=== PATIENT | female | born 1950 | race Caucasian/White ===

== ENCOUNTER → 2017-05-11 | Outpatient (CLI) | payer MEDICARE, SELFPAY | PROVIDERS: Visit Provider Family Medicine | DX: R91.1 Solitary pulmonary nodule (principal) | CPT/HCPCS: 71250 ==

== ENCOUNTER → 2017-10-09 13:02 | Outpatient (CLI) | payer MEDICARE, SELFPAY ==
[2017-10-09 15:04] LABS: Blood Urea Nitrogen 14 mg/dL (7-18); Creatinine,Serum 1.06 mg/dL (0.55-1.02); Estimated Glomerular Filt Rate 52 ml/min (>60); GFR (African American) 62 ML/MIN (>60)
== END ==
PROVIDERS: Visit Provider Family Medicine
DX: R27.0 Ataxia, unspecified (principal); R42 Dizziness and giddiness
CPT/HCPCS: 36415; 82565; 84520

== ENCOUNTER → 2017-10-11 09:26 | Outpatient (CLI) | payer MEDICARE, SELFPAY ==
--- NOTE | 2017-10-11 09:31 | MR_ITS ---
MR head/brain wo/w con HISTORY: Ataxia, vertigo, dizziness, off balance ITS.REASON: ATAXIA, VERTIGO ORDERING PHYSICIAN: Jaxson Ken MD PATIENT AGE: 67 years Comparison: None TECHNIQUE: Standard multiplanar multiecho sequences are performed without and with gadolinium enhancement . FINDINGS: There is mild prominence of the cisterna magna as a normal variant. The cerebellopontine angles, cerebellum, and brainstem are unremarkable. No midline shift or mass effect. No intracranial hemorrhage or hydrocephalus. No evidence of acute infarction no enhancing lesions. Small area of CSF signal intensity noted in the right subinsular region and may be due to dilated perivascular space, small choroidal fissure cyst, or old lacunar infarction. The hippocampal gyri are unremarkable in the temporal horns are symmetric. There is a partial empty sella. Optic chiasm and corpus callosum are unremarkable. No cerebellar ectopia. There are scattered periventricular and subcortical T2 white matter hyperintensities which may be due to mild ischemic gliotic foci for microvascular disease. No sinus air-fluid level or mastoid effusion. IMPRESSION: 1. No acute intracranial findings. 2. Scattered small periventricular T2 white matter hyperintensities which may be due to small ischemic gliotic foci from microvascular changes. 3. Small cystic area subinsular region on the right which may be due to a dilated perivascular space, cortical fissure cyst, or an old lacunar infarction 4. No evidence of cerebellopontine angle mass
== END ==
PROVIDERS: Visit Provider Family Medicine
DX: R42 Dizziness and giddiness
CPT/HCPCS: 70553; A9576

== ENCOUNTER → 2018-02-28 10:00 | Outpatient (CLI) | payer MEDICARE, SELFPAY ==
--- NOTE | 2018-02-28 10:02 | MM_ITS ---
MM Dig screening mamm BI w/CAD ORDERING PHYSICIAN : Jaxson Ken MD PATIENT AGE: 67 years GENDER: Female COMPARISON: March 02 January. April 2013 & 2013, INDICATION: ITS.REASON: SCREENING No hormones no new complaints. Previous cyst aspiration on left . family history. Mother with breast cancer age 76 TECHNIQUE: Standard CC and MLO images were obtained. R2 CAD reviewed. FINDINGS: Moderately dense breast prior films are helpful and supportive stable appearance with only very minor asymmetry . No suspicious dominant mass nor suspicious calcifications. Scattered benign calcifications bilaterally RIGHT BREAST:No significant new findings Area of density at the central breast on cc view is unchanged since at least 2012. Stable feature. LEFT BREAST:No significant new findings Area of mild asymmetric density at the lateral, upper-outer quadrant left breast is similar to studies dating back to at least 2015 IMPRESSION: Stable bilateral mammogram. Follow-up in one year No suspicious nor significant new findings Moderately dense breast BI-RADS Category: 2 Benign Finding(s) RECOMMENDED FOLLOW-UP: 1YR 1 YEAR FOLLOW-UP (A letter has been sent to the patient regarding results of the study.)
== END ==
PROVIDERS: PCP Family Medicine; Visit Provider Family Medicine
DX: Z12.31 Encounter for screening mammogram for malignant neoplasm of breast (principal)
CPT/HCPCS: 77067

== ENCOUNTER → 2018-09-13 07:59 | Outpatient (CLI) | payer MEDICARE, SELFPAY ==
--- NOTE | 2018-09-13 08:01 | CT_ITS ---
CT lung screening EXAM: CT LUNG LOW DOSE WO CONTRAST HISTORY: 43 pack-year smoking history ITS.REASON: HX TOBBACO USE ORDERING PHYSICIAN: Jaxson Ken MD PATIENT AGE: 68 years COMPARISON: 05/11/2017 TECHNIQUE: The exam was performed on a [employer] Light Speed [address] scanner using 2.90 mGy CTDI. A low dose helical CT CHEST was performed on a multi-detector scanner. All CT scans at the facility use one or more dose reduction, viz: automated exposure control, ma/kV adjustment per patient size (including targeted exams where dose is matched to indication, i.e. head), or iterative reconstruction technique. The LDCT was performed in a facility that meets the criteria for the screening program. Data regarding this exam was submitted to ACR which is an approved registry. The order for this exam indicates that it came as a result of a lung cancer screening counseling shard decision-making visit that included all the elements required of such a visit including smoking cessation. The radiologist interpreting this exam meets the [facility] criteria for the LDCT lung cancer screening program. The exam is reported using the Lung-RADS classification scale and reported to the ACR registry. NOTE: This study was performed for the specific purposes of lung cancer screening and is not an alternative to diagnostic chest CT. RADIATION DOSE: CTDI vol(CT dose Index-volume) = 2.90mG DLP (Dose Length Product) = 101.22 mGcm FINDINGS: Hyperinflation with attenuation of the peripheral pulmonary vessels consistent with obstructive chronic bronchitis. Small fissural nodule present in the left major fissure superiorly at 4 mm unchanged there is a 18 x 16 mm nodular soft tissue density in the anterior mediastinum on the left in the anterior paratracheal region is felt to represent substernal goiter not significantly changed. There are coronary artery calcifications. Mild prominence of the pulmonary artery with pulmonary artery/aorta ratio greater than 1 suggesting pulmonary arterial hypertension. There is mild thickening of the distal esophagus. Fibrotic changes are present in the lung bases. IMPRESSION: 1. Lung RADS Category: 2, benign 2. Other findings: COPD, coronary artery disease, substernal goiter, enlarged pulmonary artery suggesting pulmonary artery hypertension RECOMMENDATIONS: 12 month LDCT follow-up
== END ==
PROVIDERS: PCP Family Medicine; Visit Provider Family Medicine
DX: Z12.2 Encounter for screening for malignant neoplasm of respiratory organs (principal); Z87.891 Personal history of nicotine dependence

== ENCOUNTER → 2018-09-27 07:53 | Outpatient (CLI) | payer MEDICARE, SELFPAY ==
--- NOTE | 2018-09-27 | AS_ITS ---
Renal Arterial Duplex Indications: 405.91 Unspecified renovascular hypertension. F/u less than 60% stenosis right renal artery. IMPRESSIONS 1. 50% or greaterstenosis involving the right renal artery 2. The left renal artery appears normal. 3. Left proximal renal artery not visualized. History: Risk factors: Ex smoker. Complete renal arterial duplex. Duplex scan and Doppler flow study including spectral analysis, color and schmidt scale imaging. Height: Height: 165.1cm. Height: 65in. Weight: Weight: 86.2kg. Weight: 189.6lb. Body mass index: BMI: 31.6kg/m^2. Body surface area: BSA: 2.02m^2. Location: Vascular laboratory. Patient status: Outpatient. Findings: Cyst in the left lower pole cortex. Dimensions: 2cm (L). Cyst in the left mid pole cortex. Dimensions: 2cm (AP D). Tables: Arterial flow: + +--------+--------+ Location V sys V ed + +--------+--------+ Right renal - proximal 206cm/s 60.4cm/s + +--------+--------+ Right renal - mid 151cm/s 25.6cm/s + +--------+--------+ Right renal - distal 193cm/s 22.3cm/s + +--------+--------+ Left renal - mid 131cm/s 31.8cm/s + +--------+--------+ Left renal - distal 74.5cm/s 14.6cm/s + +--------+--------+ Right renal-origin 196cm/s 35.4cm/s + +--------+--------+ Aorta-prox 81.7cm/s -------- + +--------+--------+ Renal anatomy: + +------+-----+ Left Right + +------+-----+ Long axis 11.2cm 9.9cm + +------+-----+ Short axis 7.4cm 7.9cm + +------+-----+ Cortical thickness 1.4cm 1.4cm + +------+-----+ Velocity ratios: + +-----+ V sys + +-----+ Right renal/aortic 2.5 + +-----+ Left renal/aortic 1.6 + +-----+ (Report amended ) Electronically signed by: Roderick Chase [id number]
== END ==
PROVIDERS: PCP Family Medicine; Visit Provider Family Medicine
DX: I10 Essential (primary) hypertension (principal); I70.1 Atherosclerosis of renal artery
CPT/HCPCS: 93976

== ENCOUNTER → 2019-03-05 07:47 | Outpatient (CLI) | payer MEDICARE, SELFPAY ==
--- NOTE | 2019-03-05 07:50 | MM_ITS ---
PROCEDURE: MM DIG SCREENING MAMM BI W/CAD CLINICAL INDICATION: SCREENING There is a history of breast cancer in patient's mother diagnosed after menopause. There has been a previous cyst aspiration left breast for benign disease. COMPARISON: [facility] DIG MAMM-DX [facility] from 01/25/2016 [facility] DIG MAMM-SCREEN [facility] W/CAD from 02/13/2017 [facility] MM Dig screening mamm BI w/CAD from 02/28/2018 TECHNIQUE: Standard CC and MLO images were obtained. R2 CAD reviewed. FINDINGS: Or prominent somewhat heterogenic fibroglandular densities are seen in both breast. There is faint arterial calcification in each breast there are scattered benign-appearing microcalcifications in each breast. There is no suspicious lesion and no suspicious microcalcifications. IMPRESSION: Moderate heterogenic breast density with no suspicious lesions seen BI-RAD Category: 2 Benign Finding(s) FOLLOW-UP: 1YR 1 Year Follow-up (A letter has been sent to the patient regarding results of the study.) Dictated by: Dr. Skyler Mcdaniels MD 03/07/2019 16:[address] Skyler Mcdaniels MD in [place] 03/07/2019 16:16
== END ==
PROVIDERS: PCP Family Medicine; Visit Provider Family Medicine
DX: Z12.31 Encounter for screening mammogram for malignant neoplasm of breast (principal)
CPT/HCPCS: 77067

== ENCOUNTER → 2019-10-13 16:24 | Outpatient (CLI) | payer MEDICARE, SELFPAY ==
--- NOTE | 2019-10-13 | XR_ITS ---
PROCEDURE: XR CHEST 2V CLINICAL HISTORY: Shortness of breath COMPARISON: CXR1 CHEST-PORTABLE from 10/03/[address] CHEST W/O CONTRAST from 05/11/2017 CXR2V XR chest 2V from 06/05/2018 Chest from 12/14/2018 FINDINGS: There is mild cardiomegaly without failure. The lungs are clear bilaterally. The lungs are clear without infiltrates, suspicious nodules, or pleural effusions. Degenerative change thoracic IMPRESSION: Mild cardiomegaly otherwise negative Dictated by: Roderick Chase MD 10/14/2019 15:28 Electronically signed by Roderick Chase MD in [place] 10/14/2019 15:28
--- NOTE | 2019-10-13 | XR_ITS ---
PROCEDURE: XR THORACIC SPINE 2V CLINICAL INDICATION: Thoracic back pain COMPARISON: CXR2V XR chest 2V from 06/05/2018 XR CHEST 2V from 10/13/2019 FINDINGS: There is mild multilevel degenerative disc disease of the thoracic spine with decrease in the disc spaces and anterior osteophytes. No acute fracture or dislocation. No lytic or blastic change. There is minimal upper thoracic curvature convex right. IMPRESSION: Thoracic spondylosis, no acute finding Dictated by: Roderick Chase MD 10/14/2019 15:27 Electronically signed by Roderick Chase MD in [place] 10/14/2019 15:27
[2019-10-13 16:56] LABS: Basophils # 0.2 K/mm3 (0-0.2); Basophils % 2.1 % (0.1-2.0); Eosinophils # 0.3 K/mm3 (0.0-0.4); Eosinophils % 3.2 % (0.1-12.0); Hemoglobin 11.1 g/dL (12.2-16.2); Lymphocytes # 1.9 K/mm3 (0.7-4.5); Lymphocytes % 22.4 % (10-50); Mean Corpuscular HGB Conc 30.9 g/dL (31.8-35.4); Mean Platelet Volume 8.4 fl (7.4-10.4); Monocytes # 0.7 K/mm3 (0.1-1.0); Monocytes % 8.1 % (1.7-9.3); Neutrophils # 5.6 K/mm3 (1.8-7.8); Neutrophils % 64.2 % (37.0-80.0); Platelet Count 344 K/mm3 (142-424); Red Blood Count 3.83 M/mm3 (4.20-5.40); Red Cell Distribution Width 14.6 % (11.5-17.5); White Blood Count 8.7 K/mm3 (4.8-10.8)
[2019-10-13 18:10] LABS: Chloride 98 mmol/L (98-107); Potassium 5.3 mmoL/L (3.5-5.1); Sodium 131 mmol/L (136-145)
[2019-10-13 18:13] LABS: Anion Gap 14.3 mEq/L (5-15); Blood Urea Nitrogen 22 mg/dl (7-17); Carbon Dioxide 24 mmol/L (22.0-30.0); Estimated Glomerular Filt Rate 40 ml/min (>60); GFR (African American) 49 ML/MIN (>60); Glucose 145 mg/dl (74-100)
[2019-10-13 18:30] LABS: NT Pro Brain Natriuretic Pep. 343 pg/mL (0-125)
== END ==
PROVIDERS: Visit Provider Family Medicine
DX: R06.02 Shortness of breath (principal); M54.6 Pain in thoracic spine
CPT/HCPCS: 36415; 71046; 72070; 80048; 83880; 85025

== ENCOUNTER → 2019-10-29 10:37 | Outpatient (CLI) | payer MEDICARE, SELFPAY | PROVIDERS: PCP Family Medicine; Visit Provider Family Medicine | DX: R06.02 Shortness of breath (principal) | CPT/HCPCS: 93306 ==

== ENCOUNTER → 2020-02-18 14:44 | Outpatient (CLI) | payer MEDICARE, SELFPAY ==
--- NOTE | 2020-02-18 14:47 | CT_ITS ---
PROCEDURE: CT LUNG SCREENING CLINICAL INDICATION: H/O NICOTINE DEPENDENCE former smoker quit 3 years ago 30 pack year smoking history copd prior 09/13/18 COMPARISON: CT [facility] CT CHEST W/O CONTRAST from 05/11/[address] lung screening from 09/13/2018 TECHNIQUE: The exam was performed on a [employer] Light Speed [address] scanner using 2.90 mGy CTDI. A low dose helical CT CHEST was performed on a multi-detector scanner. All CT scans at the facility use one or more dose reduction, viz: automated exposure control, ma/kV adjustment per patient size (including targeted exams where dose is matched to indication, i.e. head), or iterative reconstruction technique. The LDCT was performed in a facility that meets the criteria for the screening program. Data regarding this exam was submitted to ACR which is an approved registry. The order for this exam indicates that it came as a result of a lung cancer screening counseling shard decision-making visit that included all the elements required of such a visit including smoking cessation. The radiologist interpreting this exam meets the CMS criteria for the LDCT lung cancer screening program. The exam is reported using the Lung-RADS classification scale and reported to the ACR registry. NOTE: This study was performed for the specific purposes of lung cancer screening and is not an alternative to diagnostic chest CT. RADIATION DOSE: CTDI vol(CT dose Index-volume) = 2.90mG DLP (Dose Length Product) = 95.08 mGcm FINDINGS: COPD with mild bronchial thickening. A 3 mm nodular opacity is present in the left upper lobe axial image 19 probably not significantly changed compared to an older study of 05/11/2017. No suspicious pulmonary nodules are identified. There is some scattered scarring/fibrotic change. Anterior mediastinal nodule is present as before measuring 2 cm consistent with a substernal goiter. OTHER FINDINGS: There is a small hiatal hernia. Coronary artery calcifications are present. IMPRESSION: Lung-RADS Category 2 Benign Appearance or Behavior Follow-up: Continue annual screening with LDCT in 12 months Dictated by: Roderick Chase MD 02/22/2020 13:21 Roderick Chase MD in [place] 02/22/2020 13:21
== END ==
PROVIDERS: PCP Family Medicine; Visit Provider Family Medicine
DX: Z87.891 Personal history of nicotine dependence (principal); Z12.11 Encounter for screening for malignant neoplasm of colon

== ENCOUNTER → 2020-03-25 09:40 | Outpatient (CLI) | payer MEDICARE, SELFPAY ==
--- NOTE | 2020-03-25 09:43 | MM_ITS ---
PROCEDURE: MM DIG SCREENING MAMM BI W/CAD Digital Breast Tomosynthesis Included CLINICAL INDICATION: SCREENING There is a history of breast cancer in the patient's mother diagnosed at age 76. The patient currently is on Premarin. COMPARISON: [facility] MM Dig screening mamm BI w/CAD from 02/28/2018 MG MM DIG SCREENING MAMM BI W/CAD from 03/05/2019 TECHNIQUE: Standard CC and MLO images and 3D Tomosynthesis was obtained. R2 CAD reviewed. FINDINGS: Moderate diffuse somewhat heterogenic fibroglandular densities are seen in the central portions of both breasts. There is diffuse arterial calcification in each breast. There are scattered benign-appearing microcalcifications in each breast. A CAD marking right breast was reviewed and appears to be benign. There is no suspicious lesion in either breast and no suspicious microcalcifications. IMPRESSION: Moderate stable heterogenic breast density with no suspicious lesions seen BI-RAD Category: 2 Benign Finding(s) FOLLOW-UP: 1YR 1 Year Follow-up (A letter has been sent to the patient regarding results of the study.) Dictated by: Dr. Skyler Mcdaniels MD 03/26/2020 11:17 Dr. Skyler Mcdaniels MD in [place] 03/26/2020 11:17
== END ==
PROVIDERS: PCP Family Medicine; Visit Provider Family Medicine
DX: Z12.31 Encounter for screening mammogram for malignant neoplasm of breast (principal)
CPT/HCPCS: 77063; 77067

== ENCOUNTER 2020-08-27 12:00 | Outpatient (CLI) | payer MEDICARE, SELFPAY ==
[2020-08-27 12:26] VITALS: BMI 31.1
[2020-08-27 12:30] VITALS: BP 124/53; PULSE 71; RESP 18; TEMP 36.5; O2SAT 98
[2020-08-27 13:40] VITALS: BP 150/64; PULSE 74; RESP 18
[2020-08-27 13:55] LABS: Chloride 96 mmol/L (98-107); Sodium 132 mmol/L (136-145)
[2020-08-27 13:56] LABS: Potassium 4.4 mmoL/L (3.5-5.1)
[2020-08-27 13:58] LABS: Blood Urea Nitrogen 22 mg/dl (7-17); Creatinine Clearance Estimated 53 mL/min (50-200); Estimated Glomerular Filt Rate 40 ml/min (>60); GFR (African American) 49 ML/MIN (>60)
[2020-08-27 13:59] LABS: Anion Gap 15.4 mEq/L (5-15); Carbon Dioxide 25 mmol/L (22.0-30.0); Glucose 108 mg/dl (74-100)
[2020-08-27 14:07] LABS: Calcium 15.2 mg/dl (8.4-10.2)
--- NOTE | 2020-08-27 14:13 | PC.NURSE ---
1413-notified eli barboza at ' office about critical calcium 15.2; per pt to f/u in office about calcium.
== END 2020-08-27 13:40 | disposition home or self-care (01) ==
LOC: INF 12:00
PROVIDERS: PCP Family Medicine; Visit Provider Family Medicine
DX: R30.0 Dysuria (principal)
CPT/HCPCS: 36415; 80048; 96365; J1335

== ENCOUNTER 2020-08-27 19:16 | Observation (INO) | payer MEDICARE, SELFPAY ==
[2020-08-27] VITALS (7 sets, daily range): BP systolic 185–224; BP diastolic 72–84; PULSE 72–78; RESP 18–19; TEMP 36.9; O2SAT 87–99; BMI 31.1
--- NOTE | 2020-08-27 19:46 | HMH.EDUTC ---
[facility] Disposition Condition on Discharge: Fair Time of Disposition: 20:01 <Yadira Valiente E - Last Filed: 08/27/20 19:46> <Reji Chung - Last Filed: 08/27/20 23:37> Clinical Impression: Hypercalcemia, Heart murmur, systolic Vomiting Qualifiers: Vomiting type: unspecified Vomiting Intractability: unspecified Nausea presence: with nausea Qualified Code(s): R11.2 - Nausea with vomiting, unspecified UTI (urinary tract infection) Qualifiers: Urinary tract infection type: site unspecified Hematuria presence: without hematuria Qualified Code(s): N39.0 - Urinary tract infection, site not specified Disposition: Admitted as Observation Referrals: Jaxson Ken MD [Primary Care Provider] - Medical Decision Making - Danial Inquiry Pt receiving controlled substance: No Danial was queried for this patient: No <Yadira Valiente - Last Filed: 08/27/20 19:46> - Medical Records Medical records reviewed: Yes: I reviewed the patient's medical records. - Lab Data Lab results reviewed: Yes: I reviewed the patient's lab results. Result diagrams: 08/27/20 20:40 08/27/20 20:40 - Radiology Data #1 Image(s): Chest Image Reviewed: Yes I reviewed the patient's radiology image Preliminary Findings: Normal/NAD - CT Data CT Scan: Abdomen, Pelvis Time Received: 23:[address] Reviewed: Yes: I have viewed the radiologist's interpretation Preliminary Findings: Abnormal (cystitis ) - ECG Data Tracing #1 Normal Sinus Rhythm: Yes Ischemic changes: non-specific ST-T wave changes - Physician Consults Physician Consulted: melina Reason -: Admission <Reji Chung - Last Filed: 08/27/20 23:37> Vital Signs: 08/27/20 19:20 08/27/20 19:47 08/27/20 20:03 Temperature 98.5 F 98.5 F Temperature Source Oral Oral Pulse Rate [Left Brachial] 78 74 74 Respiratory Rate 19 18 Blood Pressure [Left Arm] 198/73 H 185/72 H 185/72 H Blood Pressure Mean [Left Arm] 114 109 109 Blood Pressure Source [Left Arm] Automatic Cuff Manual Cuff/ Auscultation Automatic Cuff Blood Pressure Position [Left Arm] Sitting Supine Supine 02 Sat by Pulse Oximetry 91 L 87 L 89 L Oxygen Delivery Method Room Air Nasal Cannula Room Air Oxygen Flow Rate (LPM) 2 - Lab Data Lab Results 08/27/20 20:40: WBC 9.7, RBC 4.22, Hgb 12.3, Hct 39.3, MCV 93.1, MCH 29.2, MCHC 31.4 L, RDW 13.9, Plt Count 469 H, MPV 8.5, Neut % (Auto) 75.0, Lymph % (Auto) 16.5, [place] % (Auto) 6.4, Eos % (Auto) 1.4, Baso % (Auto) 0.7, Neut # (Auto) 7.3, Lymph # (Auto) 1.6, [place] # (Auto) 0.6, Eos # (Auto) 0.1, Baso # (Auto) 0.1, ESR 11 08/27/20 20:40: Sodium 132 L, Potassium 4.0, Chloride 94 L, Carbon Dioxide 30, Anion Gap 12.0, BUN 23 H, Creatinine 1.50 H, Estimated Creat Clear 46, Estimated GFR 34 L, Est GFR ( Amer) 41 L, Glucose 129 H, Calcium 15.1 H*, Total Bilirubin 0.5, AST 32, ALT 19, Alkaline Phosphatase 42, Troponin I < 0.01, C-Reactive Protein 2.0, Total Protein 7.3, Albumin 4.4, Globulin 2.9, Albumin/Globulin Ratio 1.5, Amylase 49, Lipase 62, Procalcitonin 0.047 08/27/20 23:15: Urine Color Yellow, Urine Appearance Clear, Urine pH 6.0, Ur Specific [place] 1.025, Urine Protein Negative, Urine Glucose (UA) Negative, Urine Ketones Negative, Urine Blood Negative, Urine Nitrate Positive, Urine Bilirubin Negative, Urine Urobilinogen 0.2, Ur Leukocyte Esterase 2+ A, Urine RBC None, Urine WBC Tntc, Ur Squamous Epith Cells None, Urine Bacteria 2+ Orders (Tests/Meds): ED MEDICATIONS Generic Name Dose Route Start Last Admin Trade Name Freq PRN Reason Stop Dose Admin Sodium Chloride 1,000 mls @ 999 mls/hr 08/27/20 20:45 08/27/20 22:34 Sod Chlor 0.9% 1000ml Bag IV 08/27/20 21:45 999 mls/hr .Q1H1M RUSS Administration Sodium Chloride 8 ml 08/27/20 20:37 Sodium Chloride 0.9% 10ml Vial IV 09/26/20 20:36 NEEDED PRN dilute pepcid Discontinued Medications Generic Name Dose Route Start Last Admin Trade Name Freq PRN Reason Stop Dose Admin Diphen
--- NOTE | 2020-08-27 19:55 | PC.NURSE ---
PATIENT SENT TO ER PER MELINA ROSS APRN FOR FURTHER EVALUATION. REPORT GIVEN TO Berna ESTRELLA RN
--- NOTE | 2020-08-27 19:57 | ECG_ITS ---
APPROVED REPORT Exam: Resting ECG HR:74 bpm ECG Measurements Heart Rate 74 AXES IA 162 P 48 QRSd 94 QRS 17 QT 376 T 70 QTc 417 Conclusion Normal sinus rhythm Normal ECG Electronically signed by : Jaxson Jean, 08/29/2020 07:28:41
--- NOTE | 2020-08-27 20:37 | CT_ITS ---
PROCEDURE: CT ABDOMEN PELVIS W CON CLINICAL INDICATION: N/V x 3 days Nausea and vomiting, stomach pain COMPARISON: No exams were available for comparison TECHNIQUE: IV Contrast: 75ML Isovue 370 Oral Contrast None Axial images obtained with sagittal and coronal reformats. All CT scans at the facility use one or more dose reduction, viz: automated exposure control, ma/kV adjustment per patient size (including targeted exams where dose is matched to indication, i.e. head), or iterative reconstruction technique. FINDINGS: LOWER THORAX: No acute finding ABDOMEN & PELVIS: Prior cholecystectomy with mild biliary ectasia. No focal liver lesion apparent. There is distention of the stomach which is fluid-filled and mild fluid-filled distention of the duodenal bulb. The spleen an adrenal glands and pancreas have an unremarkable appearance. 1.9 cm isodense lesion of the left kidney superiorly and laterally indeterminate. There are small bilateral renal cortical cysts. No intestinal obstruction or free air. There is a moderate amount of retained colonic feces. Unremarkable appendix. Mild urinary bladder wall thickening. There is minimal calcification in the fundus of the uterus. Small left inguinal hernia containing fat. Small umbilical hernia containing fat. Mild degenerative changes thoracic spine. Minimal dilatation of the infrarenal abdominal aorta at 2.3 cm. Aortoiliac calcifications are present. Mild degenerative changes of the hips. IMPRESSION: 1. Indeterminate isodense lesion of the left kidney at 1.9 cm. Consider ultrasound for further evaluation to determine cystic or solid nature. 2. There is mild urinary bladder wall thickening which may be seen with incomplete distension, chronic outflow obstruction, or cystitis. 3. Constipation with colonic diverticulosis and no evidence of diverticulitis. 4. Fluid-filled mildly distended stomach and duodenal bulb Dictated by: Roderick Chase MD 08/28/2020 10:41 Roderick Chase MD in [place] 08/28/2020 10:41
--- NOTE | 2020-08-27 20:37 | XR_ITS ---
PROCEDURE: XR CHEST 2V CLINICAL HISTORY: chest pain COMPARISON: CT [facility] CT CHEST W/O CONTRAST from 05/11/2017 CR CXR2V XR chest 2V from 06/05/2018 CR Chest from 12/14/2018 CR XR CHEST 2V from 10/13/2019 FINDINGS: The cardiomediastinal silhouette and pulmonary vascularity are within normal limits. The lungs are clear without infiltrates, suspicious nodules, or pleural effusions. No acute bony abnormalities. IMPRESSION: No acute findings. Dictated by: Roderick Chase MD 08/28/2020 08:06 Roderick Chase MD in [place] 08/28/2020 08:06
[2020-08-27 20:46] LABS: Basophils # 0.1 K/mm3 (0-0.2); Basophils % 0.7 % (0.1-2.0); Eosinophils # 0.1 K/mm3 (0.0-0.4); Eosinophils % 1.4 % (0.1-12.0); Hematocrit 39.3 % (37.0-47.0); Hemoglobin 12.3 g/dL (12.2-16.2); Lymphocytes # 1.6 K/mm3 (0.7-4.5); Lymphocytes % 16.5 % (10-50); Mean Corpuscular HGB Conc 31.4 g/dL (31.8-35.4); Mean Corpuscular Hemoglobin 29.2 pg (27.0-31.2); Mean Corpuscular Volume 93.1 fl (81-99); Mean Platelet Volume 8.5 fl (7.4-10.4); Monocytes # 0.6 K/mm3 (0.1-1.0); Monocytes % 6.4 % (1.7-9.3); Neutrophils # 7.3 K/mm3 (1.8-7.8); Platelet Count 469 K/mm3 (142-424); Red Blood Count 4.22 M/mm3 (4.20-5.40); Red Cell Distribution Width 13.9 % (11.5-17.5); White Blood Count 9.7 K/mm3 (4.8-10.8)
[2020-08-27 20:47] LABS: Chloride 94 mmol/L (98-107); Sodium 132 mmol/L (136-145)
[2020-08-27 20:50] LABS: Alanine Aminotransferase 19 U/L (12-78); Alkaline Phosphatase 42 U/L (38-126); Amylase 49 U/L (30-110); Aspartate Amino Transferase 32 U/L (14-36); Bilirubin,Total 0.5 mg/dl (0.2-1.3); Blood Urea Nitrogen 23 mg/dl (7-17); Carbon Dioxide 30 mmol/L (22.0-30.0); Creatinine Clearance Estimated 46 mL/min (50-200); Estimated Glomerular Filt Rate 34 ml/min (>60); GFR (African American) 41 ML/MIN (>60); Glucose 129 mg/dl (74-100); Lipase 62 U/L (23-300)
[2020-08-27 20:51] LABS: Albumin Level 4.4 g/dl (3.5-5.0); Albumin/Globulin Ratio 1.5 (1.1-1.8); Globulin 2.9 g/dL (1.3-3.2); Total Protein,Serum 7.3 g/dl (6.3-8.2)
--- NOTE | 2020-08-27 20:58 | PC.NURSE ---
JORGITO SIMON notified of critical Ca
[2020-08-27 21:00] LABS: Calcium 15.1 mg/dl (8.4-10.2)
[2020-08-27 21:07] LABS: Troponin I < 0.01 ng/ml (0.00-0.034)
[2020-08-27 21:13] LABS: Procalcitonin 0.047 ng/mL (0.0-2.0)
[2020-08-27 21:21] LABS: Erythrocyte Sedimentation Rate 11 mm/hr (0-30)
--- NOTE | 2020-08-27 22:11 | PC.NURSE ---
pt gone to radiology
[2020-08-27 23:17] LABS: Microscopic, Urine URINE MICROSCOPIC (MICROSCOPIC)
[2020-08-27 23:19] LABS: Appearance,Urine CLEAR (Clear); Bilirubin,Urine Negative (Negative); Blood, Urine Negative (Negative); Color,Urine YELLOW (Yellow); Glucose,Urine (UA) Negative (Negative); Ketones,Urine Negative (Negative); Leukocyte Esterase,Urine 2+ (Negative); Nitrate,Urine POSITIVE (Negative); Protein,Urine Negative (Negative); Specific Gravity, Urine 1.025 (1.005-1.030); Urobilinogen,Urine 0.2 EU/dl (0.2)
[2020-08-27 23:28] LABS: Bacteria,Urine 2+ /lpf; WBC,Urine TNTC #/hpf (0-3)
[2020-08-27 23:45] LABS: Adenovirus,PCR Not Detected (NotDetected); Bordetella Pertussis Not Detected (NotDetected); Chlamydophila Pneumoniae, PCR Not Detected (NotDetected); Coronavirus 19, PCR Not Detected (NotDetected); Coronavirus 229E Not Detected (NotDetected); Coronavirus NL63 Not Detected (NotDetected); Coronavirus OC43 Not Detected (NotDetected); Coronovirus HKU1,PCR Not Detected (NotDetected); Human Metapneumovirus Not Detected (NotDetected); Influenza A, PCR Not Detected (NotDetected); Influenza AH1, 2009 Not Detected (NotDetected); Influenza AH1, PCR Not Detected (NotDetected); Influenza AH3,PCR Not Detected (NotDetected); Influenza B, PCR Not Detected (NotDetected); Mycoplasma Pneumoniae, PCR Not Detected (NotDetected); Parainfluenza 1, PCR Not Detected (NotDetected); Parainfluenza 2, PCR Not Detected (NotDetected); Parainfluenza 3, PCR Not Detected (NotDetected); Parainfluenza 4, PCR Not Detected (NotDetected); Respiratory Syncytial Virus Not Detected (NotDetected); Rhinovirus/Enterovirus Not Detected (NotDetected)
[2020-08-27 23:55] LABS: Phosphorous 4.4 mg/dl (2.5-4.5)
[2020-08-28] VITALS (13 sets, daily range): BP systolic 157–214; BP diastolic 55–81; PULSE 65–80; RESP 16–20; TEMP 36.6–36.9; O2SAT 90–98; BMI 31.1
[2020-08-28 00:07] LABS: 25-OH Vitamin D, Total 36.4 ng/mL (30-100)
[2020-08-28 00:08] LABS: Intact Parathyroid Hormone 3.6 pg/mL (7.5-53.5)
[2020-08-28 00:13] LABS: Free T4 (Free Thyroxine) 1.86 ng/dl (0.78-2.19)
[2020-08-28 00:14] LABS: Troponin I < 0.01 ng/ml (0.00-0.034)
[2020-08-28 00:33] LABS: Basophils # 0.1 K/mm3 (0-0.2); Basophils % 0.6 % (0.1-2.0); Eosinophils % 0.2 % (0.1-12.0); Hematocrit 38.9 % (37.0-47.0); Hemoglobin 12.4 g/dL (12.2-16.2); Lymphocytes # 0.9 K/mm3 (0.7-4.5); Lymphocytes % 10.5 % (10-50); Mean Corpuscular Hemoglobin 29.3 pg (27.0-31.2); Mean Corpuscular Volume 91.6 fl (81-99); Mean Platelet Volume 7.6 fl (7.4-10.4); Monocytes # 0.2 K/mm3 (0.1-1.0); Monocytes % 1.7 % (1.7-9.3); Neutrophils # 7.5 K/mm3 (1.8-7.8); Platelet Count 355 K/mm3 (142-424); Red Blood Count 4.25 M/mm3 (4.20-5.40); Red Cell Distribution Width 13.8 % (11.5-17.5); White Blood Count 8.7 K/mm3 (4.8-10.8)
[2020-08-28 00:34] LABS: MANUAL DIFFERENTIAL MANUAL DIFFERENTIAL (MANUAL DIFF)
[2020-08-28 00:40] LABS: Anion Gap 11.1 mEq/L (5-15); Blood Urea Nitrogen 21 mg/dl (7-17); Carbon Dioxide 28 mmol/L (22.0-30.0); Chloride 98 mmol/L (98-107); Creatinine Clearance Estimated 53 mL/min (50-200); Estimated Glomerular Filt Rate 40 ml/min (>60); GFR (African American) 49 ML/MIN (>60); Glucose 147 mg/dl (74-100); Magnesium 1.2 mg/dl (1.6-2.3); Potassium 4.1 mmoL/L (3.5-5.1); Sodium 133 mmol/L (136-145)
[2020-08-28 01:26] LABS: Lymphocytes % 8 % (10-50); Monocytes % 2 % (2-9); Neutrophils % 90 % (42-76); Platelet Estimate Normal; RBC Morphology Normal; Total Cells Counted 100
--- NOTE | 2020-08-28 03:16 | PC.NURSE ---
A&OX4. PT TOLERATING RA WELL T/O SHIFT, SAT IN LOWER 90S. PT IS SLIGHTLY WEAK T/O SHIFT. PT HAS HAD NO C/O NA/VO OR PAIN THUS FAR THIS SHIFT. PT TOLERATING NPO DIET WELL. PT GETTING UP TO BEDSIDE COMMODE INDEPENDENTLY WITH NO ISSUE. NSR ON TELE. PT DAUGHTER AT BEDSIDE. VSS WILL CONTINUE TO MONITOR.
[2020-08-28 03:23] LABS: Troponin I 0.02 ng/ml (0.00-0.034)
[2020-08-28 05:12] LABS: POC Glucose,Bedside 178 (70-110)
--- NOTE | 2020-08-28 08:02 | XR_ITS ---
PROCEDURE: XR LUMBAR SPINE 2-3V CLINICAL INDICATION: low back pain, hypercalcemia, r/o malignance COMPARISON: No exams were available for comparison FINDINGS: Lumbar scoliosis convex right. Degenerative disc disease T11-T12 T12-L1 L2-L3. Generalized vascular calcification. No acute fracture or dislocation. No lytic blastic change. Other findings:None. IMPRESSION: Degenerative changes, no acute finding Dictated by: Roderick Chase MD 08/28/2020 11:22 Roderick Chase MD in [place] 08/28/2020 11:22
[2020-08-28 08:16] LABS: Basophils % 0.4 % (0.1-2.0); Eosinophils % 0.3 % (0.1-12.0); Hematocrit 36.9 % (37.0-47.0); Hemoglobin 11.6 g/dL (12.2-16.2); Lymphocytes # 0.8 K/mm3 (0.7-4.5); Lymphocytes % 11.8 % (10-50); Mean Corpuscular HGB Conc 31.5 g/dL (31.8-35.4); Mean Corpuscular Hemoglobin 29.3 pg (27.0-31.2); Mean Corpuscular Volume 93.2 fl (81-99); Mean Platelet Volume 7.9 fl (7.4-10.4); Monocytes # 0.1 K/mm3 (0.1-1.0); Monocytes % 1.3 % (1.7-9.3); Neutrophils % 86.1 % (37.0-80.0); Platelet Count 367 K/mm3 (142-424); Red Blood Count 3.96 M/mm3 (4.20-5.40); Red Cell Distribution Width 13.9 % (11.5-17.5)
[2020-08-28 08:31] LABS: Chloride 100 mmol/L (98-107); Potassium 4.2 mmoL/L (3.5-5.1); Sodium 133 mmol/L (136-145)
[2020-08-28 08:34] LABS: Anion Gap 9.2 mEq/L (5-15); Blood Urea Nitrogen 24 mg/dl (7-17); Carbon Dioxide 28 mmol/L (22.0-30.0); Creatinine Clearance Estimated 53 mL/min (50-200); Estimated Glomerular Filt Rate 40 ml/min (>60); GFR (African American) 49 ML/MIN (>60)
[2020-08-28 08:35] LABS: Glucose 167 mg/dl (74-100)
--- NOTE | 2020-08-28 09:01 | HMH.HP ---
*Admission Date: 08/28/20 *Chief complaint: Vomiting *History of present illness: 70-year-old female presented to the emergency department with nausea and vomiting as well as some crampy abdominal pain. Patient has been battling urinary tract infection as an outpatient for the last several months and decision had finally been made to proceed with IV Invanz. Patient contact the office yesterday stating she believed the Cipro she was taking was causing her GI disturbance. Patient came to the hospital and underwent preinfusion labs which did reveal an elevated calcium. This is quite a marked difference compared to 2 months prior when her calcium was normal. Patient proceeded with IV Invanz infusion and then upon returning home developed vomiting. Vomiting persisted throughout the evening and patient returned to the urgent treatment clinic yesterday evening and was transitioned to the ER were calcium remained elevated. Patient was admitted with diagnosis of hypercalcemia. She was started on IV fluids. Overnight her vomiting has ceased and nausea was treated with medication. In regards to her hypercalcemia patient does take calcium supplementation as well as vitamin D. She denies any significant bone pain but admits that her lower back has been sore. Patient has no personal history of cancer [facility] History Medical History: Reports:: Diabetes Mellitus Type 2, Hypertension, Myocardial Infarction Denies:: Diabetes Mellitus Type 1 *Have you ever received a pneumonia vaccine?: Yes *Have you received a flu vaccine this season?: Yes Other Surgeries: Yes: Tubal Ligation - *Social History Smoking Status: Former smoker Alcohol Intake: never *Occupational Status:: retired *Travel in the last 8 weeks: None Family Hx:: No significant family history Review of Systems - Constitutional Reports anorexia, Denies body ache(s), Denies chills - Eyes Denies blind spots - ENT Reports abnormal hearing - *Cardiovascular Denies chest pain - *Respiratory Denies change in phlegm color - *Gastrointestinal Reports abdominal pain, Reports cramping, Reports vomiting - *Genitourinary Reports painful urination - *Musculoskeletal Denies joint pain - Integumentary/Breasts Denies acne - *Neurologic Reports abnormal walking, Denies seizure-like activity Meds Home Medications Medication Instructions Recorded Confirmed Type Aspirin [Ecotrin] 325 mg PO DAILY 06/05/18 08/28/20 History Ezetimibe/Simvastatin [Vytorin 1 each PO HS 06/05/18 08/28/20 History 10-20 mg Tablet] Fenofibrate Nanocrystallized 145 mg PO DAILY 06/05/18 08/28/20 History [Fenofibrate] Hydralazine HCl 100 mg PO TID 06/05/18 08/28/20 History Insulin Glargine,Hum.rec.anlog 30 unit SQ DAILY 06/05/18 08/28/20 History [Lantus Insulin 100units/mL 10mL vial] Metformin HCl 1,000 mg PO DAILY 06/05/18 08/28/20 History Metoclopramide HCl [Reglan 10mg 10 mg PO QID 06/05/18 08/28/20 History Tab] Nitroglycerin [Nitrostat 0.4mg SL 0.4 mg SL NEEDED PRN 06/05/18 08/27/20 History Tablet] Pantoprazole Sodium [Protonix 40mg 40 mg PO DAILY 06/05/18 08/28/20 History tablet] Ranolazine [Ranexa 500mg ER tablet] 500 mg PO BID 06/05/18 08/28/20 History Trazodone HCl 75 mg PO HS 06/05/18 08/28/20 History Venlafaxine HCl [Venlafaxine HCl 75 mg PO DAILY 06/05/18 08/28/20 History ER] Verapamil HCl [Verapamil ER Pm] 360 mg PO DAILY 06/05/18 08/28/20 History lisinopriL [Lisinopril 40mg Tablet] 40 mg PO DAILY 06/05/18 08/28/20 History Torsemide 10 mg PO DAILY PRN 12/14/18 08/28/20 History Calcium Carbonate [Calcium] 600 mg PO BID 08/27/20 08/28/20 History Dorzolamide HCl/Pf [Dorzolamide 2% 10 ml OP BID 08/27/20 08/28/20 History Eye Drop] Ezetimibe/Simvastatin 1 each PO HS 08/27/20 08/28/20 History [Ezetimibe-Simvastatin 10-10 mg] Latanoprost/Pf [Latanoprost 0.005% 1 drp OP BID 08/27/20 08/28/20 History Eye Drop] Nebivolol HCl [Bystolic] 5 mg PO HS 08/27
[2020-08-28 09:10] LABS: 25-OH Vitamin D, Total 37.5 ng/mL (30-100)
[2020-08-28 09:11] LABS: Intact Parathyroid Hormone 4.9 pg/mL (7.5-53.5)
[2020-08-28 10:56] LABS: POC Glucose,Bedside 185 (70-110)
[2020-08-28 12:27] LABS: Calcium 13.3 mg/dl (8.4-10.2)
--- NOTE | 2020-08-28 15:16 | HMH.PHAVTE ---
[facility] VTE Monitoring - Patient Demographics Admission date: 08/28/20 Report Date: 08/28/20 Time: 15:16 Allergies/Adverse Reactions: Patient Allergies Iodinated Contrast Media [Iodinated Contrast Media - IV Dye] Allergy (Intermediate, Verified 06/05/18 18:52) I-RASH Height: 1.65 m Weight: 84.822 kg Patient Problems: Current Active Problems Vomiting (Acute) UTI (urinary tract infection) (Acute) Hypercalcemia (Acute) Heart murmur, systolic (Acute) UTI due to Klebsiella species (Acute) Diabetes mellitus type 2, controlled (Acute) - VTE Risk Labs: VTE Related Lab Results Hgb 11.6 g/dL (12.2-16.2) L 08/28/20 08:05 Hct 36.9 % (37.0-47.0) L 08/28/20 08:05 Plt Count 367 K/mm3 (142-424) 08/28/20 08:05 BUN 24 mg/dl (7-17) H 08/28/20 08:05 Creatinine 1.30 mg/dl (0.52-1.04) H 08/28/20 08:05 Estimated Creat Clear 53 mL/min (50-200) 08/28/20 08:05 - Prophylaxis VTE Prophylaxis Ordered?: Yes Types of VTE Prophylaxis: TEDS Knee High Location of Applied Device: Bilateral Lower Extremeties
[2020-08-28 16:34] LABS: POC Glucose,Bedside 130 (70-110)
--- NOTE | 2020-08-28 17:47 | PC.NURSE ---
PT IS RESTING IN BED WITH FAMILY AT BEDSIDE. NO COMPLAINTS OF DISCOMFORT. PT HAS BEEN UP TO THE BSC WITH ASSIST SEVERAL TIMES THIS SHIFT. NO COMPLAINTS OF DIZZINESS. PT WAS ABLE TO TOLERATE FULL LIQUIDS AT BREAKFAST AND LUNCH W/O N/V. DIET WAS ADVANCED TO A 2000 ADA. BATH AND BED CHANGE THIS SHIFT WITH MINIMAL THIS SHIFT WITH MINIMAL ASSISTANCE. PT AMBULATED IN THE ROOM WITH 1 ASSIST AND STATED SHE DOES NOT FEEL WEAK SHE DID YESTERDAY. LUNG SOUNDS CLEAR. ABDOMEN SOFT/NON TENDER WITH HYPOACTIVE BOWEL SOUNDS. PT STATED HER LAST BOWEL MOVEMENT WAS 5 DAYS AGO. EARLIER THIS MORNING O2 SATURATION WAS 85-87% ON ROOM AIR. 2 L OF O2 WAS APPLIED AND PT WAS GIVEN A INCENTIVE SPIROMETER. O2 WAS REMOVED AT NOON AND O2 SATURATION HAS MAINTAINED 94-96% ON ROOM AIR. WILL CONTINUE TO MONITOR.
[2020-08-28 21:43] LABS: POC Glucose,Bedside 122 (70-110)
[2020-08-29] VITALS (9 sets, daily range): BP systolic 122–167; BP diastolic 57–74; PULSE 50–73; RESP 16–20; TEMP 36.5–36.8; O2SAT 89–96; BMI 29.8
[2020-08-29 02:06] LABS: POC Glucose,Bedside 80 (70-110)
--- NOTE | 2020-08-29 03:19 | PC.NURSE ---
shift summary pts lung sounds are clear with sats maintained at 90% or above on room air, with a rate ranging from 16-20. pt is alert and oriented X4. pt started ou with walking to the bathroom tonight with assist X2, but after discussion with the pt about how weak she was pt agreed to use a bedsise commode. urine is clear and yellow in color. pt is able to walk but gets tired very quickly. pt denies any pain, nausea, vomiting, or diarrhea.c
[2020-08-29 05:59] LABS: POC Glucose,Bedside 76 (70-110)
[2020-08-29 06:33] LABS: Basophils # 0.1 K/mm3 (0-0.2); Basophils % 0.4 % (0.1-2.0); Eosinophils % 0.1 % (0.1-12.0); Hematocrit 36.9 % (37.0-47.0); Hemoglobin 11.8 g/dL (12.2-16.2); Lymphocytes # 2.9 K/mm3 (0.7-4.5); Lymphocytes % 22.2 % (10-50); Mean Corpuscular HGB Conc 32.1 g/dL (31.8-35.4); Mean Corpuscular Hemoglobin 29.2 pg (27.0-31.2); Mean Platelet Volume 7.9 fl (7.4-10.4); Monocytes % 7.4 % (1.7-9.3); Neutrophils # 9.1 K/mm3 (1.8-7.8); Neutrophils % 69.9 % (37.0-80.0); Platelet Count 381 K/mm3 (142-424); Red Blood Count 4.05 M/mm3 (4.20-5.40); Red Cell Distribution Width 13.7 % (11.5-17.5)
[2020-08-29 06:35] LABS: Chloride 95 mmol/L (98-107); Sodium 128 mmol/L (136-145)
[2020-08-29 06:36] LABS: Potassium 3.7 mmoL/L (3.5-5.1)
[2020-08-29 06:38] LABS: Anion Gap 8.7 mEq/L (5-15); Blood Urea Nitrogen 28 mg/dl (7-17); Carbon Dioxide 28 mmol/L (22.0-30.0); Creatinine Clearance Estimated 51 mL/min (50-200); Estimated Glomerular Filt Rate 40 ml/min (>60); GFR (African American) 49 ML/MIN (>60); Glucose 86 mg/dl (74-100)
[2020-08-29 06:39] LABS: Magnesium 1.4 mg/dl (1.6-2.3)
[2020-08-29 07:18] LABS: Calcium 10.3 mg/dl (8.4-10.2)
--- NOTE | 2020-08-29 08:08 | US_ITS ---
PROCEDURE: US KIDNEY CLINICAL INDICATION: left renal mass COMPARISON: CT [facility] CT CHEST W/O CONTRAST from 05/11/2017 US CA renal artery duplex from 09/27/[address] ABDOMEN PELVIS W CON from 08/27/2020 FINDINGS: The right kidney is 11 x 8 cm. There is a small cortical cyst along the medial aspect of the right kidney at 1.7 cm. No hydronephrosis. The left kidney is 10 by cm. Along lower pole there is 16 mm cyst. In the upper pole there is a 17 mm cyst corresponding to the slightly hyperdense nodule noted on the CT scan IMPRESSION: Bilateral renal cysts. The isodense nodule of the left kidney seen on recent CT scan is felt to be related to a proteinaceous cyst. Dictated by: Roderick Chase MD 08/29/2020 13:22 Roderick Chase MD in OV 08/29/2020 13:22
--- NOTE | 2020-08-29 08:14 | HMH.ACPN2 ---
Internal Medicine - PN: Subj *Date: 08/29/20 *Time: 08:14 Interval history: Patient feels weak and unsteady on her feet. The longer she is standing her legs will ultimately give out on her. She denies shortness of breath. Exam Vital signs and Labs for Last 24 Hours: Temp Pulse Resp BP Pulse Ox 97.8 F 69 18 154/70 H 90 L 08/29/20 07:53 08/29/20 07:53 08/29/20 07:53 08/29/20 07:53 08/29/20 07:53 Laboratory Results - last 24 hr 08/28/20 08:05: WBC 7.0, RBC 3.96 L, Hgb 11.6 L, Hct 36.9 L, MCV 93.2, MCH 29.3, MCHC 31.5 L, RDW 13.9, Plt Count 367, MPV 7.9, Neut % (Auto) 86.1 H, Lymph % (Auto) 11.8, [place] % (Auto) 1.3 L, Eos % (Auto) 0.3, Baso % (Auto) 0.4, Neut # (Auto) 6.0, Lymph # (Auto) 0.8, [place] # (Auto) 0.1, Eos # (Auto) 0.0, Baso # (Auto) 0.0 08/28/20 08:05: Sodium 133 L, Potassium 4.2, Chloride 100, Carbon Dioxide 28, Anion Gap 9.2, BUN 24 H, Creatinine 1.30 H, Estimated Creat Clear 53, Estimated GFR 40 L, Est GFR ( Amer) 49 L, Glucose 167 H, Calcium 13.3 H* D 08/28/20 08:05: PTH Intact 4.9 L 08/28/20 08:05: 25-OH Vitamin D Total 37.5 08/28/20 10:49: POC Glucose 185 H 08/28/20 16:27: POC Glucose 130 H 08/28/20 21:35: POC Glucose 122 H 08/29/20 01:46: POC Glucose 80 08/29/20 05:50: POC Glucose 76 08/29/20 06:05: WBC 13.0 H D, RBC 4.05 L, Hgb 11.8 L, Hct 36.9 L, MCV 91.0, MCH 29.2, MCHC 32.1, RDW 13.7, Plt Count 381, MPV 7.9, Neut % (Auto) 69.9, Lymph % (Auto) 22.2, [place] % (Auto) 7.4, Eos % (Auto) 0.1, Baso % (Auto) 0.4, Neut # (Auto) 9.1 H, Lymph # (Auto) 2.9, [place] # (Auto) 1.0, Eos # (Auto) 0.0, Baso # (Auto) 0.1 08/29/20 06:05: Sodium 128 L, Potassium 3.7, Chloride 95 L, Carbon Dioxide 28, Anion Gap 8.7, BUN 28 H, Creatinine 1.30 H, Estimated Creat Clear 51, Estimated GFR 40 L, Est GFR ( Amer) 49 L, Glucose 86 D, Calcium 10.3 H D, Magnesium 1.4 L D I & O for Last 24 hours: Intake & Output 08/26/20 08/27/20 08/28/20 08/29/20 11:59 11:59 11:59 11:59 Intake Total 1720 / 1720 1805 / 1805 Output Total 800 / 800 1200 / 1200 Balance 920 / 920 605 / 605 Weight 187 lb 179 lb Microbiology Reports for the Last 24 Hours: Microbiology 08/27/20 23:15 Urine,Clean Catch Urine Culture - Preliminary NO GROWTH AFTER 24 HOURS Narrative: Patient looks comfortable sitting in bed. Lungs are coarse at the bases bilaterally. Heart has a regular rate and rhythm. Abdomen is soft. 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 To avoid volume overload IV fluids will be discontinued now that calcium is normalized. 2. IV Lasix x1 to further lower the calcium and aid with hypervolemia 3. PT eval for patient's weakness which is from her electrolyte imbalances 4. Continue to replace magnesium 5. Renal ultrasound tomorrow 6. Continue IV Invanz for urinary tract infection
[2020-08-29 11:39] LABS: POC Glucose,Bedside 121 (70-110)
--- NOTE | 2020-08-29 16:29 | PC.NURSE ---
PT IS SITTING UP IN THE CHAIR WITH FAMILY IN THE ROOM. NO COMPLAINTS OF DISCOMFORT. PT HAS BEEN MORE MOBILE THIS SHIFT. PT WAS ABLE TO TOLERATE AMBULATING IN THE ROOM WITH 1 ASSIST AND TO THE BATHROOM. TOLERATED SITTING UP IN THE CHAIR FOR MEALS. TOLERATED STANDING UP IN THE SHOWER BUT NEEDED ASSISTANCE WITH WASHING. EATING AND DRINKING WELL. LUNG SOUNDS CLEAR. ABDOMEN SOFT/NON TENDER WITH ACTIVE BOWEL SOUNDS. PT HAS HAD SEVERAL SOFT BOWEL MOVEMENTS THIS SHIFT. VSS. NSR ON THE MONITOR. WILL CONTINUE TO MONITOR.
[2020-08-29 16:33] LABS: POC Glucose,Bedside 129 (70-110)
[2020-08-29 20:50] LABS: POC Glucose,Bedside 129 (70-110)
[2020-08-30] VITALS: BP 186/75; PULSE 66; PULSE 70; RESP 16; TEMP 36.8; O2SAT 90
[2020-08-30 04:00] VITALS: BP 188/73; PULSE 64; PULSE 70; RESP 20; TEMP 36.6; O2SAT 93
[2020-08-30 05:00] VITALS: BMI 29.4
--- NOTE | 2020-08-30 05:11 | PC.NURSE ---
patient rested throughout night with no complaints voiced. Call light within reach, bed at lowest level for safety, VS stable will continue to monitor.
[2020-08-30 05:39] LABS: POC Glucose,Bedside 90 (70-110)
--- NOTE | 2020-08-30 07:24 | P.PN_ITS ---
Internal Medicine - PN: Subj *Date: 08/30/20 *Time: 07:24 Interval history: No events over the last 24 hours. Patient's ability to ambulate independently improved as her day progressed yesterday. She does report onset of diarrhea beginning yesterday evening with 4 or 5 episodes of diarrhea in the evening and overnight. She has not had any fevers. She denies abdominal pain. Exam Vital signs and Labs for Last 24 Hours: Temp Pulse Resp BP Pulse Ox 97.9 F 64 20 188/73 H 93 L 08/30/20 04:00 08/30/20 04:00 08/30/20 04:00 08/30/20 04:00 08/30/20 04:00 Laboratory Results - last 24 hr 08/29/20 11:29: POC Glucose 121 H 08/29/20 16:23: POC Glucose 129 H 08/29/20 20:31: POC Glucose 129 H 08/30/20 05:27: POC Glucose 90 I & O for Last 24 hours: Intake & Output 08/27/20 08/28/20 08/29/20 08/30/20 11:59 11:59 11:59 11:59 Intake Total 1720 / 1720 2045 / 2045 660 / 660 Output Total 800 / 800 1200 / 1200 Balance 920 / 920 845 / 845 660 / 660 Weight 187 lb 179 lb 176 lb 8 oz Microbiology Reports for the Last 24 Hours: Microbiology 08/27/20 23:15 Urine,Clean Catch Urine Culture - Final NO GROWTH AFTER 48 HOURS - Constitutional no acute distress - *Routine Respiratory Exam Present: CTA bilaterally - *Routine Cardiovascular Exam Present: RRR - *Routine Abdominal Exam Present: soft, normoactive bowel sounds. 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 Diarrhea panel to rule out C. difficile as patient has been on antibiotics both orally and intravenously over the last week and a half 2. Continue IV Invanz for UTI and patient will need to finish a course of IV antibiotics 3. PT eval today to assess needs. Patient may benefit from home health 4. Disposition: Discharge home this afternoon
--- NOTE | 2020-08-30 07:29 | HMH.DCSUM ---
General - General Admission date:: 08/28/20 Discharge date: 08/30/20 HPI HPI: 70-year-old female presented to the emergency department with nausea and vomiting as well as some crampy abdominal pain. Patient has been battling urinary tract infection as an outpatient for the last several months and decision had finally been made to proceed with IV Invanz. Patient contact the office yesterday stating she believed the Cipro she was taking was causing her GI disturbance. Patient came to the hospital and underwent preinfusion labs which did reveal an elevated calcium. This is quite a marked difference compared to 2 months prior when her calcium was normal. Patient proceeded with IV Invanz infusion and then upon returning home developed vomiting. Vomiting persisted throughout the evening and patient returned to the urgent treatment clinic yesterday evening and was transitioned to the ER were calcium remained elevated. Patient was admitted with diagnosis of hypercalcemia. She was started on IV fluids. Overnight her vomiting has ceased and nausea was treated with medication. In regards to her hypercalcemia patient does take calcium supplementation as well as vitamin D. She denies any significant bone pain but admits that her lower back has been sore. Patient has no personal history of cancer Hospital Course Hospital Course: Patient was admitted and bolused with normal saline and given IV Solu-Medrol for her hypercalcemia. Patient takes a loop diuretic and her torsemide was transitioned to IV Lasix during hospitalization. Patient's calcium carbonate was held. Calcium trended down rather quickly and normalized. Patient denied any significant bone pain. Lumbar spine films done for sacroiliac pain did not reveal any lytic lesions. Intact PTH was mildly low. Vitamin D level was in appropriate range. At discharge patient will discontinue her calcium carbonate. On work-up in the emergency department because of nausea and vomiting patient had a CT scan of the abdomen and pelvis. There is a cystlike mass seen on the left kidney which required follow-up ultrasound. Ultrasound showed a lesion consistent with a proteinaceous cyst of the left kidney and no further work-up is required. Patient was continued on antihypertensives during her hospitalization Patient was continued on sliding scale insulin only during hospitalization for her diabetes. Patient developed diarrhea the day prior to discharge. Stool panel was sent. Patient became quite weak from her hypercalcemia and likely hypomagnesemia. Patient underwent PT eval on the day of discharge. Patient was also found to have hypomagnesemia and this was replaced intravenously. Objective Vital signs: Temp Pulse Resp BP Pulse Ox 97.9 F 64 20 188/73 H 93 L 08/30/20 04:00 08/30/20 04:00 08/30/20 04:00 08/30/20 04:00 08/30/20 04:00 no acute distress - *Routine HEENT Exam Head: Present: normocephalic Eye: Present: EOMI, PERRL ENT: Present: mucous membranes moist - *Routine Neck Exam Present: supple - *Routine Respiratory Exam Present: CTA bilaterally - *Routine Cardiovascular Exam Present: RRR - *Routine Abdominal Exam Present: soft, normoactive bowel sounds. Absent: tenderness - *Routine Extremities Exam Absent: cyanosis, clubbing, edema - *Routine Skin Exam Present: warm. 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
[2020-08-30 07:42] LABS: Basophils # 0.1 K/mm3 (0-0.2); Basophils % 0.7 % (0.1-2.0); Eosinophils # 0.3 K/mm3 (0.0-0.4); Hematocrit 39.3 % (37.0-47.0); Hemoglobin 12.6 g/dL (12.2-16.2); Lymphocytes # 2.7 K/mm3 (0.7-4.5); Lymphocytes % 21.5 % (10-50); Mean Corpuscular Hemoglobin 29.6 pg (27.0-31.2); Mean Corpuscular Volume 92.4 fl (81-99); Mean Platelet Volume 8.5 fl (7.4-10.4); Monocytes # 0.8 K/mm3 (0.1-1.0); Monocytes % 6.4 % (1.7-9.3); Neutrophils # 8.8 K/mm3 (1.8-7.8); Neutrophils % 69.5 % (37.0-80.0); Platelet Count 411 K/mm3 (142-424); Red Blood Count 4.25 M/mm3 (4.20-5.40); Red Cell Distribution Width 13.7 % (11.5-17.5); White Blood Count 12.7 K/mm3 (4.8-10.8)
[2020-08-30 07:46] LABS: Chloride 99 mmol/L (98-107); Sodium 133 mmol/L (136-145)
[2020-08-30 07:47] LABS: Potassium 3.7 mmoL/L (3.5-5.1)
[2020-08-30 07:49] LABS: Blood Urea Nitrogen 25 mg/dl (7-17); Creatinine Clearance Estimated 59 mL/min (50-200); Estimated Glomerular Filt Rate 49 ml/min (>60); GFR (African American) 59 ML/MIN (>60)
[2020-08-30 07:50] LABS: Anion Gap 10.7 mEq/L (5-15); Calcium 9.5 mg/dl (8.4-10.2); Carbon Dioxide 27 mmol/L (22.0-30.0); Glucose 101 mg/dl (74-100); Magnesium 1.8 mg/dl (1.6-2.3)
[2020-08-30 08:00] VITALS: BP 161/77; PULSE 70; RESP 18; TEMP 36.8; O2SAT 95
--- NOTE | 2020-08-30 10:13 | HMH.PTEV ---
Physical Therapy Evaluation Rehab PT IP Evaluation Start: 08/29/20 08:08 Freq: ONCE Status: Active Protocol: Document 08/30/20 10:10 TONIA (Rec: 08/30/20 10:13 TONIA [id number]) Subjective/History History History 70-year-old female presented to the emergency department with nausea and vomiting as well as some crampy abdominal pain. Patient has been battling urinary tract infection as an outpatient for the last several months and decision had finally been made to proceed with IV Invanz. Patient contact the office yesterday stating she believed the Cipro she was taking was causing her GI disturbance. Patient came to the hospital and underwent preinfusion labs which did reveal an elevated calcium. Subjective Subjective pt has no complaints - wishes to go home Rehab PT IP Eval Objective Appearance Patient Behavior Appropriate,Cooperative Patient Orientation Person,Place,Time Difficulty following instructions none Speech Pattern Clear,Appropriate Ambulation Patient Able to Ambulate Yes Ambulation Observation IP General Gait Pattern Observation No Deviations/Normal Ambulation Distance (feet) 100 Ambulation Assistive Device None Ambulation Ability Independent Balance Ability to Arise Able, uses arms to help Sitting Balance Steady, safe Standing Balance Narrow stance w/o support Dynamic Sitting Balance Ability Normal Dynamic Standing Balance Ability Good Transfers Bed Transfer Ability Independent Chair Transfer Ability Independent Sit to Stand Bed Transfer Ability Independent Sit to Stand Chair Transfer Ability Independent ROM All Extremities PT ROM Status WFL MMT All Extremities PT MMT WFL Rehab PT IP prob,goals,plan Problems Date of Evaluation: 08/30/20 Rehab Potential Rehab Potential Innapropriate for Skilled Therapy Equipment Needs Assistive Devices None / NA Discharge Plan PT Discharge Plan pt safe to dc home once medically stable G -code Required Yes Eval Complexity Eval Charge Codes
[2020-08-30 12:00] VITALS: BP 154/69; PULSE 68; PULSE 70; RESP 18; TEMP 36.8; O2SAT 94
[2020-08-31 01:10] LABS: POC Glucose,Bedside 162 (70-110)
== END 2020-08-30 15:53 | disposition home or self-care (01) ==
LOC: UTC 19:29 → ER 19:48 → ICU 23:37 → 2ND 08-29 07:18 → ICU 08-30 09:59
PROVIDERS: Emergency Medicine; Admitting Provider Internal Medicine Adolescent Medicine; Emergency Provider Emergency Medicine; PCP Family Medicine; Visit Provider Family Medicine
DX: E83.52 Hypercalcemia (principal); N39.0 Urinary tract infection, site not specified; E11.9 Type 2 diabetes mellitus without complications; Z79.4 Long term (current) use of insulin; I10 Essential (primary) hypertension; Z79.82 Long term (current) use of aspirin; Z79.899 Other long term (current) drug therapy; N28.1 Cyst of kidney, acquired
CPT/HCPCS: 36415; 71046; 72100; 74177; 76770; 80048; 80053; 81001; 82150; 82306; 82962; 83690; 83735; 83970; 84100; 84145; 84439; 84443; 84484; 85007; 85025; 85651; 86140; 87086; 87581; 87633; 87798; 93005; 96365; 96375; 97161; 99284; G0378; J1335; J2405; Q9967

== ENCOUNTER 2020-08-31 12:43 | Outpatient (CLI) | payer MEDICARE, SELFPAY ==
[2020-08-31 13:41] VITALS: BP 146/66; PULSE 71; RESP 18; TEMP 36.4; O2SAT 96
== END 2020-08-31 14:00 | disposition home or self-care (01) ==
LOC: INF 12:43
PROVIDERS: Visit Provider Family Medicine
DX: N39.0 Urinary tract infection, site not specified (principal)
CPT/HCPCS: 96372; J1335

== ENCOUNTER 2020-09-01 12:05 | Outpatient (CLI) | payer MEDICARE, SELFPAY ==
[2020-09-01 12:20] VITALS: BP 143/65; PULSE 71; RESP 16; TEMP 36.3; O2SAT 95
[2020-09-01 12:27] VITALS: BP 137/64; PULSE 73; RESP 15; TEMP 36.3; O2SAT 95
== END 2020-09-01 12:34 | disposition home or self-care (01) ==
LOC: INF 12:12
PROVIDERS: Visit Provider Family Medicine
DX: N39.0 Urinary tract infection, site not specified (principal); R30.0 Dysuria
CPT/HCPCS: 96372; J1335

== ENCOUNTER 2020-09-02 11:03 | Outpatient (CLI) | payer MEDICARE, SELFPAY ==
[2020-09-02 11:10] VITALS: BP 138/72; PULSE 68; RESP 18; TEMP 36.4; O2SAT 98
--- NOTE | 2020-09-02 11:11 | PC.NURSE ---
Invanz 500mg IM L gluteus norm, Invanz 500mg IM R gluteus norm, total 1 gram.
== END 2020-09-02 11:20 | disposition home or self-care (01) ==
LOC: INF 11:03
PROVIDERS: Visit Provider Family Medicine
DX: N39.0 Urinary tract infection, site not specified (principal); R30.0 Dysuria
CPT/HCPCS: 96372; J1335

== ENCOUNTER → 2020-12-03 10:46 | Outpatient (CLI) | payer MEDICARE, SELFPAY | PROVIDERS: Visit Provider Urology | DX: N39.0 Urinary tract infection, site not specified (principal); R32 Unspecified urinary incontinence; Z01.812 Encounter for preprocedural laboratory examination; Z20.822 Contact with and (suspected) exposure to COVID-19 | CPT/HCPCS: U0003 ==

== ENCOUNTER 2020-12-06 07:55 | Day surgery (SDC) | payer MEDICARE, SELFPAY ==
[2020-11-30 13:01] VITALS: BMI 30.2
[2020-12-06 08:20] VITALS: BP 189/87; PULSE 75; RESP 18; TEMP 36.7; O2SAT 97
[2020-12-06 08:34] LABS: POC Glucose,Bedside 139 (70-110)
[2020-12-06 09:21] VITALS: BP 189/97; PULSE 68; RESP 16; TEMP 36.3; O2SAT 97
--- NOTE | 2020-12-06 16:32 | HMH.OPNOTE ---
Date of procedure: 12/06/20 Pre-op Diagnosis:: Recurrent urinary tract infections Post-op Diagnosis:: Same Procedure performed:: Flexible cystourethroscopy Surgeon:: Neptali Bass MD Anesthesia: local Estimated blood loss (mL): 0 Clinical Note:: Patient is a 70-year-old white female with recurring urinary tract infections. She returns today for cystoscopic evaluation. She does have a history of a transvaginal urethral sling. She was placed on prophylactic antibiotics at her previous visit and she denies any recurrences to date. Operative findings:: Patient's urethra and bladder were within normal limits. There was no evidence of foreign bodies in the bladder or urethra. Operative note:: Patient taken to the cystoscopy suite after informed consent was obtained. She was prepped and draped on the stretcher in the frog-leg position. 2% lidocaine placed into the urethra and after 5 minutes the flexible cystoscope was introduced into the urethra and passed into the bladder without difficulty. The bladder was examined in a systematic fashion. There is no evidence of trabeculation, cellules, diverticula or mucosal abnormalities. The ureteral orifices in their normal anatomic position with clear efflux of urine. Scope was retroflexed showing normal bladder neck. The urethra was within normal limits and the scope removed. Patient tolerated the procedure well. We discussed the normal findings today and patient to continue the prophylactic antibiotics and increase her fluid intake. She does have some urge incontinence and has had Botox performed in the past. I will see her back in 1 month and discuss other options for her urge incontinence. Condition: stable Disposition: same day Specimens:: None Complications:: None
== END 2020-12-06 09:30 | disposition home or self-care (01) ==
LOC: OUTP 07:58
PROVIDERS: PCP Family Medicine; Visit Provider Urology
DX: N39.46 Mixed incontinence (principal); Z87.440 Personal history of urinary (tract) infections; Z96.0 Presence of urogenital implants; E11.9 Type 2 diabetes mellitus without complications; I11.0 Hypertensive heart disease with heart failure; I50.9 Heart failure, unspecified; E78.5 Hyperlipidemia, unspecified; Z79.82 Long term (current) use of aspirin; Z79.899 Other long term (current) drug therapy; Z79.4 Long term (current) use of insulin; Z80.9 Family history of malignant neoplasm, unspecified; Z87.891 Personal history of nicotine dependence
CPT/HCPCS: 52000; 82962

== ENCOUNTER → 2021-01-06 09:48 | Outpatient (CLI) | payer MEDICARE, SELFPAY ==
[2021-01-06 11:00] LABS: Chloride 101 mmol/L (98-107); Potassium 4.5 mmoL/L (3.5-5.1); Sodium 136 mmol/L (136-145)
[2021-01-06 11:03] LABS: Anion Gap 16.5 mEq/L (5-15); Blood Urea Nitrogen 17 mg/dl (7-17); Calcium 9.4 mg/dl (8.4-10.2); Carbon Dioxide 23 mmol/L (22.0-30.0); Estimated Glomerular Filt Rate 49 ml/min (>60); GFR (African American) 59 ML/MIN (>60); Glucose 133 mg/dl (74-100)
== END ==
PROVIDERS: Visit Provider Urology
DX: N30.20 Other chronic cystitis without hematuria (principal)
CPT/HCPCS: 36415; 80048

== ENCOUNTER → 2021-04-12 15:02 | Outpatient (CLI) | payer MEDICARE, SELFPAY ==
--- NOTE | 2021-04-12 15:04 | MM_ITS ---
PROCEDURE INFORMATION: Exam: MG Bilateral Screening 3D Mammography Exam date and time: 04/12/2021 3:04 PM Age: 70 years old Clinical indication: Screening mammogram TECHNIQUE: Imaging protocol: Bilateral screening tomosynthesis and 2D mammography including computer-aided detection (CAD) when performed. COMPARISON: 1. MG MM DIG SCREENING MAMM BI W/CAD 03/25/2020 10:03 AM 2. MG MM DIG SCREENING MAMM BI W/CAD 03/05/2019 8:15 AM 3. MG SCBI MM Dig screening mamm BI w/CAD 02/28/2018 10:09 AM 4. MG DMSB DIG MAMM-SCREEN OLGA W/CAD 02/13/2017 9:37 AM FINDINGS: MAMMOGRAPHY: Breast composition: The breast tissue is heterogeneously dense, which may obscure small masses. Mass: None. Architectural distortion: No new or suspicious architectural distortion. Calcifications: Stable benign-appearing calcifications are present. No new or suspicious cluster of microcalcifications have developed. Asymmetric density: No new or suspicious asymmetric density is present Skin thickening: None. Axillary adenopathy: None. IMPRESSION: No mammographic evidence of malignancy. Recommend annual screening mammography unless otherwise clinically indicated. ASSESSMENT: BI-RADS category 2: Benign
== END ==
PROVIDERS: PCP Family Medicine; Visit Provider Family Medicine
DX: Z12.31 Encounter for screening mammogram for malignant neoplasm of breast (principal)
CPT/HCPCS: 77063; 77067

== ENCOUNTER 2021-06-15 22:28 | Emergency (ER) | payer MEDICARE, SELFPAY ==
[2021-06-15 22:27] VITALS: BP 176/77; PULSE 67; RESP 18; TEMP 36.8; O2SAT 94; BMI 29.9
--- NOTE | 2021-06-15 22:51 | CT_ITS ---
PROCEDURE INFORMATION: Exam: CT Cervical Spine Without Contrast Exam date and time: 06/15/2021 10:51 PM Age: 71 years old Clinical indication: Injury or trauma; Fall TECHNIQUE: Imaging protocol: Computed tomography images of the cervical spine without contrast. Radiation optimization: All CT scans at this facility use at least one of these dose optimization techniques: automated exposure control; mA and/or kV adjustment per patient size (includes targeted exams where dose is matched to clinical indication); or iterative reconstruction. COMPARISON: CT LUNG SCREENING 02/18/2020 2:53 PM FINDINGS: Bones/joints: No acute cervical spine fracture. Nonspecific straightening of the normal cervical lordosis could relate to positioning or muscle spasm. No spondylolisthesis. CPPD, with mineralization around the odontoid tip and several disc space margins. Discs/Spinal canal/Neural foramina: Suspected [id number] spinal canal stenosis at C4-C5 and C5-C6. No high-grade spinal canal stenosis. Variable degrees of neural foraminal narrowing, most advanced on the right at C5-C6. Thyroid: Enlarged left thyroid lobe with several nodules, largest of which measures 2.2 x 1.7 cm in size. Follow-up ultrasound recommended if not already evaluated. Lungs: Lung apices are unremarkable. Vasculature: Atherosclerotic calcification of the carotid bulbs. Soft tissues: Unremarkable. IMPRESSION: 1. No acute cervical spine fracture. 2. Nonspecific straightening of the normal cervical lordosis. COMMENTS: Consistent with the [employer]'s Incidental Findings Committee white paper (J Am Susan Radiol 2015): In patients aged 35 years and older with an incidental thyroid nodule equal to or greater than 1.[address], MRI or extrathyroidal US, further evaluation with dedicated thyroid US is recommended for patients with normal life expectancy and without comorbidities. For smaller nodules without suspicious features, no further evaluation or follow up is recommended.
--- NOTE | 2021-06-15 22:51 | XR_ITS ---
PROCEDURE INFORMATION: Exam: XR Left Foot Exam date and time: 06/15/2021 10:51 PM Age: 71 years old Clinical indication: Injury or trauma; Fall; Blunt trauma; Foot; Left TECHNIQUE: Imaging protocol: XR Left foot. Views: 3 or more views. COMPARISON: No relevant prior studies available. FINDINGS: Bones/joints: Normal. Soft tissues: Normal. IMPRESSION: No acute findings.
--- NOTE | 2021-06-15 22:51 | XR_ITS ---
PROCEDURE INFORMATION: Exam: XR Left Femur Exam date and time: 06/15/2021 10:51 PM Age: 71 years old Clinical indication: Injury or trauma; Fall; Blunt trauma; Thigh or upper leg; Left TECHNIQUE: Imaging protocol: XR Left femur. Views: 2 views. COMPARISON: CT ABDOMEN PELVIS W CON 08/27/2020 10:19 PM FINDINGS: Bones/joints: Comminuted intra-articular fracture of the proximal left tibia with large hemarthrosis. Femoral shaft appears intact. Soft tissues: Unremarkable. IMPRESSION: 1. Comminuted intra-articular fracture of the proximal left tibia with large hemarthrosis. 2. Femoral shaft appears intact.
--- NOTE | 2021-06-15 22:51 | XR_ITS ---
PROCEDURE INFORMATION: Exam: XR Left Knee Exam date and time: 06/15/2021 10:51 PM Age: 71 years old Clinical indication: Injury or trauma; Fall; Blunt trauma; Knee; Left TECHNIQUE: Imaging protocol: XR Left knee. Views: 1 or 2 views. COMPARISON: No relevant prior studies available. FINDINGS: Bones/joints: Proximal left tibia and fibula fracture with large hemarthrosis. Tibial plateau medially and laterally are depressed posteriorly. Soft tissues: Normal. IMPRESSION: 1. Proximal left tibia and fibula fracture with large hemarthrosis. 2. Tibial plateau medially and laterally are depressed posteriorly.
--- NOTE | 2021-06-15 22:51 | XR_ITS ---
PROCEDURE INFORMATION: Exam: XR Pelvis Exam date and time: 06/15/2021 10:51 PM Age: 71 years old Clinical indication: Injury or trauma; Fall; Blunt trauma (contusions or hematomas); Left; Hip; Additional info: Fall leg pain TECHNIQUE: Imaging protocol: XR pelvis. Views: 1 or 2 view. COMPARISON: CT ABDOMEN PELVIS W CON 08/27/2020 10:19 PM FINDINGS: Bones/joints: Unremarkable. No acute fracture. Soft tissues: Unremarkable. IMPRESSION: No acute findings.
--- NOTE | 2021-06-15 22:51 | XR_ITS ---
PROCEDURE INFORMATION: Exam: XR Left Tibia and Fibula Exam date and time: 06/15/2021 10:51 PM Age: 71 years old Clinical indication: Injury or trauma; Fall; Blunt trauma; Lower leg; Left TECHNIQUE: Imaging protocol: XR Left tibia and fibula. Views: 2 views. COMPARISON: No relevant prior studies available. FINDINGS: Bones/joints: Comminuted fractures of the proximal left tibia and fibula. Tibial fracture is intra-articular with large hemarthrosis. There is depression of the tibial plateaus posteriorly bilaterally with impaction of the fracture. Soft tissues: Normal. IMPRESSION: 1. Comminuted fractures of the proximal left tibia and fibula. 2. Tibial fracture is intra-articular with large hemarthrosis. 3. There is depression of the tibial plateaus posteriorly bilaterally with impaction of the fracture.
--- NOTE | 2021-06-15 22:51 | CT_ITS ---
PROCEDURE INFORMATION: Exam: CT Head Without Contrast Exam date and time: 06/15/2021 10:51 PM Age: 71 years old Clinical indication: Injury or trauma; Fall TECHNIQUE: Imaging protocol: Computed tomography of the head without contrast. Radiation optimization: All CT scans at this facility use at least one of these dose optimization techniques: automated exposure control; mA and/or kV adjustment per patient size (includes targeted exams where dose is matched to clinical indication); or iterative reconstruction. COMPARISON: HEADWO CT head/brain wo con 12/14/2018 11:54 AM FINDINGS: Brain: Mild generalized volume loss. Small bilateral striatocapsular lacunar infarcts. Mild patchy periventricular and subcortical low attenuation suggesting chronic microangiopathy. No loss of schmidt-white differentiation or evidence of acute ischemia. No mass effect or midline shift. No intracranial hemorrhage. Cerebral ventricles: Within expected limits for age and brain volume status. No ventricular outflow obstruction. Paranasal sinuses: Visualized sinuses are unremarkable. No fluid levels. Mastoid air cells: Visualized mastoid air cells are well aerated. Bones/joints: No depressed or calvarial fracture. Soft tissues: Unremarkable. IMPRESSION: 1. No acute intracranial abnormality. 2. Senescent changes with presumed sequela of chronic microangiopathy.
--- NOTE | 2021-06-15 22:51 | XR_ITS ---
PROCEDURE INFORMATION: Exam: XR Left Ankle Exam date and time: 06/15/2021 10:51 PM Age: 71 years old Clinical indication: Injury or trauma; Fall; Blunt trauma; Ankle; Left TECHNIQUE: Imaging protocol: XR Left ankle. Views: 3 or more views. COMPARISON: No relevant prior studies available. FINDINGS: Bones/joints: Normal. Soft tissues: Normal. IMPRESSION: No acute findings.
--- NOTE | 2021-06-15 22:54 | CT_ITS ---
PROCEDURE INFORMATION: Exam: CT Thoracic Spine Without Contrast Exam date and time: 06/15/2021 10:54 PM Age: 71 years old Clinical indication: Injury or trauma; Fall; Additional info: Fall down 13 stair s TECHNIQUE: Imaging protocol: Computed tomography images of the thoracic spine without contrast. Radiation optimization: All CT scans at this facility use at least one of these dose optimization techniques: automated exposure control; mA and/or kV adjustment per patient size (includes targeted exams where dose is matched to clinical indication); or iterative reconstruction. COMPARISON: CR XR THORACIC SPINE 2V 10/13/2019 5:07 PM FINDINGS: Vertebrae: Degenerative changes. No acute fracture. Normal alignment. Discs/Spinal canal/Neural foramina: No significant disc protrusion. No severe spinal canal stenosis. No significant neural foraminal narrowing. Soft tissues: Unremarkable. IMPRESSION: Unremarkable CT T-Spine.
--- NOTE | 2021-06-15 22:54 | XR_ITS ---
PROCEDURE INFORMATION: Exam: XR Left Hand Exam date and time: 06/15/2021 10:54 PM Age: 71 years old Clinical indication: Injury or trauma; Fall; Blunt trauma (contusions or hematomas); Arm, lower; Left; Additional info: Fall down 13 stairs TECHNIQUE: Imaging protocol: XR Left hand. Views: 3 or more views. COMPARISON: No relevant prior studies available. FINDINGS: Bones/joints: Normal. Soft tissues: Normal. IMPRESSION: No acute findings.
--- NOTE | 2021-06-15 22:54 | XR_ITS ---
PROCEDURE INFORMATION: Exam: XR Left Elbow Exam date and time: 06/15/2021 10:54 PM Age: 71 years old Clinical indication: Injury or trauma; Fall; Blunt trauma (contusions or hematomas); Arm, lower; Left; Additional info: Fall down 13 stairs TECHNIQUE: Imaging protocol: XR Left elbow. Views: 1 or 2 views. COMPARISON: No relevant prior studies available. FINDINGS: Bones/joints: Normal. Soft tissues: Normal. IMPRESSION: No acute findings.
--- NOTE | 2021-06-15 22:54 | CT_ITS ---
PROCEDURE INFORMATION: Exam: CT Lumbar Spine Without Contrast Exam date and time: 06/15/2021 10:54 PM Age: 71 years old Clinical indication: Injury or trauma; Fall; Additional info: Fall down 13 stair s TECHNIQUE: Imaging protocol: Computed tomography images of the lumbar spine without contrast. Radiation optimization: All CT scans at this facility use at least one of these dose optimization techniques: automated exposure control; mA and/or kV adjustment per patient size (includes targeted exams where dose is matched to clinical indication); or iterative reconstruction. COMPARISON: CR XR LUMBAR SPINE 2-3V 08/28/2020 8:46 AM FINDINGS: Vertebrae: No acute fracture. Normal alignment. L1-L2: No significant disc protrusion. No severe spinal canal stenosis. No significant neural foraminal narrowing. L2-L3: Vacuum disc. No significant disc protrusion. No severe spinal canal stenosis. No significant neural foraminal narrowing. L3-L4: No significant disc protrusion. No severe spinal canal stenosis. No significant neural foraminal narrowing. L4-L5: No significant disc protrusion. No severe spinal canal stenosis. No significant neural foraminal narrowing. L5-S1: Vacuum disc. No significant disc protrusion. No severe spinal canal stenosis. No significant neural foraminal narrowing. Soft tissues: Unremarkable. Vascular calcifications. IMPRESSION: No acute traumatic injury detected.
--- NOTE | 2021-06-15 22:54 | XR_ITS ---
PROCEDURE INFORMATION: Exam: XR Left Forearm Exam date and time: 06/15/2021 10:54 PM Age: 71 years old Clinical indication: Injury or trauma; Fall; Blunt trauma (contusions or hematomas); Arm, lower; Left; Additional info: Fall down 13 stairs TECHNIQUE: Imaging protocol: XR Left forearm. Views: 2 views. COMPARISON: No relevant prior studies available. FINDINGS: Bones/joints: Normal. Soft tissues: Normal. IMPRESSION: No acute findings.
--- NOTE | 2021-06-15 23:32 | HMH.EDFALL ---
ED Disposition Clinical Impression: Tibia/fibula fracture, Posterior tibial plateau fracture, Lacerations of multiple sites of left arm Disposition: Xfer Critical Access Hosp Condition on Discharge: Good Referrals: Jaxson Ken MD [Primary Care Provider] - - Critical Care Critical Care Time: No Attestation: On 06/15/21, the high probability of a clinically significant, sudden or life threatening deterioration of the following system(s) required my full and direct attention, intervention and personal management. The time I documented below is in addition to time spent performing reported procedures but includes the following listed in this critical care notation. Medical Decision Making - Medical Records Medical records reviewed: Yes: I reviewed the patient's medical records. - Danial Inquiry Pt receiving controlled substance: No Vital Signs: 06/15/21 22:27 06/16/21 00:48 Temperature 98.2 F Temperature Source Oral Pulse Rate [Left] 67 Respiratory Rate 18 Blood Pressure 141/88 H Blood Pressure [Right Arm] 176/77 H Blood Pressure Mean [Right Arm] 110 Blood Pressure Source Automatic Cuff Blood Pressure Position Supine 02 Sat by Pulse Oximetry 94 L Oxygen Delivery Method Room Air - Lab Data Lab results reviewed: Yes: I reviewed the patient's lab results. Lab Results 06/16/21 02:58: POC Glucose 170 H 06/16/21 03:24: Sodium 130 L, Potassium 4.3, Chloride 101, Carbon Dioxide 22, Anion Gap 11.3, BUN 22 H, Creatinine 1.10 H, Estimated Creat Clear 60, Estimated GFR 49 L, Est GFR ( Amer) 59, Glucose 170 H, Calcium 8.7, Total Bilirubin 0.6, AST 31, ALT 18, Alkaline Phosphatase 39, Total Protein 5.9 L, Albumin 3.5, Globulin 2.4, Albumin/Globulin Ratio 1.5 Result diagrams: 06/16/21 03:24 Orders (Tests/Meds): ED MEDICATIONS Generic Name Dose Route Start Last Admin Trade Name Freq PRN Reason Stop Dose Admin Sodium Chloride 1,000 mls @ 999 mls/hr 06/16/21 02:45 06/16/21 02:45 Sod Chlor 0.9% 1000ml Bag IV 06/16/21 03:45 999 mls/hr .[id number] RUSS Administration Discontinued Medications Generic Name Dose Route Start Last Admin Trade Name Freq PRN Reason Stop Dose Admin Acetaminophen 1,000 mg 06/16/21 00:28 06/16/21 00:59 Acetaminophen 500mg Tab PO 06/16/21 00:29 1,000 mg ONCE ONE Administration Diphenhydramine HCl 25 mg 06/16/21 02:29 06/16/21 02:32 Diphenhydramine 50mg/Ml Vial IV 06/16/21 02:30 25 mg ONCE ONE Administration Iopamidol 75 ml 06/16/21 04:21 06/16/21 04:22 Iopamidol-370 (76%);100ml Bottle IV 06/16/21 04:22 75 ml ONCE ONE Administration Methylprednisolone Sodium Succinate 125 mg 06/16/21 02:29 06/16/21 02:32 Methylprednisolone Sod Succ 125mg Vial IV 06/16/21 02:30 125 mg ONCE ONE Administration Morphine Sulfate 4 mg 06/16/21 00:34 06/16/21 02:28 Morphine 4mg/Ml Syringe IV 06/16/21 00:35 4 mg ONCE ONE Administration Ondansetron HCl 4 mg 06/16/21 02:36 06/16/21 02:37 Ondansetron 4mg/2ml Vial IV 06/16/21 02:37 4 mg ONCE ONE Administration Sodium Chloride 10 ml 06/16/21 04:21 06/16/21 04:22 Sodium Chloride 0.9% 10ml Syr (Rad Only) IV 06/16/21 04:22 10 ml ONCE ONE Administration Medical Decision Narrative: Miss Freeman 71 yo female, no blood thinners, who had mechanical fall down 13 stairs with isolated tibial plateu depression and proximal tib/fib fracture w/ hematoma no active extravasation. Patient reports she may have hit head, -LOC. neurovascuarly intact on arrival. Patient has superficial abrasions, no deep lacerations to warrant abx. No sensory or motor deficits. Differentials to consider include: fractures, dislocations, spinal injury, acute intracranial hemorrhage. XR of LUE and LLE shows isolated tib/fib fracture w/ impaction. CT head, CT spine negative. CT Lower extremity w/ contrast including arterial and venous runoff shows no vascular changes and known tib/fib w/ impaction
[2021-06-16 00:48] VITALS: BP 141/88
--- NOTE | 2021-06-16 01:34 | PC.NURSE ---
Hematoma noted on patients left forearm during ct scan. When patient returned to room arm was cleaned with betadine and normal saline as it was noted that there was skin shearing on the forearm associated with the fall she was admitted with in addition to the hematoma. After the skin was cleaned a nonadhesive bandage was applied and a gauze was wrapped around the extremity to hold the bandage in place. Additionally, an jones wrap was applied to location per to serve as a pressure dressing.
--- NOTE | 2021-06-16 02:26 | CT_ITS ---
PROCEDURE INFORMATION: Exam: CT Left Lower Extremity With Contrast; Lower Leg Exam date and time: 06/16/2021 2:26 AM Age: 71 years old Clinical indication: Injury or trauma; Fall; Additional info: Fall fracture TECHNIQUE: Imaging protocol: CT of the Left lower extremity with intravenous contrast was performed. Exam focused on the lower leg. 3D rendering (Not supervised by radiologist): MIP and/or 3D reconstructed images were created by the technologist. Radiation optimization: All CT scans at this facility use at least one of these dose optimization techniques: automated exposure control; mA and/or kV adjustment per patient size (includes targeted exams where dose is matched to clinical indication); or iterative reconstruction. Contrast material: ISOVUE; Contrast volume: 75 ml; Contrast route: IV; COMPARISON: No relevant prior studies available. FINDINGS: Bones/joints: Comminuted, displaced intra-articular fracture the lateral, medial tibial plateau and the fibular head/proximal shaft. Remainder of the visualized bones and joints are unremarkable. No discrete lytic or blastic lesion. Soft tissues: Overlying soft tissue hematoma and lipohemarthrosis in the knee joint. Atherosclerotic calcification of the visualized arteries. IMPRESSION: ACUTE PROXIMAL TIBIAL AND FIBULAR FRACTURE, SURROUNDING SOFT TISSUE HEMATOMA AND LIPOHEMARTHROSIS.
[2021-06-16 03:06] LABS: POC Glucose,Bedside 170 (70-110)
[2021-06-16 03:39] LABS: Alanine Aminotransferase 18 U/L (12-78); Albumin Level 3.5 g/dl (3.5-5.0); Albumin/Globulin Ratio 1.5 (1.1-1.8); Alkaline Phosphatase 39 U/L (38-126); Anion Gap 11.3 mEq/L (5-15); Aspartate Amino Transferase 31 U/L (14-36); Bilirubin,Total 0.6 mg/dl (0.2-1.3); Blood Urea Nitrogen 22 mg/dl (7-17); Calcium 8.7 mg/dl (8.4-10.2); Carbon Dioxide 22 mmol/L (22.0-30.0); Chloride 101 mmol/L (98-107); Creatinine Clearance Estimated 60 mL/min (50-200); Estimated Glomerular Filt Rate 49 ml/min (>60); GFR (African American) 59 ML/MIN (>60); Globulin 2.4 g/dL (1.3-3.2); Glucose 170 mg/dl (74-100); Potassium 4.3 mmoL/L (3.5-5.1); Sodium 130 mmol/L (136-145); Total Protein,Serum 5.9 g/dl (6.3-8.2)
--- NOTE | 2021-06-16 05:00 | PC.NURSE ---
Pt accepted at per Dr. Cabral for an ED to ED transfer
[2021-06-16 06:39] VITALS: BP 140/68; PULSE 75; RESP 14; TEMP 36.5; O2SAT 98
== END 2021-06-16 06:45 | disposition short-term general hospital (02) ==
PROVIDERS: Emergency Provider Student in an Organized Health Care Education/Training Program; PCP Family Medicine
DX: S82.142A Displaced bicondylar fracture of left tibia, initial encounter for closed fracture (principal); S82.192A Other fracture of upper end of left tibia, initial encounter for closed fracture; S41.112A Laceration without foreign body of left upper arm, initial encounter; W10.8XXA Fall (on) (from) other stairs and steps, initial encounter; Y92.018 Other place in single-family (private) house as the place of occurrence of the external cause; E11.9 Type 2 diabetes mellitus without complications; Z79.4 Long term (current) use of insulin; I11.0 Hypertensive heart disease with heart failure; I50.9 Heart failure, unspecified; Z95.5 Presence of coronary angioplasty implant and graft; Z79.899 Other long term (current) drug therapy
CPT/HCPCS: 70450; 72125; 72128; 72131; 72170; 73070; 73090; 73130; 73552; 73560; 73590; 73610; 73630; 73701; 80053; 82962; 99283; J2405; Q9967

== ENCOUNTER → 2021-12-02 09:51 | Outpatient (CLI) | payer MEDICARE, SELFPAY ==
--- NOTE | 2021-12-02 09:57 | XR_ITS ---
FINAL REPORT CLINICAL HISTORY: WEIGHT LOSS, SMOKER COMPARISON: 08/27/2020 FINDINGS: Two views of the chest were obtained. The heart size and pulmonary vascularity are within normal limits. The mediastinum is normal. No acute pulmonary abnormality is identified. There is no pneumothorax. The bony thorax is intact. IMPRESSION: No active cardiopulmonary disease. Reviewed, Interpreted and Dictated by Shane Lambert III, MD Transcribed by Jessica Zacarias Authenticated and [facility]
== END ==
PROVIDERS: PCP Family Medicine; Visit Provider Family Medicine
DX: R63.4 Abnormal weight loss (principal)
CPT/HCPCS: 71046

== ENCOUNTER 2021-12-08 14:00 | Outpatient (RCR) | payer MEDICARE, SELFPAY | END 2021-12-08 14:05 | disposition home or self-care (01) | LOC: PT 14:00 | PROVIDERS: PCP Family Medicine; Visit Provider Family Medicine | DX: S82.142G Displaced bicondylar fracture of left tibia, subsequent encounter for closed fracture with delayed healing (principal) | CPT/HCPCS: 97010; 97110; 97112; 97140; 97163; 97164; 97530; 97535 ==

== ENCOUNTER → 2021-12-22 11:26 | Outpatient (CLI) | payer MEDICARE, SELFPAY ==
[2021-12-22 12:26] LABS: Alanine Aminotransferase 17 U/L (12-78); Albumin Level 3.4 g/dl (3.5-5.0); Alkaline Phosphatase 80 U/L (38-126); Aspartate Amino Transferase 24 U/L (14-36); Blood Urea Nitrogen 10 mg/dl (7-17); Calcium 9.2 mg/dl (8.4-10.2); Carbon Dioxide 26 mmol/L (22.0-30.0); Chloride 102 mmol/L (98-107); Estimated Glomerular Filt Rate 55 ml/min (>60); GFR (African American) 66 ML/MIN (>60); Globulin 3.3 g/dL (1.3-3.2); Glucose 250 mg/dl (74-100); Sodium 135 mmol/L (136-145); Total Protein,Serum 6.7 g/dl (6.3-8.2)
[2021-12-22 12:29] LABS: Bilirubin,Total < 0.1 mg/dl (0.2-1.3)
[2021-12-22 12:33] LABS: Bilirubin,Indirect 0.1 mg/dL (0.0-0.9)
[2021-12-22 20:51] LABS: Basophils # 0.1 K/mm3 (0-0.2); Basophils % 0.7 % (0.1-2.0); Eosinophils # 0.4 K/mm3 (0.0-0.4); Eosinophils % 3.5 % (0.1-12.0); Hematocrit 35.8 % (37.0-47.0); Hemoglobin 10.4 g/dL (12.2-16.2); Lymphocytes # 1.2 K/mm3 (0.7-4.5); Lymphocytes % 11.5 % (10-50); Mean Corpuscular HGB Conc 29.1 g/dL (31.8-35.4); Mean Corpuscular Volume 85.8 fl (81-99); Mean Platelet Volume 10.3 fl (7.4-10.4); Monocytes # 0.5 K/mm3 (0.1-1.0); Neutrophils # 8.1 K/mm3 (1.8-7.8); Neutrophils % 79.3 % (37.0-80.0); Platelet Count 581 K/mm3 (142-424); Red Blood Count 4.17 M/mm3 (4.20-5.40); Red Cell Distribution Width 18.2 % (11.5-17.5); White Blood Count 10.3 K/mm3 (4.8-10.8)
== END ==
PROVIDERS: PCP Family Medicine
DX: T81.41XA Infection following a procedure, superficial incisional surgical site, initial encounter (principal); I10 Essential (primary) hypertension
CPT/HCPCS: 80053; 80076; 85025; 86140

== ENCOUNTER → 2021-12-29 09:10 | Outpatient (CLI) | payer MEDICARE, SELFPAY ==
[2021-12-29 10:09] LABS: Chloride 102 mmol/L (98-107); Potassium 4.3 mmoL/L (3.5-5.1); Sodium 136 mmol/L (136-145)
[2021-12-29 10:11] LABS: Blood Urea Nitrogen 13 mg/dl (7-17); Estimated Glomerular Filt Rate 55 ml/min (>60); GFR (African American) 66 ML/MIN (>60)
[2021-12-29 10:12] LABS: Alanine Aminotransferase 17 U/L (12-78); Albumin Level 3.9 g/dl (3.5-5.0); Albumin/Globulin Ratio 1.1 (1.1-1.8); Alkaline Phosphatase 70 U/L (38-126); Anion Gap 12.3 mEq/L (5-15); Aspartate Amino Transferase 29 U/L (14-36); Bilirubin,Direct 0.2 mg/dl (0.0-0.4); Bilirubin,Total 0.2 mg/dl (0.2-1.3); Calcium 9.7 mg/dl (8.4-10.2); Carbon Dioxide 26 mmol/L (22.0-30.0); Globulin 3.4 g/dL (1.3-3.2); Glucose 262 mg/dl (74-100); Total Protein,Serum 7.3 g/dl (6.3-8.2)
[2021-12-29 10:15] LABS: Basophils # 0.1 K/mm3 (0-0.2); Basophils % 1.4 % (0.1-2.0); Eosinophils # 0.5 K/mm3 (0.0-0.4); Eosinophils % 5.1 % (0.1-12.0); Hematocrit 36.1 % (37.0-47.0); Hemoglobin 11.2 g/dL (12.2-16.2); Lymphocytes # 1.6 K/mm3 (0.7-4.5); Lymphocytes % 17.6 % (10-50); Mean Corpuscular Volume 84.1 fl (81-99); Mean Platelet Volume 8.4 fl (7.4-10.4); Monocytes # 0.5 K/mm3 (0.1-1.0); Monocytes % 5.5 % (1.7-9.3); Neutrophils # 6.2 K/mm3 (1.8-7.8); Neutrophils % 70.5 % (37.0-80.0); Platelet Count 454 K/mm3 (142-424); Red Blood Count 4.29 M/mm3 (4.20-5.40); Red Cell Distribution Width 18.4 % (11.5-17.5); White Blood Count 8.8 K/mm3 (4.8-10.8)
[2021-12-29 10:17] LABS: C-Reactive Protein 4.2 mg/L (0-4)
== END ==
PROVIDERS: PCP Orthopaedic Surgery Orthopaedic Trauma; Visit Provider Family Medicine
DX: T81.41XA Infection following a procedure, superficial incisional surgical site, initial encounter (principal); B96.5 Pseudomonas (aeruginosa) (mallei) (pseudomallei) as the cause of diseases classified elsewhere; R79.82 Elevated C-reactive protein (CRP)
CPT/HCPCS: 80053; 82248; 85025; 86140

== ENCOUNTER → 2022-01-02 11:52 | Outpatient (CLI) | payer MEDICARE, SELFPAY | PROVIDERS: PCP Family Medicine; Visit Provider Family Medicine | DX: T81.41XA Infection following a procedure, superficial incisional surgical site, initial encounter (principal) | CPT/HCPCS: 36415 ==

== ENCOUNTER → 2022-01-03 09:35 | Outpatient (CLI) | payer MEDICARE, SELFPAY ==
[2022-01-03 14:15] LABS: Alanine Aminotransferase 24 U/L (12-78); Albumin Level 3.6 g/dl (3.5-5.0); Albumin/Globulin Ratio 1.2 (1.1-1.8); Alkaline Phosphatase 86 U/L (38-126); Anion Gap 15.6 mEq/L (5-15); Aspartate Amino Transferase 36 U/L (14-36); Basophils # 0.1 K/mm3 (0-0.2); Basophils % 1.2 % (0.1-2.0); Bilirubin,Direct 0.2 mg/dl (0.0-0.4); Bilirubin,Total 0.2 mg/dl (0.2-1.3); Blood Urea Nitrogen 17 mg/dl (7-17); Calcium 9.4 mg/dl (8.4-10.2); Carbon Dioxide 25 mmol/L (22.0-30.0); Chloride 101 mmol/L (98-107); Eosinophils # 0.4 K/mm3 (0.0-0.4); Eosinophils % 5.8 % (0.1-12.0); Estimated Glomerular Filt Rate 62 ml/min (>60); GFR (African American) 74 ML/MIN (>60); Globulin 3.1 g/dL (1.3-3.2); Glucose 147 mg/dl (74-100); Hematocrit 36.8 % (37.0-47.0); Hemoglobin 10.8 g/dL (12.2-16.2); Lymphocytes # 1.8 K/mm3 (0.7-4.5); Lymphocytes % 26.2 % (10-50); Mean Corpuscular HGB Conc 29.3 g/dL (31.8-35.4); Mean Corpuscular Hemoglobin 24.9 pg (27.0-31.2); Mean Corpuscular Volume 85.2 fl (81-99); Mean Platelet Volume 9.6 fl (7.4-10.4); Monocytes # 0.7 K/mm3 (0.1-1.0); Monocytes % 9.8 % (1.7-9.3); Neutrophils # 3.8 K/mm3 (1.8-7.8); Neutrophils % 56.9 % (37.0-80.0); Platelet Count 434 K/mm3 (142-424); Potassium 4.6 mmoL/L (3.5-5.1); Red Blood Count 4.32 M/mm3 (4.20-5.40); Red Cell Distribution Width 18.2 % (11.5-17.5); Sodium 137 mmol/L (136-145); Total Protein,Serum 6.7 g/dl (6.3-8.2); White Blood Count 6.7 K/mm3 (4.8-10.8)
[2022-01-03 14:21] LABS: C-Reactive Protein 4.3 mg/L (0-4)
== END ==
PROVIDERS: Family Medicine; PCP Family Medicine; Visit Provider Family Medicine
DX: T81.41XA Infection following a procedure, superficial incisional surgical site, initial encounter (principal); I10 Essential (primary) hypertension
CPT/HCPCS: 80053; 82248; 85025; 86140

== ENCOUNTER → 2022-01-09 10:58 | Outpatient (CLI) | payer MEDICARE, SELFPAY ==
[2022-01-09 12:03] LABS: Basophils # 0.1 K/mm3 (0-0.2); Eosinophils # 0.3 K/mm3 (0.0-0.4); Eosinophils % 5.3 % (0.1-12.0); Hematocrit 35.6 % (37.0-47.0); Hemoglobin 10.6 g/dL (12.2-16.2); Lymphocytes # 1.4 K/mm3 (0.7-4.5); Lymphocytes % 22.9 % (10-50); Mean Corpuscular HGB Conc 29.8 g/dL (31.8-35.4); Mean Corpuscular Hemoglobin 25.7 pg (27.0-31.2); Mean Corpuscular Volume 86.1 fl (81-99); Mean Platelet Volume 9.3 fl (7.4-10.4); Monocytes # 0.6 K/mm3 (0.1-1.0); Monocytes % 9.8 % (1.7-9.3); Neutrophils # 3.7 K/mm3 (1.8-7.8); Platelet Count 367 K/mm3 (142-424); Red Blood Count 4.13 M/mm3 (4.20-5.40); Red Cell Distribution Width 18.4 % (11.5-17.5); White Blood Count 6.1 K/mm3 (4.8-10.8)
[2022-01-09 14:15] LABS: Chloride 100 mmol/L (98-107); Potassium 4.7 mmoL/L (3.5-5.1); Sodium 134 mmol/L (136-145)
[2022-01-09 14:17] LABS: Alanine Aminotransferase 15 U/L (12-78); Aspartate Amino Transferase 23 U/L (14-36); Blood Urea Nitrogen 11 mg/dl (7-17); Estimated Glomerular Filt Rate 82 ml/min (>60); GFR (African American) 100 ML/MIN (>60)
[2022-01-09 14:18] LABS: Albumin Level 3.6 g/dl (3.5-5.0); Albumin/Globulin Ratio 1.2 (1.1-1.8); Alkaline Phosphatase 58 U/L (38-126); Anion Gap 13.7 mEq/L (5-15); Bilirubin,Direct 0.1 mg/dl (0.0-0.4); Calcium 9.7 mg/dl (8.4-10.2); Carbon Dioxide 25 mmol/L (22.0-30.0); Globulin 2.9 g/dL (1.3-3.2); Glucose 222 mg/dl (74-100); Total Protein,Serum 6.5 g/dl (6.3-8.2)
[2022-01-09 14:21] LABS: Bilirubin,Total 0.1 mg/dl (0.2-1.3)
[2022-01-09 14:30] LABS: C-Reactive Protein 0.4 mg/L (0-4)
== END ==
PROVIDERS: PCP Family Medicine; Visit Provider Family Medicine
DX: T81.41XA Infection following a procedure, superficial incisional surgical site, initial encounter (principal); D64.9 Anemia, unspecified
CPT/HCPCS: 80053; 82248; 85025; 86140

== ENCOUNTER → 2022-01-17 11:49 | Outpatient (CLI) | payer MEDICARE, SELFPAY ==
[2022-01-17 14:15] LABS: Basophils # 0.1 K/mm3 (0-0.2); Basophils % 1.1 % (0.1-2.0); Eosinophils # 0.3 K/mm3 (0.0-0.4); Eosinophils % 4.3 % (0.1-12.0); Hematocrit 35.6 % (37.0-47.0); Hemoglobin 11.1 g/dL (12.2-16.2); Lymphocytes # 1.5 K/mm3 (0.7-4.5); Lymphocytes % 24.4 % (10-50); Mean Corpuscular HGB Conc 31.1 g/dL (31.8-35.4); Mean Corpuscular Hemoglobin 26.6 pg (27.0-31.2); Mean Corpuscular Volume 85.3 fl (81-99); Mean Platelet Volume 9.1 fl (7.4-10.4); Monocytes # 0.5 K/mm3 (0.1-1.0); Monocytes % 8.8 % (1.7-9.3); Neutrophils # 3.8 K/mm3 (1.8-7.8); Neutrophils % 61.4 % (37.0-80.0); Platelet Count 340 K/mm3 (142-424); Red Blood Count 4.17 M/mm3 (4.20-5.40); White Blood Count 6.1 K/mm3 (4.8-10.8)
[2022-01-17 14:59] LABS: Alanine Aminotransferase 12 U/L (12-78); Albumin Level 3.7 g/dl (3.5-5.0); Albumin/Globulin Ratio 1.2 (1.1-1.8); Alkaline Phosphatase 53 U/L (38-126); Anion Gap 12.8 mEq/L (5-15); Aspartate Amino Transferase 21 U/L (14-36); Bilirubin,Direct 0.1 mg/dl (0.0-0.4); Blood Urea Nitrogen 17 mg/dl (7-17); Carbon Dioxide 25 mmol/L (22.0-30.0); Chloride 97 mmol/L (98-107); Estimated Glomerular Filt Rate 71 ml/min (>60); GFR (African American) 85 ML/MIN (>60); Globulin 3.1 g/dL (1.3-3.2); Glucose 229 mg/dl (74-100); Potassium 4.8 mmoL/L (3.5-5.1); Sodium 130 mmol/L (136-145); Total Protein,Serum 6.8 g/dl (6.3-8.2)
[2022-01-17 15:05] LABS: C-Reactive Protein 0.5 mg/L (0-4)
[2022-01-17 15:11] LABS: Bilirubin,Total 0.1 mg/dl (0.2-1.3)
== END ==
PROVIDERS: PCP Family Medicine; Visit Provider Family Medicine
DX: T81.41XA Infection following a procedure, superficial incisional surgical site, initial encounter (principal); I10 Essential (primary) hypertension
CPT/HCPCS: 80053; 80076; 82248; 85025; 86140

== ENCOUNTER → 2022-01-24 09:58 | Outpatient (CLI) | payer MEDICARE, SELFPAY ==
[2022-01-24 10:15] LABS: Basophils # 0.1 K/mm3 (0-0.2); Basophils % 1.5 % (0.1-2.0); Eosinophils # 0.2 K/mm3 (0.0-0.4); Eosinophils % 3.6 % (0.1-12.0); Hematocrit 38.8 % (37.0-47.0); Hemoglobin 11.9 g/dL (12.2-16.2); Lymphocytes # 1.4 K/mm3 (0.7-4.5); Lymphocytes % 25.2 % (10-50); Mean Corpuscular HGB Conc 30.7 g/dL (31.8-35.4); Mean Corpuscular Hemoglobin 26.4 pg (27.0-31.2); Mean Platelet Volume 8.2 fl (7.4-10.4); Monocytes # 0.5 K/mm3 (0.1-1.0); Monocytes % 8.5 % (1.7-9.3); Neutrophils # 3.3 K/mm3 (1.8-7.8); Neutrophils % 61.2 % (37.0-80.0); Platelet Count 368 K/mm3 (142-424); Red Blood Count 4.51 M/mm3 (4.20-5.40); Red Cell Distribution Width 17.9 % (11.5-17.5); White Blood Count 5.4 K/mm3 (4.8-10.8)
[2022-01-24 12:56] LABS: Chloride 91 mmol/L (98-107); Potassium 5.3 mmoL/L (3.5-5.1); Sodium 131 mmol/L (136-145)
[2022-01-24 12:58] LABS: Alanine Aminotransferase 13 U/L (12-78); Aspartate Amino Transferase 24 U/L (14-36); Blood Urea Nitrogen 19 mg/dl (7-17); Estimated Glomerular Filt Rate 71 ml/min (>60); GFR (African American) 85 ML/MIN (>60)
[2022-01-24 12:59] LABS: Albumin Level 4.2 g/dl (3.5-5.0); Albumin/Globulin Ratio 1.3 (1.1-1.8); Alkaline Phosphatase 59 U/L (38-126); Anion Gap 19.3 mEq/L (5-15); Calcium 9.6 mg/dl (8.4-10.2); Carbon Dioxide 26 mmol/L (22.0-30.0); Globulin 3.2 g/dL (1.3-3.2); Glucose 182 mg/dl (74-100); Total Protein,Serum 7.4 g/dl (6.3-8.2)
[2022-01-24 13:00] LABS: Bilirubin,Indirect 0.1 mg/dL (0.0-0.9); Bilirubin,Total 0.1 mg/dl (0.2-1.3)
[2022-01-24 13:04] LABS: C-Reactive Protein 0.3 mg/L (0-4)
== END ==
PROVIDERS: PCP Family Medicine; Visit Provider Family Medicine
DX: T81.41XA Infection following a procedure, superficial incisional surgical site, initial encounter (principal); I10 Essential (primary) hypertension
CPT/HCPCS: 80053; 80076; 82248; 85025; 86140

== ENCOUNTER → 2022-02-02 13:52 | Outpatient (CLI) | payer MEDICARE, SELFPAY ==
--- NOTE | 2022-02-02 13:57 | US_ITS ---
FINAL REPORT TECHNIQUE: Ultrasound images of the kidneys and bladder were obtained. CLINICAL HISTORY: . FINDINGS: The right kidney measures 11.3 cm in length. It is normal in echogenicity. There is no hydronephrosis. The left kidney measures 10.0 cm in length. It is normal in echogenicity. There is no hydronephrosis. There are bilateral benign-appearing cysts measuring up to 1.8 cm on the right and 2.0 cm on the left. IMPRESSION: Bilateral benign-appearing renal cysts. Reviewed, Interpreted and Dictated by Zacarias Catalan MD Transcribed by Tevin Hollingsworth Authenticated and . [facility]
== END ==
PROVIDERS: PCP Family Medicine; Visit Provider Urology
DX: N28.1 Cyst of kidney, acquired (principal)
CPT/HCPCS: 76770

== ENCOUNTER 2022-03-10 11:52 | Emergency (ER) | payer MEDICARE, SELFPAY ==
[2022-03-10 12:39] VITALS: BP 113/53; PULSE 69; RESP 18; TEMP 36.9; O2SAT 98; BMI 24.7
--- NOTE | 2022-03-10 12:50 | EXP.UTC ---
Discharge Plan Disposition Patient Disposition: Home, Self-Care Condition: Good Prescriptions Prescriptions: No Action clopidogrel 75 mg tablet 75 mg PO DAILY venlafaxine [Effexor XR] 75 mg capsule,extended release 24hr 75 mg PO DAILY oxycodone 5 mg capsule 5 mg PO BID PRN pantoprazole [Protonix] 40 mg tablet,delayed release (DR/EC) 40 mg PO DAILY ranolazine [Ranexa] 500 mg tablet extended release 12 hr 500 mg PO BID desmopressin [DDAVP] 0.2 mg tablet 0.2 mg PO HS Qty: 60 5RF nitrofurantoin macrocrystal 50 mg capsule 50 mg PO HS Qty: 90 3RF Rx Instructions: must administer with a meal/food metformin 500 MG tablet 1,000 mg PO DAILY aspirin 325 MG tablet,delayed release (DR/EC) 325 mg PO DAILY verapamil 300 MG capsule, [address] 360 mg PO DAILY insulin glargine 100 UNIT/ML solution 30 unit SQ HS pantoprazole 40 MG tablet,delayed release (DR/EC) 40 mg PO BID trazodone 150 MG tablet 300 mg PO HS hydralazine 100 MG tablet 100 mg PO TID nitroglycerin 0.4 MG tablet, sublingual 0.4 mg sublingual NEEDED PRN (Reason: Chest Pain) ranolazine 500 MG tablet extended release 12 hr 500 mg PO BID venlafaxine 75 MG tablet extended release 24hr 75 mg PO DAILY minoxidil 2.5 MG tablet 5 mg PO HS nebivolol 10 MG tablet 10 mg PO HS Label Comments: TAKE 1 TABLET BY MOUTH EVERY DAY latanoprost (PF) 7.5 ML drops 1 drp ophthalmic (eye) BID dorzolamide (PF) 10 ML drops 1 drp ophthalmic (eye) BID lisinopril 40 MG tablet 40 mg PO HS metoclopramide HCl 5 MG tablet 5 mg PO QID ezetimibe-simvastatin 1 EACH tablet 1 each PO HS fenofibrate nanocrystallized 145 MG tablet 145 mg PO HS fesoterodine 4 MG tablet extended release 24 hr 4 mg PO DAILY Label Comments: TAKE 1 TABLET BY MOUTH DAILY magnesium oxide 400 MG tablet 400 mg PO BID torsemide 10 MG tablet 10 mg PO DAILY PRN (Reason: fluid) Referrals Follow up/Referrals: Jaxson Ken MD [Primary Care Provider] - See instructions Activity Restrictions/Add. Instructions Additional Instructions/Restrictions: Drink extra fluids with and between meals. If you have difficulty drinking, try very small amounts of water or suck on ice chips. ? Avoid fruit juices, as these do not replace minerals and can actually increase diarrhea. ? Children and adults can use sports drinks to replenish electrolytes. Younger children and infants should use products formulated for children, like oral rehydration solutions. ? Eat food in small amounts and let your stomach recover. ? Get lots of rest. You may feel tired or weak. ? No greasy or fried foods for the next 24-48 hours BRAT diet Bananas Rice Apples and [place] ? Make sure to drink plenty of liquids ? Return if needed ? Straight to ER if any life threatening symptoms ? Zofran as prescribed ? Follow up with family doctor in the next 48-72 hours if no improvement or any worsening of symptoms Clinical Impressions Clinical Impression: Vomiting Instructions Patient Instructions: Nausea and Vomiting-Adult Discharge ED Provider: Yadira Valiente [facility] General Stated complaint: vomiting, can't keep food down Mode of Arrival: Wheelchair Source of Information: Patient and Relative Limitations: No Limitations Time Seen by Provider: 03/10/22 12:50 Description of Symptoms (Recalled from Triage Doc. by RN): pt comes in with c/o nausea, vomitting, dehydration. ongoing for 1-1.5 weeks. pt also had a fall last night and wants her elbow looked at HEENT Symptoms (Recalled from RN notes): No Resp Symptoms (Recalled from RN notes): No Skin Symptoms (Recalled from RN notes): Yes MS Symptoms (Recalled from RN notes): No Functional Status (Recalled from RN notes): n/a Hist
[2022-03-10 14:14] VITALS: BP 113/53; PULSE 69; RESP 18; TEMP 36.9
== END 2022-03-10 14:14 | disposition home or self-care (01) ==
PROVIDERS: Emergency Provider Nurse Practitioner; PCP Family Medicine
DX: R11.2 Nausea with vomiting, unspecified (principal)
CPT/HCPCS: 99212; G0463; J2405

== ENCOUNTER 2022-03-15 11:23 | Observation (INO) | payer MEDICARE, SELFPAY ==
[2022-03-15] VITALS (12 sets, daily range): BP systolic 99–142; BP diastolic 46–89; PULSE 60–78; RESP 14–21; TEMP 36.8–37.1; O2SAT 91–98; BMI 25.7; BMI 24.6
--- NOTE | 2022-03-15 11:38 | XR_ITS ---
FINAL REPORT CLINICAL HISTORY: cough, fever COMPARISON: November 2021 FINDINGS: The heart size is normal. The mediastinum is within normal limits. There is mild left upper lobe opacity. There is no pleural effusion. There is no pneumothorax. The bony thorax is intact. IMPRESSION: Mild left upper lobe opacity worrisome for pneumonia. Reviewed, Interpreted and Dictated by Shane Lambert III, MD Transcribed by Tevin Hollingsworth Authenticated and [facility]
--- NOTE | 2022-03-15 11:39 | CT_ITS ---
FINAL REPORT CLINICAL HISTORY: abdominal pain, fever COMPARISON: August 2020 FINDINGS: Axial CT images of the abdomen and pelvis were obtained without intravenous contrast. Coronal reformatted images were also obtained.This study was performed with techniques to keep radiation doses as low as reasonably achievable (ALARA). Individualized dose reduction techniques using automated exposure control or adjustment of mA and/or kV according to the patient's size were employed. Abdomen: There is mild bibasilar atelectasis. There is no evidence of renal stone or hydronephrosis. Postoperative changes are seen from cholecystectomy. The liver, spleen and pancreas have an unremarkable, unenhanced appearance. There is mild adrenal gland enlargement favoring adenomas, worse from prior. There is a stable 20 mm high density mass in the lateral left kidney that cannot be actively characterize without contrast but favors a hyperdense cyst. There are other small low-attenuation masses in both kidneys favoring cysts. There is diffuse vascular calcification. There is mild diffuse colon wall thickening that may represent colitis. There is a moderate to large amount of retained stool. There is descending and sigmoid colon diverticulosis. Pelvis: Images of the pelvis reveal no evidence of ureteral dilation or ureteral stone. The appendix is normal. There are scattered uterine calcifications in may represent small fibroids or vascular calcifications. IMPRESSION: Stable hyperdense left renal mass cannot be accurately characterized but favors a hyperdense cyst. Mild diffuse colon wall thickening may represent colitis. Moderate to large amount of retained stool. Descending and sigmoid diverticulosis without evidence of diverticulitis. Reviewed, Interpreted and Dictated by Shane Lambert III, MD Transcribed by Tevin Hollingsworth Authenticated and . [facility]
[2022-03-15 11:46] LABS: Basophils # 0.1 K/mm3 (0-0.2); Basophils % 0.5 % (0.1-2.0); Eosinophils # 0.1 K/mm3 (0.0-0.4); Eosinophils % 0.8 % (0.1-12.0); Hematocrit 36.5 % (37.0-47.0); Hemoglobin 11.9 g/dL (12.2-16.2); Lymphocytes # 1.1 K/mm3 (0.7-4.5); Lymphocytes % 10.4 % (10-50); Mean Corpuscular HGB Conc 32.7 g/dL (31.8-35.4); Mean Corpuscular Hemoglobin 27.5 pg (27.0-31.2); Mean Corpuscular Volume 84.2 fl (81-99); Mean Platelet Volume 8.6 fl (7.4-10.4); Monocytes # 0.6 K/mm3 (0.1-1.0); Monocytes % 5.5 % (1.7-9.3); Neutrophils # 8.5 K/mm3 (1.8-7.8); Neutrophils % 82.7 % (37.0-80.0); Platelet Count 382 K/mm3 (142-424); Red Blood Count 4.33 M/mm3 (4.20-5.40); Red Cell Distribution Width 14.6 % (11.5-17.5); White Blood Count 10.3 K/mm3 (4.8-10.8)
--- NOTE | 2022-03-15 12:08 | HMH.EDGENADL ---
Discharge Plan Disposition Patient Disposition: Admitted as Observation Condition: Good Clinical Impressions Clinical Impression: Pneumonia, Acute hyponatremia, Generalized weakness, Acute constipation, Colitis Discharge ED Provider: Annelise Banda General Adult HPI General Chief complaint: Weakness Stated complaint: weakness Time Seen by Provider: 03/15/22 11:24 History of Present Illness HPI narrative: This patient is a 71-year-old female with history of staph infection of left lower extremity requiring prolonged antibiotics after a tib-fib fracture, vertigo, recurrent urinary tract infections, and type 2 diabetes presenting to the emergency department for evaluation of fever, generalized weakness, and fatigue. She arrives by EMS, who noted that she was hypotensive upon their arrival with a systolic blood pressure in the 80s. Patient currently states that she is having some mild abdominal discomfort and no appetite. She is also not had a bowel movement in an extended period of time. Family reports that she is typically ambulatory and cooks and takes care of her self, however she has not been able to do any of her ADLs at home over the last several days. She had been on IV antibiotics for an extended period of time for her left lower extremity infection, which they state that she had been dealing with since October. They state that she has been transitioned to oral antibiotics, which were stopped on Sunday. Her leg is doing better, and they deny any new redness, warmth, or other concerns. They noted a fever at home of 100.4 ?F. They also note that the patient has been coughing some, but they state that she has COPD so this is not new for her. Of note, patient has been having low blood pressure readings on blood pressure log for a while now. She is on multiple antihypertensive medications. Related Data Home Medications Medication Instructions Recorded Confirmed hydralazine 100 mg tablet 100 mg PO TID Hypertension 06/05/18 03/15/22 nitroglycerin 0.4 mg sublingual 0.4 mg sublingual Q5MINP PRN Chest 06/05/18 03/15/22 tablet Pain pantoprazole 40 mg tablet,delayed 40 mg PO BID GERD 06/05/18 03/15/22 release dorzolamide (PF) 2 % (PF) eye drops 1 drp ophthalmic (eye) BID eye 08/27/20 03/15/22 pressure latanoprost (PF) 0.005 % eye drops 1 drp ophthalmic (eye) HS Glaucoma 08/27/20 03/15/22 minoxidil 2.5 mg tablet 5 mg PO DAILY Hypertension 08/27/20 03/15/22 nebivolol 10 mg tablet 10 mg PO HS Hypertension 08/27/20 03/15/22 ezetimibe 10 mg-simvastatin 20 mg 1 each PO HS Cholesterol 08/28/20 03/15/22 tablet fenofibrate nanocrystallized 145 145 mg PO DAILY TRIGLYCERIDES 08/28/20 03/15/22 mg tablet clopidogrel 75 mg tablet 75 mg PO DAILY PLATELET INHIBITOR 01/27/22 03/15/22 ranolazine 500 mg tablet,extended 500 mg PO BID ANGINA 01/27/22 03/15/22 release,12 hr (Ranexa) celecoxib 100 mg capsule 100 mg PO DAILY PRN Pain 03/15/22 03/15/22 chlorthalidone 25 mg tablet 25 mg PO DAILY Fluid 03/15/22 03/15/22 ondansetron 8 mg disintegrating 8 mg PO Q8HP PRN Nausea And 03/15/22 03/15/22 tablet Vomiting trazodone 50 mg tablet 100 mg PO HS SLEEP 03/15/22 03/15/22 venlafaxine 150 mg 150 mg PO DAILY MOOD 03/15/22 03/15/22 capsule,extended release 24 hr verapamil 360 mg 24 hr 360 mg PO HS HEART RATE 03/15/22 03/15/22 capsule,extended release Allergies Allergy/AdvReac Type Severity Reaction Status Date / Time Iodinated Contrast Media Allergy Intermediate I-RASH Verified 03/10/22 12:43 [Iodinated Contrast Media - IV Dye] [facility] Medical History Diabetes Hyperlipidemia Hypertension Urinary Incontinence Family History (Updated 03/15/22 @ 16:03 by Yadira Mead, KEI) Other Breast cancer Family history of Alzheimer's disease Parkinsons disease Social History (Updated 03/15/22 @ 16:05 by Yadira Mead, KEI) Smoking Status: Never smoker alcohol in
--- NOTE | 2022-03-15 12:17 | ECG_ITS ---
APPROVED REPORT Exam: Resting ECG HR:62 bpm ECG Measurements Heart Rate 62 AXES PA 223 P 62 QRSd 90 QRS -20 QT 403 T 48 QTc 408 Conclusion SINUS RHYTHM WITH FIRST DEGREE AV BLOCK ABNORMAL ECG UNCONFIRMED REPORT Electronically signed by : Jaxson Jean MD 03/17/2022 13:31:00
[2022-03-15 12:24] LABS: Lactic Acid 0.9 mmol/L (0.7-2.1)
[2022-03-15 12:40] LABS: Chloride 91 mmol/L (98-107); Potassium 4.2 mmoL/L (3.5-5.1); Sodium 125 mmol/L (136-145)
[2022-03-15 12:43] LABS: Alanine Aminotransferase 10 U/L (12-78); Albumin Level 3.7 g/dl (3.5-5.0); Albumin/Globulin Ratio 1.3 (1.1-1.8); Alkaline Phosphatase 39 U/L (38-126); Anion Gap 18.2 mEq/L (5-15); Aspartate Amino Transferase 26 U/L (14-36); Bilirubin,Total 0.7 mg/dl (0.2-1.3); Blood Urea Nitrogen 22 mg/dl (7-17); Calcium 9.2 mg/dl (8.4-10.2); Carbon Dioxide 20 mmol/L (22.0-30.0); Creatinine Clearance Estimated 51 mL/min (50-200); Estimated Glomerular Filt Rate 49 ml/min (>60); GFR (African American) 59 ML/MIN (>60); Globulin 2.8 g/dL (1.3-3.2); Glucose 106 mg/dl (74-100); Lipase 46 U/L (23-300); Total Protein,Serum 6.5 g/dl (6.3-8.2)
[2022-03-15 12:49] LABS: C-Reactive Protein 122.6 mg/L (0-4)
--- NOTE | 2022-03-15 13:08 | PC.NURSE ---
FRANCINE ROUNDED NO NEEDS AT THIS TIME
[2022-03-15 13:20] LABS: Procalcitonin 0.108 ng/mL (0.0-2.0)
--- NOTE | 2022-03-15 14:13 | PC.NURSE ---
Dr Banda on phone with Hospitalist at this time
--- NOTE | 2022-03-15 14:20 | PC.NURSE ---
Food tray ordered for patient.
[2022-03-15 14:48] LABS: Coronavirus 19, PCR Not Detected (NotDetected); Influenza A, PCR Not Detected (NotDetected); Influenza B, PCR Not Detected (NotDetected)
[2022-03-15 15:08] LABS: Microscopic, Urine URINE MICROSCOPIC (MICROSCOPIC)
[2022-03-15 15:11] LABS: Appearance,Urine CLEAR (Clear); Bilirubin,Urine Negative (Negative); Blood, Urine Negative (Negative); Color,Urine YELLOW (Yellow); Glucose,Urine (UA) Negative (Negative); Ketones,Urine Negative (Negative); Leukocyte Esterase,Urine Negative (Negative); Nitrate,Urine Negative (Negative); PH,Urine 6.5 (5.0-8.5); Protein,Urine Negative (Negative); Urobilinogen,Urine 0.2 EU/dl (0.2)
--- NOTE | 2022-03-15 15:29 | PC.NURSE ---
called report to seth dixon rn
--- NOTE | 2022-03-15 15:31 | EXP.HP ---
History of Present Illness *Admission Date: 03/15/22 *Reason for visit:: cough, weakness *History of present illness: Ms. Walker is a pleasant 71-year-old female with history of CAD, hypertension, hyperlipidemia who presented to the ER from home due to worsening fatigue, generalized weakness, and cough. Family is at bedside and helps give history. They report that she is typically ambulatory and has been getting around with a cane until the past couple days where she is using her walker and has become more weak. Not able to complete her perform ADLs over the last 2 to 3 days. She also reports having increased cough and mild shortness of breath with exertion. Poor p.o. intake. On initial work-up chest imaging concerning for left upper lobe pneumonia, labs concerning for hyponatremia and [place]. Reported fever at home but afebrile here at the hospital. Patient admitted to medicine for further management of mild dehydration, [place] and pneumonia. After arriving to the floor, patient is pleasant and in no acute distress. Stable on room air. Tolerated dinner without difficulty. Family concerned about her progressive weakness and cough. Denies any chest pain, diarrhea, nausea or vomiting at this time. Has had some increased confusion over the past few days later in the day. Additionally has not had a bowel movement in the past week. [facility] Medical History Diabetes Hyperlipidemia Hypertension Urinary Incontinence Family History Breast cancer Family history of Alzheimer's disease Parkinsons disease Social History Smoking Status: Never smoker alcohol intake: never substance use type: denies use current occupational status: retired Travel in the last 8 weeks: None household members: none housing: house current occupational exposures/hazards: No caffeine: Yes Review of Systems Review of Systems Review of systems (narrative): 14 point review of systems performed, pertinent positives and negatives as per HPI Meds Home Medications and Allergies Home Medications Medication Instructions Recorded Confirmed Type hydralazine 100 mg tablet 100 mg PO TID Hypertension 06/05/18 03/15/22 History nitroglycerin 0.4 mg sublingual 0.4 mg sublingual Q5MINP PRN Chest 06/05/18 03/15/22 History tablet Pain pantoprazole 40 mg tablet,delayed 40 mg PO BID GERD 06/05/18 03/15/22 History release dorzolamide (PF) 2 % (PF) eye drops 1 drp ophthalmic (eye) BID eye 08/27/20 03/15/22 History pressure latanoprost (PF) 0.005 % eye drops 1 drp ophthalmic (eye) HS Glaucoma 08/27/20 03/15/22 History minoxidil 2.5 mg tablet 5 mg PO DAILY Hypertension 08/27/20 03/15/22 History nebivolol 10 mg tablet 10 mg PO HS Hypertension 08/27/20 03/15/22 History ezetimibe 10 mg-simvastatin 20 mg 1 each PO HS Cholesterol 08/28/20 03/15/22 History tablet fenofibrate nanocrystallized 145 145 mg PO DAILY TRIGLYCERIDES 08/28/20 03/15/22 History mg tablet clopidogrel 75 mg tablet 75 mg PO DAILY PLATELET INHIBITOR 01/27/22 03/15/22 History ranolazine 500 mg tablet,extended 500 mg PO BID ANGINA 01/27/22 03/15/22 History release,12 hr (Ranexa) celecoxib 100 mg capsule 100 mg PO DAILY PRN Pain 03/15/22 03/15/22 History chlorthalidone 25 mg tablet 25 mg PO DAILY Fluid 03/15/22 03/15/22 History ondansetron 8 mg disintegrating 8 mg PO Q8HP PRN Nausea And 03/15/22 03/15/22 History tablet Vomiting trazodone 50 mg tablet 100 mg PO HS SLEEP 03/15/22 03/15/22 History venlafaxine 150 mg 150 mg PO DAILY MOOD 03/15/22 03/15/22 History capsule,extended release 24 hr verapamil 360 mg 24 hr 360 mg PO HS HEART RATE 03/15/22 03/15/22 History capsule,extended release New Prescriptions to Start Prescriptions: Allergies Allergy/AdvReac Type Severity Reaction Status Date / Time Iodinated Contrast
--- NOTE | 2022-03-15 15:39 | PC.NURSE ---
patient arrived to floor from ED by wheelchair
[2022-03-15 15:51] LABS: Bacteria,Urine 1+ /lpf
[2022-03-16] VITALS: PULSE 62; RESP 16; TEMP 36.7; O2SAT 95
[2022-03-16 04:00] VITALS: BP 131/54; PULSE 58; RESP 18; TEMP 36.7; O2SAT 95
[2022-03-16 04:35] VITALS: BMI 25.0
--- NOTE | 2022-03-16 05:23 | PC.NURSE ---
pt had no complaints this shift. she has ambulated to bathroom with walker and standby assist. remains on RA and tolerates well with o2 sat >90%. LS diminished.
[2022-03-16 07:37] LABS: Basophils % 0.5 % (0.1-2.0); Eosinophils % 0.6 % (0.1-12.0); Hematocrit 34.5 % (37.0-47.0); Hemoglobin 11.2 g/dL (12.2-16.2); Lymphocytes % 17.1 % (10-50); Mean Corpuscular HGB Conc 32.5 g/dL (31.8-35.4); Mean Corpuscular Hemoglobin 27.9 pg (27.0-31.2); Mean Corpuscular Volume 85.9 fl (81-99); Mean Platelet Volume 7.7 fl (7.4-10.4); Monocytes # 0.6 K/mm3 (0.1-1.0); Monocytes % 9.8 % (1.7-9.3); Neutrophils # 4.3 K/mm3 (1.8-7.8); Platelet Count 293 K/mm3 (142-424); Red Blood Count 4.02 M/mm3 (4.20-5.40); Red Cell Distribution Width 14.7 % (11.5-17.5)
[2022-03-16 07:48] LABS: Alanine Aminotransferase 11 U/L (12-78); Albumin Level 3.5 g/dl (3.5-5.0); Albumin/Globulin Ratio 1.2 (1.1-1.8); Alkaline Phosphatase 42 U/L (38-126); Anion Gap 15.8 mEq/L (5-15); Aspartate Amino Transferase 28 U/L (14-36); Bilirubin,Total 0.5 mg/dl (0.2-1.3); Blood Urea Nitrogen 16 mg/dl (7-17); Calcium 9.3 mg/dl (8.4-10.2); Carbon Dioxide 20 mmol/L (22.0-30.0); Chloride 98 mmol/L (98-107); Creatinine Clearance Estimated 55 mL/min (50-200); Estimated Glomerular Filt Rate 71 ml/min (>60); GFR (African American) 85 ML/MIN (>60); Glucose 81 mg/dl (74-100); Magnesium 1.4 mg/dl (1.6-2.3); Potassium 3.8 mmoL/L (3.5-5.1); Sodium 130 mmol/L (136-145); Total Protein,Serum 6.5 g/dl (6.3-8.2)
--- NOTE | 2022-03-16 07:48 | HMH.PTEV ---
Physical Therapy Evaluation Rehab PT IP Evaluation Start: 03/16/22 07:10 Freq: ONCE Status: Active Protocol: Document 03/16/22 07:46 TONIA (Rec: 03/16/22 07:48 TONIA [id number]) Subjective/History History History Ms. Walker is a pleasant 71 -year-old female with history of CAD, hypertension, hyperlipidemia who presented to the ER from home due to worsening fatigue, generalized weakness, and cough. Family is at bedside and helps give history. They report that she is typically ambulatory and has been getting around with a cane until the past couple days where she is using her walker and has become more weak. Not able to complete her perform ADLs over the last 2 to 3 days. She also reports having increased cough and mild shortness of breath with exertion. Poor p.o. intake. On initial work-up chest imaging concerning for left upper lobe pneumonia, labs concerning for hyponatremia and [place]. Reported fever at home but afebrile here at the hospital. Patient admitted to medicine for further management of mild dehydration, [place] and pneumonia. Subjective Subjective Pt agrees to participate w/ therapy and is willing to ambulate - no c/o other than pt feeling constipated Rehab PT IP Eval Objective Appearance Patient Behavior Appropriate,Cooperative Patient Orientation Place,Name,Birthday,Year, Situation Difficulty following instructions none Speech Pattern Clear,Appropriate Ambulation Patient Able to Ambulate Yes Ambulation Observation IP General Gait Pattern Observation No Deviations/Normal Ambulation Distance (feet) 100 Ambulation Assistive Device Rolling Walker Ambulation Ability Independent Balance Ability to Arise Able, uses arms to help Sitting Balance Steady, saf
[2022-03-16 08:00] VITALS: BP 144/57; PULSE 60; RESP 14; TEMP 36.6; O2SAT 98
--- NOTE | 2022-03-16 08:28 | EXP.DC.SUM ---
General Admission date:: 03/15/22 Discharge date: 03/16/22 HPI HPI HPI: Ms. Walker is a pleasant 71-year-old female with history of CAD, hypertension, hyperlipidemia who presented to the ER from home due to worsening fatigue, generalized weakness, and cough. Family is at bedside and helps give history. They report that she is typically ambulatory and has been getting around with a cane until the past couple days where she is using her walker and has become more weak. Not able to complete her perform ADLs over the last 2 to 3 days. She also reports having increased cough and mild shortness of breath with exertion. Poor p.o. intake. On initial work-up chest imaging concerning for left upper lobe pneumonia, labs concerning for hyponatremia and [place]. Reported fever at home but afebrile here at the hospital. Patient admitted to medicine for further management of mild dehydration, [place] and pneumonia. After arriving to the floor, patient is pleasant and in no acute distress. Stable on room air. Tolerated dinner without difficulty. Family concerned about her progressive weakness and cough. Denies any chest pain, diarrhea, nausea or vomiting at this time. Has had some increased confusion over the past few days later in the day. Additionally has not had a bowel movement in the past week. Hospital Course Hospital Course Hospital Course: 71-year-old female who presented with worsening weakness and cough.? Found to have [place], dehydration, left upper lobe pneumonia.? Admitted for IV fluid resuscitation and initiation of IV antibiotics.? Patient remained stable on room air overnight. Responded to IV fluids with slight improvement in kidney function. Tolerating oral intake with improved energy. PT/OT evaluated, she ambulated well with them, over 100 feet. Medically stable for discharge home to continue antibiotics for community-acquired pneumonia. Transition to oral antibiotics at discharge. Problems addressed as follows: Left upper lobe pneumonia -Initiated on community-acquired pneumonia antibiotics with ceftriaxone and azithromycin.? Sputum culture ordered.? Stable on room air. Transition to cefdinir and days at discharge. Recommend follow-up with PCP in the next 1 to 2 weeks ith repeat imaging as an outpatient. History of CAD and hypertension -Continued home medications Mild dehydration and [place] Hyponatremia -Fluid resuscitation overnight. Responded well with improvement in sodium and improvement in creatinine. Would repeat labs in a week to monitor for complete resolution. -Discontinued chlorthalidone at discharge, concerned that this may be complicating her hyponatremia and [place]. Constipation -Received enema during admission. Also received docusate and senna. Had a bowel movement on day of discharge. Recommend continuing docusate/senna at discharge until having 1-2 soft stools daily. Improved mobility and energy. Meet criteria for discharge home to continue oral therapy for her pneumonia and constipation. Exam Data for Last 24 hours Vital signs and Labs for Last 24 Hours: Temp Pulse Resp BP Pulse Ox 98.1 F 58 L 18 131/54 L 95 03/16/22 04:00 03/16/22 04:00 03/16/22 04:00 03/16/22 04:00 03/16/22 04:00 Laboratory Results - last 24 hr 03/15/22 11:27: WBC 10.3, RBC 4.33, Hgb 11.9 L, Hct 36.5 L, MCV 84.2, MCH 27.5, MCHC 32.7, RDW 14.6, Plt Count 382, MPV 8.6, Neut % (Auto) 82.7 H, Lymph % (Auto) 10.4, Latimer % (Auto) 5.5, Eos % (Auto) 0.8, Baso % (Auto) 0.5, Neut # (Auto) 8.5 H, Lymph # (Auto) 1.1, Latimer # (Auto) 0.6, Eos # (Auto) 0.1, Baso # (Auto) 0.1 03/15/22 11:55: Lactate 0.9 03/15/22 12:18: Sodium 125 L, Potassium 4.2, Chloride 91 L, Carbon Dioxide 20 L, Anion Gap 18.2 H, BUN 22 H, Creatinine 1.10 H, Estimated Creat Clear 51, Estimated GFR 49 L, Est GFR ( Amer) 59, Glucose 106 H, Calcium 9.2, Total Bilirubin 0.7, AST 26, ALT 10 L, Alkaline Phosphatase 39, C-Reactive Protein 122.6 H, Total Protein 6.5, Albumin 3
--- NOTE | 2022-03-16 08:51 | HMH.PHAINT1 ---
Pharmacy Intervention Comments: home medication list verified using list from outpatient pharmacy
--- NOTE | 2022-03-16 09:02 | HMH.OTEV ---
OT Inpatient Evaluation Rehab OT IP Evaluation Start: 03/16/22 07:10 Freq: ONCE Status: Complete Protocol: Document 03/16/22 08:54 [facility] (Rec: 03/16/22 09:02 [facility] [id number]) Rehab OT IP Assessment Subjective History Pt oriented x 3 on arrival. Pt agreeable to engage in therapy evaluation. Pt admitted via ED on 03/15/22 due to dehydration, [place] and pneumonia. Pt continues to live in her own home, but her daughters stay with her 04/12. Her daughters have been staying with her since June 2021 after an accident of her falling down the stairs and fracturing her knee. Pt claims normally she is able to complete all ADLs such as dressing, showering, and feeding. She does use a walker at all times. However, she is dependent upon her daughters for completion of all IADLs such as cleaning, cooking, laundry, and grocery shopping. Pt does not drive. Pt has a past medical history of: Diabetes Hyperlipidemia Hypertension Urinary Incontinence Subjective I feel much better than yesterday. Objective Patient Orientation Person,Place,Birthday Upper Extremity Gross ROM WFL Bed Mobility bed mobility-scooting,bed mobility - supine/sit,bed mobility - rolling Assist Level Independent Transfer Training Sit/Stand Transfer Assist Level Supervision/Stand by Chair Transfer Ability Supervision/Stand by Chair Transfer Technique Sit to/from Ambulatory Chair Transfer Assistive Devices Rolling Walker Lower Body Dressing Ability Independent Performing Toilet Hygiene Ability Independent Overall Commode/Toilet Transfer Ability Standby Assistance Commode/Toilet Transfer Technique Sit to/from Ambulatory Rehab OT IP prob,goals,plan Problems Date of Evaluation: 03/16/22 Rehab Potential Rehab Potential Innapropriate for Skilled
[2022-03-16 09:51] VITALS: PULSE 55; RESP 16
[2022-03-16 12:00] VITALS: BP 170/63; PULSE 59; RESP 14; TEMP 36.5; O2SAT 100
--- NOTE | 2022-03-17 13:24 | CARE MANAGER ---
Contacted patient related to hospital discharge. She states she feels better and was able to bean picker all her medications. She is aware of her follow up appointment and denies any questions or concerns. KEI Dawn
== END 2022-03-16 16:19 | disposition home or self-care (01) ==
LOC: ER 14:30 → 2ND 15:34
PROVIDERS: Admitting Provider Internal Medicine Adolescent Medicine; Emergency Provider Emergency Medicine; PCP Family Medicine; Visit Provider Internal Medicine Adolescent Medicine
DX: J18.9 Pneumonia, unspecified organism (principal); E87.1 Hypo-osmolality and hyponatremia; N17.9 Acute kidney failure, unspecified; E86.0 Dehydration; I10 Essential (primary) hypertension; R01.1 Cardiac murmur, unspecified; K59.00 Constipation, unspecified; I25.10 Atherosclerotic heart disease of native coronary artery without angina pectoris; J44.9 Chronic obstructive pulmonary disease, unspecified; Z79.899 Other long term (current) drug therapy; Z20.822 Contact with and (suspected) exposure to COVID-19
CPT/HCPCS: G0378; 36415; 71045; 74176; 80053; 81001; 83605; 83690; 83735; 84145; 85025; 86140; 87040; 87070; 87077; 87086; 87205; 93005; 97161; 97165; 99285; C9803; J0456; J0696; J3475; U0003; U0005

== ENCOUNTER 2022-04-21 14:00 | Outpatient (RCR) | payer MEDICARE, SELFPAY ==
--- NOTE | 2022-03-23 09:57 | HMH.RHREAS ---
Rehab Reassessment Rehab OP Re-assessment Start: 03/23/22 09:50 Freq: Status: Active Protocol: Document 03/23/22 09:50 CIRILO (Rec: 03/23/22 09:57 CIRILO [id number]) E-signed By Parker Novoa, PT Rehab Re-assessment Subjective Subjective Patient reports 80% improvement since start of care. I just really need to work on my balance and walking with a cane. Objective Objective Notes AROM: WFL MMT: WFL Pain: 0/10 today Neuro WNL DGI: 14 Assessment Progress Assessment Progressing as Expected Assessment Notes Objective improvements as noted above. Patient is not having any nausea from the antibiotics with Rx any more. Patient does report that she did have a fall at home last week, and demonstrates fear avoidance beliefs regarding safety concerns in the future related to falls. She has transitioned to ambulation with SPC at home, while still using RW in the community. Patient would benefit from continuing with skilled PT services to address safety concerns/balanace issues with ambulation. Patient goals met All except revised goal. Goals Not Met NA Revised Goals Patient will achieve DGI score indicating low fall risk for safety measures. Plan Plan Continue with current POC. Frequency of Therapy 2x/week Duration of therapy 4 weeks Time and Billing Re-Eval Time 15 Re-Eval Billing Units 1 PHYSICIAN CERTIFICATION: I certify the specified therapy services for Mary Walker are required, authorized, and reviewed every 30 days.
== END 2022-04-21 14:05 | disposition home or self-care (01) ==
LOC: PT 14:00
PROVIDERS: PCP Family Medicine; Visit Provider Physician Assistant Medical
DX: S82.142D Displaced bicondylar fracture of left tibia, subsequent encounter for closed fracture with routine healing (principal)
CPT/HCPCS: 97010; 97014; 97110; 97116; 97163; 97164; 97530; G0283

== ENCOUNTER → 2022-09-26 09:08 | Outpatient (CLI) | payer MEDICARE, SELFPAY ==
--- NOTE | 2022-09-26 09:48 | XR_ITS ---
FINAL REPORT TECHNIQUE: Bone mineral density was calculated of the lumbar spine and hip. CLINICAL HISTORY: . POST MENOPAUSAL SCREENING FINDINGS: Using L1-4, the bone mineral density of the spine is 1.116 g/cm2, corresponding to T-score of 0.6. Using the left hip, the bone mineral density of the femoral neck is 0.709 g/cm2, corresponding to a T-score of -1.3. NOTE: T-score: Standard deviation compared with peak bone mass of young adult mean. *Following the recommendations of the International Society of Bone densitometry, classification of hip BMD is based on the lower of two T-scores; total hip or femoral neck. IMPRESSION: Normal bone mineral density in the lumbar spine, likely falsely elevated secondary to hypertrophic changes. Low bone density in the left hip. Reviewed, Interpreted and Dictated by Shane Lambert III, MD Transcribed by Monica Villagran Authenticated and [facility] [place] [place]
== END ==
PROVIDERS: PCP Family Medicine; Visit Provider Family Medicine
DX: Z78.0 Asymptomatic menopausal state (principal); Z13.820 Encounter for screening for osteoporosis
CPT/HCPCS: 77080

== ENCOUNTER 2023-07-04 11:00 | Outpatient (RCR) | payer MEDICARE, SELFPAY | END 2023-07-04 11:05 | disposition home or self-care (01) | LOC: PT 11:00 | PROVIDERS: PCP Family Medicine; Visit Provider Family Medicine | DX: M54.41 Lumbago with sciatica, right side (principal); G89.29 Other chronic pain | CPT/HCPCS: 97010; 97012; 97014; 97110; 97140; 97163; 97164; G0283 ==

== ENCOUNTER 2023-09-19 21:48 | Inpatient (IN) | payer MEDICARE, SELFPAY ==
[2023-09-19 21:50] VITALS: BP 173/71; PULSE 72; RESP 18; TEMP 36.8; O2SAT 95; BMI 29.9
--- OUTSIDE RECORDS SUMMARY | 2023-09-19 22:21 | XMS_ITS | Clinical Summary ---
Author Name Unknown Address [address] [place] [address] Phone Organization [facility] Address [address] [place] [address] Phone Care Team Providers Care Tie Carrier Name Role Phone Cooper Evans MD Unavailable [phone] Conditions or Problems No information available. Medications No information available. Medications Administered No information available. Allergies, Adverse Reactions, Alerts No information available. Results No information available. Plan of Care No information available. Procedures No information available. Vital Signs No information available. Immunizations No information available. Advance Directives No information available.
--- OUTSIDE RECORDS SUMMARY | 2023-09-19 22:22 | XMS_ITS | Summary of Care ---
Author Name Unknown Organization [facility] Address [address] [place] [address]- Encounter 06/25/21 - 07/13/21 [facility] [address] [place] [phone] Discharge Disposition: Home with Home Health Care Attending Physician: Jayjay Echevarria MD Admitting Physician: Jayjay Echevarria MD Allergies, Adverse Reactions, Alerts Substance Reaction Severity Status Contrast Dye Active Medications aspirin 81 mg oral delayed release tablet 81 mg, = 1 tab, Indication: Other...See Comments Tab-EC, Oral, BID, 60 tab, 0 Refill(s), Use twice daily, then decrease to once daily on 07/20/2021, Route to Pharmacy Electronically, [facility] #[id number], 325, 06/25/21 15:20:00 EST, Height/Length... Start Date: 07/12/21 Status: Ordered dorzolamide 2% ophthalmic solution 1 drop, Soln, OPTH, BID, 10 mL, 0 Refill(s) Start Date: 07/01/21 Status: Ordered ezetimibe-simvastatin 10 mg-20 mg oral tablet 1 tab, Tab, Oral, Daily, 30 tab, 0 Refill(s) Start Date: 07/01/21 Status: Ordered fenofibrate 145 mg oral tablet 145 mg, 1 tab, Tab, Oral, Daily, 30 tab, 0 Refill(s) Start Date: 07/01/21 Status: Ordered hydrALAZINE 10 mg = 1 tab (1 x 10 mg), Tab, Oral, Start date 07/12/21 21:00:00 EST, 07/11/21 14:21:00 EST Start Date: 07/12/21 Stop Date: 07/12/21 Status: Completed hydrALAZINE 10 mg oral tablet 10 mg = 1 tab, Tab, Oral, TID, 90 tab, 0 Refill(s), Route to Pharmacy Electronically, [facility] #[id number], 165, 06/25/21 15:20:00 EST, Height/Length Dosing, cm, 75.1, 07/10/21 6:28:00 EST, Weight Dosing, kg Start Date: 07/12/21 Status: Ordered latanoprost 0.005% ophthalmic emulsion 1 drop, Eye-Both, BID, 0 Refill(s) Start Date: 07/01/21 Status: Ordered Levemir 100 units/mL subcutaneous solution 9 units, Indication: Hyperglycemia Injection-Insulin (soln), Subcutaneous, Daily, 0 Refill(s) Start Date: 07/12/21 Status: Ordered lisinopril 20 mg oral tablet 20 mg = 1 tab, Tab, Oral, Daily, 30 tab, 0 Refill(s), Route to Pharmacy Electronically, [facility] #[id number], 165, 06/25/21 15:20:00 EST, Height/Length Dosing, cm, 75.1, 07/10/21 6:28:00 EST, Weight Dosing, kg Start Date: 07/12/21 Status: Ordered lisinopril 40 mg oral tablet 40 mg = 1 tab, Tab, Oral, Daily, 30 tab, 0 Refill(s) Start Date: 07/01/21 Status: Ordered Macrodantin 50 mg oral capsule 50 mg, 1 cap, Cap, Oral, Daily, 28 cap Start Date: 06/25/21 Status: Ordered melatonin 3 mg oral tablet 6 mg = 2 tab, Tab, Oral, QHS, 60 tab, 0 Refill(s), Route to Pharmacy Electronically, [facility] #[id number], 165, 06/25/21 15:20:00 EST, Height/Length Dosing, cm, 75.1, 07/10/21 6:28:00 EST, Weight Dosing, kg Start Date: 07/12/21 Status: Ordered metFORMIN 500 mg oral tablet 1,000 mg, = 2 tab, Indication: Hyperglycemia Tab, Oral, Daily, 60 tab, 0 Refill(s), Route to Pharmacy Electronically, [facility] #[id number], 165, 06/25/21 15:20:00 EST, Height/Length Dosing, cm, 75.1, 07/10/21 6:28:00 EST, Weight Dosing, kg Start Date: 07/12/21 Status: Ordered metoclopramide 5 mg oral tablet 5 mg = 1 tab, Tab, Oral, QID, 120 tab, 0 Refill(s) Start Date: 07/01/21 Status: Ordered minoxidil 5 mg, Oral, Daily, 0 Refill(s) Start Date: 07/01/21 Status: Ordered nebivolol 10 mg oral tablet 10 mg, 1 tab, Tab, Oral, Daily, 30 tab, 0 Refill(s) Start Date: 07/01/21 Status: Ordered NovoLOG STANDARD Sliding Scale Insulin Standard, Indication: Hyperglycemia, Subcutaneous, Start date 07/10/21 17:00:00 EST, For BS <200= 0 units BS 200-250 = 2 units BS 251-300 = 4 units BS 301-350 = 6 units BS >350 = 8 units and call MD Start Date: 07/10/21 Stop Date: 07/10/21 Status: Completed NovoLOG STANDARD Sliding Scale Insulin Standard, Indication: Hyperglycemia, Subcutaneous, Start date 07/10/21 8:00:00 EST, For BS <200 = 0 units BS 200-250 = 2 units BS 251-300 = 4 units BS 301-350 = 6 units BS >350 = 8 units and call MD Start Date: 07/10/21 Stop Date: 07/10/21 Status: Completed NovoLOG STANDARD Sliding Scale Insulin Standard, Indication: Hyperglycemia, Subcutaneous, Start date 07/10/21 12:00:00 EST, For BS <200= 0 units BS 200-250 = 2 units BS 251-300 = 4 units BS 301-350 = 6 units BS >350 = 8 units and call MD Start Date: 07/10/21 Stop Date: 07/10/21 Status: Completed oxyCODONE 5 mg oral tablet 5 mg = 1 tab, Tab, Oral, q6hr PRN, 12 tab, 0 Refill(s), PAIN (Scale 4-6), Route to Pharmacy Electronically, [facility] #[id number], 165, 06/25/21 15:20:00 EST, Height/Length Dosing, cm, 75.1, 07/10/21 6:28:00 EST, kg, Weight Dosing Start Date: 07/12/21 Status: Ordered pantoprazole 40 mg oral delayed release tablet 40 mg = 1 tab, Oral, BID, 0 Refill(s) Start Date: 07/01/21 Status: Ordered ranolazine 500 mg oral tablet, extended release 500 mg = 1 tab, Tab-ER, Oral, BID, 60 tab, 0 Refill(s) Start Date: 07/01/21 Status: Ordered torsemide 5 mg oral tablet 5 mg = 1 tab, Tab, Oral, Daily, 30 tab, 0 Refill(s), Route to Pharmacy Electronically, [facility] #[id number], 165, 06/25/21 15:20:00 EST, Height/Length Dosing, cm, 75.1, 07/10/21 6:28:00 EST, Weight Dosing, kg Start Date: 07/12/21 Status: Ordered venlafaxine 75 mg oral capsule, extended release 75 mg = 1 cap, Cap-ER, Oral, Daily, 30 cap, 0 Refill(s) Start Date: 07/01/21 Status: Ordered verapamil 360 mg/24 hours oral capsule, extended release 360 mg = 1 cap, Cap-ER, Oral, Daily, 30 cap, 0 Refill(s) Start Date: 07/01/21 Status: Ordered Problem List Condition Effective Dates Status Health Status Inform ant Activity tolerance(Confirmed) Active impaired mobility(Confirmed) Active Personal care impairment(Confirmed) Active Results Laboratory List Name Date Glucose, POC 07/13/21 Glucose, POC 07/12/21 Glucose, POC 07/12/21 Automated Diff HSL 07/11/21 Basic Metabolic Panel HSL (BMP HSL) 07/11 Complete Blood Count w/Auto Diff HSL (CB C w/Auto Diff HSL) 07/11/21 Basic Metabolic Panel HSL (BMP HSL) 07/07 Complete Blood Count w/Auto Diff HSL (CB C w/Auto Diff HSL) 07/07/21 Manual Diff HSL 07/07/21 Automated Diff HSL 07/04/21 Basic Metabolic Panel HSL (BMP HSL) 07/04 Complete Blood Count w/Auto Diff HSL (CB C w/Auto Diff HSL) 07/04/21 Automated Diff HSL 06/30/21 Complete Blood Count w/Auto Diff HSL (CB C w/Auto Diff HSL) 06/27/21 Manual Diff HSL 06/27/21 COVID-19 Ag [place] BINAX Inhouse - ENC Most recent to oldest [Reference Range]: 1 2 3 Creatinine Level 0.90 mg/dL (07/11/21 8:35 AM) 1.10 mg/dL (07/07/21 7:02 AM) 1.00 mg/dL (07/04/21 7:18 AM) Estimated Creatinine Clearance 45.69 mL/min 1 (07/11/21 8:35 AM) 41.53 mL/min 2 (07/10/21 6:00 AM) 41.53 mL/min 3 (07/07/21 7:02 AM) Glucose POC RALS [74-106 mg/dL] 117 mg/dL *HI* (07/13/21 5:43 AM) 109 mg/dL *HI* (07/12/21 5:00 PM) 155 mg/dL *HI* (07/12/21 11:24 AM) WBC HSL [4.4-11.6 10^3/uL] 7.9 10^3/uL (07/11/21 8:35 AM) 4.7 10^3/uL (07/07/21 7:02 AM) 6.8 10^3/uL (07/04/21 7:18 AM) RBC HSL [03.70-05.20 10^3/uL] 03.29 10^3/uL *LOW* (07/11/21 8:35 AM) 03.14 10^3/uL *LOW* (07/07/21 7:02 AM) 03.08 10^3/uL *LOW* (07/04/21 7:18 AM) Hemoglobin HSL [11.9-15.8 g/dL] 10.0 g/dL *LOW* (07/11/21 8:35 AM) 9.5 g/dL *LOW* (07/07/21 7:02 AM) 9.3 g/dL *LOW* (07/04/21 7:18 AM) Hematocrit HSL [34.9-46.1 %] 28.9 % *LOW* (07/11/21 8:35 AM) 27.7 % *LOW* (07/07/21 7:02 AM) 27.4 % *LOW* (07/04/21 7:18 AM) MCV HSL [78.5-102.3 fL] 88.0 fL (07/11/21 8:35 AM) 88.2 fL (07/07/21 7:02 AM) 89.1 fL (07/04/21 7:18 AM) MCH HSL [25.9-34.1 g/dL] 30.3 g/dL (07/11/21 8:35 AM) 30.2 g/dL (07/07/21 7:02 AM) 30.3 g/dL (07/04/21 7:18 AM) MCHC HSL [31.9-35.4 g/dL] 34.4 g/dL (07/11/21 8:35 AM) 34.2 g/dL (07/07/21 7:02 AM) 34.0 g/dL (07/04/21 7:18 AM) Platelet HSL [149-451 10^3/uL] 446 10^3/uL (07/11/21 8:35 AM) 496 10^3/uL *HI* (07/07/21 7:02 AM) 559 10^3/uL *HI* (07/04/21 7:18 AM) RDW-CV% HSL [11.6-14.5 %] 15.2 % *HI* (07/11/21 8:35 AM) 15.5 % *HI* (07/07/21 7:02 AM) 15.0 % *HI* (07/04/21 7:18 AM) RDW-SD HSL [36.3-46.4 fL] 49.0 fL *HI* (07/11/21 8:35 AM) 49.0 fL *HI* (07/11/21 8:35 AM) 50.3 fL *HI* (07/07/21 7:02 AM) MPV HSL [8.9-13.1 fL] 8.2 fL *LOW* (07/11/21 8:35 AM) 7.5 fL *LOW* (07/07/21 7:02 AM) 7.7 fL *LOW* (07/04/21 7:18 AM) Differential? HSL Yes *NA* (07/07/21 7:02 AM) Yes *NA* (06/27/21 11:40 AM) Neutrophil Auto HSL [39.5-77.7 %] 79.2 % *HI* (07/11/21 8:35 AM) 70.6 % (07/04/21 7:18 AM) 74.1 % (06/30/21 7:00 AM) Lymphocyte Auto HSL [17.7-52.9 %] 8.7 % *LOW* (07/11/21 8:35 AM) 16.9 % *LOW* (07/04/21 7:18 AM) 11.9 % *LOW* (06/30/21 7:00 AM) Monocyte Auto HSL [2.9-10.5 %] 9.5 % (07/11/21 8:35 AM) 8.5 % (07/04/21 7:18 AM) 11.4 % *HI* (06/30/21 7:00 AM) Eosinophil Auto HSL [0.0-7.1 %] 1.7 % (07/11/21 8:35 AM) 2.9 % (07/04/21 7:18 AM) 2.0 % (06/30/21 7:00 AM) Basophil Auto HSL [0.0-9.1 %] 0.9 % (07/11/21 8:35 AM) 1.1 % (07/04/21 7:18 AM) 0.6 % (06/30/21 7:00 AM) Neutrophil Absolute HSL [1.5-7.0 10^3/uL] 6.3 10^3/uL (07/11/21 8:35 AM) 4.8 10^3/uL (07/04/21 7:18 AM) 5.8 10^3/uL (06/30/21 7:00 AM) Lymphocyte Absolute HSL [0.8-2.9 10^3/uL] 0.7 10^3/uL *LOW* (07/11/21 8:35 AM) 1.2 10^3/uL (07/04/21 7:18 AM) 0.9 10^3/uL (06/30/21 7:00 AM) Monocyte Absolute HSL [0.0-1.1 10^3/uL] 0.8 10^3/uL (07/11/21 8:35 AM) 0.6 10^3/uL (07/04/21 7:18 AM) 0.9 10^3/uL (06/30/21 7:00 AM) Eosinophil Absolute HSL [0.0-0.5 10^3/uL] 0.1 10^3/uL (07/11/21 8:35 AM) 0.2 10^3/uL (07/04/21 7:18 AM) 0.2 10^3/uL (06/30/21 7:00 AM) Basophil Absolute HSL [0.00-0.06 10^3/uL] 0.10 10^3/uL *HI* (07/11/21 8:35 AM) 0.10 10^3/uL *HI* (07/04/21 7:18 AM) 0.00 10^3/uL (06/30/21 7:00 AM) Nucleated RBC HSL 0.0 *NA* (07/11/21 8:35 AM) 0.0 *NA* (07/04/21 7:18 AM) 0.1 *NA* (06/30/21 7:00 AM) Segs Man HSL [40-78 %] 65 % (07/07/21 7:02 AM) 72 % (06/27/21 11:40 AM) Band Man HSL [<=5 %] 1 % (06/27/21 11:40 AM) Lymphocyte Man HSL [18-53 %] 18 % (07/07/21 7:02 AM) 14 % *LOW* (06/27/21 11:40 AM) Monocyte Man HSL [3-10] 10 (07/07/21 7:02 AM) 13 *HI* (06/27/21 11:40 AM) Eosinophil Man HSL [<=7 %] 7 % (07/07/21 7:02 AM) 0 % (06/27/21 11:40 AM) Basophil Man HSL [<=1 %] 0 % (07/07/21 7:02 AM) 0 % (06/27/21 11:40 AM) Platelet Estimation HSL Sl Increase *ABN* (07/07/21 7:02 AM) Sl Increase *ABN* (06/27/21 11:40 AM) RBC Morphology HSL Normal (07/07/21 7:02 AM) Normal (06/27/21 11:40 AM) Hypochromasia HSL Rare *ABN* (07/07/21 7:02 AM) Microcyte HSL Rare *ABN* (07/07/21 7:02 AM) Rare *ABN* (06/27/21 11:40 AM) Macrocyte HSL Rare *ABN* (06/27/21 11:40 AM) Anisocyte HSL Rare (07/07/21 7:02 AM) 1+ *ABN* (06/27/21 11:40 AM) Poikilocyte HSL Rare (06/27/21 11:40 AM) Ovalo/Elliptocyte HSL Rare (06/27/21 11:40 AM) Tear Cell HSL Rare *ABN* (06/27/21 11:40 AM) Sodium HSL [135.9-146.1 mEq/L] 131.0 mEq/L *LOW* (07/11/21 8:35 AM) 132.0 mEq/L *LOW* (07/07/21 7:02 AM) 134.0 mEq/L *LOW* (07/04/21 7:18 AM) Potassium HSL [3.4-4.6 mEq/L] 4.4 mEq/L (07/11/21 8:35 AM) 4.6 mEq/L (07/07/21 7:02 AM) 4.5 mEq/L (07/04/21 7:18 AM) Chloride HSL [95.9-106.1 mEq/L] 101.0 mEq/L (07/11/21 8:35 AM) 101.0 mEq/L (07/07/21 7:02 AM) 103.0 mEq/L (07/04/21 7:18 AM) Carbon Dioxide HSL [21.9-29.1 mEq/L] 24.0 mEq/L (07/11/21 8:35 AM) 25.0 mEq/L (07/07/21 7:02 AM) 27.0 mEq/L (07/04/21 7:18 AM) Anion Gap HSL [8-16 mmol/L] 10 mmol/L (07/11/21 8:35 AM) 11 mmol/L (07/07/21 7:02 AM) 8 mmol/L (07/04/21 7:18 AM) Glucose HSL [74.9-115.1 mg/dL] 177.0 mg/dL *HI* (07/11/21 8:35 AM) 112.0 mg/dL (07/07/21 7:02 AM) 71.0 mg/dL *LOW* (07/04/21 7:18 AM) BUN HSL [10.9-23.1 mg/dL] 14.0 mg/dL (07/11/21 8:35 AM) 17.0 mg/dL (07/07/21 7:02 AM) 16.0 mg/dL (07/04/21 7:18 AM) Creatinine HSL [0.6-1.6 mg/dL] 0.9 mg/dL (07/11/21 8:35 AM) 1.1 mg/dL (07/07/21 7:02 AM) 1.0 mg/dL (07/04/21 7:18 AM) eGFR-AA HSL 124 *NA* (07/11/21 8:35 AM) 103 *NA* (07/07/21 7:02 AM) 109 *NA* (07/04/21 7:18 AM) eGFR-Non AA HSL 102 *NA* (07/11/21 8:35 AM) 85 *NA* (07/07/21 7:02 AM) 90 *NA* (07/04/21 7:18 AM) BUN/Creat Ratio HSL [5-20 ratio] 16 ratio (07/11/21 8:35 AM) 15 ratio (07/07/21 7:02 AM) 16 ratio (07/04/21 7:18 AM) Calcium Total HSL [8.9-11.1 mg/dL] 9.2 mg/dL (07/11/21 8:35 AM) 9.4 mg/dL (07/07/21 7:02 AM) 9.3 mg/dL (07/04/21 7:18 AM) Blood Glucose, Capillary [74-106 mg/dL] 119 mg/dL *HI* (07/10/21 4:49 PM) 116 mg/dL *HI* (07/10/21 11:10 AM) 73 mg/dL *LOW* (07/10/21 8:00 AM) Not (06/25/21 1:41 PM) Resides in [facility] care setting No (06/25/21 1:41 PM) First test for COVID-19 No (06/25/21 1:41 PM) Employed in Healthcare No (06/25/21 1:41 PM) Hospitalized for COVID-19 No (06/25/21 1:41 PM) Symptomatic as defined by CDC No (06/25/21 1:41 PM) Admitted to ICU for COVID-19 No (06/25/21 1:41 PM) Date of onset/exp 24-JUN-2021 *NA* (06/25/21 1:41 PM) Lot Expiration Date - ENC 13-MAY-2022 *NA* (06/25/21 1:41 PM) Lot Number - [id number] *NA* (06/25/21 1:41 PM) COVID-19 Ag [place] BINAX - ENC Negative (06/25/21 1:41 PM) Residence Type Hospital (06/25/21 1:41 PM) DI Number [id number] (06/25/21 1:41 PM) 1Result Comment: Calculated using method: Cockcroft-Gault (default) Calculated using Formula : 0.85*(140-ageInYears)*IBW/(72) Age: 71 (85139090718.0) Serum Creatinine: 0.90 mg/dL (32031284934.0) Height: 165 cm (09577033428.0) Weight: 75.1 kg (IBW = 56.909 kg) 2Result Comment: Calculated using method: Cockcroft-Gault (default) Calculated using Formula : 0.85*(140-ageInYears)*IBW/(72*scrInMGperDL) Age: 71 (71835147260.0) Serum Creatinine: 1.10 mg/dL (57169217027.0) Height: 165 cm (05685664220.0) Weight: 75.1 kg (IBW = 56.909 kg) 3Result Comment: Calculated using method: Cockcroft-Gault (default) Calculated using Formula : 0.85*(140-ageInYears)*IBW/(72*scrInMGperDL) Age: 71 (31002111584.0) Serum Creatinine: 1.10 mg/dL (81426960111.0) Height: 165 cm (27403027669.0) Weight: 77.2 kg (IBW = 56.909 kg) Vital Signs Most recent to oldest [Reference Range]: 1 2 3 Temperature Oral F [96.4-99.1 DegF] 98.4 DegF (07/13/21 7:54 AM) 98.4 DegF (07/12/21 7:26 PM) 98.6 DegF (07/12/21 7:23 AM) Peripheral Pulse Rate [60-100 bpm] 77 bpm (07/13/21 7:54 AM) 68 bpm (07/12/21 7:28 PM) 56 bpm *LOW* (07/12/21 12:00 PM) Respiratory Rate [14-20 br/min] 18 br/min (07/12/21 7:28 PM) 16 br/min (07/11/21 7:54 PM) 18 br/min (07/10/21 8:22 PM) Systolic Blood Pressure [90-140 mmHg] 153 mmHg *HI* (07/13/21 7:54 AM) 138 mmHg (07/12/21 9:28 PM) 138 mmHg (07/12/21 7:27 PM) Diastolic Blood Pressure [60-90 mmHg] 78 mmHg (07/13/21 7:54 AM) 55 mmHg *LOW* (07/12/21 9:28 PM) 55 mmHg *LOW* (07/12/21 7:27 PM) Mean Arterial Pressure, Cuff 103 mmHg (07/13/21 7:54 AM) 83 mmHg (07/12/21 7:27 PM) 76 mmHg (07/12/21 12:00 PM) Extremity used to obtain blood pressure Right Arm (07/09/21 7:00 PM) Right Arm (06/25/21 3:20 PM) Cuff Size. Medium (07/09/21 7:00 PM) Diastolic Blood Pressure with Activity [60-90 mmHg] 64 mmHg (06/30/21 2:07 PM) Systolic Blood Pressure with Activity [90-140 mmHg] 117 mmHg (06/30/21 2:07 PM) Vital Signs Additional Information Post Taken in standing due to feeling of lightheadedness. (06/30/21 2:07 PM) Temperature Oral 36.9 DegC 1 (07/13/21 7:54 AM) 36.9 DegC 2 (07/12/21 7:26 PM) 37.0 DegC 3 (07/12/21 7:23 AM) 1Result Comment: Charted by SYSTEM secondary to charting of Temperature Oral F on a Vitals Monitor. Rule: VITALSLINK_CALCULATIONS_2 2Result Comment: Charted by SYSTEM secondary to charting of Temperature Oral F on a Vitals Monitor. Rule: VITALSLINK_CALCULATIONS_2 3Result Comment: Charted by SYSTEM secondary to charting of Temperature Oral F on a Vitals Monitor. Rule: VITALSLINK_CALCULATIONS_2
[2023-09-19 22:29] LABS: Basophils % 0.2 % (0.1-2.0); Eosinophils # 0.1 K/mm3 (0.0-0.4); Eosinophils % 0.2 % (0.1-12.0); Hematocrit 43.7 % (37.0-47.0); Hemoglobin 13.6 g/dL (12.2-16.2); Lymphocytes # 0.9 K/mm3 (0.7-4.5); Lymphocytes % 3.9 % (10-50); Mean Corpuscular Hemoglobin 30.1 pg (27.0-31.2); Mean Corpuscular Volume 96.9 fl (81-99); Mean Platelet Volume 8.4 fl (7.4-10.4); Monocytes # 0.5 K/mm3 (0.1-1.0); Monocytes % 2.2 % (1.7-9.3); Neutrophils # 20.7 K/mm3 (1.8-7.8); Neutrophils % 93.6 % (37.0-80.0); Platelet Count 336 K/mm3 (142-424); Red Blood Count 4.51 M/mm3 (4.20-5.40); Red Cell Distribution Width 13.5 % (11.5-17.5); White Blood Count 22.2 K/mm3 (4.8-10.8)
[2023-09-19 22:30] VITALS: BP 178/68; PULSE 65; O2SAT 93
[2023-09-19 22:30] LABS: Chloride 94 mmol/L (98-107)
[2023-09-19 22:31] LABS: Potassium 4.5 mmoL/L (3.5-5.1); Sodium 125 mmol/L (136-145)
[2023-09-19 22:33] LABS: Alanine Aminotransferase 25 U/L (12-78); Albumin/Globulin Ratio 1.5 (1.1-1.8); Alkaline Phosphatase 49 U/L (38-126); Anion Gap 16.5 mEq/L (5-15); Aspartate Amino Transferase 36 U/L (14-36); Bilirubin,Total 0.7 mg/dl (0.2-1.3); Blood Urea Nitrogen 30 mg/dl (7-17); Calcium 9.1 mg/dl (8.4-10.2); Carbon Dioxide 19 mmol/L (22.0-30.0); Creatinine Clearance Estimated 42 mL/min (50-200); Estimated Glomerular Filt Rate 34 ml/min (>60); GFR (African American) 41 ML/MIN (>60); Globulin 2.7 g/dL (1.3-3.2); Glucose 292 mg/dl (74-100); Total Protein,Serum 6.7 g/dl (6.3-8.2)
[2023-09-19 22:37] LABS: MANUAL DIFFERENTIAL MANUAL DIFFERENTIAL (MANUAL DIFF)
[2023-09-19 22:39] LABS: C-Reactive Protein 2.3 mg/L (0-4)
--- NOTE | 2023-09-19 22:40 | CT_ITS ---
PROCEDURE INFORMATION: Exam: CTA Abdomen and Pelvis With Contrast Exam date and time: 09/20/2023 12:19 AM Age: 73 years old Clinical indication: Abdominal pain; Acute; Additional info: Concern for diverticular bleed TECHNIQUE: Imaging protocol: Computed tomographic angiography of the abdomen and pelvis with contrast. Exam focused on the arteries. 3D rendering (Not supervised by radiologist): MIP and/or 3D reconstructed images were created by the technologist. Radiation optimization: All CT scans at this facility use at least one of these dose optimization techniques: automated exposure control; mA and/or kV adjustment per patient size (includes targeted exams where dose is matched to clinical indication); or iterative reconstruction. Contrast material: ISOVUE; Contrast volume: 100 ml; Contrast route: INTRAVENOUS (IV); COMPARISON: No relevant prior studies available. FINDINGS: Aorta: Very mild dilation of the distal abdominal aorta measuring 2.6 cm in diameter. Diffuse calcific atherosclerotic disease. No aortic dissection. Celiac trunk and mesenteric arteries: No occlusion or significant stenosis. Renal arteries: No occlusion or significant stenosis. Right iliac arteries: No occlusion or significant stenosis. Left iliac arteries: No occlusion or significant stenosis. Liver: No mass. Gallbladder and bile ducts: The gallbladder is absent. There is no biliary ductal dilation. Pancreas: Unremarkable. No mass. No ductal dilation. Spleen: Unremarkable. No splenomegaly. Adrenal glands: 9 mm right adrenal nodule. No follow-up is recommended. Left adrenal hyperplasia. Kidneys and ureters: 2.3 cm exophytic lesion upper pole left kidney with Hounsfield units of 61. 18 mm cortical cyst lower medial right renal cortex. Other subcentimeter cortical hypodensities are noted bilaterally too small to characterize. The kidneys demonstrate unobstructed function. Stomach and bowel: There is edematous wall thickening involving the transverse, descending and sigmoid colon and rectum consistent with colitis and proctitis. No bowel obstruction. No extravasation of contrast into the bowel lumen to suggest active GI bleeding. Appendix: No evidence of appendicitis. Intraperitoneal space: Unremarkable. No free air. No significant fluid collection. Lymph nodes: Unremarkable. No enlarged lymph nodes. Urinary bladder: Unremarkable. No mass. Reproductive: Unremarkable as visualized. Bones/joints: Moderate severe degenerative changes of the spine and hips. No acute fracture. Soft tissues: A small fat containing umbilical hernia is noted. IMPRESSION: 1. Transverse, descending and sigmoid colitis and proctitis. 2. No evidence for active GI bleeding. 3. 2.3 cm exophytic lesion upper pole left kidney with Hounsfield units of 61. Recommend non-emergent MRI without and with contrast or non-emergent CT without and with contrast. MRI is preferred for masses under 1.5 cm. COMMENTS: Consistent with the [employer]'s Incidental Findings Committee white paper (J Am Susan Radiol 2018): Any incidental renal lesion less than 1 cm or classified as too small to characterize, or any incidental cystic renal lesion characterized as simple-appearing, is likely benign. No follow-up imaging is recommended for these lesions per consensus recommendations based on imaging criteria.
[2023-09-19] MEDS: METHYLPREDNISOLONE SOD SUCC 125MG VIAL 125 MG IV (22:46)
[2023-09-19] MEDS: ONDANSETRON 4MG/2ML VIAL 4 MG IV ×2 (22:47→23:26)
[2023-09-19] MEDS: diphenhydrAMINE 50MG/ML VIAL 50 MG IV (22:47)
[2023-09-19 23:01] VITALS: BP 195/80; PULSE 70; O2SAT 94
[2023-09-19 23:03] LABS: Erythrocyte Sedimentation Rate 5 mm/hr (0-30)
--- NOTE | 2023-09-19 23:13 | HMH.EDGENADL ---
Discharge Plan Disposition Patient Disposition: Admitted Chief Complaint: Abdominal Pain Referrals Follow up/Referrals: Jaxson Ken MD [Primary Care Provider] - See instructions Clinical Impressions Clinical Impression: Colitis, BRBPR (bright red blood per rectum), Hyponatremia, Creatinine elevation Instructions Patient Instructions: DI for Acute Abdominal Pain Discharge ED Provider: Samuel Cobian General Adult HPI <Jose Hurtado MD - Last Filed: 09/19/23 23:34> General Chief complaint: Abdominal Pain Stated complaint: Rectal Bleeding Time Seen by Provider: 09/19/23 22:16 Mode of Arrival: Ambulatory Source of Information: Patient and Relative Limitations: No Limitations Description of Symptoms (Recalled from ER Triage Doc. by RN): Patient reports ate out today and began vomiting shortly after around 3pm. Patient states that after she got home she began having diarrhea with bright red blood. Patient is on plavix and is supposed to stop plavix tomorrow in preparation for a skin biopsy. Patients last episode of bloody diarrhea was at arrival to the emergency department. Patient reports abdominal cramping and nausea. History of Present Illness HPI narrative: Please note that above description of symptoms, in this electronic medical record under categorization of recalled from ER triage doctor by RN are reflective of an initial nursing assessment, however, is not reflective of my full history and physical exam that was personally taken and clarified. Consequentially, this preceding description of symptoms, which may include the patient's categorized chief complaint in the EMR, do not reflect my personal clinical impression, and the ultimate description of history of present illness and patient stated complaints should be deferred to this section of the note. Unless stated otherwise or congruent with this section of the note, additional signs, symptoms, or incongruence should be interpreted as inaccurate with my clinical impression. Related Data Allergies Allergy/AdvReac Type Severity Reaction Status Date / Time Iodinated Contrast Media Allergy Verified 09/19/23 22:22 <Samuel Cobian MD - Last Filed: 09/20/23 02:16> History of Present Illness HPI narrative: 73-year-old female with history of hypertension, hyperlipidemia, coronary artery disease, prior cholecystectomy presents for abdominal cramping and bright red blood per rectum. She reports that this has happened before. Symptoms started this afternoon and have been worsening. She is on Plavix but no other blood thinners. Denies any recent fever or illness. Please note that above description of symptoms, in this electronic medical record under categorization of recalled from ER triage doctor by RN are reflective of an initial nursing assessment, however, is not reflective of my full history and physical exam that was personally taken and clarified. Consequentially, this preceding description of symptoms, which may include the patient's categorized chief complaint in the EMR, do not reflect my personal clinical impression, and the ultimate description of history of present illness and patient stated complaints should be deferred to this section of the note. Unless stated otherwise or congruent with this section of the note, additional signs, symptoms, or incongruence should be interpreted as inaccurate with my clinical impression. [facility] <Jose Hurtado MD - Last Filed: 09/19/23 23:34> [facility] Disclaimer: The information contained in this section may have been updated after the patient was seen, as this information can be updated by other users. Medical History (Updated 09/20/23 @ 02:16 by Samuel Cobian MD) COPD (chronic obstructive pulmonary disease) Hemorrhoids Surgical History (Updated 09/19/23 @ 22:23 by Nia Panda RN) History of cholecystectomy H/O heart artery stent Social History (Updated 09/19/23 @ 23:34 by Jose Hurtado MD) Smoking Status: Former smoker alcohol intake: never current occupational status: unemployed Travel in the last 8 weeks: None <Jose Hurtado MD - Last Filed: 09/19/23 23:34> ROS Obtained: Yes All systems reviewed & no additional complaints except as documented Physical Exam <Jose Hurtado MD - Last Filed: 09/19/23 23:34> General General appearance: alert and in no apparent distress Head Head exam: atraumatic and normocephalic Eye Eye exam: Present normal appearance, PERRL and EOMI ENT ENT exam: Present mucous membranes moist Neck Neck exam: Present normal inspection, full ROM and trachea midline Respiratory Respiratory exam: Absent respiratory distress, wheezes, stridor, accessory muscle use or prolonged expiratory phase Cardiovascular Cardiovascular exam: Present normal rhythm Abdominal Exam Abdominal exam: Present soft and tenderness; Absent distention, guarding, rebound or rigidity Abdominal tenderness: Present suprapubic and mild Extremities Exam Extremities exam: Absent edema Neurological Exam Neurological exam: Present alert, oriented X3, CN II-XII intact and normal gait; Absent motor sensory deficit Skin Skin exam: Present warm and dry; Absent diaphoresis or erythema Medical Decision Making <Jose Hurtado MD - Last Filed: 09/19/23 23:34> Medical Records Medical records reviewed: Yes I reviewed the patient's medical records. Danial Inquiry Pt receiving controlled substance: No Danial was queried for this patient: No Vital Signs: 09/19/23 21:50 09/19/23 22:30 09/19/23 23:01 Temperature 98.2 F Temperature Source Oral Pulse Rate 65 70 Pulse Rate [Left Radial] 72 Respiratory Rate 18 Blood Pressure 178/68 H 195/80 H Blood Pressure [Right Arm] 173/71 H Blood Pressure Mean 104 118 Blood Pressure Mean [Right Arm] 105 Blood Pressure Source [Right Arm] Automatic Cuff Blood Pressure Position [Right Arm] Sitting 02 Sat by Pulse Oximetry 95 93 L 94 L Oxygen Delivery Method Room Air Room Air Room Air 09/20/23 00:00 09/20/23 00:30 09/20/23 01:00 Temperature Temperature Source Pulse Rate 75 75 80 Pulse Rate [Left Radial] Respiratory Rate Blood Pressure 173/78 H 191/71 H 177/77 H Blood Pressure [Right Arm] Blood Pressure Mean 124 122 Blood Pressure Mean [Right Arm] Blood Pressure Source [Right Arm] Blood Pressure Position [Right Arm] 02 Sat by Pulse Oximetry 97 95 95 Oxygen Delivery Method Room Air 09/20/23 01:30 Temperature Temperature Source Pulse Rate 74 Pulse Rate [Left Radial] Respiratory Rate Blood Pressure 179/67 H Blood Pressure [Right Arm] Blood Pressure Mean Blood Pressure Mean [Right Arm] Blood Pressure Source [Right Arm] Blood Pressure Position [Right Arm] 02 Sat by Pulse Oximetry 97 Oxygen Delivery Method Lab Data Lab Results 09/19/23 22:10: WBC 22.2 H*, RBC 4.51, Hgb 13.6, Hct 43.7, MCV 96.9, MCH 30.1, MCHC 31.0 L, RDW 13.5, Plt Count 336, MPV 8.4, Neut % (Auto) 93.6 H, Lymph % (Auto) 3.9 L, [place] % (Auto) 2.2, Eos % (Auto) 0.2, Baso % (Auto) 0.2, Neut # (Auto) 20.7 H, Lymph # (Auto) 0.9, [place] # (Auto) 0.5, Eos # (Auto) 0.1, Baso # (Auto) 0.0, Total Counted 100, Neutrophils % (Manual) 92 H, Lymphocytes % (Manual) 2 L, Monocytes % (Manual) 5, Basophils % (Manual) 1.0, Platelet Estimate Normal, RBC Morphology Normal, ESR 5, Sodium 125 L, Potassium 4.5, Chloride 94 L, Carbon Dioxide 19 L, Anion Gap 16.5 H, BUN 30 H, Creatinine 1.50 H, Estimated Creat Clear 42, Estimated GFR 34 L, Est GFR ( Amer) 41 L, Glucose 292 H, Calcium 9.1, Total Bilirubin 0.7, AST 36, ALT 25, Alkaline Phosphatase 49, C-Reactive Protein 2.3, Total Protein 6.7, Albumin 4.0, Globulin 2.7, Albumin/Globulin Ratio 1.5 09/19/23 23:50: Lactate 1.8 09/19/23 22:10 09/19/23 22:10 Orders (Tests/Meds): ED MEDICATIONS Discontinued Medications Generic Name Dose Route Start Last Admin Trade Name Jennifer PRN Reason Stop Dose Admin Azithromycin 500 mg 09/20/23 01:59 Azithromycin 250mg Tablet PO 09/20/23 02:00 ONCE ONE Diphenhydramine HCl 50 mg 09/19/23 22:40 09/19/23 22:47 Diphenhydramine 50mg/Ml Vial IV 09/19/23 22:41 50 mg ONCE ONE Administration Lactated Ringer's 1,000 mls @ 999 mls/hr 09/19/23 23:12 09/19/23 23:26 Lactated Ringer's 1000 Ml Bag IV 09/20/23 00:12 999 mls/hr .Q1H1M ONE Administration Ampicillin Sodium/Sulbactam 100 mls @ 200 mls/hr 09/19/23 23:12 09/20/23 00:22 Sodium 3 gm/ Sodium Chloride IV 09/19/23 23:13 Not Given ONCE ONE Ampicillin Sodium/Sulbactam 100 mls @ 200 mls/hr 09/20/23 00:19 09/20/23 00:20 Sodium 3 gm/ Sodium Chloride IV 09/20/23 00:20 200 mls/hr ONCE ONE Administration Iopamidol 100 ml 09/20/23 00:27 05/09/24 00:28 Iopamidol-370 (76%);100ml Bottle IV 09/20/23 00:28 100 ml ONCE ONE Administration Methylprednisolone Sodium Succinate 125 mg 09/19/23 22:40 09/19/23 22:46 Methylprednisolone Sod Succ 125mg Vial IV 09/19/23 22:41 125 mg ONCE ONE Administration Ondansetron HCl 4 mg 09/19/23 22:45 09/19/23 22:47 Ondansetron 4mg/2ml Vial IV 09/19/23 22:46 4 mg ONCE ONE Administration Ondansetron HCl 4 mg 09/19/23 23:24 09/19/23 23:26 Ondansetron 4mg/2ml Vial IV 09/19/23 23:25 4 mg ONCE ONE Administration Ondansetron HCl 4 mg 09/19/23 23:27 09/19/23 23:40 Ondansetron 4mg/2ml Vial IV 09/19/23 23:28 Not Given ONCE ONE Sodium Chloride 50 ml 09/20/23 00:27 09/20/23 00:28 0.9 % Sodium Chloride 50 Ml Vial IV 09/20/23 00:28 50 ml ONCE ONE Administration Sodium Chloride 10 ml 09/20/23 00:27 09/20/23 00:28 Sodium Chloride 0.9% 10ml Syr (Rad Only) IV 09/20/23 00:28 10 ml ONCE ONE Administration ORDERS Category Date Time Status CT angio abdomen pelvis Stat Cat Scan 09/19/23 22:40 Completed CBC w/Auto Diff [Complete Blood Count Auto Diff] Stat Lab 09/19/23 22:10 Completed CMP [Comprehensive Metabolic Panel] Stat Lab 09/19/23 22:10 Completed CRP [C-Reactive Protein] Stat Lab 09/19/23 22:10 Completed Diarrhea 23 Panel, PCR Stat Lab 09/20/23 00:15 Received ESR [Erythrocyte Sedimentation Rate] Stat Lab 09/19/23 22:10 Completed Lactic Acid Stat Lab 09/19/23 23:50 Completed Blood Culture Stat Micro 09/19/23 00:02 Received Medical Decision Narrative: 73-year-old female history of hypertension, hyperlipidemia, CAD status post stenting currently on Plavix, hemorrhoids, COPD, cholecystectomy presenting with rectal bleeding. Patient states that she started having abdominal cramping and then had bright red blood per rectum around lunchtime today. Has had multiple bright red blood bowel movement since that time. Denies lightheadedness, chest pain, shortness of breath. She did have 1 episode of nonbloody, nonbilious vomiting. Still passing gas, last bright red bowel movement was here in the emergency department. History was obtained via conversation with patient. On arrival, patient hemodynamically stable, alert, oriented x4, appropriate, GCS 15, moving all extremities spontaneously, pupils equal and reactive to light. Full physical exam performed and significant for having subjective cramping. Rectal tone rectal exam performed on open patient has bright red blood bowel movement. Emergency department. Differential includes AVM, internal versus external hemorrhoid bleed. Diverticular bleed,. Patient was given Zofran, fluids, initial dose of Unasyn for symptomatic management and correction of underlying abnormalities. Workup independently interpreted and significant for white count 22,000 with neutrophilia, patient has [place] with creatinine 1.5, GFR low at 34. Anion gap elevated at 16, carbon oxide a little low at 22 concerning for metabolic acidosis. CTA of the abdomen pelvis pending at time of handoff to oncoming physician. <Samuel Cobian MD - Last Filed: 09/20/23 02:16> Vital Signs: 09/19/23 21:50 09/19/23 22:30 09/19/23 23:01 Temperature 98.2 F Temperature Source Oral Pulse Rate 65 70 Pulse Rate [Left Radial] 72 Respiratory Rate 18 Blood Pressure 178/68 H 195/80 H Blood Pressure [Right Arm] 173/71 H Blood Pressure Mean 104 118 Blood Pressure Mean [Right Arm] 105 Blood Pressure Source [Right Arm] Automatic Cuff Blood Pressure Position [Right Arm] Sitting 02 Sat by Pulse Oximetry 95 93 L 94 L Oxygen Delivery Method Room Air Room Air Room Air 09/20/23 00:00 09/20/23 00:30 09/20/23 01:00 Temperature Temperature Source Pulse Rate 75 75 80 Pulse Rate [Left Radial] Respiratory Rate Blood Pressure 173/78 H 191/71 H 177/77 H Blood Pressure [Right Arm] Blood Pressure Mean 124 122 Blood Pressure Mean [Right Arm] Blood Pressure Source [Right Arm] Blood Pressure Position [Right Arm] 02 Sat by Pulse Oximetry 97 95 95 Oxygen Delivery Method Room Air 09/20/23 01:30 Temperature Temperature Source Pulse Rate 74 Pulse Rate [Left Radial] Respiratory Rate Blood Pressure 179/67 H Blood Pressure [Right Arm] Blood Pressure Mean Blood Pressure Mean [Right Arm] Blood Pressure Source [Right Arm] Blood Pressure Position [Right Arm] 02 Sat by Pulse Oximetry 97 Oxygen Delivery Method Lab Data Lab Results 09/19/23 22:10: WBC 22.2 H*, RBC 4.51, Hgb 13.6, Hct 43.7, MCV 96.9, MCH 30.1, MCHC 31.0 L, RDW 13.5, Plt Count 336, MPV 8.4, Neut % (Auto) 93.6 H, Lymph % (Auto) 3.9 L, [place] % (Auto) 2.2, Eos % (Auto) 0.2, Baso % (Auto) 0.2, Neut # (Auto) 20.7 H, Lymph # (Auto) 0.9, [place] # (Auto) 0.5, Eos # (Auto) 0.1, Baso # (Auto) 0.0, Total Counted 100, Neutrophils % (Manual) 92 H, Lymphocytes % (Manual) 2 L, Monocytes % (Manual) 5, Basophils % (Manual) 1.0, Platelet Estimate Normal, RBC Morphology Normal, ESR 5, Sodium 125 L, Potassium 4.5, Chloride 94 L, Carbon Dioxide 19 L, Anion Gap 16.5 H, BUN 30 H, Creatinine 1.50 H, Estimated Creat Clear 42, Estimated GFR 34 L, Est GFR ( Amer) 41 L, Glucose 292 H, Calcium 9.1, Total Bilirubin 0.7, AST 36, ALT 25, Alkaline Phosphatase 49, C-Reactive Protein 2.3, Total Protein 6.7, Albumin 4.0, Globulin 2.7, Albumin/Globulin Ratio 1.5 09/19/23 23:50: Lactate 1.8 Orders (Tests/Meds): ED MEDICATIONS Discontinued Medications Generic Name Dose Route Start Last Admin Trade Name Freq PRN Reason Stop Dose Admin Azithromycin 500 mg 09/20/23 01:59 Azithromycin 250mg Tablet PO 09/20/23 02:00 ONCE ONE Diphenhydramine HCl 50 mg 09/19/23 22:40 09/19/23 22:47 Diphenhydramine 50mg/Ml Vial IV 09/19/23 22:41 50 mg ONCE ONE Administration Lactated Ringer's 1,000 mls @ 999 mls/hr 09/19/23 23:12 09/19/23 23:26 Lactated Ringer's 1000 Ml Bag IV 09/20/23 00:12 999 mls/hr .Q1H1M ONE Administration Ampicillin Sodium/Sulbactam 100 mls @ 200 mls/hr 09/19/23 23:12 09/20/23 00:22 Sodium 3 gm/ Sodium Chloride IV 09/19/23 23:13 Not Given ONCE ONE Ampicillin Sodium/Sulbactam 100 mls @ 200 mls/hr 09/20/23 00:19 09/20/23 00:20 Sodium 3 gm/ Sodium Chloride IV 09/20/23 00:20 200 mls/hr ONCE ONE Administration Iopamidol 100 ml 09/20/23 00:27 09/20/23 00:28 Iopamidol-370 (76%);100ml Bottle IV 09/20/23 00:28 100 ml ONCE ONE Administration Methylprednisolone Sodium Succinate 125 mg 09/19/23 22:40 09/19/23 22:46 Methylprednisolone Sod Succ 125mg Vial IV 09/19/23 22:41 125 mg ONCE ONE Administration Ondansetron HCl 4 mg 09/19/23 22:45 09/19/23 22:47 Ondansetron 4mg/2ml Vial IV 09/19/23 22:46 4 mg ONCE ONE Administration Ondansetron HCl 4 mg 09/19/23 23:24 09/19/23 23:26 Ondansetron 4mg/2ml Vial IV 09/19/23 23:25 4 mg ONCE ONE Administration Ondansetron HCl 4 mg 09/19/23 23:27 09/19/23 23:40 Ondansetron 4mg/2ml Vial IV 09/19/23 23:28 Not Given ONCE ONE Sodium Chloride 50 ml 09/20/23 00:27 09/20/23 00:28 0.9 % Sodium Chloride 50 Ml Vial IV 09/20/23 00:28 50 ml ONCE ONE Administration Sodium Chloride 10 ml 09/20/23 00:27 09/20/23 00:28 Sodium Chloride 0.9% 10ml Syr (Rad Only) IV 09/20/23 00:28 10 ml ONCE ONE Administration ORDERS Category Date Time Status CT angio abdomen pelvis Stat Cat Scan 09/19/23 22:40 Completed CBC w/Auto Diff [Complete Blood Count Auto Diff] Stat Lab 09/19/23 22:10 Completed CMP [Comprehensive Metabolic Panel] Stat Lab 09/19/23 22:10 Completed CRP [C-Reactive Protein] Stat Lab 09/19/23 22:10 Completed Diarrhea 23 Panel, PCR Stat Lab 09/20/23 00:15 Received ESR [Erythrocyte Sedimentation Rate] Stat Lab 09/19/23 22:10 Completed Lactic Acid Stat Lab 09/19/23 23:50 Completed Blood Culture Stat Micro 09/19/23 00:02 Received Medical Decision Narrative: 73-year-old female history of hypertension, hyperlipidemia, CAD status post stenting currently on Plavix, hemorrhoids, COPD, cholecystectomy presenting with rectal bleeding. Patient states that she started having abdominal cramping and then had bright red blood per rectum around lunchtime today. Has had multiple bright red blood bowel movement since that time. Denies lightheadedness, chest pain, shortness of breath. She did have 1 episode of nonbloody, nonbilious vomiting. Still passing gas, last bright red bowel movement was here in the emergency department. History was obtained via conversation with patient. On arrival, patient hemodynamically stable, alert, oriented x4, appropriate, GCS 15, moving all extremities spontaneously, pupils equal and reactive to light. Full physical exam performed and significant for having subjective cramping. Rectal tone rectal exam performed on open patient has bright red blood bowel movement. Emergency department. Differential includes AVM, internal versus external hemorrhoid bleed. Diverticular bleed,. Patient was given Zofran, fluids, initial dose of Unasyn for symptomatic management and correction of underlying abnormalities. Workup independently interpreted and significant for white count 22,000 with neutrophilia, patient has [place] with creatinine 1.5, GFR low at 34. Anion gap elevated at 16, carbon oxide a little low at 22 concerning for metabolic acidosis. CTA of the abdomen pelvis pending at time of handoff to oncoming physician. Aranza SIMON: I assumed care of the patient at the time of handoff from the prior provider. On reassessment patient remains hemodynamically stable. She reports that her abdominal cramping is improved and her bloody bowel movements have been much smaller in volume. Labs significantly interpreted and significant for leukocytosis with white count of 22, hyponatremia with sodium 125, creatinine 1.5 with unknown baseline, normal lactate. CT imaging independently interpreted by me and significant for colitis without evidence of active GI bleeding. Also has a exophytic kidney lesion that will require follow-up. Interactive discussion of patient regarding presentation. I am concerned that she could have an infectious colitis, though other etiologies have not been fully excluded. patient was given azithromycin for empiric treatment of infectious colitis. Interact discussion was had with the hospitalist on-call who accepted the patient for admission. Critical Care <Jose Hurtado MD - Last Filed: 09/19/23 23:34> Critical Care Time Critical Care Time: No
[2023-09-19] MEDS: LACTATED RINGERS 1000ML 1,000 ML 999 ML IV (23:26)
[2023-09-20] VITALS (10 sets, daily range): BP systolic 128–191; BP diastolic 53–78; PULSE 74–90; RESP 16–18; TEMP 36.6–37.1; O2SAT 90–97
[2023-09-20 00:08] LABS: Lymphocytes % 2 % (10-50); Monocytes % 5 % (2-9); Neutrophils % 92 % (42-76); Platelet Estimate Normal; RBC Morphology Normal; Total Cells Counted 100
--- NOTE | 2023-09-20 00:08 | PC.NURSE ---
patient to CT
[2023-09-20] MEDS: AMPICILLIN SODIUM/SULBACTAM 3 GM in 0.9 % SODIUM CHLORIDE 100 ML IV (00:20)
[2023-09-20] MEDS: IOPAMIDOL-370 (76%);100ML BOTTLE 100 ML IV (00:28)
[2023-09-20] MEDS: SODIUM CHLORIDE 0.9% 10ML SYR (RAD ONLY) 10 ML IV (00:28)
[2023-09-20] MEDS: 0.9 % SODIUM CHLORIDE 50 ML VIAL IV (00:28)
[2023-09-20 00:30] LABS: Lactic Acid 1.8 mmol/L (0.7-2.1)
--- NOTE | 2023-09-20 01:14 | PC.NURSE ---
patient assisted to [facility]
[2023-09-20 01:20] LABS: Adenovirus F 40/41, stool Not Detected (NotDetected); Astrovirus Not Detected (NotDetected); Campylobacter Not Detected (NotDetected); Clostridium Difficile A/B, PCR Not Detected (NotDetected); Cryptosporidium Not Detected (NotDetected); Cyclospora Cayetanesis Not Detected (NotDetected); Entamoeba histolytica Not Detected (NotDetected); Enteroaggregative E coli Not Detected (NotDetected); Enteropathogenic E coli Not Detected (NotDetected); Enterotoxigenic E coli Not Detected (NotDetected); Giardia lamblia Not Detected (NotDetected); Norovirus Not Detected (NotDetected); Plesimonas Shigalloides, PCR Not Detected (NotDetected); Rotavirus A Not Detected (NotDetected); Salmonella, PCR Not Detected (NotDetected); Sapovirus Not Detected (NotDetected); Shiga-like toxin E coli Not Detected (NotDetected); Shigella Enterovasive E coli Not Detected (NotDetected); Vibrio Cholerae Not Detected (NotDetected); Vibrio, PCR Not Detected (NotDetected); Yersinia Entercolitica, PCR Not Detected (NotDetected)
--- NOTE | 2023-09-20 02:12 | EXP.HP ---
History of Present Illness *Admission Date: 09/20/23 *Reason for visit:: rectal bleed *History of present illness: This is a 73-year-old female PMHx of hypertension, hyperlipidemia, CAD status post stenting currently on Plavix, hemorrhoids, COPD, cholecystectomy presenting with rectal bleeding. Patient states that she started having abdominal cramping and then had bright red blood per rectum around lunchtime today. Has had multiple bright red blood bowel movement since that time. She did have 1 episode of nonbloody, nonbilious vomiting, currently complaining of nauseas. Denies lightheadedness, chest pain, shortness of breath. Still passing gas, last bright red bowel movement at the emergency department. History was obtained via conversation with patient. Admitted for further management. [facility] Disclaimer: The information contained in this section may have been updated after the patient was seen, as this information can be updated by other users. Medical History (Updated 09/20/23 @ 16:01 by Isaac Hamilton MD) COPD (chronic obstructive pulmonary disease) Hemorrhoids Surgical History (Updated 09/20/23 @ 04:31 by Geronimo Bender APRN) History of cholecystectomy H/O heart artery stent Social History (Updated 09/20/23 @ 03:34 by Sveta Turner RN) Smoking Status: Former smoker alcohol intake: never current occupational status: unemployed Travel in the last 8 weeks: None Review of Systems Review of Systems Review of systems:: pertinent systems reviewed and negative unless documented below Meds Home Medications and Allergies Home Medications Medication Instructions Recorded Confirmed Type acetaminophen 500 mg tablet 1,000 mg PO Q8H PRN Pain 09/20/23 09/20/23 History alendronate 70 mg tablet 70 mg PO WEEKLY 09/20/23 09/20/23 History clopidogrel 75 mg tablet 75 mg PO DAILY 09/20/23 09/20/23 History dorzolamide 2 % eye drops 1 drp Eye-Both BID 09/20/23 09/20/23 History ergocalciferol (vitamin D2) 1,250 1,250 mcg PO WEEKLY 09/20/23 09/20/23 History mcg (50,000 unit) capsule ezetimibe 10 mg-simvastatin 20 mg 1 tab PO HS 09/20/23 09/20/23 History tablet fenofibrate nanocrystallized 145 145 mg PO HS 09/20/23 09/20/23 History mg tablet hydralazine 100 mg tablet 100 mg PO TID 09/20/23 09/20/23 History insulin glargine 100 unit/mL (3 8 unit SQ DAILY 09/20/23 09/20/23 History mL) subcutaneous pen (Lantus Solostar U-100 Insulin) latanoprost 0.005 % eye drops 1 drp Eye-Both HS 09/20/23 09/20/23 History lisinopril 40 mg tablet 40 mg PO DAILY 09/20/23 09/20/23 History minoxidil 2.5 mg tablet 5 mg PO HS 09/20/23 09/20/23 History nebivolol 10 mg tablet (Bystolic) 10 mg PO DAILY 09/20/23 09/20/23 History nitroglycerin 0.3 mg sublingual 0.3 mg sublingual Q5M PRN Chest 09/20/23 09/20/23 History tablet Pain pantoprazole 40 mg tablet,delayed 40 mg PO BID 09/20/23 09/20/23 History release ranolazine 500 mg tablet,extended 500 mg PO BID 09/20/23 09/20/23 History release,12 hr trazodone 50 mg tablet 100 mg PO HS 09/20/23 09/20/23 History venlafaxine 75 mg tablet 75 mg PO DAILY 09/20/23 09/20/23 History verapamil 360 mg 24 hr 360 mg PO HS 09/20/23 09/20/23 History capsule,extended release New Prescriptions to Start Prescriptions: Allergies Allergy/AdvReac Type Severity Reaction Status Date / Time Iodinated Contrast Media Allergy Verified 09/19/23 22:22 Exam Data for Last 24 hours Vital signs and Labs for Last 24 Hours: Temp Pulse Resp BP Pulse Ox O2 Del Method 98.2 F 74 18 179/67 H 97 Room Air 09/19/23 21:50 09/20/23 01:30 09/19/23 21:50 09/20/23 01:30 09/20/23 01:30 09/20/23 00:30 Laboratory Results - last 24 hr 09/19/23 22:10: WBC 22.2 H*, RBC 4.51, Hgb 13.6, Hct 43.7, MCV 96.9, MCH 30.1, MCHC 31.0 L, RDW 13.5, Plt Count 336, MPV 8.4, Neut % (Auto) 93.6 H, Lymph % (Auto) 3.9 L, [place] % (Auto) 2.2, Eos % (Auto) 0.2, Baso % (Auto) 0.2, Neut # (Auto) 20.7 H, Lymph # (Auto) 0.9, [place] # (Auto) 0.5, Eos # (Auto) 0.1, Baso # (Auto) 0.0, Total Counted 100, Neutrophils % (Manual) 92 H, Lymphocytes % (Manual) 2 L, Monocytes % (Manual) 5, Basophils % (Manual) 1.0, Platelet Estimate Normal, RBC Morphology Normal, ESR 5, Sodium 125 L, Potassium 4.5, Chloride 94 L, Carbon Dioxide 19 L, Anion Gap 16.5 H, BUN 30 H, Creatinine 1.50 H, Estimated Creat Clear 42, Estimated GFR 34 L, Est GFR ( Amer) 41 L, Glucose 292 H, Calcium 9.1, Total Bilirubin 0.7, AST 36, ALT 25, Alkaline Phosphatase 49, C-Reactive Protein 2.3, Total Protein 6.7, Albumin 4.0, Globulin 2.7, Albumin/Globulin Ratio 1.5 09/19/23 23:50: Lactate 1.8 I & O for Last 24 hours: Intake & Output 09/17/23 09/18/23 09/19/23 09/20/23 23:59 23:59 23:59 23:59 Weight 81.647 kg Constitutional Constitutional: mild distress, obese and cooperative *Routine HEENT Exam Head: Present normocephalic Eye: Present EOMI and PERRL ENT: Present mucous membranes moist *Routine Neck Exam Neck: Present supple; Absent lymphadenopathy *Routine Respiratory Exam Respiratory: Present CTA bilaterally *Routine Cardiovascular Exam Cardiovascular: Present RRR *Routine Abdominal Exam Abdominal: Present soft and normoactive bowel sounds; Absent tenderness *Routine Rectal Exam Rectal:: deferred *Routine Genitalia Exam Genitalia:: deferred *Routine Extremities Exam Extremities: Absent cyanosis, clubbing or edema *Routine Skin Exam Skin: Present warm; Absent rash *Routine Neurological Exam Neurological: Present alert and oriented X3 H&P: Result Imaging and Cardiology EKG: Status: image reviewed by me, Preliminary report and final report CT scan - abdomen: Status: image reviewed by me, Preliminary report and final report Assessment and Plan *Assessment and plan (1) Colitis: Status: Acute Category: Medical Code(s): K52.9 - Noninfective gastroenteritis and colitis, unspecified (2) BRBPR (bright red blood per rectum): Status: Acute Category: Medical Code(s): K62.5 - Hemorrhage of anus and rectum (3) Left kidney mass: Status: Acute Category: Medical Code(s): N28.89 - Other specified disorders of kidney and ureter (4) Creatinine elevation: Status: Acute Category: Medical (5) Hyponatremia: Status: Acute Category: Medical Code(s): E87.1 - Hypo-osmolality and hyponatremia (6) Hypertension: Status: Acute Qualifiers: Hypertension type: unspecified Qualified Code(s): I10 - Essential (primary) hypertension Category: Medical Code(s): I10 - Essential (primary) hypertension (7) HLD (hyperlipidemia): Status: Acute Qualifiers: Hyperlipidemia type: unspecified Qualified Code(s): E78.5 - Hyperlipidemia, unspecified Category: Medical Code(s): E78.5 - Hyperlipidemia, unspecified (8) Diabetes mellitus: Status: Acute Qualifiers: Diabetes mellitus complication status: with other specified complication Diabetes mellitus halfway insulin use: with halfway use Diabetes mellitus type: type 2 Qualified Code(s): E11.69 - Type 2 diabetes mellitus with other specified complication; Z79.4 - residential (current) use of insulin Category: Medical Code(s): E11.9 - Type 2 diabetes mellitus without complications (9) CAD (coronary artery disease): Status: Acute Qualifiers: Associated angina: unspecified whether angina present Coronary Disease-Associated Artery/Lesion type: unspecified vessel or lesion type [place] vs. transplanted heart: [place] heart Qualified Code(s): I25.10 - Atherosclerotic heart disease of [place] coronary artery without angina pectoris Category: Medical Code(s): I25.10 - Atherosclerotic heart disease of [place] coronary artery without angina pectoris (10) Glaucoma: Status: Acute Qualifiers: Glaucoma type: unspecified Laterality: unspecified laterality Qualified Code(s): H40.9 - Unspecified glaucoma Category: Medical Code(s): H40.9 - Unspecified glaucoma (11) Hypomagnesemia: Status: Acute Category: Medical Code(s): E83.42 - Hypomagnesemia Plan 73-year-old female PMHx of hypertension, hyperlipidemia, CAD status post stenting currently on Plavix, hemorrhoids, IDDM with CKD, COPD, cholecystectomy presenting with rectal bleeding. Patient states that she started having abdominal cramping and then had bright red blood per rectum. patient has not had a colosnoscopy in a long time. however referred a recent cologuard test, that she assumed negative . On arrival initial intervention included stabilization with fluid. IV unasyn was given. CT w/ contrast showed colitis and proctitis. labas are remarkable for leukocytosis on 22.5. mild elevated creatinine, unknown baseline. ED requested admission for monitoring and management. Medicine agreed to admit. Differential includes infectious colitis versus inflammatory bowel disease/colitis versus ischemic disease. Surgery consulted. Plan as follow: -Mild Rectal bleed, presented with transverse, descendent, sigmoid and proctitis: patient also had Hx og hemorroids and is currently on Plavix: Hyponatremia Admit patient. dispo med-surg monitor for bleeding. VS per unit Hold Plavix cardiac monitoring patient will need a colonoscopy. Will consult with surgery the urgency. rectal bleed minimal diarrhea panel neg. infective ruled out. patient was given IV abx at ED prior to admission. we deferred the use of any more for now. continue IV hydration. CMP/CBC daily to monitor electrolytes and Hb. -Incidental left kidney mass: Eleavated creatinine. Suspected CKD secondary to uncontrolled HTN and diabetes: Radiology recommended non emergent MRI. patient to f/u as outpatient or nephrology -IDDM: A1c 7.2 resume home lantus 8 unit on sliding scale -HTN.HLD.CAD s/p stent: resume home meds. On statin, finofibrate, lisinopril, hydralazine and bystolic minoxidil, verapamil, ranolazine monitor for chest pain holding plavix -glaucoma latanoprost and dorzolamide SCD for DVT ppx/ On protonix 40mg IV daily Full code Rounded on patient after nurse practitioner. Personally examined and interviewed patient. Agree with exam findings and care plan as documented. Initiated on methylprednisolone 40 mg IV twice daily. Surgery consulted. No plan for immediate intervention. Repeat H&H ordered for this afternoon to monitor for stable hemoglobin. Will replace magnesium due to level of 1.4. Advance diet. Continues to require inpatient management.
[2023-09-20] MEDS: AZITHROMYCIN 250MG TABLET 500 MG PO (02:15)
--- OUTSIDE RECORDS SUMMARY | 2023-09-20 02:19 | XMS_ITS | Clinical Summary ---
Author Name Unknown Address [address] [place] [address] Phone Organization [facility] Address [address] [place] [address] Phone Care Team Providers Care Emergency Doctor Name Role Phone Cooper Evans MD Unavailable [phone] Conditions or Problems No information available. Medications No information available. Medications Administered No information available. Allergies, Adverse Reactions, Alerts No information available. Results No information available. Plan of Care No information available. Procedures No information available. Vital Signs No information available. Immunizations No information available. Advance Directives No information available.
--- NOTE | 2023-09-20 02:31 | PC.NURSE ---
Nurse to nurse report given to lillian
[2023-09-20 03:00] LABS: Hemoglobin A1C 7.2 % (4.0-6.0)
--- NOTE | 2023-09-20 03:02 | PC.NURSE ---
received phone report from Krystin rn/ed nurse at [phone].
--- NOTE | 2023-09-20 03:12 | PC.NURSE ---
Patient arrived to floor via wheelchair from ED at 3:08.
[2023-09-20] MEDS: 0.9 % SODIUM CHLORIDE 1000ML 1,000 ML 50 ML IV (03:51)
[2023-09-20 05:30] LABS: POC Glucose,Bedside 282 (70-110)
--- NOTE | 2023-09-20 05:37 | PC.NURSE ---
PATIENT TAKING ICE CHIPS. ESSENTIALLY NPO FOR ??SURGICAL CONSULT. 02 AT 2LNC. USES BSC ASSIST X 1. USES WALKER FROM HOME . A/O, PLEASANT AND COOPERATIVE. FAMILY MEMBER AT BEDSIDE.
[2023-09-20 06:56] LABS: Basophils % 0.1 % (0.1-2.0); Eosinophils # 0.1 K/mm3 (0.0-0.4); Eosinophils % 0.4 % (0.1-12.0); Hematocrit 42.4 % (37.0-47.0); Hemoglobin 13.3 g/dL (12.2-16.2); Lymphocytes % 4.6 % (10-50); Mean Corpuscular HGB Conc 31.4 g/dL (31.8-35.4); Mean Corpuscular Hemoglobin 30.5 pg (27.0-31.2); Mean Platelet Volume 8.3 fl (7.4-10.4); Monocytes # 0.2 K/mm3 (0.1-1.0); Neutrophils # 20.4 K/mm3 (1.8-7.8); Neutrophils % 93.8 % (37.0-80.0); Platelet Count 309 K/mm3 (142-424); Red Blood Count 4.37 M/mm3 (4.20-5.40); Red Cell Distribution Width 13.7 % (11.5-17.5); White Blood Count 21.7 K/mm3 (4.8-10.8)
[2023-09-20 06:59] LABS: MANUAL DIFFERENTIAL MANUAL DIFFERENTIAL (MANUAL DIFF)
[2023-09-20 07:08] LABS: Alanine Aminotransferase 31 U/L (12-78); Albumin Level 4.2 g/dl (3.5-5.0); Albumin/Globulin Ratio 1.8 (1.1-1.8); Alkaline Phosphatase 42 U/L (38-126); Anion Gap 16.2 mEq/L (5-15); Aspartate Amino Transferase 41 U/L (14-36); Bilirubin,Total 0.6 mg/dl (0.2-1.3); Blood Urea Nitrogen 25 mg/dl (7-17); Calcium 8.8 mg/dl (8.4-10.2); Carbon Dioxide 20 mmol/L (22.0-30.0); Chloride 93 mmol/L (98-107); Creatinine Clearance Estimated 49 mL/min (50-200); Estimated Glomerular Filt Rate 40 ml/min (>60); GFR (African American) 48 ML/MIN (>60); Globulin 2.4 g/dL (1.3-3.2); Glucose 291 mg/dl (74-100); Magnesium 1.4 mg/dl (1.6-2.3); Potassium 4.2 mmoL/L (3.5-5.1); Sodium 125 mmol/L (136-145); Total Protein,Serum 6.6 g/dl (6.3-8.2)
[2023-09-20 07:44] LABS: Lymphocytes % 5 % (10-50); Neutrophils % 95 % (42-76); Platelet Estimate Normal; RBC Morphology Normal; Total Cells Counted 100
[2023-09-20 08:41] LABS: Hemoglobin A1C 7.2 % (4.0-6.0)
[2023-09-20] MEDS: MAGNESIUM SULFATE IN WATER 2 GM/50 ML PIGGYBACK IV (08:58)
[2023-09-20] MEDS: METHYLPREDNISOLONE SOD SUCC 40MG VIAL 40 MG IV ×2 (08:58→20:18)
[2023-09-20] MEDS: VENLAFAXINE XR 75MG CAPSULE 75 MG PO (08:58)
[2023-09-20] MEDS: LISINOPRIL 20MG TABLET 40 MG PO ×2 (08:58→20:58)
[2023-09-20] MEDS: HYDRALAZINE HCL 25MG TABLET 100 MG PO ×3 (08:58→20:58)
[2023-09-20] MEDS: RANOLAZINE 500MG ER TABLET 500 MG PO ×2 (08:58→20:57)
[2023-09-20] MEDS: CARVEDILOL 12.5MG TABLET 12.5 MG PO ×2 (08:58→20:59)
[2023-09-20] MEDS: DORZOLAMIDE 2% OP ×2 (08:59→21:01)
[2023-09-20] MEDS: ONDANSETRON 4MG/2ML VIAL 4 MG IV ×2 (09:17→16:33)
[2023-09-20] MEDS: NITROGLYCERIN 0.4MG SL TABLET 0.400000000000000022 MG SL ×4 (10:05→23:34)
--- NOTE | 2023-09-20 10:08 | PC.NURSE ---
PT. C/O chest pain of 7 and dull, states pain has decreased after her nitro pill. . barbie.
[2023-09-20 10:38] LABS: POC Glucose,Bedside 282 (70-110)
--- NOTE | 2023-09-20 11:32 | EXP.SURG.CON ---
History of Present Illness *Admission Date: 09/20/23 *Reason for visit:: Colitis, inflammatory versus infectious versus ischemic *History of present illness: Patient is a 73-year-old female with history of hypertension, hyperlipidemia, coronary artery disease status post stenting on Plavix, COPD. She states that yesterday on 09/19/2023 after she had eaten lunch she had developed some abdominal cramping followed by passage of bright red blood per rectum. She had multiple bright red blood bloody bowel movements and 1 episode of nonbloody nonbilious vomiting. She presented to the emergency department with these ongoing symptoms in the appeals nurse of 09/19/2023. She was found to have a leukocytosis of 22,000. She has a sodium of 125. BUN of 30 with a creatinine of 1.5. Glucose 292. Workup in the emergency department included CTA of the abdomen pelvis which revealed no active extravasation; transverse, descending, and sigmoid colitis and proctitis. . . She was admitted to the hospitalist service overnight for inpatient management. Patient reportedly has had a colonoscopy in the past and apparently has undergone Cologuard testing relatively recently which she states was negative. Surgical consultation was obtained. [facility] Disclaimer: The information contained in this section may have been updated after the patient was seen, as this information can be updated by other users. Medical History (Updated 09/20/23 @ 04:33 by Geronimo Bender APRN) COPD (chronic obstructive pulmonary disease) Hemorrhoids Surgical History (Updated 09/20/23 @ 04:31 by Geronimo Bender APRN) History of cholecystectomy H/O heart artery stent Social History (Updated 09/20/23 @ 03:34 by Sveta Turner RN) Smoking Status: Former smoker alcohol intake: never current occupational status: unemployed Travel in the last 8 weeks: None Meds Home Medications and Allergies Home Medications Medication Instructions Recorded Confirmed Type acetaminophen 500 mg tablet 1,000 mg PO Q8H PRN Pain 09/20/23 09/20/23 History alendronate 70 mg tablet 70 mg PO WEEKLY 09/20/23 09/20/23 History clopidogrel 75 mg tablet 75 mg PO DAILY 09/20/23 09/20/23 History dorzolamide 2 % eye drops 1 drp Eye-Both BID 09/20/23 09/20/23 History ergocalciferol (vitamin D2) 1,250 1,250 mcg PO WEEKLY 09/20/23 09/20/23 History mcg (50,000 unit) capsule ezetimibe 10 mg-simvastatin 20 mg 1 tab PO HS 09/20/23 09/20/23 History tablet fenofibrate nanocrystallized 145 145 mg PO HS 09/20/23 09/20/23 History mg tablet hydralazine 100 mg tablet 100 mg PO TID 09/20/23 09/20/23 History insulin glargine 100 unit/mL (3 8 unit SQ DAILY 09/20/23 09/20/23 History mL) subcutaneous pen (Lantus Solostar U-100 Insulin) latanoprost 0.005 % eye drops 1 drp Eye-Both HS 09/20/23 09/20/23 History lisinopril 40 mg tablet 40 mg PO DAILY 09/20/23 09/20/23 History minoxidil 2.5 mg tablet 5 mg PO HS 09/20/23 09/20/23 History nebivolol 10 mg tablet (Bystolic) 10 mg PO DAILY 09/20/23 09/20/23 History nitroglycerin 0.3 mg sublingual 0.3 mg sublingual Q5M PRN Chest 09/20/23 09/20/23 History tablet Pain pantoprazole 40 mg tablet,delayed 40 mg PO BID 09/20/23 09/20/23 History release ranolazine 500 mg tablet,extended 500 mg PO BID 09/20/23 09/20/23 History release,12 hr trazodone 50 mg tablet 100 mg PO HS 09/20/23 09/20/23 History venlafaxine 75 mg tablet 75 mg PO DAILY 09/20/23 09/20/23 History verapamil 360 mg 24 hr 360 mg PO HS 09/20/23 09/20/23 History capsule,extended release New Prescriptions to Start Prescriptions: Allergies Allergy/AdvReac Type Severity Reaction Status Date / Time Iodinated Contrast Media Allergy Verified 09/19/23 22:22 Exam (Inpt) Vital signs and Labs for Last 24 Hours: Temp Pulse Resp BP Pulse Ox O2 Del Method O2 Flow Rate 98.5 F 80 16 167/69 H 90 L Nasal Cannula 2 09/20/23 08:00 09/20/23 08:00 09/20/23 08:00 09/20/23 08:00 09/20/23 08:00 09/20/23 10:50 09/20/23 10:50 Laboratory Results - last 24 hr 09/19/23 22:10: WBC 22.2 H*, RBC 4.51, Hgb 13.6, Hct 43.7, MCV 96.9, MCH 30.1, MCHC 31.0 L, RDW 13.5, Plt Count 336, MPV 8.4, Neut % (Auto) 93.6 H, Lymph % (Auto) 3.9 L, [place] % (Auto) 2.2, Eos % (Auto) 0.2, Baso % (Auto) 0.2, Neut # (Auto) 20.7 H, Lymph # (Auto) 0.9, [place] # (Auto) 0.5, Eos # (Auto) 0.1, Baso # (Auto) 0.0, Total Counted 100, Neutrophils % (Manual) 92 H, Lymphocytes % (Manual) 2 L, Monocytes % (Manual) 5, Basophils % (Manual) 1.0, Platelet Estimate Normal, RBC Morphology Normal, ESR 5, Sodium 125 L, Potassium 4.5, Chloride 94 L, Carbon Dioxide 19 L, Anion Gap 16.5 H, BUN 30 H, Creatinine 1.50 H, Estimated Creat Clear 42, Estimated GFR 34 L, Est GFR ( Amer) 41 L, Glucose 292 H, Calcium 9.1, Total Bilirubin 0.7, AST 36, ALT 25, Alkaline Phosphatase 49, C-Reactive Protein 2.3, Total Protein 6.7, Albumin 4.0, Globulin 2.7, Albumin/Globulin Ratio 1.5 09/19/23 23:50: Lactate 1.8 09/20/23 00:00: Hemoglobin A1c 7.2 H 09/20/23 00:15: Stl Aeromonas (PCR) Not detected, Stl C. cayetanensis PCR Not detected, Stool Rotavirus (PCR) Not detected, Stl Adenov F 40/41 PCR Not detected, Stool Astrovirus (PCR) Not detected, Stool Campylobacter PCR Not detected, Stl C.difficile Tox PCR Not detected, Stool Cryptosporidium PCR Not detected, Stl E.coli Shiga Tox PCR Not detected, Stool E coli O157 PCR Not detected, Stl Enterotoxigenic E PCR Not detected, Stool EPEC (PCR) Not detected, Stool EAEC (PCR) Not detected, Stl E. histolytica PCR Not detected, Stool Giardia Lamblia PCR Not detected, Stool Salmonella PCR Not detected, Stool Sapovirus (PCR) Not detected, Stl P. shigelloides PCR Not detected, Stl Shigella/EIEC PCR Not detected, St Y.enterocolitica PCR Not detected, Stool Vibrio (PCR) Not detected, Stl Vibrio cholerae PCR Not detected, Stl Norovirus GI/GII PCR Not detected 09/20/23 05:18: POC Glucose 282 H 09/20/23 06:25: WBC 21.7 H*, RBC 4.37, Hgb 13.3, Hct 42.4, MCV 97.0, MCH 30.5, MCHC 31.4 L, RDW 13.7, Plt Count 309, MPV 8.3, Neut % (Auto) 93.8 H, Lymph % (Auto) 4.6 L, [place] % (Auto) 1.0 L, Eos % (Auto) 0.4, Baso % (Auto) 0.1, Neut # (Auto) 20.4 H, Lymph # (Auto) 1.0, [place] # (Auto) 0.2, Eos # (Auto) 0.1, Baso # (Auto) 0.0, Total Counted 100, Neutrophils % (Manual) 95 H, Lymphocytes % (Manual) 5 L, Platelet Estimate Normal, RBC Morphology Normal, Sodium 125 L, Potassium 4.2, Chloride 93 L, Carbon Dioxide 20 L, Anion Gap 16.2 H, BUN 25 H, Creatinine 1.30 H, Estimated Creat Clear 49, Estimated GFR 40 L, Est GFR ( Amer) 48 L, Glucose 291 H, Hemoglobin A1c 7.2 H, Calcium 8.8, Magnesium 1.4 L, Total Bilirubin 0.6, AST 41 H, ALT 31, Alkaline Phosphatase 42, Total Protein 6.6, Albumin 4.2, Globulin 2.4, Albumin/Globulin Ratio 1.8 09/20/23 10:31: POC Glucose 282 H I & O for Labs for Last 24 Hours: Intake & Output 09/17/23 09/18/23 09/19/23 09/20/23 11:59 11:59 11:59 11:59 Output Total 601 / 601 Balance -601 / -601 Weight 180 lb 9.6 oz Microbiology Reports for the Last 24 Hours: Microbiology 09/19/23 00:02 Blood Blood Culture - Preliminary No growth. Constitutional: no acute distress Head: Present normocephalic GI: Present soft; Absent tenderness Results Labs 09/20/23 06:25 09/20/23 06:25 Labs: Laboratory Results - last 24 hr 09/19/23 22:10: WBC 22.2 H*, RBC 4.51, Hgb 13.6, Hct 43.7, MCV 96.9, MCH 30.1, MCHC 31.0 L, RDW 13.5, Plt Count 336, MPV 8.4, Neut % (Auto) 93.6 H, Lymph % (Auto) 3.9 L, [place] % (Auto) 2.2, Eos % (Auto) 0.2, Baso % (Auto) 0.2, Neut # (Auto) 20.7 H, Lymph # (Auto) 0.9, [place] # (Auto) 0.5, Eos # (Auto) 0.1, Baso # (Auto) 0.0, Total Counted 100, Neutrophils % (Manual) 92 H, Lymphocytes % (Manual) 2 L, Monocytes % (Manual) 5, Basophils % (Manual) 1.0, Platelet Estimate Normal, RBC Morphology Normal, ESR 5, Sodium 125 L, Potassium 4.5, Chloride 94 L, Carbon Dioxide 19 L, Anion Gap 16.5 H, BUN 30 H, Creatinine 1.50 H, Estimated Creat Clear 42, Estimated GFR 34 L, Est GFR ( Amer) 41 L, Glucose 292 H, Calcium 9.1, Total Bilirubin 0.7, AST 36, ALT 25, Alkaline Phosphatase 49, C-Reactive Protein 2.3, Total Protein 6.7, Albumin 4.0, Globulin 2.7, Albumin/Globulin Ratio 1.5 09/19/23 23:50: Lactate 1.8 09/20/23 00:00: Hemoglobin A1c 7.2 H 09/20/23 00:15: Stl Aeromonas (PCR) Not detected, Stl C. cayetanensis PCR Not detected, Stool Rotavirus (PCR) Not detected, Stl Adenov F 40/41 PCR Not detected, Stool Astrovirus (PCR) Not detected, Stool Campylobacter PCR Not detected, Stl C.difficile Tox PCR Not detected, Stool Cryptosporidium PCR Not detected, Stl E.coli Shiga Tox PCR Not detected, Stool E coli O157 PCR Not detected, Stl Enterotoxigenic E PCR Not detected, Stool EPEC (PCR) Not detected, Stool EAEC (PCR) Not detected, Stl E. histolytica PCR Not detected, Stool Giardia Lamblia PCR Not detected, Stool Salmonella PCR Not detected, Stool Sapovirus (PCR) Not detected, Stl P. shigelloides PCR Not detected, Stl Shigella/EIEC PCR Not detected, St Y.enterocolitica PCR Not detected, Stool Vibrio (PCR) Not detected, Stl Vibrio cholerae PCR Not detected, Stl Norovirus GI/GII PCR Not detected 09/20/23 05:18: POC Glucose 282 H 09/20/23 06:25: WBC 21.7 H*, RBC 4.37, Hgb 13.3, Hct 42.4, MCV 97.0, MCH 30.5, MCHC 31.4 L, RDW 13.7, Plt Count 309, MPV 8.3, Neut % (Auto) 93.8 H, Lymph % (Auto) 4.6 L, [place] % (Auto) 1.0 L, Eos % (Auto) 0.4, Baso % (Auto) 0.1, Neut # (Auto) 20.4 H, Lymph # (Auto) 1.0, [place] # (Auto) 0.2, Eos # (Auto) 0.1, Baso # (Auto) 0.0, Total Counted 100, Neutrophils % (Manual) 95 H, Lymphocytes % (Manual) 5 L, Platelet Estimate Normal, RBC Morphology Normal, Sodium 125 L, Potassium 4.2, Chloride 93 L, Carbon Dioxide 20 L, Anion Gap 16.2 H, BUN 25 H, Creatinine 1.30 H, Estimated Creat Clear 49, Estimated GFR 40 L, Est GFR ( Amer) 48 L, Glucose 291 H, Hemoglobin A1c 7.2 H, Calcium 8.8, Magnesium 1.4 L, Total Bilirubin 0.6, AST 41 H, ALT 31, Alkaline Phosphatase 42, Total Protein 6.6, Albumin 4.2, Globulin 2.4, Albumin/Globulin Ratio 1.8 09/20/23 10:31: POC Glucose 282 H Assessment and Plan *Assessment and plan (1) Colitis: Status: Acute Category: Medical Code(s): K52.9 - Noninfective gastroenteritis and colitis, unspecified Plan Patient has colitis of uncertain etiology. She has shown some clinical improvement. Regardless of the etiology, whether infectious, inflammatory, ischemic, or idiopathic, recommend medical management at this time. No indications for urgent surgical intervention at this time. I would not plan for endoscopic evaluation as there would be some risk due to the acute inflammation and bleeding risk due to patient being on clopidogrel. If her symptoms remain refractory with lack of improvement could require sigmoidoscopy although this seems unlikely at this time. Would benefit from gastroenterology evaluation in the near future.
--- NOTE | 2023-09-20 11:41 | PC.NURSE ---
. aware of patient's chest pain same as earlier this am. Nitro given and patient sates pain is now gone. No new orders at this time.
[2023-09-20] MEDS: PIPERCILLIN/TAZO 3.375 GM in 0.9 % SODIUM CHLORIDE 50 ML IV ×3 (12:40→22:32)
--- OUTSIDE RECORDS SUMMARY | 2023-09-20 13:52 | XMS_ITS | Clinical Summary ---
Author Name Unknown Address [address] [place] [address] Phone Organization [facility] Address [address] [place] [address] Phone Care Team Providers Care Sausage Cooker Name Role Phone Cooper Evans MD Unavailable [phone] Conditions or Problems No information available. Medications No information available. Medications Administered No information available. Allergies, Adverse Reactions, Alerts No information available. Results No information available. Plan of Care No information available. Procedures No information available. Vital Signs No information available. Immunizations No information available. Advance Directives No information available.
[2023-09-20 16:44] LABS: POC Glucose,Bedside 260 (70-110)
[2023-09-20] MEDS: humaLOG 100 UNITS/ML 3ML VIAL (SSI) SQ ×2 (16:47→21:00)
[2023-09-20 18:26] LABS: Hematocrit 34.7 % (37.0-47.0)
[2023-09-20 18:30] LABS: Chloride 95 mmol/L (98-107); Sodium 122 mmol/L (136-145)
[2023-09-20 18:31] LABS: Potassium 3.9 mmoL/L (3.5-5.1)
[2023-09-20 18:33] LABS: Blood Urea Nitrogen 22 mg/dl (7-17); Creatinine Clearance Estimated 53 mL/min (50-200); Estimated Glomerular Filt Rate 44 ml/min (>60); GFR (African American) 53 ML/MIN (>60)
[2023-09-20 18:34] LABS: Anion Gap 14.9 mEq/L (5-15); Calcium 8.1 mg/dl (8.4-10.2); Carbon Dioxide 16 mmol/L (22.0-30.0); Glucose 246 mg/dl (74-100)
[2023-09-20 19:12] LABS: Hemoglobin 11.5 g/dL (12.2-16.2)
--- NOTE | 2023-09-20 19:15 | PC.NURSE ---
. aware pt. had chest pain same as before and given a nitro... Md. to place new orders.
--- NOTE | 2023-09-20 20:23 | PC.NURSE ---
OFFICE ASST aware of pt having chest pain. placed tele on patient and waiting to get ekg
--- NOTE | 2023-09-20 20:29 | ECG_ITS ---
APPROVED REPORT Exam: Resting ECG HR:84 bpm ECG Measurements Heart Rate 84 AXES NJ 212 P 65 QRSd 98 QRS 25 QT 348 T 75 QTc 389 Conclusion SINUS RHYTHM WITH FIRST DEGREE AV BLOCK WITH OCCASIONAL SUPRAVENTRICULAR PREMATURE COMPLEXES ABNORMAL ECG UNCONFIRMED REPORT Electronically signed by : Jaxson Jean MD 09/21/2023 16:12:54
[2023-09-20 20:44] LABS: POC Glucose,Bedside 234 (70-110)
[2023-09-20] MEDS: VERAPAMIL SR 180MG TABLET 360 MG PO (20:57)
[2023-09-20] MEDS: PANTOPRAZOLE 40MG VIAL 40 MG IV (20:57)
[2023-09-20] MEDS: TRAZODONE 50MG TABLET 100 MG PO (20:57)
[2023-09-20] MEDS: LATANOPROST 0.005% OPTH SOLN 2.5ML OP (20:59)
[2023-09-20] MEDS: EZETIMIBE 10MG TABLET 10 MG PO (21:00)
[2023-09-20] MEDS: FENOFIBRATE 134MG CAPSULE 134 MG PO (21:00)
[2023-09-20] MEDS: MINOXIDIL 2.5 MG 2 EACH PO (21:01)
[2023-09-20] MEDS: ALUMINUM/MAGNESIUM/SIMETHICONE 30ML UDC 30 ML PO (21:08)
[2023-09-20] MEDS: MORPHINE 2MG/ML SYRINGE 2 MG IV (22:31)
--- NOTE | 2023-09-20 23:07 | PC.NURSE ---
Made Geronimo aware of pt still having 7/10 dull centered chest pain after giving gi cocktail and morphine, no complaints of it radiating anywhere. no sob or nausea. VSS. stated to give pt 3 rounds of nitro to patient.
--- NOTE | 2023-09-20 23:36 | PC.NURSE ---
first dose of nitro, bp 136/55, hr 81, o2 on ra 96. pt complaints of dull chest pain 11/20. will continue to monitor
--- NOTE | 2023-09-20 23:50 | PC.NURSE ---
pt stated the nitro gave her full relief
[2023-09-21] VITALS (9 sets, daily range): BP systolic 100–156; BP diastolic 42–61; PULSE 60–80; RESP 16–20; TEMP 36.5–37; O2SAT 91–97; BMI 30.9
--- NOTE | 2023-09-21 00:14 | XR_ITS ---
PROCEDURE INFORMATION: Exam: XR Chest Exam date and time: 09/21/2023 12:43 AM Age: 73 years old Clinical indication: Pain; Chest pressure; Additional info: Chest pain TECHNIQUE: Imaging protocol: Radiologic exam of the chest. Views: 1 view. COMPARISON: CT ANGIO ABDOMEN PELVIS 09/20/2023 12:19 AM FINDINGS: Lungs: Unremarkable. No consolidation. Pleural spaces: Unremarkable. No pleural effusion. No pneumothorax. Heart/Mediastinum: Unremarkable. No cardiomegaly. Vasculature: Unremarkable. Bones/joints: Unremarkable. IMPRESSION: No acute findings.
--- NOTE | 2023-09-21 00:16 | PC.NURSE ---
made rod puller aware of pt chest pain subsiding after 1 dose of nitro and bp dropped to 100/50. pt stated the same pain has came back within 20min, rod puller ordered troponin and cxr.
[2023-09-21] MEDS: PANTOPRAZOLE 40MG VIAL 40 MG IV ×3 (00:40→20:22)
[2023-09-21 01:08] LABS: Troponin I < 0.01 ng/ml (0.00-0.034)
[2023-09-21] MEDS: MORPHINE 4MG/ML SYRINGE 4 MG IV (01:41)
[2023-09-21 01:42] LABS: D-Dimer 0.26 ug/mL (0.0-0.5)
[2023-09-21] MEDS: PIPERCILLIN/TAZO 3.375 GM in 0.9 % SODIUM CHLORIDE 50 ML IV ×3 (05:37→16:31)
[2023-09-21] MEDS: METHYLPREDNISOLONE SOD SUCC 40MG VIAL 40 MG IV ×2 (06:24→20:21)
[2023-09-21] MEDS: 0.9 % SODIUM CHLORIDE 1000ML 1,000 ML 75 ML IV (06:24)
[2023-09-21] MEDS: humaLOG 100 UNITS/ML 3ML VIAL (SSI) SQ ×4 (06:24→20:25)
[2023-09-21 06:25] LABS: POC Glucose,Bedside 234 (70-110)
[2023-09-21 06:44] LABS: Basophils % 0.1 % (0.1-2.0); Eosinophils % 0.1 % (0.1-12.0); Hematocrit 33.2 % (37.0-47.0); Hemoglobin 10.8 g/dL (12.2-16.2); Lymphocytes # 0.9 K/mm3 (0.7-4.5); Lymphocytes % 4.8 % (10-50); Mean Corpuscular HGB Conc 32.4 g/dL (31.8-35.4); Mean Corpuscular Hemoglobin 30.2 pg (27.0-31.2); Mean Corpuscular Volume 93.4 fl (81-99); Mean Platelet Volume 8.6 fl (7.4-10.4); Monocytes # 0.5 K/mm3 (0.1-1.0); Monocytes % 2.8 % (1.7-9.3); Neutrophils # 16.8 K/mm3 (1.8-7.8); Neutrophils % 92.3 % (37.0-80.0); Platelet Count 310 K/mm3 (142-424); Red Blood Count 3.56 M/mm3 (4.20-5.40); White Blood Count 18.2 K/mm3 (4.8-10.8)
[2023-09-21 06:56] LABS: MANUAL DIFFERENTIAL MANUAL DIFFERENTIAL (MANUAL DIFF)
[2023-09-21 07:00] LABS: Alanine Aminotransferase 27 U/L (12-78); Albumin Level 3.3 g/dl (3.5-5.0); Albumin/Globulin Ratio 1.3 (1.1-1.8); Alkaline Phosphatase 34 U/L (38-126); Anion Gap 14.3 mEq/L (5-15); Aspartate Amino Transferase 48 U/L (14-36); Bilirubin,Total 0.6 mg/dl (0.2-1.3); Blood Urea Nitrogen 31 mg/dl (7-17); Calcium 7.9 mg/dl (8.4-10.2); Carbon Dioxide 21 mmol/L (22.0-30.0); Chloride 93 mmol/L (98-107); Creatinine Clearance Estimated 37 mL/min (50-200); Estimated Glomerular Filt Rate 28 ml/min (>60); GFR (African American) 33 ML/MIN (>60); Globulin 2.5 g/dL (1.3-3.2); Glucose 226 mg/dl (74-100); Magnesium 2.2 mg/dl (1.6-2.3); Potassium 4.3 mmoL/L (3.5-5.1); Sodium 124 mmol/L (136-145); Total Protein,Serum 5.8 g/dl (6.3-8.2)
[2023-09-21 07:42] LABS: Lymphocytes % 5 % (10-50); Monocytes % 1 % (2-9); Neutrophils % 94 % (42-76); Platelet Estimate Normal; RBC Morphology Normal; Total Cells Counted 100
[2023-09-21] MEDS: HYDRALAZINE HCL 25MG TABLET 100 MG PO ×2 (08:09→20:21)
[2023-09-21] MEDS: ONDANSETRON 4MG/2ML VIAL 4 MG IV (08:09)
[2023-09-21] MEDS: VENLAFAXINE XR 75MG CAPSULE 75 MG PO (08:10)
[2023-09-21] MEDS: RANOLAZINE 500MG ER TABLET 500 MG PO ×2 (08:10→20:21)
[2023-09-21] MEDS: DORZOLAMIDE 2% OP ×2 (08:10→20:24)
[2023-09-21] MEDS: CARVEDILOL 12.5MG TABLET 12.5 MG PO ×2 (08:10→20:22)
[2023-09-21] MEDS: LISINOPRIL 20MG TABLET 40 MG PO (08:10)
--- NOTE | 2023-09-21 09:54 | HMH.OTEV ---
OT Inpatient Evaluation Rehab OT IP Evaluation Start: 09/21/23 07:30 Freq: ONCE Status: Active Protocol: Document 09/21/23 09:48 RMARSHALL (Rec: 09/21/23 09:53 RMARSHALL Laptop) Rehab OT IP Assessment Subjective History Pt oriented x 3 on arrival. Pt agreeable to engage in therapy evaluation. Pt admitted on 09/20/23 due to colitis. History and physical report: This is a 73-year-old female PMHx of hypertension, hyperlipidemia, CAD status post stenting currently on Plavix, hemorrhoids, COPD, cholecystectomy presenting with rectal bleeding. Patient states that she started having abdominal cramping and then had bright red blood per rectum around lunchtime today. Has had multiple bright red blood bowel movement since that time. She did have 1 episode of nonbloody, nonbilious vomiting, currently complaining of nauseas. Denies lightheadedness, chest pain, shortness of breath. Still passing gas, last bright red bowel movement at the emergency department. History was obtained via conversation with patient. Admitted for further management. Subjective I am feeling better overall. Prior to being in the hospital , pt lived at home alone. Pt claims normally she is independent with all ADLs and IADLs. She uses a cane during functional transfers however recently she has been using a rolling walker. Objective Patient Orientation Person,Place,Birthday Right Upper Extremity Gross ROM WFL Left Upper Extremity Gross ROM WFL Bed Mobility bed mobility-scooting,bed mobility - supine/sit Assist Level Supervision/Stand by Transfer Training Sit/Stand Transfer Assist Level Supervision/Stand by Lower Body Dressing Ability Standby Assistance Overall Commode/Toilet Transfer Ability Standby Assistance Commode/Toilet Transfer Technique Sit to/from Ambulatory Rehab OT IP prob,goals,plan Problems Date of Evaluation: 09/21/23 Rehab Potential Rehab Potential Innapropriate for Skilled Therapy Discharge Plan OT Discharge Plan Pt appears to be at her baseline with functional transfers and ADL independence . Pt can return home once she is medially stable per physician. Eval Complexity Eval Charge Codes 64193 - Moderate Complexity PHYSICIAN CERTIFICATION: I certify the specified therapy services for Mary Walker are required, authorized, and reviewed every 30 days.
[2023-09-21 10:31] LABS: POC Glucose,Bedside 262 (70-110)
[2023-09-21] MEDS: INSULIN GLARGINE 100 UNITS/ML 3ML FLEXPEN 8 UNIT SQ (11:01)
--- NOTE | 2023-09-21 11:20 | HMH.PTEV ---
Physical Therapy Evaluation Rehab PT IP Evaluation Start: 09/21/23 07:30 Freq: ONCE Status: Active Protocol: Document 09/21/23 09:00 PHORNE (Rec: 09/21/23 11:20 PHORNE Laptop) Subjective/History History History 73 yowf adm to [facility] with colitis. She has PMHx of hypertension, hyperlipidemia, CAD status post stenting currently on Plavix, hemorrhoids, COPD, cholecystectomy. She reports she lives alone, no steps to enter the home, she generally uses a cane for ambulation, but has been using her RW for the past several days prior to being admit to the hospital. Subjective Subjective She reports feeling better overall this am and agrees to mobility assessment. New diagnosis of cancer in past 12 No months? Rehab PT IP Eval Objective Appearance Patient Behavior Appropriate Patient Orientation Person,Place,Time Difficulty following instructions none Speech Pattern Clear Ambulation Patient Able to Ambulate Yes Ambulation Observation IP General Gait Pattern Observation No Deviations/Normal Ambulation Distance (feet) 200 Ambulation Assistive Device Rolling Walker Ambulation Ability Independent Balance Ability to Arise Able, uses arms to help Sitting Balance Steady, safe Standing Balance Steady, wide stance Dynamic Sitting Balance Ability Good Dynamic Standing Balance Ability Good Transfers Bed Transfer Ability Independent Chair Transfer Ability Independent Sit to Stand Bed Transfer Ability Independent Sit to Stand Chair Transfer Ability Independent Rehab PT IP prob,goals,plan Problems Date of Evaluation: 09/21/23 Discharge Plan PT Discharge Plan Pt is currently at baseline for all mobility and is appropriate to return home once medically stable for d/c. No current inpatient therapy needs. Eval Complexity Eval Charge Codes 51407 - High Complexity PHYSICIAN CERTIFICATION: I certify the specified therapy services for Mary Walker are required, authorized, and reviewed every 30 days.
--- NOTE | 2023-09-21 12:58 | EXP.ACUTE.PN ---
Subjective *Date: 09/21/23 *Time: 12:58 Interval history: Patient feeling today. Had some chest discomfort overnight, responded well to GI cocktail. Denies any chest pain this morning. Troponins negative overnight. Improving stools, no blood overnight. Review of labs this morning show slight drop in hemoglobin from 13-10.8. Hyponatremia stable. Reports chronic history of this. Bump in creatinine concerning for BARR[place]. Evaluated by therapy today. Stable on room air. Family at bedside Medical Exam Vital signs and Labs for Last 24 Hours: Vital Signs Temp Pulse Pulse Resp BP Pulse Ox O2 Del Method 09/21/23 12:04 97.8 F 67 16 108/46 L 91 L Room Air 09/21/23 10:55 97.8 F 67 16 108/46 L 91 L Room Air 09/21/23 08:15 Room Air 09/21/23 08:00 65 09/21/23 07:29 98.0 F 65 18 133/55 L 95 Room Air 09/21/23 07:21 Room Air 09/21/23 06:53 Room Air 09/21/23 05:00 Room Air 09/21/23 04:00 98 F 62 18 105/42 L 95 Room Air 09/21/23 04:00 60 09/21/23 03:00 Room Air 09/21/23 01:00 Room Air 09/21/23 00:00 80 09/21/23 00:00 98.6 F 63 18 100/43 L 93 L Room Air 09/20/23 23:00 Room Air 09/20/23 21:00 Room Air 09/20/23 20:13 90 09/20/23 20:00 Room Air 09/20/23 20:00 98.8 F 88 18 138/53 L 96 Room Air 09/20/23 17:20 Nasal Cannula 09/20/23 17:00 Nasal Cannula 09/20/23 16:00 97.9 F 81 16 128/58 L 92 L Room Air 09/20/23 15:00 Nasal Cannula O2 Flow Rate 09/21/23 12:04 09/21/23 10:55 09/21/23 08:15 09/21/23 08:00 09/21/23 07:29 09/21/23 07:21 09/21/23 06:53 09/21/23 05:00 09/21/23 04:00 09/21/23 04:00 09/21/23 03:00 09/21/23 01:00 09/21/23 00:00 09/21/23 00:00 09/20/23 23:00 09/20/23 21:00 09/20/23 20:13 09/20/23 20:00 09/20/23 20:00 09/20/23 17:20 2 09/20/23 17:00 2 09/20/23 16:00 09/20/23 15:00 2 Intake and Output 09/20/23 09/21/23 09/21/23 23:59 07:59 15:59 Intake Total 965 / 1540 575 / 745 170 / 745 Output Total 300 / 901 0 / 0 Balance 665 / 639 575 / 745 170 / 745 Intake: Intake, Oral Amount 240 / 440 200 / 370 170 / 370 Intake, Total IV Amount 725 / 1100 375 / 375 0.9 % Sodium Chloride 1000ML 1, 675 / 1050 375 / 375 000 ml @ 75 mls/hr IV .[id number] [facility] Rx#:[id number] Pipercillin/Tazo 3.375 gm In 0. 50 / 50 9 % Sodium Chloride 50 ml @ 100 mls/hr IV Q6H [facility] Rx#:[id number] Output: Output, Urine Amount 300 / 901 0 / 0 Other: Number of Voids 2 Number of Unmeasured Voids 1 1 Weight 84.323 kg Patient Weight 09/21/23 23:59 Weight 84.323 kg Laboratory Results - last 24 hr 09/20/23 16:37: POC Glucose 260 H 09/20/23 18:20: Hgb 11.5 L D, Hct 34.7 L, Sodium 122 L, Potassium 3.9, Chloride 95 L, Carbon Dioxide 16 L, Anion Gap 14.9, BUN 22 H, Creatinine 1.20 H, Estimated Creat Clear 53, Estimated GFR 44 L, Est GFR ( Amer) 53 L, Glucose 246 H, Calcium 8.1 L 09/20/23 20:37: POC Glucose 234 H 09/21/23 00:28: Troponin I < 0.01 09/21/23 00:45: D-Dimer 0.26 09/21/23 05:35: POC Glucose 234 H 09/21/23 06:30: WBC 18.2 H, RBC 3.56 L, Hgb 10.8 L, Hct 33.2 L, MCV 93.4, MCH 30.2, MCHC 32.4, RDW 14.0, Plt Count 310, MPV 8.6, Neut % (Auto) 92.3 H, Lymph % (Auto) 4.8 L, [place] % (Auto) 2.8, Eos % (Auto) 0.1, Baso % (Auto) 0.1, Neut # (Auto) 16.8 H, Lymph # (Auto) 0.9, [place] # (Auto) 0.5, Eos # (Auto) 0.0, Baso # (Auto) 0.0, Total Counted 100, Neutrophils % (Manual) 94 H, Lymphocytes % (Manual) 5 L, Monocytes % (Manual) 1 L, Platelet Estimate Normal, RBC Morphology Normal, Sodium 124 L, Potassium 4.3, Chloride 93 L, Carbon Dioxide 21 L, Anion Gap 14.3, BUN 31 H D, Creatinine 1.80 H D, Estimated Creat Clear 37, Estimated GFR 28 L, Est GFR ( Amer) 33 L D, Glucose 226 H, Calcium 7.9 L, Magnesium 2.2 D, Total Bilirubin 0.6, AST 48 H, ALT 27, Alkaline Phosphatase 34 L, Total Protein 5.8 L, Albumin 3.3 L D, Globulin 2.5, Albumin/Globulin Ratio 1.3 09/21/23 10:24: POC Glucose 262 H I & O for Labs for Last 24 Hours: Intake & Output 09/18/23 09/19/23 09/20/23 09/21/23 23:59 23:59 23:59 23:59 Intake Total 965 / 1540 745 / 745 Output Total 901 / 901 0 / 0 Balance 64 / 639 745 / 745 Weight 81.647 kg 81.919 kg 84.323 kg Microbiology Reports for the Last 24 Hours: Microbiology 09/19/23 00:02 Blood Blood Culture - Preliminary No growth. Constitutional: Present no acute distress, obese, chronically ill appearing and cooperative Head: Present atraumatic and normocephalic ENT: Present normal exam Respiratory: Present normal respiratory effort; Absent rhonchi, wheezes or crackles Cardiac: Present Reg Rate and Rhythm GI: Present soft, tenderness (Nonfocal, significant improvement from yesterday) and normal bowel sounds; Absent distention Extremities: Present normal inspection and full ROM Skin: Present intact; Absent erythema Neuro: Present Grossly Intact, alert, awake, oriented x 3 and moves all extremities Assessment and Plan *Assessment and plan (1) Colitis: Status: Acute Category: Medical Code(s): K52.9 - Noninfective gastroenteritis and colitis, unspecified (2) BARR[place] (acute kidney injury): Status: Acute Category: Medical Code(s): N17.9 - Acute kidney failure, unspecified (3) Blood loss anemia: Status: Acute Category: Medical Code(s): D50.0 - Iron deficiency anemia secondary to blood loss (chronic) (4) BRBPR (bright red blood per rectum): Status: Acute Category: Medical Code(s): K62.5 - Hemorrhage of anus and rectum (5) Left kidney mass: Status: Acute Category: Medical Code(s): N28.89 - Other specified disorders of kidney and ureter (6) Creatinine elevation: Status: Acute Category: Medical (7) Hyponatremia: Status: Acute Category: Medical Code(s): E87.1 - Hypo-osmolality and hyponatremia (8) Hypertension: Status: Acute Qualifiers: Hypertension type: unspecified Qualified Code(s): I10 - Essential (primary) hypertension Category: Medical Code(s): I10 - Essential (primary) hypertension (9) HLD (hyperlipidemia): Status: Acute Qualifiers: Hyperlipidemia type: unspecified Qualified Code(s): E78.5 - Hyperlipidemia, unspecified Category: Medical Code(s): E78.5 - Hyperlipidemia, unspecified (10) Diabetes mellitus: Status: Acute Qualifiers: Diabetes mellitus type: type 2 Diabetes mellitus fci insulin use: with fci use Diabetes mellitus complication status: with other specified complication Qualified Code(s): E11.69 - Type 2 diabetes mellitus with other specified complication; Z79.4 - long term acute care registered nurse (current) use of insulin Category: Medical Code(s): E11.9 - Type 2 diabetes mellitus without complications (11) CAD (coronary artery disease): Status: Acute Qualifiers: Coronary Disease-Associated Artery/Lesion type: unspecified vessel or lesion type [place] vs. transplanted heart: [place] heart Associated angina: unspecified whether angina present Qualified Code(s): I25.10 - Atherosclerotic heart disease of [place] coronary artery without angina pectoris Category: Medical Code(s): I25.10 - Atherosclerotic heart disease of [place] coronary artery without angina pectoris (12) Glaucoma: Status: Acute Qualifiers: Glaucoma type: unspecified Laterality: unspecified laterality Qualified Code(s): H40.9 - Unspecified glaucoma Category: Medical Code(s): H40.9 - Unspecified glaucoma (13) Hypomagnesemia: Status: Acute Category: Medical Code(s): E83.42 - Hypomagnesemia Plan 73-year-old female PMHx of hypertension, hyperlipidemia, CAD status post stenting currently on Plavix, hemorrhoids, IDDM with CKD, COPD, cholecystectomy presenting with rectal bleeding. Patient states that she started having abdominal cramping and then had bright red blood per rectum. patient has not had a colosnoscopy in a long time. however referred a recent cologuard test, that she assumed negative . On arrival initial intervention included stabilization with fluid. IV unasyn was given. CT w/ contrast showed colitis and proctitis. labas are remarkable for leukocytosis on 22.5. mild elevated creatinine, unknown baseline. ED requested admission for monitoring and management. Medicine agreed to admit. Differential includes infectious colitis versus inflammatory bowel disease/colitis versus ischemic disease. Surgery consulted. Continues to require inpatient management. Bowel function improving but has B[place] today. Problems addressed as follows: Mild Rectal bleed, presented with transverse, descendent, sigmoid and proctitis: patient also had Hx og hemorroids Acute blood loss anemia Hyponatremia Admitted for further management. Tolerating steroids, continue methylprednisolone 40 mg IV twice daily Surgery consulted, no acute interventions planned, will plan for close follow-up as an outpatient unless patient has decompensation. Serial H&H shows drop in hemoglobin. Hemoglobin 10.8 on morning labs. Seeing improvement in white cell count from 22-18. Repeat CBC, CMP, magnesium ordered for the morning No indication for transfusion at this time, blood appears to be slowing. Transfusion threshold hemoglobin less than 7 diarrhea panel neg Fecal calprotectin and lactoferrin pending Continue Zosyn IV every 6 hours. -Incidental left kidney mass -Acute kidney injury Creatinine bumped, BUN 31, creatinine 1.8. Repeat labs ordered for the morning Tolerating p.o. intake. Discontinued IV fluids. Will need nonemergent MRI to evaluate left kidney mass as an outpatient. -IDDM: A1c 7.2, continue home lantus 8 units and sliding scale insulin. With fingersticks ACHS. HTN.HLD.CAD s/p stent: - Continue carvedilol 12.5 mg twice daily, Zetia 10 mg nightly, fenofibrate 134 mg nightly, hydralazine 100 mg 3 times a day -Will stop lisinopril in the setting of B[place] -discontinued Plavix Chest pain most likely GERD. Continue pantoprazole. GI cocktail as needed -glaucoma: latanoprost and dorzolamide SCD for DVT ppx On protonix 40mg IV daily Full code
--- NOTE | 2023-09-21 13:29 | ECG_ITS ---
APPROVED REPORT Exam: Resting ECG HR:67 bpm ECG Measurements Heart Rate 67 AXES TX 180 P 64 QRSd 97 QRS 71 QT 418 T 79 QTc 434 Conclusion SINUS RHYTHM Left atrial abnormality BORDERLINE ECG UNCONFIRMED REPORT Electronically signed by : Jaxson Jean MD 09/21/2023 16:12:33
--- NOTE | 2023-09-21 14:17 | EXP.SURG.PN ---
Subjective Narrative: Patient without complaints. Tolerating diet. Rectal bleeding and abdominal cramping has ceased. Exam Data for Last 24 hours Vital signs and Labs for Last 24 Hours: Temp Pulse Resp BP Pulse Ox O2 Del Method O2 Flow Rate 97.8 F 67 16 108/46 L 91 L Room Air 2 09/21/23 12:04 09/21/23 12:04 09/21/23 12:04 09/21/23 12:04 09/21/23 12:04 09/21/23 13:32 09/20/23 17:20 Laboratory Results - last 24 hr 09/20/23 16:37: POC Glucose 260 H 09/20/23 18:20: Hgb 11.5 L D, Hct 34.7 L, Sodium 122 L, Potassium 3.9, Chloride 95 L, Carbon Dioxide 16 L, Anion Gap 14.9, BUN 22 H, Creatinine 1.20 H, Estimated Creat Clear 53, Estimated GFR 44 L, Est GFR ( Amer) 53 L, Glucose 246 H, Calcium 8.1 L 09/20/23 20:37: POC Glucose 234 H 09/21/23 00:28: Troponin I < 0.01 09/21/23 00:45: D-Dimer 0.26 09/21/23 05:35: POC Glucose 234 H 09/21/23 06:30: WBC 18.2 H, RBC 3.56 L, Hgb 10.8 L, Hct 33.2 L, MCV 93.4, MCH 30.2, MCHC 32.4, RDW 14.0, Plt Count 310, MPV 8.6, Neut % (Auto) 92.3 H, Lymph % (Auto) 4.8 L, [place] % (Auto) 2.8, Eos % (Auto) 0.1, Baso % (Auto) 0.1, Neut # (Auto) 16.8 H, Lymph # (Auto) 0.9, [place] # (Auto) 0.5, Eos # (Auto) 0.0, Baso # (Auto) 0.0, Total Counted 100, Neutrophils % (Manual) 94 H, Lymphocytes % (Manual) 5 L, Monocytes % (Manual) 1 L, Platelet Estimate Normal, RBC Morphology Normal, Sodium 124 L, Potassium 4.3, Chloride 93 L, Carbon Dioxide 21 L, Anion Gap 14.3, BUN 31 H D, Creatinine 1.80 H D, Estimated Creat Clear 37, Estimated GFR 28 L, Est GFR ( Amer) 33 L D, Glucose 226 H, Calcium 7.9 L, Magnesium 2.2 D, Total Bilirubin 0.6, AST 48 H, ALT 27, Alkaline Phosphatase 34 L, Total Protein 5.8 L, Albumin 3.3 L D, Globulin 2.5, Albumin/Globulin Ratio 1.3 09/21/23 10:24: POC Glucose 262 H 09/21/23 12:40: Urine Sodium 6.0 L I & O for Last 24 hours: Intake & Output 09/19/23 09/20/23 09/21/23 09/22/23 11:59 11:59 11:59 11:59 Intake Total 1710 / 1710 170 / 170 Output Total 601 / 601 300 / 300 Balance -601 / -601 1410 / 1410 170 / 170 Weight 180 lb 9.6 oz 185 lb 14.4 oz Microbiology Reports for the Last 24 Hours: Microbiology 09/19/23 00:02 Blood Blood Culture - Preliminary No growth. *Routine Abdominal Exam Abdominal: Present soft; Absent tenderness Progress Note: A&P Assessment and plan (1) Colitis: Status: Acute Assessment and plan: Continue medical nonoperative management of colitis. (2) B[place] (acute kidney injury): Status: Acute (3) Blood loss anemia: Status: Acute (4) BRBPR (bright red blood per rectum): Status: Acute (5) Left kidney mass: Status: Acute (6) Creatinine elevation: Status: Acute (7) Hyponatremia: Status: Acute (8) Hypertension: Status: Acute (9) HLD (hyperlipidemia): Status: Acute (10) Diabetes mellitus: Status: Acute (11) CAD (coronary artery disease): Status: Acute (12) Glaucoma: Status: Acute (13) Hypomagnesemia: Status: Acute
[2023-09-21 14:18] LABS: POC Glucose,Bedside 274 (70-110)
[2023-09-21 16:27] LABS: POC Glucose,Bedside 225 (70-110)
[2023-09-21 19:46] LABS: POC Glucose,Bedside 257 (70-110)
[2023-09-21] MEDS: FENOFIBRATE 134MG CAPSULE 134 MG PO (20:21)
[2023-09-21] MEDS: TRAZODONE 50MG TABLET 100 MG PO (20:22)
[2023-09-21] MEDS: VERAPAMIL SR 180MG TABLET 360 MG PO (20:22)
[2023-09-21] MEDS: MINOXIDIL 2.5 MG 2 EACH PO (20:23)
[2023-09-21] MEDS: LATANOPROST 0.005% OPTH SOLN 2.5ML OP (20:24)
[2023-09-21] MEDS: EZETIMIBE 10MG TABLET 10 MG PO (20:24)
[2023-09-21] MEDS: ALUMINUM/MAGNESIUM/SIMETHICONE 30ML UDC 30 ML PO (21:34)
[2023-09-22] MEDS: PIPERCILLIN/TAZO 3.375 GM in 0.9 % SODIUM CHLORIDE 50 ML IV ×3 (00:33→10:38)
[2023-09-22 04:00] VITALS: BP 94/50; PULSE 60; RESP 18; TEMP 37.7; O2SAT 91; BMI 30.9
--- NOTE | 2023-09-22 04:45 | PC.NURSE ---
pt has done well through the night. no complaints of pain. receiving iv abx. vss.
[2023-09-22 06:11] LABS: POC Glucose,Bedside 290 (70-110)
[2023-09-22] MEDS: ACETAMINOPHEN 325MG TAB 650 MG PO (06:13)
[2023-09-22] MEDS: humaLOG 100 UNITS/ML 3ML VIAL (SSI) SQ ×2 (06:13→10:41)
[2023-09-22 07:13] LABS: Basophils % 0.1 % (0.1-2.0); Eosinophils % 0.1 % (0.1-12.0); Hematocrit 35.3 % (37.0-47.0); Hemoglobin 11.1 g/dL (12.2-16.2); Lymphocytes # 0.8 K/mm3 (0.7-4.5); Lymphocytes % 5.2 % (10-50); Mean Corpuscular HGB Conc 31.4 g/dL (31.8-35.4); Mean Corpuscular Volume 95.6 fl (81-99); Monocytes # 0.4 K/mm3 (0.1-1.0); Monocytes % 2.6 % (1.7-9.3); Neutrophils # 13.4 K/mm3 (1.8-7.8); Neutrophils % 92.1 % (37.0-80.0); Platelet Count 300 K/mm3 (142-424); Red Cell Distribution Width 13.5 % (11.5-17.5); White Blood Count 14.5 K/mm3 (4.8-10.8)
--- NOTE | 2023-09-22 07:14 | EXP.SURG.PN ---
Subjective Patient reports: no new complaints and feels better Narrative: She is hopeful that she will be discharged today Exam Data for Last 24 hours Vital signs and Labs for Last 24 Hours: Temp Pulse Resp BP Pulse Ox O2 Del Method O2 Flow Rate 99.8 F H 60 18 94/50 L 91 L Room Air 2 09/22/23 04:00 09/22/23 04:00 09/22/23 04:00 09/22/23 04:00 09/22/23 04:00 09/22/23 06:50 09/20/23 17:20 Laboratory Results - last 24 hr 09/21/23 06:30: Total Counted 100, Neutrophils % (Manual) 94 H, Lymphocytes % (Manual) 5 L, Monocytes % (Manual) 1 L, Platelet Estimate Normal, RBC Morphology Normal, Sodium 124 L, Potassium 4.3, Chloride 93 L, Carbon Dioxide 21 L, Anion Gap 14.3, BUN 31 H D, Creatinine 1.80 H D, Estimated Creat Clear 37, Estimated GFR 28 L, Est GFR ( Amer) 33 L D, Glucose 226 H, Calcium 7.9 L, Magnesium 2.2 D, Total Bilirubin 0.6, AST 48 H, ALT 27, Alkaline Phosphatase 34 L, Total Protein 5.8 L, Albumin 3.3 L D, Globulin 2.5, Albumin/Globulin Ratio 1.3 09/21/23 10:24: POC Glucose 262 H 09/21/23 12:40: Urine Sodium 6.0 L 09/21/23 14:11: POC Glucose 274 H 09/21/23 16:20: POC Glucose 225 H 09/21/23 19:38: POC Glucose 257 H 09/22/23 05:53: POC Glucose 290 H I & O for Last 24 hours: Intake & Output 09/19/23 09/20/23 09/21/23 09/22/23 11:59 11:59 11:59 11:59 Intake Total 1710 / 1710 540 / 540 Output Total 601 / 601 300 / 300 900 / 900 Balance -601 / -601 1410 / 1410 -360 / -360 Weight 180 lb 9.6 oz 185 lb 14.4 oz 185 lb 14.4 oz Constitutional Constitutional: no acute distress *Routine Respiratory Exam Respiratory: Absent respiratory distress *Routine Cardiovascular Exam Cardiovascular: Absent tachycardia Progress Note: A&P Assessment and plan (1) Colitis: Status: Acute Assessment and plan: Continue medical nonoperative management of colitis.
[2023-09-22 07:17] VITALS: BP 137/58; PULSE 64; RESP 18; TEMP 36.6; O2SAT 95
[2023-09-22 07:24] LABS: Alanine Aminotransferase 27 U/L (12-78); Albumin Level 3.4 g/dl (3.5-5.0); Albumin/Globulin Ratio 1.4 (1.1-1.8); Alkaline Phosphatase 35 U/L (38-126); Anion Gap 13.6 mEq/L (5-15); Aspartate Amino Transferase 31 U/L (14-36); Bilirubin,Total 0.5 mg/dl (0.2-1.3); Blood Urea Nitrogen 43 mg/dl (7-17); Calcium 8.1 mg/dl (8.4-10.2); Carbon Dioxide 23 mmol/L (22.0-30.0); Chloride 94 mmol/L (98-107); Creatinine Clearance Estimated 37 mL/min (50-200); Estimated Glomerular Filt Rate 28 ml/min (>60); GFR (African American) 33 ML/MIN (>60); Globulin 2.5 g/dL (1.3-3.2); Glucose 284 mg/dl (74-100); Potassium 4.6 mmoL/L (3.5-5.1); Sodium 126 mmol/L (136-145); Total Protein,Serum 5.9 g/dl (6.3-8.2)
[2023-09-22 07:34] LABS: MANUAL DIFFERENTIAL MANUAL DIFFERENTIAL (MANUAL DIFF)
[2023-09-22 07:47] LABS: Magnesium 2.4 mg/dl (1.6-2.3)
[2023-09-22] MEDS: HYDRALAZINE HCL 25MG TABLET 100 MG PO (08:09)
[2023-09-22] MEDS: CARVEDILOL 12.5MG TABLET 12.5 MG PO (08:10)
[2023-09-22] MEDS: RANOLAZINE 500MG ER TABLET 500 MG PO (08:10)
[2023-09-22] MEDS: VENLAFAXINE XR 75MG CAPSULE 75 MG PO (08:10)
[2023-09-22] MEDS: DORZOLAMIDE 2% OP (08:11)
[2023-09-22] MEDS: INSULIN GLARGINE 100 UNITS/ML 3ML FLEXPEN 8 UNIT SQ (08:15)
--- NOTE | 2023-09-22 09:52 | EXP.DC.SUM ---
General Admission date:: 09/20/23 Discharge date: 09/22/23 HPI HPI HPI: Patient is a 73-year-old female with history of hypertension, hyperlipidemia, coronary artery disease status post stenting on Plavix, COPD. She states that yesterday on 09/19/2023 after she had eaten lunch she had developed some abdominal cramping followed by passage of bright red blood per rectum. She had multiple bright red blood bloody bowel movements and 1 episode of nonbloody nonbilious vomiting. She presented to the emergency department with these ongoing symptoms in the skip hoist engineer of 09/19/2023. She was found to have a leukocytosis of 22,000. She has a sodium of 125. BUN of 30 with a creatinine of 1.5. Glucose 292. Workup in the emergency department included CTA of the abdomen pelvis which revealed no active extravasation; transverse, descending, and sigmoid colitis and proctitis. . . She was admitted to the hospitalist service overnight for inpatient management. Patient reportedly has had a colonoscopy in the past and apparently has undergone Cologuard testing relatively recently which she states was negative. Surgical consultation was obtained. Hospital Course Hospital Course Hospital Course: 73-year-old female PMHx of hypertension, hyperlipidemia, CAD status post stenting currently on Plavix, hemorrhoids, IDDM with CKD, COPD, cholecystectomy presenting with rectal bleeding. Patient states that she started having abdominal cramping and then had bright red blood per rectum. patient has not had a colosnoscopy in a long time. however referred a recent cologuard test, that she assumed negative . On arrival initial intervention included stabilization with fluid. IV unasyn was given. CT w/ contrast showed colitis and proctitis. labas are remarkable for leukocytosis on 22.5. mild elevated creatinine, unknown baseline. ED requested admission for monitoring and management. Medicine agreed to admit. Differential includes infectious colitis versus inflammatory bowel disease/colitis versus ischemic disease. Surgery consulted. Did well with initiation of antibiotics and steroids. Bowels became nonbloody. Kidney function improved. Surgery assisted with care. Will plan for follow-up as an outpatient with surgery. Continue antibiotics and steroids at discharge. Problems addressed as follows: Mild Rectal bleed, presented with transverse, descendent, sigmoid and proctitis: patient also had Hx og hemorroids Acute blood loss anemia Hyponatremia Admitted for further management. Plavix was held due to likely etiology and some of her bleeding giving the inflammation of her colon. Stool panel negative for infectious source however was started empirically on Zosyn. Additionally was started on steroids with methylprednisolone 40 mg IV twice daily for inflammatory component. Had improvement in her pain and resolution of bloody bowel movements. Surgery consulted to assist with care. Recommend close follow-up as an outpatient. No urgent need for intervention at this time. Hemoglobin did drop from 13 on admission to 11 by day of discharge but was stable for 48 hours. No indication for transfusion. Would benefit from repeat CBC and CMP in 3 to 4 days to monitor for stability of kidney function and hemoglobin. Will complete 5 days of antibiotics for colitis and continue steroids for total of 7 days. Further management as an outpatient with surgery. Patient's sodium remained in the mid 120s. Per her report she has had low sodium for many years. This appears to be her baseline. No signs of confusion. -Incidental left kidney mass CT of abdomen showed mass in left kidney, recommended nonemergent MRI to evaluate lesion to determine further nature of this. Will defer further imaging to surgery or PCP. -Acute kidney injury Mild BARRINGTON on admission. Creatinine stable at 1.8 with BUN of 43 on day of discharge. Repeat labs pending for later this week to monitor for further improvement. Making good urine. -IDDM: A1c 7.2, continue home lantus 8 units and sliding scale insulin during admission. Resume home regimen at discharge. Will increase Lantus to 10 units nightly. HTN.HLD.CAD s/p stent: - Continue carvedilol 12.5 mg twice daily, Zetia 10 mg nightly, fenofibrate 134 mg nightly, hydralazine 100 mg 3 times a day -Will stop lisinopril in the setting of BARRINGTON -discontinued Plavix Chest pain most likely GERD. Continue pantoprazole. Responded to GI cocktail. -glaucoma: latanoprost and dorzolamide Stable to discharge home for further management as an outpatient. Family at bedside, expressed understanding and comfort with plan. Exam Data for Last 24 hours Vital signs and Labs for Last 24 Hours: Temp Pulse Resp BP Pulse Ox O2 Del Method O2 Flow Rate 97.8 F 64 18 137/58 L 95 Room Air 2 09/22/23 07:17 09/22/23 07:17 09/22/23 07:17 09/22/23 07:17 09/22/23 07:17 09/22/23 08:37 09/20/23 17:20 Laboratory Results - last 24 hr 09/21/23 10:24: POC Glucose 262 H 09/21/23 12:40: Urine Sodium 6.0 L 09/21/23 14:11: POC Glucose 274 H 09/21/23 16:20: POC Glucose 225 H 09/21/23 19:38: POC Glucose 257 H 09/22/23 05:53: POC Glucose 290 H 09/22/23 07:00: WBC 14.5 H, RBC 3.70 L, Hgb 11.1 L, Hct 35.3 L, MCV 95.6, MCH 30.0, MCHC 31.4 L, RDW 13.5, Plt Count 300, MPV 9.0, Neut % (Auto) 92.1 H, Lymph % (Auto) 5.2 L, [place] % (Auto) 2.6, Eos % (Auto) 0.1, Baso % (Auto) 0.1, Neut # (Auto) 13.4 H, Lymph # (Auto) 0.8, [place] # (Auto) 0.4, Eos # (Auto) 0.0, Baso # (Auto) 0.0, Sodium 126 L, Potassium 4.6, Chloride 94 L, Carbon Dioxide 23, Anion Gap 13.6, BUN 43 H D, Creatinine 1.80 H, Estimated Creat Clear 37, Estimated GFR 28 L, Est GFR ( Amer) 33 L, Glucose 284 H, Calcium 8.1 L, Magnesium 2.4 H, Total Bilirubin 0.5, AST 31 D, ALT 27, Alkaline Phosphatase 35 L, Total Protein 5.9 L, Albumin 3.4 L, Globulin 2.5, Albumin/Globulin Ratio 1.4 I & O for Last 24 hours: Intake & Output 09/19/23 09/20/23 09/21/23 09/22/23 23:59 23:59 23:59 23:59 Intake Total 965 / 1540 1085 / 1285 560 / 560 Output Total 901 / 901 500 / 500 400 / 400 Balance 64 / 639 585 / 785 160 / 160 Weight 81.647 kg 81.919 kg 84.323 kg 84.323 kg Constitutional Constitutional: no acute distress, obese and chronically ill appearing *Routine HEENT Exam Head: Present normocephalic Eye: Present EOMI and PERRL ENT: Present mucous membranes moist *Routine Neck Exam Neck: Present supple; Absent lymphadenopathy *Routine Respiratory Exam Respiratory: Present CTA bilaterally; Absent rhonchi, wheezes or crackles *Routine Cardiovascular Exam Cardiovascular: Present RRR *Routine Abdominal Exam Abdominal: Present soft, normoactive bowel sounds and tenderness (mild, improved); Absent distended *Routine Rectal Exam Patient deferred: visual exam *Routine Exam Patient deferred: external exam *Routine Extremities Exam Extremities: Absent cyanosis, clubbing or edema *Routine Skin Exam Skin: Present warm; Absent rash *Routine Neurological Exam Neurological: Present alert and oriented X3 Results Data Completed and Pending Labs on day of discharge: Labs from last 24 hours 09/22/23 09/22/23 09/21/23 07:00 05:53 19:38 WBC 14.5 H RBC 3.70 L Hgb 11.1 L Hct 35.3 L MCV 95.6 MCH 30.0 MCHC 31.4 L RDW 13.5 Plt Count 300 MPV 9.0 Neut % (Auto) 92.1 H Lymph % (Auto) 5.[address] [place] % (Auto) 2.6 Eos % (Auto) 0.1 Baso % (Auto) 0.1 Neut # (Auto) 13.4 H Lymph # (Auto) 0.8 [place] # (Auto) 0.4 Eos # (Auto) 0.0 Baso # (Auto) 0.0 Sodium 126 L Potassium 4.6 Chloride 94 L Carbon Dioxide 23 Anion Gap 13.6 BUN 43 H D Creatinine 1.80 H Estimated Creat Clear 37 Estimated GFR 28 L Est GFR ( Amer) 33 L Glucose 284 H POC Glucose 290 H 257 H Calcium 8.1 L Magnesium 2.4 H Total Bilirubin 0.5 AST 31 D ALT 27 Alkaline Phosphatase 35 L Total Protein 5.9 L Albumin 3.4 L Globulin 2.5 Albumin/Globulin Ratio 1.4 Urine Sodium 09/21/23 09/21/23 09/21/23 16:20 14:11 12:40 WBC RBC Hgb Hct MCV MCH MCHC RDW Plt Count MPV Neut % (Auto) Lymph % (Auto) [place] % (Auto) Eos % (Auto) Baso % (Auto) Neut # (Auto) Lymph # (Auto) [place] # (Auto) Eos # (Auto) Baso # (Auto) Sodium Potassium Chloride Carbon Dioxide Anion Gap BUN Creatinine Estimated Creat Clear Estimated GFR Est GFR ( Amer) Glucose POC Glucose 225 H 274 H Calcium Magnesium Total Bilirubin AST ALT Alkaline Phosphatase Total Protein Albumin Globulin Albumin/Globulin Ratio Urine Sodium 6.0 L 09/21/23 10:24 WBC RBC Hgb Hct MCV MCH MCHC RDW Plt Count MPV Neut % (Auto) Lymph % (Auto) [place] % (Auto) Eos % (Auto) Baso % (Auto) Neut # (Auto) Lymph # (Auto) [place] # (Auto) Eos # (Auto) Baso # (Auto) Sodium Potassium Chloride Carbon Dioxide Anion Gap BUN Creatinine Estimated Creat Clear Estimated GFR Est GFR ( Amer) Glucose POC Glucose 262 H Calcium Magnesium Total Bilirubin AST ALT Alkaline Phosphatase Total Protein Albumin Globulin Albumin/Globulin Ratio Urine Sodium Preliminary micro results at discharge 09/19/23 00:02 Blood Culture - Preliminary Blood No growth. DS: Diagnosis Discharge Diagnosis (1) Colitis: Status: Acute Code(s): K52.9 - Noninfective gastroenteritis and colitis, unspecified Meds Home Medications and Allergies Home Medications Medication Instructions Recorded Confirmed Type acetaminophen 500 mg tablet 1,000 mg PO Q8H PRN Pain 09/20/23 09/20/23 History alendronate 70 mg tablet 70 mg PO WEEKLY 09/20/23 09/20/23 History clopidogrel 75 mg tablet 75 mg PO DAILY 09/20/23 09/20/23 History dorzolamide 2 % eye drops 1 drp Eye-Both BID 09/20/23 09/20/23 History ergocalciferol (vitamin D2) 1,250 1,250 mcg PO WEEKLY 09/20/23 09/20/23 History mcg (50,000 unit) capsule ezetimibe 10 mg-simvastatin 20 mg 1 tab PO HS 09/20/23 09/20/23 History tablet fenofibrate nanocrystallized 145 145 mg PO HS 09/20/23 09/20/23 History mg tablet hydralazine 100 mg tablet 100 mg PO TID 09/20/23 09/20/23 History latanoprost 0.005 % eye drops 1 drp Eye-Both HS 09/20/23 09/20/23 History lisinopril 40 mg tablet 40 mg PO DAILY 09/20/23 09/20/23 History minoxidil 2.5 mg tablet 5 mg PO HS 09/20/23 09/20/23 History nebivolol 10 mg tablet (Bystolic) 10 mg PO DAILY 09/20/23 09/20/23 History nitroglycerin 0.3 mg sublingual 0.3 mg sublingual Q5M PRN Chest 09/20/23 09/20/23 History tablet Pain pantoprazole 40 mg tablet,delayed 40 mg PO BID 09/20/23 09/20/23 History release ranolazine 500 mg tablet,extended 500 mg PO BID 09/20/23 09/20/23 History release,12 hr trazodone 50 mg tablet 100 mg PO HS 09/20/23 09/20/23 History venlafaxine 75 mg tablet 75 mg PO DAILY 09/20/23 09/20/23 History verapamil 360 mg 24 hr 360 mg PO HS 09/20/23 09/20/23 History capsule,extended release amoxicillin 500 mg-potassium 1 tab PO BID 3 days #6 tabs 09/22/23 Rx clavulanate 125 mg tablet insulin glargine 100 unit/mL (3 10 unit (0.1 mL) SQ DAILY 30 days 09/22/23 09/20/23 Rx mL) subcutaneous pen (Lantus #0 mL Solostar U-100 Insulin) prednisone 20 mg tablet 40 mg (2 x 20 mg) PO DAILY 5 days 09/22/23 Rx #10 tabs New Prescriptions to Start Prescriptions: amoxicillin-pot clavulanate Isaac Hamilton James Allergies Allergy/AdvReac Type Severity Reaction Status Date / Time Iodinated Contrast Media Allergy Verified 09/19/23 22:22 Discharge Plan Disposition Patient Disposition: Home, Self-Care Condition: Fair Discharge Order Discharge Orders: Discharge Order (Routine); Ordered 09/22/23 Ordered By: Isaac Hamilton Follow up Plan Follow up with: Shane La MD [Staff Physician] - 09/25/23 1:15 pm Jaxson Ken MD [Primary Care Provider] - 09/28/23 11:15 am Prescriptions/Medication Reconciliation: New prednisone 20 mg tablet 40 mg PO DAILY 5 Days Qty: 10 0RF amoxicillin-pot clavulanate 500-125 mg tablet 1 tab PO BID 3 Days Qty: 6 0RF Continued latanoprost 0.005 % drops 1 drp Eye-Both HS Patient Comments: INSTILL 1 DROP IN BOTH EYES EVERY NIGHT AT BEDTIME venlafaxine 75 mg Tablet 75 mg PO DAILY verapamil 360 mg capsule,ext rel. pellets 24 hr 360 mg PO HS trazodone 50 mg tablet 100 mg PO HS Patient Comments: TAKE 2 TABLETS BY MOUTH EVERY NIGHT nitroglycerin 0.3 mg Tablet, Sublingual 0.3 mg SUBLINGUAL Q5M PRN (Reason: Chest Pain) Rx Instructions: do not exceed 3 doses per episode minoxidil 2.5 mg tablet 5 mg PO HS Patient Comments: TAKE 2 TABLETS BY MOUTH DAILY acetaminophen 500 mg Tablet 1,000 mg PO Q8H PRN (Reason: Pain) hydralazine 100 mg tablet 100 mg PO TID Patient Comments: TAKE 1 TABLET BY MOUTH THREE TIMES DAILY pantoprazole 40 mg tablet,delayed release (DR/EC) 40 mg PO BID Patient Comments: TAKE 1 TABLET BY MOUTH TWICE DAILY lisinopril 40 mg tablet 40 mg PO DAILY Patient Comments: TAKE 1 TABLET BY MOUTH DAILY dorzolamide 2 % drops 1 drp Eye-Both BID Patient Comments: INSTILL ONE DROP INTO BOTH EYES TWICE DAILY ezetimibe-simvastatin 10-20 mg tablet 1 tab PO HS Patient Comments: TAKE 1 TABLET BY MOUTH EVERY NIGHT ranolazine 500 mg tablet extended release 12 hr 500 mg PO BID Patient Comments: TAKE 1 TABLET BY MOUTH TWICE DAILY fenofibrate nanocrystallized 145 mg tablet 145 mg PO HS Patient Comments: TAKE 1 TABLET BY MOUTH DAILY nebivolol [Bystolic] 10 mg Tablet 10 mg PO DAILY alendronate 70 mg tablet 70 mg PO WEEKLY Patient Comments: TAKE 1 TABLET BY MOUTH EVERY 7 DAYS ergocalciferol (vitamin D2) 1,250 mcg (50,000 unit) capsule 1,250 mcg PO WEEKLY Patient Comments: TAKE 1 CAPSULE BY MOUTH EVERY 7 DAYS Changed insulin glargine [Lantus Solostar U-100 Insulin] 100 unit/mL (3 mL) insulin pen 10 unit SQ DAILY 30 Days Qty: 0 0RF Patient Comments: ADMINISTER 22 UNITS UNDER THE SKIN EVERY NIGHT DIRECTED Held clopidogrel 75 mg tablet 75 mg PO DAILY Hold Instructions: Pending evaluation by PCP. Was started for TIAs, no clear indication to continue at this time given bleeding per rectum. Patient Comments: TAKE 1 TABLET BY MOUTH ONCE DAILY FOR PLATELET INHIBITOR Other Ambulatory Orders: Basic Metabolic Panel (Routine) Timeframe: 3 Days Facility: [facility] - Location: Laboratory Ordered By: Isaac Hamilton Complete Blood Count Auto Diff (Routine) Timeframe: 3 Days Facility: [facility] - Location: Laboratory Ordered By: Isaac Hamilton Problem Reconciliation Problems Reviewed?: Yes Patient Discharge Instructions ACTIVITY: Continue current activity DIET: continue same diet Patient Instructions: DI for Abdominal Pain-Adult, DI for Colitis Providers Primary Care Provider: Jaxson Ken Admit Provider: Isaac Hamilton Attending Provider: Isaac Hamilton
--- NOTE | 2023-09-22 10:44 | HMH.PHAINT1 ---
Pharmacy Intervention Comments: DISCHARGE MEDICATION COUNSELING PROVIDED. DISCUSSED HOLDING THE PLAVIX UNTIL YOU FOLLOW UP WITH PRIMARY CARE DOCTOR, CHANGE ON LANTUS TO 22 UNITS SQ HS, AND START THE FOLLOWING: -AUGMENTIN (ANTIBIOTIC, TWICE DAILY, START TONIGHT, TAKE WITH FOOD, N/V/D POSSIBLE) -PREDNISONE (STEROID FOR INFLAMMATION, DAILY, TAKE WITH FOOD, TAKE IN THE MORNING, MAY CAUSE UPSET STOMACH, HUNGER, INSOMNIA, ELEVATED BLOOD SUGAR) PATIENT ASKED IF SHE COULD TAKE ZOFRAN FOR THE NAUSEA, I ADVISED TO START TAKING WITH FOOD BUT IF STILL NAUSEOUS THAT SHE COULD TAKE HER ZOFRAN.
[2023-09-22 10:58] LABS: POC Glucose,Bedside 278 (70-110)
[2023-09-22 11:44] LABS: Lymphocytes % 5 % (10-50); Monocytes % 4 % (2-9); Neutrophils % 88 % (42-76); Total Cells Counted 100
[2023-09-22 11:46] LABS: Anisocytosis 1+; Hypochromasia 1+; Platelet Estimate Normal
--- NOTE | 2023-09-24 13:39 | CARE MANAGER ---
Spoke with patient related to hospital discharge. She is doing well and has her medications. She is aware of follow up appointments and denies any questions or concerns. KEI Dawn
== END 2023-09-22 13:15 | disposition home or self-care (01) | DRG 392 ==
LOC: ER 09-20 02:16 → 2ND 09-20 02:30
PROVIDERS: Emergency Medicine; Nurse Practitioner Family; Admitting Provider Internal Medicine Adolescent Medicine; Emergency Provider Emergency Medicine; PCP Family Medicine; Visit Provider Internal Medicine Adolescent Medicine
DX: K52.9 Noninfective gastroenteritis and colitis, unspecified (principal); D62 Acute posthemorrhagic anemia; E87.1 Hypo-osmolality and hyponatremia; N17.9 Acute kidney failure, unspecified; I10 Essential (primary) hypertension; E78.5 Hyperlipidemia, unspecified; I25.10 Atherosclerotic heart disease of native coronary artery without angina pectoris; Z95.5 Presence of coronary angioplasty implant and graft; J44.9 Chronic obstructive pulmonary disease, unspecified; K62.89 Other specified diseases of anus and rectum; K21.9 Gastro-esophageal reflux disease without esophagitis; N28.89 Other specified disorders of kidney and ureter; H40.9 Unspecified glaucoma; E11.9 Type 2 diabetes mellitus without complications
CPT/HCPCS: 36415; 71045; 74174; 80048; 80053; 82962; 83036; 83605; 83735; 84484; 84540; 85007; 85014; 85018; 85025; 85378; 85651; 86140; 87040; 87507; 93005; 93306; 97163; 97166; 99285; J2405; J2543; J3475; Q9967

== ENCOUNTER 2023-10-03 11:49 | Emergency (ER) | payer MEDICARE, SELFPAY ==
[2023-10-03 12:00] VITALS: BP 162/69; PULSE 66; RESP 18; TEMP 36.5; O2SAT 96; BMI 29.7
--- NOTE | 2023-10-03 12:15 | EXP.UTC ---
Discharge Plan Disposition Patient Disposition: Home, Self-Care Condition: Good Prescriptions Prescriptions: New nitrofurantoin monohyd/m-cryst [Macrobid] 100 mg Capsule 100 mg PO BID Qty: 10 0RF Rx Instructions: must administer with a meal/food No Action insulin glargine [Lantus U-100 Insulin] 100 unit/mL solution 8 unit SQ DAILY cholecalciferol (vitamin D3) 1,250 mcg (50,000 unit) wafer 1,250 mcg PO WEEKLY pantoprazole 40 MG tablet,delayed release (DR/EC) 40 mg PO BID hydralazine 100 MG tablet 100 mg PO TID nitroglycerin 0.4 MG tablet, sublingual 0.4 mg sublingual Q5MINP PRN (Reason: Chest Pain) minoxidil 2.5 MG tablet 5 mg PO DAILY nebivolol 10 MG tablet 10 mg PO HS ezetimibe-simvastatin 1 EACH tablet 1 tab PO HS Rx Instructions: 10/20mg fenofibrate nanocrystallized 145 MG tablet 145 mg PO DAILY latanoprost 0.005 % drops 1 drp Eye-Both HS Patient Comments: INSTILL 1 DROP IN BOTH EYES EVERY NIGHT AT BEDTIME nitroglycerin 0.3 mg Tablet, Sublingual 0.3 mg SUBLINGUAL Q5M PRN (Reason: Chest Pain) Rx Instructions: do not exceed 3 doses per episode clopidogrel 75 mg tablet 75 mg PO DAILY Hold Instructions: Pending evaluation by PCP. Was started for TIAs, no clear indication to continue at this time given bleeding per rectum. Patient Comments: TAKE 1 TABLET BY MOUTH ONCE DAILY FOR PLATELET INHIBITOR acetaminophen 500 mg Tablet 1,000 mg PO Q8H PRN (Reason: Pain) lisinopril 40 mg tablet 40 mg PO DAILY Patient Comments: TAKE 1 TABLET BY MOUTH DAILY dorzolamide 2 % drops 1 drp Eye-Both BID Patient Comments: INSTILL ONE DROP INTO BOTH EYES TWICE DAILY ranolazine 500 mg tablet extended release 12 hr 500 mg PO BID Patient Comments: TAKE 1 TABLET BY MOUTH TWICE DAILY alendronate 70 mg tablet 70 mg PO WEEKLY Patient Comments: TAKE 1 TABLET BY MOUTH EVERY 7 DAYS ergocalciferol (vitamin D2) 1,250 mcg (50,000 unit) capsule 1,250 mcg PO WEEKLY Patient Comments: TAKE 1 CAPSULE BY MOUTH EVERY 7 DAYS prednisone 20 mg tablet 40 mg PO DAILY 5 Days Qty: 10 0RF insulin glargine [Lantus Solostar U-100 Insulin] 100 unit/mL (3 mL) insulin pen 10 unit SQ DAILY 30 Days Qty: 0 0RF Patient Comments: ADMINISTER 22 UNITS UNDER THE SKIN EVERY NIGHT DIRECTED verapamil 360 mg capsule,ext rel. pellets 24 hr 360 mg PO HS Patient Comments: TAKE 1 CAPSULE BY MOUTH EVERY NIGHT trazodone 50 mg tablet 100 mg PO HS celecoxib 100 mg capsule 100 mg PO DAILY venlafaxine 75 mg capsule,extended release 24hr 75 mg PO DAILY Rx Instructions: take with 150mg capsule sennosides-docusate sodium [Senna with Docusate Sodium] 8.6-50 mg tablet 2 tab-cap PO HS 30 Days Qty: 60 0RF Referrals Follow up/Referrals: Jaxson Ken MD [Primary Care Provider] - See instructions Activity Restrictions/Add. Instructions Additional Instructions/Restrictions: Drink plenty of fluids. Take tylenol or ibuprofen for pain or fever. Take the medications as directed. Follow up with your regular doctor. GO TO THE ER FOR ANY WORSENING SYMPTOMS We will culture the urine. That will tell what bacteria is causing your infection and which antibiotics will treat it best. Sometimes the first antibiotic we prescribe turns out to not work against different bacteria. So, make sure you follow up within 3 days if you are not getting better. Clinical Impressions Clinical Impression: UTI (urinary tract infection), Low back pain Instructions Patient Instructions: Urinary Tract Infection, Urine Culture, DI for Urinary Tract Infection (UTI), Nitrofurantoin Discharge ED Provider: Isaac Garcia [facility] General Stated complaint: pain in back left side Mode of Arrival: Ambulatory Source of Information: Patient Limitations: No Limitations Time Seen by Provider: 10/03/23 12:15 Description of Symptoms (Recalled from Triage Doc. by RN): Pt's symptoms are left sided flank pain. HEENT Symptoms (Recalled from RN notes): Yes Resp Symptoms (Recalled from RN notes): No Skin Symptoms (Recalled from RN notes): No MS Symptoms (Recalled from RN notes): No Functional Status (Recalled from RN notes): n/a History of Present Illness Provider Complaint: She states that for the past 2 days she has had left sided low back pain, dysuria, urinary frequency, and malaise. Related Data Home Medications Medication Instructions Recorded Confirmed hydralazine 100 mg tablet 100 mg PO TID High blood pressure 06/05/18 09/25/23 nitroglycerin 0.4 mg sublingual 0.4 mg sublingual Q5MINP PRN Chest 06/05/18 09/25/23 tablet Pain pantoprazole 40 mg tablet,delayed 40 mg PO BID acid reflux 06/05/18 09/25/23 release minoxidil 2.5 mg tablet 5 mg PO DAILY High blood pressure 08/27/20 09/25/23 nebivolol 10 mg tablet 10 mg PO HS High blood pressure 08/27/20 09/25/23 ezetimibe 10 mg-simvastatin 20 mg 1 tab PO HS Cholesterol 08/28/20 09/25/23 tablet fenofibrate nanocrystallized 145 145 mg PO DAILY Cholesterol 08/28/20 09/25/23 mg tablet celecoxib 100 mg capsule 100 mg PO DAILY left knee pain 03/15/22 09/25/23 trazodone 50 mg tablet 100 mg PO HS Insomnia 03/15/22 09/25/23 verapamil 360 mg 24 hr 360 mg PO HS heart rate 03/15/22 09/25/23 capsule,extended release venlafaxine 75 mg capsule,extended 75 mg PO DAILY Depression 03/16/22 09/25/23 release 24 hr cholecalciferol (vitamin D3) 1,250 1,250 mcg PO WEEKLY 10/16/22 09/25/23 mcg (50,000 unit) oral wafer insulin glargine 100 unit/mL 8 unit SQ DAILY 10/16/22 09/25/23 subcutaneous solution (Lantus U-100 Insulin) acetaminophen 500 mg tablet 1,000 mg PO Q8H PRN Pain 09/20/23 09/25/23 alendronate 70 mg tablet 70 mg PO WEEKLY 09/20/23 09/25/23 clopidogrel 75 mg tablet 75 mg PO DAILY 09/20/23 09/25/23 dorzolamide 2 % eye drops 1 drp Eye-Both BID 09/20/23 09/25/23 ergocalciferol (vitamin D2) 1,250 1,250 mcg PO WEEKLY 09/20/23 09/25/23 mcg (50,000 unit) capsule latanoprost 0.005 % eye drops 1 drp Eye-Both HS 09/20/23 09/25/23 lisinopril 40 mg tablet 40 mg PO DAILY 09/20/23 09/25/23 nitroglycerin 0.3 mg sublingual 0.3 mg sublingual Q5M PRN Chest 09/20/23 09/25/23 tablet Pain ranolazine 500 mg tablet,extended 500 mg PO BID 09/20/23 09/25/23 release,12 hr Previous Rx's Medication Instructions Recorded sennosides 8.6 mg-docusate sodium 2 tab-cap (2 x 8.6-50 mg) PO HS 30 03/16/22 50 mg tablet (Senna with Docusate days #60 tabs Sodium) insulin glargine 100 unit/mL (3 10 unit (0.1 mL) SQ DAILY 30 days 09/22/23 mL) subcutaneous pen (Lantus #0 mL Solostar U-100 Insulin) prednisone 20 mg tablet 40 mg (2 x 20 mg) PO DAILY 5 days 09/22/23 #10 tabs nitrofurantoin 100 mg PO BID #10 caps 10/03/23 monohydrate/macrocrystals 100 mg capsule (Macrobid) Allergies Allergy/AdvReac Type Severity Reaction Status Date / Time Iodinated Contrast Media Allergy Verified 10/03/23 12:15 Worker's Comp Is this a Worker's Comp case?: No [facility] Disclaimer: The information contained in this section may have been updated after the patient was seen, as this information can be updated by other users. Medical History Diabetes Hyperlipidemia Hypertension Urinary Incontinence COPD (chronic obstructive pulmonary disease) Hemorrhoids Surgical History History of cholecystectomy H/O heart artery stent Family History Other Breast cancer Family history of Alzheimer's disease Parkinsons disease Social History Smoking Status: Former smoker alcohol intake: never substance use type: denies use current occupational status: unemployed and retired Travel in the last 8 weeks: None household members: none housing: house marital status: current occupational exposures/hazards: No caffeine: Yes ROS Obtained: Yes All systems reviewed & no additional complaints except as documented Constitutional Constitutional: Reports system reviewed and no additional complaints, except as documented, Denies chills and Denies fever(s) Eyes Eyes: Denies eye discharge ENT Ears, Nose, Mouth, and Throat: Denies dysphagia, Denies sore throat and Denies throat swelling Cardiovascular Cardiovascular: Denies chest pain and Denies dyspnea Respiratory Respiratory: Denies chest congestion, Denies cough and Denies dyspnea Gastrointestinal Gastrointestingal: Denies abdominal pain, constipation, diarrhea, dysphagia, nausea or vomiting Genitourinary Female Genitourinary: Reports as per HPI, Reports dysuria, Reports urinary frequency, Denies urinary incontinence, Reports urinary hesitancy and Reports urinary urgency Musculoskeletal Musculoskeletal: Denies arthralgias and Reports back pain Integumentary/Breasts Skin/Breast: Denies rash Neurologic Neurologic: Denies paresthesias Allergic/Immunologic Allergic/Immunologic: Denies throat swelling Physical Exam General General appearance: alert and in no apparent distress Head Head exam: atraumatic, normocephalic and normal inspection Eye Eye exam: Present normal appearance, PERRL and EOMI ENT ENT exam: Present normal exam, normal oropharynx, mucous membranes moist, TM's normal bilaterally and normal external ear exam Neck Neck exam: Present normal inspection, full ROM and trachea midline; Absent meningismus or lymphadenopathy Chest Chest inspection: Present normal inspection and symmetric chest wall rise; Absent tenderness Respiratory Respiratory exam: Present normal lung sounds bilaterally; Absent respiratory distress Cardiovascular Cardiovascular exam: Present regular rate and normal rhythm; Absent JVD Abdominal Exam Abdominal exam: Present soft and normal bowel sounds; Absent distention, tenderness or guarding Extremities Exam Extremities exam: Present normal inspection, full ROM and normal capillary refill; Absent calf tenderness Back Exam Back exam: Present normal inspection; Absent tenderness, CVA tenderness (R) or CVA tenderness (L) Neurological Exam Neurological exam: Present alert and oriented X3 Psychiatric Psychiatric exam: Present normal affect and normal mood Skin Skin exam: Present warm, dry, intact and normal color Lymphatic Lymphatic Findings: no adenopathy Medical Decision Making Medical Records Medical records reviewed: No I reviewed the patient's medical records. Danial Inquiry Pt receiving controlled substance: No Vital Signs: 10/03/23 12:00 Temperature 97.7 F Temperature Source Oral Pulse Rate [Right Radial] 66 Respiratory Rate 18 Blood Pressure [Right Arm] 162/69 H Blood Pressure Mean [Right Arm] 100 Blood Pressure Source [Right Arm] Automatic Cuff Blood Pressure Position [Right Arm] Sitting 02 Sat by Pulse Oximetry 96 Oxygen Delivery Method Room Air Lab Data Lab results reviewed: Yes I reviewed the patient's lab results. 10/03/23 13:27 10/03/23 13:27
[2023-10-03 12:22] LABS: Apearance,Urine Cloudy (Clear); Color,Urine Yellow (Yellow); Protein,Urine Negative (Negative); Specific Gravity, Urine 1.015 (1.005-1.030)
[2023-10-03 12:23] LABS: Bilirubin,Urine Negative (Negative); Blood, Urine Trace (Negative); Glucose,Urine (UA) 100 (Negative); Ketones,Urine Negative (Negative); UTC Leukocyte Esterase,Urine 3+ (Negative); UTC Nitrate,Urine Positive (Negative); Urobilinogen,Urine 1 EU/dl (0.2)
--- NOTE | 2023-10-03 13:30 | PC.NURSE ---
Sent blood up at lab at 15:30
[2023-10-03 13:47] LABS: Chloride 103 mmol/L (98-107)
[2023-10-03 13:48] LABS: Sodium 133 mmol/L (136-145)
[2023-10-03 13:50] LABS: Blood Urea Nitrogen 21 mg/dl (7-17); Creatinine Clearance Estimated 53 mL/min (50-200); Estimated Glomerular Filt Rate 44 ml/min (>60); GFR (African American) 53 ML/MIN (>60)
[2023-10-03 13:51] LABS: Alanine Aminotransferase 16 U/L (12-78); Albumin Level 3.8 g/dl (3.5-5.0); Albumin/Globulin Ratio 1.5 (1.1-1.8); Alkaline Phosphatase 35 U/L (38-126); Aspartate Amino Transferase 24 U/L (14-36); Bilirubin,Total 0.3 mg/dl (0.2-1.3); Calcium 9.3 mg/dl (8.4-10.2); Carbon Dioxide 24 mmol/L (22.0-30.0); Globulin 2.6 g/dL (1.3-3.2); Glucose 138 mg/dl (74-100); Total Protein,Serum 6.4 g/dl (6.3-8.2)
[2023-10-03 14:02] LABS: Basophils # 0.1 K/mm3 (0-0.2); Basophils % 0.6 % (0.1-2.0); Eosinophils # 0.2 K/mm3 (0.0-0.4); Eosinophils % 1.8 % (0.1-12.0); Hematocrit 38.1 % (37.0-47.0); Hemoglobin 12.1 g/dL (12.2-16.2); Lymphocytes # 1.9 K/mm3 (0.7-4.5); Lymphocytes % 21.2 % (10-50); Mean Corpuscular HGB Conc 31.8 g/dL (31.8-35.4); Mean Corpuscular Hemoglobin 29.8 pg (27.0-31.2); Mean Corpuscular Volume 93.5 fl (81-99); Mean Platelet Volume 9.2 fl (7.4-10.4); Monocytes # 0.6 K/mm3 (0.1-1.0); Monocytes % 6.8 % (1.7-9.3); Neutrophils # 6.2 K/mm3 (1.8-7.8); Neutrophils % 69.7 % (37.0-80.0); Platelet Count 296 K/mm3 (142-424); Red Blood Count 4.08 M/mm3 (4.20-5.40); Red Cell Distribution Width 13.9 % (11.5-17.5); White Blood Count 8.9 K/mm3 (4.8-10.8)
[2023-10-03 14:54] LABS: POC Glucose,Bedside 152 (70-110)
[2023-10-03] MEDS: LIDOCAINE 1% 5ML PF VIAL IM (14:58)
[2023-10-03] MEDS: cefTRIAXone 1GM VIAL 1 GM IM (14:58)
[2023-10-03 15:18] VITALS: BP 162/69; PULSE 66; RESP 18; TEMP 36.5; O2SAT 96
== END 2023-10-03 15:18 | disposition home or self-care (01) ==
PROVIDERS: Emergency Provider Nurse Practitioner Family; PCP Family Medicine
DX: N39.0 Urinary tract infection, site not specified (principal); M54.50 Low back pain, unspecified; R10.9 Unspecified abdominal pain; R35.0 Frequency of micturition; R53.81 Other malaise; E11.9 Type 2 diabetes mellitus without complications; E78.5 Hyperlipidemia, unspecified; I10 Essential (primary) hypertension; J44.9 Chronic obstructive pulmonary disease, unspecified; Z87.891 Personal history of nicotine dependence; R39.11 Hesitancy of micturition; R39.15 Urgency of urination; R30.0 Dysuria
CPT/HCPCS: 80053; 81003; 82962; 85025; 87086; 87088; 87186; 96372; 99212; 99214; G0463; J0696

== ENCOUNTER 2023-10-06 02:05 | Emergency (ER) | payer MEDICARE, SELFPAY ==
[2023-10-06 02:08] VITALS: BP 164/69; PULSE 64; RESP 18; TEMP 36.6; O2SAT 96; BMI 29.7
--- NOTE | 2023-10-06 02:40 | CT_ITS ---
PROCEDURE INFORMATION: Exam: CT Abdomen And Pelvis With Contrast Exam date and time: 10/06/2023 3:52 AM Age: 73 years old Clinical indication: Abdominal pain; Flank; Left; Additional info: L flank, L CVA pain TECHNIQUE: Imaging protocol: Computed tomography of the abdomen and pelvis with contrast. Radiation optimization: All CT scans at this facility use at least one of these dose optimization techniques: automated exposure control; mA and/or kV adjustment per patient size (includes targeted exams where dose is matched to clinical indication); or iterative reconstruction. Contrast material: ISOVUE; Contrast volume: 75 ml; Contrast route: IV; COMPARISON: CT ANGIO ABDOMEN PELVIS 09/20/2023 12:19 AM FINDINGS: Coronary arteries: Coronary atherosclerosis. Liver: Normal. No mass. Gallbladder and bile ducts: Prior cholecystectomy. Mild expected prominence of the common bile duct. Pancreas: Normal. No ductal dilation. Spleen: Normal. No splenomegaly. Adrenal glands: Normal. No mass. Kidneys and ureters: Exophytic 2.1 cm lesion extends from the upper pole of the left kidney this remains indeterminate but is unchanged from the prior study of 09/20/2023. No renal stones or obstruction. from the upper pole of the left kidney unchanged from the prior study Stomach and bowel: Moderate retained stool in the colon. Sigmoid diverticulosis without diverticulitis. Appendix: No evidence of appendicitis. Intraperitoneal space: Unremarkable. No free air. No significant fluid collection. Vasculature: Unremarkable. No abdominal aortic aneurysm. Lymph nodes: Unremarkable. No enlarged lymph nodes. Urinary bladder: Unremarkable as visualized. Reproductive: Unremarkable as visualized. Bones/joints: Unremarkable. No acute fracture. Soft tissues: Fat containing left inguinal hernia. IMPRESSION: 1. No acute process to explain the patient's left flank pain. 2. Stable indeterminate 2.1 cm lesion extends from the upper pole of the left kidney unchanged from 09/20/2023 but indeterminate, correlation with renal protocol CT or MRI again recommended. 3. Cholecystectomy. 4. Coronary atherosclerosis.
--- NOTE | 2023-10-06 02:42 | HMH.EDGENADL ---
Discharge Plan Disposition Patient Disposition: Home, Self-Care Prescriptions Prescriptions: New cefdinir 300 mg capsule 300 mg PO BID 10 Days Qty: 20 0RF ketorolac 10 mg tablet 10 mg PO Q8H PRN (Reason: pain) 2 Days Qty: 6 0RF Rx Instructions: Do not combine with celecoxib No Action insulin glargine [Lantus U-100 Insulin] 100 unit/mL solution 8 unit SQ DAILY cholecalciferol (vitamin D3) 1,250 mcg (50,000 unit) wafer 1,250 mcg PO WEEKLY pantoprazole 40 MG tablet,delayed release (DR/EC) 40 mg PO BID hydralazine 100 MG tablet 100 mg PO TID nitroglycerin 0.4 MG tablet, sublingual 0.4 mg sublingual Q5MINP PRN (Reason: Chest Pain) minoxidil 2.5 MG tablet 5 mg PO DAILY nebivolol 10 MG tablet 10 mg PO HS ezetimibe-simvastatin 1 EACH tablet 1 tab PO HS Rx Instructions: 10/20mg fenofibrate nanocrystallized 145 MG tablet 145 mg PO DAILY latanoprost 0.005 % drops 1 drp Eye-Both HS Patient Comments: INSTILL 1 DROP IN BOTH EYES EVERY NIGHT AT BEDTIME nitroglycerin 0.3 mg Tablet, Sublingual 0.3 mg SUBLINGUAL Q5M PRN (Reason: Chest Pain) Rx Instructions: do not exceed 3 doses per episode clopidogrel 75 mg tablet 75 mg PO DAILY Hold Instructions: Pending evaluation by PCP. Was started for TIAs, no clear indication to continue at this time given bleeding per rectum. Patient Comments: TAKE 1 TABLET BY MOUTH ONCE DAILY FOR PLATELET INHIBITOR acetaminophen 500 mg Tablet 1,000 mg PO Q8H PRN (Reason: Pain) lisinopril 40 mg tablet 40 mg PO DAILY Patient Comments: TAKE 1 TABLET BY MOUTH DAILY dorzolamide 2 % drops 1 drp Eye-Both BID Patient Comments: INSTILL ONE DROP INTO BOTH EYES TWICE DAILY ranolazine 500 mg tablet extended release 12 hr 500 mg PO BID Patient Comments: TAKE 1 TABLET BY MOUTH TWICE DAILY alendronate 70 mg tablet 70 mg PO WEEKLY Patient Comments: TAKE 1 TABLET BY MOUTH EVERY 7 DAYS ergocalciferol (vitamin D2) 1,250 mcg (50,000 unit) capsule 1,250 mcg PO WEEKLY Patient Comments: TAKE 1 CAPSULE BY MOUTH EVERY 7 DAYS prednisone 20 mg tablet 40 mg PO DAILY 5 Days Qty: 10 0RF insulin glargine [Lantus Solostar U-100 Insulin] 100 unit/mL (3 mL) insulin pen 10 unit SQ DAILY 30 Days Qty: 0 0RF Patient Comments: ADMINISTER 22 UNITS UNDER THE SKIN EVERY NIGHT DIRECTED verapamil 360 mg capsule,ext rel. pellets 24 hr 360 mg PO HS Patient Comments: TAKE 1 CAPSULE BY MOUTH EVERY NIGHT trazodone 50 mg tablet 100 mg PO HS celecoxib 100 mg capsule 100 mg PO DAILY venlafaxine 75 mg capsule,extended release 24hr 75 mg PO DAILY Rx Instructions: take with 150mg capsule sennosides-docusate sodium [Senna with Docusate Sodium] 8.6-50 mg tablet 2 tab-cap PO HS 30 Days Qty: 60 0RF nitrofurantoin monohyd/m-cryst [Macrobid] 100 mg Capsule 100 mg PO BID Qty: 10 0RF Rx Instructions: must administer with a meal/food Referrals Follow up/Referrals: Jaxson Ken MD [Primary Care Provider] - See instructions Activity Restrictions/Add. Instructions Additional Instructions/Restrictions: At this time it was felt you are safe to be discharged home. If new or worsening symptoms please do not hesitate to return the emergency department. Please follow-up with your family doctor as discussed. Please take your antibiotics as prescribed. For pain please take Tylenol every 6 hours [id number] as needed, only take your ketorolac if your pain is refractory. Clinical Impressions Clinical Impression: Left flank pain, Kidney lesion, [place], left, Acute UTI Instructions Patient Instructions: DI for Urinary Tract Infection (UTI), DI for Urinary Tract Infection in Children Discharge ED Provider: [facility] HPI General Chief complaint: Urogenital-Female Stated complaint: given antibiotics- uti 10/02,pain lower left back Time Seen by Provider: 10/06/23 02:30 Mode of Arrival: Ambulatory Source of Information: Patient Limitations: No Limitations Description of Symptoms (Recalled from ER Triage Doc. by RN): 73 F presents from home with c/o worsening UTI symptoms. She was seen here at our [facility] on Sunday and was placed on oral antibiotics. However, this evening her symptoms came back. Patient denies fever or chills, but the left flank pain is not tolerable. History of Present Illness HPI narrative: Patient is a 73-year-old female past medical history of chronic right-sided low back pain, hypertension, diabetes who presents emergency department for evaluation of left flank pain. Onset was acute, awaking her from her sleep a few hours prior to arrival. She was seen in the urgent care side on Sunday and diagnosed with urinary tract infection which she was prescribed Macrobid for which she has been compliant. She did have some flank pain at that time however due to worsening she presents here for continued evaluation. No chest pain. She was admitted a couple weeks ago for bloody diarrhea for which her symptoms have resolved. No other acute complaints at this time. Related Data Home Medications Medication Instructions Recorded Confirmed hydralazine 100 mg tablet 100 mg PO TID High blood pressure 06/05/18 09/25/23 nitroglycerin 0.4 mg sublingual 0.4 mg sublingual Q5MINP PRN Chest 06/05/18 09/25/23 tablet Pain pantoprazole 40 mg tablet,delayed 40 mg PO BID acid reflux 06/05/18 09/25/23 release minoxidil 2.5 mg tablet 5 mg PO DAILY High blood pressure 08/27/20 09/25/23 nebivolol 10 mg tablet 10 mg PO HS High blood pressure 08/27/20 09/25/23 ezetimibe 10 mg-simvastatin 20 mg 1 tab PO HS Cholesterol 08/28/20 09/25/23 tablet fenofibrate nanocrystallized 145 145 mg PO DAILY Cholesterol 08/28/20 09/25/23 mg tablet celecoxib 100 mg capsule 100 mg PO DAILY left knee pain 03/15/22 09/25/23 trazodone 50 mg tablet 100 mg PO HS Insomnia 03/15/22 09/25/23 verapamil 360 mg 24 hr 360 mg PO HS heart rate 03/15/22 09/25/23 capsule,extended release venlafaxine 75 mg capsule,extended 75 mg PO DAILY Depression 03/16/22 09/25/23 release 24 hr cholecalciferol (vitamin D3) 1,250 1,250 mcg PO WEEKLY 10/16/22 09/25/23 mcg (50,000 unit) oral wafer insulin glargine 100 unit/mL 8 unit SQ DAILY 10/16/22 09/25/23 subcutaneous solution (Lantus U-100 Insulin) acetaminophen 500 mg tablet 1,000 mg PO Q8H PRN Pain 09/20/23 09/25/23 alendronate 70 mg tablet 70 mg PO WEEKLY 09/20/23 09/25/23 clopidogrel 75 mg tablet 75 mg PO DAILY 09/20/23 09/25/23 dorzolamide 2 % eye drops 1 drp Eye-Both BID 09/20/23 09/25/23 ergocalciferol (vitamin D2) 1,250 1,250 mcg PO WEEKLY 09/20/23 09/25/23 mcg (50,000 unit) capsule latanoprost 0.005 % eye drops 1 drp Eye-Both HS 09/20/23 09/25/23 lisinopril 40 mg tablet 40 mg PO DAILY 09/20/23 09/25/23 nitroglycerin 0.3 mg sublingual 0.3 mg sublingual Q5M PRN Chest 09/20/23 09/25/23 tablet Pain ranolazine 500 mg tablet,extended 500 mg PO BID 09/20/23 09/25/23 release,12 hr Previous Rx's Medication Instructions Recorded sennosides 8.6 mg-docusate sodium 2 tab-cap (2 x 8.6-50 mg) PO HS 30 03/16/22 50 mg tablet (Senna with Docusate days #60 tabs Sodium) insulin glargine 100 unit/mL (3 10 unit (0.1 mL) SQ DAILY 30 days 09/22/23 mL) subcutaneous pen (Lantus #0 mL Solostar U-100 Insulin) prednisone 20 mg tablet 40 mg (2 x 20 mg) PO DAILY 5 days 09/22/23 #10 tabs nitrofurantoin 100 mg PO BID #10 caps 10/03/23 monohydrate/macrocrystals 100 mg capsule (Macrobid) cefdinir 300 mg capsule 300 mg PO BID UTI 10 days #20 caps 10/06/23 ketorolac 10 mg tablet 10 mg PO Q8H PRN pain 2 days #6 10/06/23 tabs Allergies Allergy/AdvReac Type Severity Reaction Status Date / Time Iodinated Contrast Media Allergy Verified 10/03/23 12:15 [facility] Disclaimer: The information contained in this section may have been updated after the patient was seen, as this information can be updated by other users. Medical History Diabetes Hyperlipidemia Hypertension Urinary Incontinence COPD (chronic obstructive pulmonary disease) Hemorrhoids Surgical History History of cholecystectomy H/O heart artery stent Family History Other Breast cancer Family history of Alzheimer's disease Parkinsons disease Social History Smoking Status: Former smoker alcohol intake: never substance use type: denies use current occupational status: unemployed and retired Travel in the last 8 weeks: None household members: none housing: house marital status: current occupational exposures/hazards: No caffeine: Yes ROS Obtained: Yes Systems reviewed as appropriate & no additional complaints except as documented Physical Exam General General appearance: alert and in no apparent distress Head Head exam: atraumatic and normocephalic Eye Eye exam: Present PERRL ENT ENT exam: Present mucous membranes moist Neck Neck exam: Present normal inspection Chest Chest inspection: Present normal inspection and symmetric chest wall rise Respiratory Respiratory exam: Present normal lung sounds bilaterally; Absent respiratory distress Cardiovascular Cardiovascular exam: Present regular rate and normal rhythm Abdominal Exam Abdominal exam: Present soft; Absent tenderness Extremities Exam Extremities exam: Present normal inspection Back Exam Back exam: Present normal inspection; Absent tenderness Neurological Exam Neurological exam: Present alert Psychiatric Psychiatric exam: Present normal affect Skin Skin exam: Present warm and dry Medical Decision Making Danial Inquiry Pt receiving controlled substance: No Vital Signs: 10/06/23 02:08 10/06/23 03:02 Temperature 97.9 F Temperature Source Oral Pulse Rate 60 Pulse Rate [Left] 64 Respiratory Rate 18 Blood Pressure 167/66 H Blood Pressure [Right Arm] 164/69 H Blood Pressure Mean 99 Blood Pressure Mean [Right Arm] 100 Blood Pressure Source [Right Arm] Automatic Cuff Blood Pressure Position [Right Arm] Sitting 02 Sat by Pulse Oximetry 96 98 Oxygen Delivery Method Room Air Room Air Lab Data Lab Results 10/06/23 02:55: WBC 5.9 D, RBC 4.03 L, Hgb 12.0 L, Hct 37.9, MCV 94.0, MCH 29.9, MCHC 31.8, RDW 14.0, Plt Count 286, MPV 8.2, Neut % (Auto) 61.0, Lymph % (Auto) 27.3, [place] % (Auto) 6.6, Eos % (Auto) 3.8, Baso % (Auto) 1.3, Neut # (Auto) 3.6, Lymph # (Auto) 1.6, [place] # (Auto) 0.4, Eos # (Auto) 0.2, Baso # (Auto) 0.1, Sodium 134 L, Potassium 4.4, Chloride 104, Carbon Dioxide 24, Anion Gap 10.4, BUN 16, Creatinine 1.10 H, Estimated Creat Clear 58, Estimated GFR 49 L, Est GFR ( Amer) 59, Glucose 110 H, Calcium 9.6, Total Bilirubin 0.5, AST 29, ALT 19, Alkaline Phosphatase 27 L, Total Protein 6.6, Albumin 3.8, Globulin 2.8, Albumin/Globulin Ratio 1.4, Lipase 103 10/06/23 04:05: Urine Color Yellow, Urine Appearance Clear, Urine pH 6.5, Ur Specific [place] 1.010, Urine Protein Negative, Urine Glucose (UA) Negative, Urine Ketones Negative, Urine Blood Negative, Urine Nitrate Negative, Urine Bilirubin Negative, Urine Urobilinogen 0.2, Ur Leukocyte Esterase 1+ A, Urine RBC None, Urine WBC 20-50, Ur Squamous Epith Cells Occasional, Urine Bacteria Trace 10/06/23 02:55 10/06/23 02:55 Orders (Tests/Meds): ED MEDICATIONS Generic Name Dose Route Start Last Admin Trade Name Freq PRN Reason Stop Dose Admin Ondansetron HCl 4 mg 10/06/23 05:17 10/06/23 05:19 Ondansetron 4mg/2ml Vial IV 10/06/23 05:18 4 mg ONCE ONE Administration Sodium Chloride 10 ml 10/06/23 04:02 10/06/23 04:03 Sodium Chloride 0.9% 10ml Syr (Rad Only) IV 11/05/23 04:01 10 ml NEEDED PRN Administration Maintain IV Site Discontinued Medications Generic Name Dose Route Start Last Admin Trade Name Freq PRN Reason Stop Dose Admin Acetaminophen 1,000 mg 10/06/23 02:40 10/06/23 02:55 Acetaminophen 1,000mg/100ml Vial IV 10/06/23 02:41 1,000 mg ONCE ONE Administration Diphenhydramine HCl 50 mg 10/06/23 02:40 10/06/23 02:58 Diphenhydramine 50mg/Ml Vial IV 10/06/23 02:41 50 mg ONCE ONE Administration Lactated Ringer's 1,000 mls @ 999 mls/hr 10/06/23 02:40 10/06/23 02:55 Lactated Ringer's 1000 Ml Bag IV 10/06/23 03:40 999 mls/hr .Q1H1M ONE Administration Ceftriaxone Sodium 1 gm/ 50 mls @ 100 mls/hr 10/06/23 04:45 10/06/23 04:57 Sodium Chloride IV 10/06/23 05:14 100 mls/hr ONCE ONE Administration Iopamidol 75 ml 10/06/23 04:02 10/06/23 04:03 Iopamidol-370 (76%);100ml Bottle IV 10/06/23 04:03 75 ml ONCE ONE Administration Ketorolac Tromethamine 15 mg 10/06/23 02:40 10/06/23 02:58 Ketorolac 30mg/Ml Vial IV 10/06/23 02:41 15 mg ONCE ONE Administration Morphine Sulfate 4 mg 10/06/23 02:40 10/06/23 02:58 Morphine 4mg/Ml Syringe IV 10/06/23 02:41 4 mg ONCE ONE Administration Morphine Sulfate 4 mg 10/06/23 05:06 10/06/23 05:14 Morphine 4mg/Ml Syringe IV 10/06/23 05:07 4 mg ONCE ONE Administration ORDERS Category Date Time Status CT abdomen pelvis w con Stat Cat Scan 10/06/23 02:40 Completed CBC w/Auto Diff [Complete Blood Count Auto Diff] Stat Lab 10/06/23 02:55 Completed CMP [Comprehensive Metabolic Panel] Stat Lab 10/06/23 02:55 Completed Lipase Stat Lab 10/06/23 02:55 Completed UA [Urinalysis and Microscopic] Stat Lab 10/06/23 04:05 Completed Urine Culture Stat Micro 10/06/23 04:05 Received Medical Decision Narrative: In summary patient is 73-year-old female past medical history described above presents emergency department for evaluation of left flank pain. Patient is hemodynamically stable nontoxic-appearing upon arrival, afebrile. Differential diagnosis includes ureterolithiasis, kidney mass, urinary tract infection, pyonephritis, among others. Workup will be conducted with hematologic labs, CT abdomen pelvis IV contrast. Initial interventions include crystalloid bolus, multimodal pain control, patient be pretreated with Benadryl prior to conduction of her CT given that she has tolerated contrast before with this. Workup reviewed by me, hematologic labs are nonactionable, no [place] or critical electrolyte abnormality, no significant leukocytosis. No uremia. Urinalysis interpreted by me and consistent with infection. Significant leukocyturia. CT imaging of the abdomen pelvis no acute process, stable indeterminant 2.1 cm lesion of the upper pole of the left kidney. Upon repeat evaluation patient had persistent pain for which morphine will be administered. Patient is otherwise well-appearing, patient was given a dose of ceftriaxone. Upon subsequent evaluation patient had acceptable resolution of pain, continue to be well-appearing and hemodynamically stable. Given this patient is appropriate for discharge at this time will be discharged with a course of cefdinir, was instructed to take Tylenol [id number] and Toradol only as needed. Patient will follow-up with PCP this week. Critical Care Critical Care Time Critical Care Time: No
[2023-10-06] MEDS: ACETAMINOPHEN 1,000MG/100ML VIAL 1000 MG IV (02:55)
[2023-10-06] MEDS: LACTATED RINGERS 1000ML 1,000 ML 999 ML IV (02:55)
[2023-10-06] MEDS: MORPHINE 4MG/ML SYRINGE 4 MG IV ×2 (02:58→05:14)
[2023-10-06] MEDS: diphenhydrAMINE 50MG/ML VIAL 50 MG IV (02:58)
[2023-10-06] MEDS: KETOROLAC 30MG/ML VIAL 15 MG IV (02:58)
[2023-10-06 03:02] VITALS: BP 167/66; PULSE 60; O2SAT 98
[2023-10-06 03:03] LABS: Basophils # 0.1 K/mm3 (0-0.2); Basophils % 1.3 % (0.1-2.0); Eosinophils # 0.2 K/mm3 (0.0-0.4); Eosinophils % 3.8 % (0.1-12.0); Hematocrit 37.9 % (37.0-47.0); Lymphocytes # 1.6 K/mm3 (0.7-4.5); Lymphocytes % 27.3 % (10-50); Mean Corpuscular HGB Conc 31.8 g/dL (31.8-35.4); Mean Corpuscular Hemoglobin 29.9 pg (27.0-31.2); Mean Platelet Volume 8.2 fl (7.4-10.4); Monocytes # 0.4 K/mm3 (0.1-1.0); Monocytes % 6.6 % (1.7-9.3); Neutrophils # 3.6 K/mm3 (1.8-7.8); Platelet Count 286 K/mm3 (142-424); Red Blood Count 4.03 M/mm3 (4.20-5.40); White Blood Count 5.9 K/mm3 (4.8-10.8)
[2023-10-06 03:10] LABS: Chloride 104 mmol/L (98-107); Potassium 4.4 mmoL/L (3.5-5.1); Sodium 134 mmol/L (136-145)
[2023-10-06 03:12] LABS: Blood Urea Nitrogen 16 mg/dl (7-17); Creatinine Clearance Estimated 58 mL/min (50-200); Estimated Glomerular Filt Rate 49 ml/min (>60); GFR (African American) 59 ML/MIN (>60)
[2023-10-06 03:13] LABS: Alanine Aminotransferase 19 U/L (12-78); Albumin Level 3.8 g/dl (3.5-5.0); Albumin/Globulin Ratio 1.4 (1.1-1.8); Alkaline Phosphatase 27 U/L (38-126); Anion Gap 10.4 mEq/L (5-15); Aspartate Amino Transferase 29 U/L (14-36); Bilirubin,Total 0.5 mg/dl (0.2-1.3); Calcium 9.6 mg/dl (8.4-10.2); Carbon Dioxide 24 mmol/L (22.0-30.0); Globulin 2.8 g/dL (1.3-3.2); Glucose 110 mg/dl (74-100); Lipase 103 U/L (23-300); Total Protein,Serum 6.6 g/dl (6.3-8.2)
[2023-10-06] MEDS: IOPAMIDOL-370 (76%);100ML BOTTLE 75 ML IV (04:03)
[2023-10-06] MEDS: SODIUM CHLORIDE 0.9% 10ML SYR (RAD ONLY) 10 ML IV (04:03)
[2023-10-06 04:15] LABS: Microscopic, Urine URINE MICROSCOPIC (MICROSCOPIC)
[2023-10-06 04:16] LABS: Appearance,Urine CLEAR (Clear); Bilirubin,Urine Negative (Negative); Blood, Urine Negative (Negative); Color,Urine YELLOW (Yellow); Glucose,Urine (UA) Negative (Negative); Ketones,Urine Negative (Negative); Leukocyte Esterase,Urine 1+ (Negative); Nitrate,Urine Negative (Negative); PH,Urine 6.5 (5.0-8.5); Protein,Urine Negative (Negative); Urobilinogen,Urine 0.2 EU/dl (0.2)
[2023-10-06 04:27] LABS: Bacteria,Urine Trace /lpf; Squamous Epithelial Cell,Urine Occasional #/hpf (0-5); WBC,Urine 20-50 #/hpf (0-3)
[2023-10-06] MEDS: CEFTRIAXONE 1 GM 1 GM in 0.9 % SODIUM CHLORIDE 50 ML IV (04:57)
[2023-10-06] MEDS: ONDANSETRON 4MG/2ML VIAL 4 MG IV (05:19)
[2023-10-06 05:26] VITALS: BP 139/54; PULSE 59; RESP 16; TEMP 36.6; O2SAT 95
== END 2023-10-06 05:34 | disposition home or self-care (01) ==
PROVIDERS: Emergency Provider Emergency Medicine; PCP Family Medicine
DX: R10.32 Left lower quadrant pain (principal); M54.59 Other low back pain; N39.0 Urinary tract infection, site not specified; N28.9 Disorder of kidney and ureter, unspecified; E11.9 Type 2 diabetes mellitus without complications; J44.9 Chronic obstructive pulmonary disease, unspecified; I10 Essential (primary) hypertension; E78.5 Hyperlipidemia, unspecified; Z87.891 Personal history of nicotine dependence; Z79.4 Long term (current) use of insulin
CPT/HCPCS: 74177; 80053; 81001; 83690; 85025; 87086; 96361; 96365; 96375; 96376; 99285; J0131; J0696; J2405; J7120; Q9967

== ENCOUNTER 2023-10-23 12:02 | Observation (INO) | payer MEDICARE, SELFPAY ==
[2023-10-23] VITALS (12 sets, daily range): BP systolic 151–219; BP diastolic 60–86; PULSE 58–75; RESP 12–24; TEMP 36.4–37.3; O2SAT 74–97; BMI 30.2; BMI 28.6
--- NOTE | 2023-10-23 12:05 | ECG_ITS ---
APPROVED REPORT Exam: Resting ECG HR:60 bpm ECG Measurements Heart Rate 60 AXES AK 220 P 43 QRSd 87 QRS 100 QT 391 T 88 QTc 393 Conclusion SINUS RHYTHM WITH FIRST DEGREE AV BLOCK BORDERLINE RIGHT AXIS DEVIATION [QRS AXIS > 90] ABNORMAL ECG UNCONFIRMED REPORT Electronically signed by : Isaac Barbour, 10/23/2023 15:00:45
--- NOTE | 2023-10-23 12:20 | XR_ITS ---
FINAL REPORT CLINICAL HISTORY: hypoxic, SOA, Chest pain COMPARISON: 09/21/2023 FINDINGS: SINGLE-VIEW CHEST There is cardiomegaly with mild pulmonary vascular congestion. The mediastinum is normal. There are bibasilar opacities, left greater than right which may represent atelectasis or pneumonia. There is no pneumothorax. IMPRESSION: Bibasilar atelectasis versus pneumonia. Reviewed, Interpreted and Dictated by Shane Lambert III, MD Transcribed by Silvia Renner Authenticated and [facility]
[2023-10-23] MEDS: ONDANSETRON 4MG/2ML VIAL 4 MG IV ×2 (12:24→18:39)
--- NOTE | 2023-10-23 12:24 | HMH.EDGENADL ---
Discharge Plan Disposition Patient Disposition: Admitted Prescriptions Prescriptions: No Action insulin glargine [Lantus U-100 Insulin] 100 unit/mL solution 8 unit SQ DAILY cholecalciferol (vitamin D3) 1,250 mcg (50,000 unit) wafer 1,250 mcg PO WEEKLY pantoprazole 40 MG tablet,delayed release (DR/EC) 40 mg PO BID hydralazine 100 MG tablet 100 mg PO TID nitroglycerin 0.4 MG tablet, sublingual 0.4 mg sublingual Q5MINP PRN (Reason: Chest Pain) minoxidil 2.5 MG tablet 5 mg PO DAILY nebivolol 10 MG tablet 10 mg PO HS ezetimibe-simvastatin 1 EACH tablet 1 tab PO HS Rx Instructions: 10/20mg fenofibrate nanocrystallized 145 MG tablet 145 mg PO DAILY latanoprost 0.005 % drops 1 drp Eye-Both HS Patient Comments: INSTILL 1 DROP IN BOTH EYES EVERY NIGHT AT BEDTIME nitroglycerin 0.3 mg Tablet, Sublingual 0.3 mg SUBLINGUAL Q5M PRN (Reason: Chest Pain) Rx Instructions: do not exceed 3 doses per episode clopidogrel 75 mg tablet 75 mg PO DAILY Hold Instructions: Pending evaluation by PCP. Was started for TIAs, no clear indication to continue at this time given bleeding per rectum. Patient Comments: TAKE 1 TABLET BY MOUTH ONCE DAILY FOR PLATELET INHIBITOR acetaminophen 500 mg Tablet 1,000 mg PO Q8H PRN (Reason: Pain) lisinopril 40 mg tablet 40 mg PO DAILY Patient Comments: TAKE 1 TABLET BY MOUTH DAILY dorzolamide 2 % drops 1 drp Eye-Both BID Patient Comments: INSTILL ONE DROP INTO BOTH EYES TWICE DAILY ranolazine 500 mg tablet extended release 12 hr 500 mg PO BID Patient Comments: TAKE 1 TABLET BY MOUTH TWICE DAILY alendronate 70 mg tablet 70 mg PO WEEKLY Patient Comments: TAKE 1 TABLET BY MOUTH EVERY 7 DAYS ergocalciferol (vitamin D2) 1,250 mcg (50,000 unit) capsule 1,250 mcg PO WEEKLY Patient Comments: TAKE 1 CAPSULE BY MOUTH EVERY 7 DAYS prednisone 20 mg tablet 40 mg PO DAILY 5 Days Qty: 10 0RF insulin glargine [Lantus Solostar U-100 Insulin] 100 unit/mL (3 mL) insulin pen 10 unit SQ DAILY 30 Days Qty: 0 0RF Patient Comments: ADMINISTER 22 UNITS UNDER THE SKIN EVERY NIGHT DIRECTED cefdinir 300 mg capsule 300 mg PO BID 10 Days Qty: 20 0RF ketorolac 10 mg tablet 10 mg PO Q8H PRN (Reason: pain) 2 Days Qty: 6 0RF Rx Instructions: Do not combine with celecoxib verapamil 360 mg capsule,ext rel. pellets 24 hr 360 mg PO HS Patient Comments: TAKE 1 CAPSULE BY MOUTH EVERY NIGHT trazodone 50 mg tablet 100 mg PO HS celecoxib 100 mg capsule 100 mg PO DAILY venlafaxine 75 mg capsule,extended release 24hr 75 mg PO DAILY Rx Instructions: take with 150mg capsule sennosides-docusate sodium [Senna with Docusate Sodium] 8.6-50 mg tablet 2 tab-cap PO HS 30 Days Qty: 60 0RF nitrofurantoin monohyd/m-cryst [Macrobid] 100 mg Capsule 100 mg PO BID Qty: 10 0RF Rx Instructions: must administer with a meal/food Referrals Follow up/Referrals: Jaxson Ken MD [Primary Care Provider] - See instructions Clinical Impressions Clinical Impression: Pulmonary edema, Acute hypoxic respiratory failure, Unstable angina Discharge ED Provider: Jitendra Barbour General Adult HPI General Chief complaint: Chest Pain Stated complaint: Chest Pain Time Seen by Provider: 10/23/23 12:28 History of Present Illness HPI narrative: Patient is a 73-year-old female presenting today with multiple complaints. She states that she had an RI 2004 had a single stent placed at that time has not been diagnosed with heart failure to her knowledge. Has not had any further intervention since then. She is not sure as to when the exact last time she had a heart catheter or stress test, or echo were. She states that over the last 48 hours she has had intermittent chest pain and shortness of breath. Chest pain episodes have been significant heaviness associated with nausea and dyspnea. She says that she is more short of breath than normal. She does have COPD but has not had any cough wheezing sputum production and does not wear oxygen at home at baseline. Both of the significant chest pain episodes over the last 48 hours have been alleviated with nitroglycerin. She took an 81 mg aspirin prior to arrival today. Related Data Home Medications Medication Instructions Recorded Confirmed hydralazine 100 mg tablet 100 mg PO TID High blood pressure 06/05/18 09/25/23 nitroglycerin 0.4 mg sublingual 0.4 mg sublingual Q5MINP PRN Chest 06/05/18 09/25/23 tablet Pain pantoprazole 40 mg tablet,delayed 40 mg PO BID acid reflux 06/05/18 09/25/23 release minoxidil 2.5 mg tablet 5 mg PO DAILY High blood pressure 08/27/20 09/25/23 nebivolol 10 mg tablet 10 mg PO HS High blood pressure 08/27/20 09/25/23 ezetimibe 10 mg-simvastatin 20 mg 1 tab PO HS Cholesterol 08/28/20 09/25/23 tablet fenofibrate nanocrystallized 145 145 mg PO DAILY Cholesterol 08/28/20 09/25/23 mg tablet celecoxib 100 mg capsule 100 mg PO DAILY left knee pain 03/15/22 09/25/23 trazodone 50 mg tablet 100 mg PO HS Insomnia 03/15/22 09/25/23 verapamil 360 mg 24 hr 360 mg PO HS heart rate 03/15/22 09/25/23 capsule,extended release venlafaxine 75 mg capsule,extended 75 mg PO DAILY Depression 03/16/22 09/25/23 release 24 hr cholecalciferol (vitamin D3) 1,250 1,250 mcg PO WEEKLY 10/16/22 09/25/23 mcg (50,000 unit) oral wafer insulin glargine 100 unit/mL 8 unit SQ DAILY 10/16/22 09/25/23 subcutaneous solution (Lantus U-100 Insulin) acetaminophen 500 mg tablet 1,000 mg PO Q8H PRN Pain 09/20/23 09/25/23 alendronate 70 mg tablet 70 mg PO WEEKLY 09/20/23 09/25/23 clopidogrel 75 mg tablet 75 mg PO DAILY 09/20/23 09/25/23 dorzolamide 2 % eye drops 1 drp Eye-Both BID 09/20/23 09/25/23 ergocalciferol (vitamin D2) 1,250 1,250 mcg PO WEEKLY 09/20/23 09/25/23 mcg (50,000 unit) capsule latanoprost 0.005 % eye drops 1 drp Eye-Both HS 09/20/23 09/25/23 lisinopril 40 mg tablet 40 mg PO DAILY 09/20/23 09/25/23 nitroglycerin 0.3 mg sublingual 0.3 mg sublingual Q5M PRN Chest 09/20/23 09/25/23 tablet Pain ranolazine 500 mg tablet,extended 500 mg PO BID 09/20/23 09/25/23 release,12 hr Previous Rx's Medication Instructions Recorded sennosides 8.6 mg-docusate sodium 2 tab-cap (2 x 8.6-50 mg) PO HS 30 03/16/22 50 mg tablet (Senna with Docusate days #60 tabs Sodium) insulin glargine 100 unit/mL (3 10 unit (0.1 mL) SQ DAILY 30 days 09/22/23 mL) subcutaneous pen (Lantus #0 mL Solostar U-100 Insulin) prednisone 20 mg tablet 40 mg (2 x 20 mg) PO DAILY 5 days 09/22/23 #10 tabs nitrofurantoin 100 mg PO BID #10 caps 10/03/23 monohydrate/macrocrystals 100 mg capsule (Macrobid) cefdinir 300 mg capsule 300 mg PO BID UTI 10 days #20 caps 10/06/23 ketorolac 10 mg tablet 10 mg PO Q8H PRN pain 2 days #6 10/06/23 tabs Allergies Allergy/AdvReac Type Severity Reaction Status Date / Time Iodinated Contrast Media Allergy Verified 10/03/23 12:15 [facility] Disclaimer: The information contained in this section may have been updated after the patient was seen, as this information can be updated by other users. Medical History Diabetes Hyperlipidemia Hypertension Urinary Incontinence COPD (chronic obstructive pulmonary disease) Hemorrhoids Surgical History History of cholecystectomy H/O heart artery stent Family History Other Breast cancer Family history of Alzheimer's disease Parkinsons disease Social History Smoking Status: Former smoker alcohol intake: never substance use type: denies use current occupational status: unemployed and retired Travel in the last 8 weeks: None household members: none housing: house marital status: current occupational exposures/hazards: No caffeine: Yes ROS Obtained: Yes All systems reviewed & no additional complaints except as documented Physical Exam General General appearance: other (In mild distress oxygen saturation 74% on room air corrected into the mid 90s on 2 L nasal cannula) Respiratory Respiratory exam: Present normal lung sounds bilaterally; Absent respiratory distress Cardiovascular Cardiovascular exam: Present regular rate, normal rhythm and other (3 out of 6 systolic murmur) Neurological Exam Neurological exam: Present alert and oriented X3 Medical Decision Making Danial Inquiry Pt receiving controlled substance: No Vital Signs: 10/23/23 12:02 10/23/23 12:11 10/23/23 12:15 Temperature 97.6 F Temperature Source Oral Pulse Rate 62 Pulse Rate [Right] 75 Respiratory Rate 24 24 15 Blood Pressure Blood Pressure [Right Arm] 175/68 H Blood Pressure Mean [Right Arm] 103 Blood Pressure Source [Right Arm] Automatic Cuff 02 Sat by Pulse Oximetry 74 L 97 95 Oxygen Delivery Method Room Air Nasal Cannula Nasal Cannula Oxygen Flow Rate (LPM) 3 10/23/23 12:20 10/23/23 12:31 10/23/23 13:00 Temperature Temperature Source Pulse Rate 74 68 59 L Pulse Rate [Right] Respiratory Rate 16 12 Blood Pressure 151/60 H Blood Pressure [Right Arm] Blood Pressure Mean [Right Arm] Blood Pressure Source [Right Arm] 02 Sat by Pulse Oximetry 94 L 96 Oxygen Delivery Method Nasal Cannula Nasal Cannula Oxygen Flow Rate (LPM) 2 2 Lab Data Lab Results 10/23/23 12:15: WBC 7.6, RBC 4.10 L, Hgb 12.2, Hct 40.2, MCV 98.0, MCH 29.7, MCHC 30.3 L, RDW 14.6, Plt Count 321, MPV 8.4, Neut % (Auto) 76.1, Lymph % (Auto) 15.2, Lee % (Auto) 6.2, Eos % (Auto) 1.5, Baso % (Auto) 0.9, Neut # (Auto) 5.8, Lymph # (Auto) 1.2, Lee # (Auto) 0.5, Eos # (Auto) 0.1, Baso # (Auto) 0.1, D-Dimer 0.71 H, Sodium 136, Potassium 4.4, Chloride 100, Carbon Dioxide 27, Anion Gap 13.4, BUN 19 H, Creatinine 1.20 H, Estimated Creat Clear 54, Estimated GFR 44 L, Est GFR ( Amer) 53 L, Glucose 187 H, Calcium 9.2, Total Bilirubin 0.6, AST 33, ALT 15, Alkaline Phosphatase 25 L, Troponin I < 0.01, NT-Pro-B Natriuret Pep 1190 H, Total Protein 6.8, Albumin 3.9, Globulin 2.9, Albumin/Globulin Ratio 1.3 10/23/23 12:15 10/23/23 12:15 Orders (Tests/Meds): ED MEDICATIONS Discontinued Medications Generic Name Dose Route Start Last Admin Trade Name Jennifer PRN Reason Stop Dose Admin Aspirin 243 mg 10/23/23 12:45 10/23/23 12:46 Aspirin 81mg Chewable Tablet PO 10/23/23 12:46 243 mg ONCE ONE Administration Ondansetron HCl 4 mg 10/23/23 12:20 10/23/23 12:24 Ondansetron 4mg/2ml Vial IV 10/23/23 12:21 4 mg ONCE ONE Administration ORDERS Category Date Time Status Consult to Cardiology [CONS] Routine Cons 10/23/23 13:47 Active POCUS Point of Care (ER Only) Stat Exams 10/23/23 12:33 Completed XR chest portable Stat Exams 10/23/23 12:20 Taken BNP [NT Pro Brain Natriuretic Pep.] Stat Lab 10/23/23 12:15 Completed Complete Blood Count Auto Diff Stat Lab 10/23/23 12:15 Completed Comprehensive Metabolic Panel Stat Lab 10/23/23 12:15 Completed D-Dimer Stat Lab 10/23/23 12:15 Completed Troponin I Q3H Lab 10/23/23 15:30 Ordered Troponin I Q3H Lab 10/23/23 18:30 Ordered Troponin I Stat Lab 10/23/23 12:15 Completed ECG Data Tracing #1: I reviewed this ECG and interpreted as documented below: Ventricular rate of 60 sinus rhythm with first-degree AV block no other high degree block no acute ischemic changes noted normal axis no significant conduction abnormalities HEART Score History (anamnesis): Moderately suspicious ECG: Non-specific disturbance Age: >65 years Risk factors: Atherosclerosis history Troponin: </= normal limit HEART Score: 6 Medical Decision Narrative: 73-year-old with above history and physical presents today with a hypoxic respiratory failure not previously on oxygen. Differential includes COPD exacerbation RI heart failure pulmonary embolism pneumonia etc. She does have some B-lines on bedside ultrasound no obvious regional wall motion abnormality EKG is nonischemic workup pending. Chest x-ray performed on first interpreted shows no dense consolidation or acute cardiopulmonary abnormality Labs remarkable for a BNP of 1190 and a D-dimer is mildly elevated 0.7. Utilizing years criteria her cutoff for CT PE is 1.0 I think PE is less likely. Given her crescendoing chest pain that is alleviated with nitroglycerin her known history of coronary disease and some evidence of possible heart failure and pulmonary edema working diagnosis is unstable angina. She is chest pain-free at the moment no indication for emergent Sediment Remediation Consultant activation. She has been given 324 of aspirin. Will allow further dual antiplatelet therapy or anticoagulation to be given per the primary team or cardiology. I spoke with Dr. De La Cruz who is agreeable to admit this patient for further evaluation and management. Procedures Miscellaneous Procedure Procedure Performed: Limited cardiac ultrasound Indication: Chest pain Identified structures: The heart was visualized in the parasternal long axis, parastenal short axis, apical four chamber and subxyphiod views. The IVC was visualized in the short axis and long axis at its entry into the right atrium. Findings: No obvious regional wall motion abnormalities no severe right heart strain no moderate or severely depressed LVEF no pericardial effusion IVC less than 2 cm with normal respirophasic variation Impression: Unremarkable limited ultrasound of the heart Images were saved to permanent archive The study was technically adequate CPT: 50045-47 This study was performed by md, and I personally interpreted all images/videos. Based on my clinical judgement, these images were adequate and did not necessitate further imaging. Limited lung ultrasound A focused ultrasound exam of the pleural spaces was performed to evaluate for pneumothorax, pulmonary edema, pleural effusion and/or consolidation. The ultrasound was performed with the following indications, as noted in the H&P: Dyspnea Identified structures: Right and thoracic cavities were examined. Findings: Bilateral lung sliding present there are B-lines in the anterior right and left and lateral right and left lung purdy no obvious pleural effusions no pneumothorax noted or consolidation Impression: Diffuse B-lines consistent with pulmonary edema Images were saved to permanent archive The study was technically adequate CPT 22521-49 This study was performed by md, and I personally interpreted all images/videos. Based on my clinical judgement, these images were adequate and did not necessitate further imaging. Critical Care Critical Care Time Critical Care Time: Yes Attestation: On 10/23/23, the high probability of a clinically significant, sudden or life threatening deterioration of the following system(s) required my full and direct attention, intervention and personal management. The time I documented below is in addition to time spent performing reported procedures but includes the following listed in this critical care notation. Total Time Total Critical Care Time: 35
[2023-10-23 12:25] LABS: Basophils # 0.1 K/mm3 (0-0.2); Basophils % 0.9 % (0.1-2.0); Eosinophils # 0.1 K/mm3 (0.0-0.4); Eosinophils % 1.5 % (0.1-12.0); Hematocrit 40.2 % (37.0-47.0); Hemoglobin 12.2 g/dL (12.2-16.2); Lymphocytes # 1.2 K/mm3 (0.7-4.5); Lymphocytes % 15.2 % (10-50); Mean Corpuscular HGB Conc 30.3 g/dL (31.8-35.4); Mean Corpuscular Hemoglobin 29.7 pg (27.0-31.2); Mean Platelet Volume 8.4 fl (7.4-10.4); Monocytes # 0.5 K/mm3 (0.1-1.0); Monocytes % 6.2 % (1.7-9.3); Neutrophils # 5.8 K/mm3 (1.8-7.8); Neutrophils % 76.1 % (37.0-80.0); Platelet Count 321 K/mm3 (142-424); Red Cell Distribution Width 14.6 % (11.5-17.5); White Blood Count 7.6 K/mm3 (4.8-10.8)
--- NOTE | 2023-10-23 12:31 | PC.NURSE ---
Dr. Barbour at bedside
[2023-10-23 12:39] LABS: Alanine Aminotransferase 15 U/L (12-78); Albumin Level 3.9 g/dl (3.5-5.0); Albumin/Globulin Ratio 1.3 (1.1-1.8); Alkaline Phosphatase 25 U/L (38-126); Anion Gap 13.4 mEq/L (5-15); Aspartate Amino Transferase 33 U/L (14-36); Bilirubin,Total 0.6 mg/dl (0.2-1.3); Blood Urea Nitrogen 19 mg/dl (7-17); Calcium 9.2 mg/dl (8.4-10.2); Carbon Dioxide 27 mmol/L (22.0-30.0); Chloride 100 mmol/L (98-107); Creatinine Clearance Estimated 54 mL/min (50-200); Estimated Glomerular Filt Rate 44 ml/min (>60); GFR (African American) 53 ML/MIN (>60); Globulin 2.9 g/dL (1.3-3.2); Glucose 187 mg/dl (74-100); Potassium 4.4 mmoL/L (3.5-5.1); Sodium 136 mmol/L (136-145); Total Protein,Serum 6.8 g/dl (6.3-8.2)
[2023-10-23] MEDS: ASPIRIN 81MG CHEWABLE TABLET 243 MG PO (12:46)
[2023-10-23 12:48] LABS: NT Pro Brain Natriuretic Pep. 1190 pg/mL (0-125)
[2023-10-23 12:49] LABS: D-Dimer 0.71 ug/mL (0.0-0.5)
[2023-10-23 12:55] LABS: Troponin I < 0.01 ng/ml (0.00-0.034)
--- NOTE | 2023-10-23 13:46 | PC.NURSE ---
DR DAVALOS SPEAKING WITH DR ROCKWELL
--- NOTE | 2023-10-23 13:50 | PC.NURSE ---
CANCER GENETIC COUNSELOR NOTIFIED OF ADMISSION
--- NOTE | 2023-10-23 14:02 | PC.NURSE ---
Attempted to call report however pt was not on admission board yet. Called House Superviosr, states her room is [id number] and Richar is going to be her nurse.
--- NOTE | 2023-10-23 14:12 | PC.NURSE ---
Gave report to Richar CHOUDHURY on Med/Surg
--- NOTE | 2023-10-23 14:29 | HMH.PHAINT1 ---
Pharmacy Intervention Comments: MEDICATION RECONCILIATION COMPLETED ON PATIENT USING EXTERNAL FILL HISTORY FROM PHARMACY. -BHAVYA RUFF, RENATAD
--- NOTE | 2023-10-23 15:11 | CT_ITS ---
PROCEDURE INFORMATION: Exam: CTA Chest With Contrast Exam date and time: 10/23/2023 9:19 PM Age: 73 years old Clinical indication: Pain; Chest pressure; Additional info: Chest pain, hypoxia, elevated d-dimer TECHNIQUE: Imaging protocol: Computed tomographic angiography of the chest with contrast. Exam focused on the arteries. 3D rendering (Not supervised by radiologist): MIP and/or 3D reconstructed images were created by the technologist. Radiation optimization: All CT scans at this facility use at least one of these dose optimization techniques: automated exposure control; mA and/or kV adjustment per patient size (includes targeted exams where dose is matched to clinical indication); or iterative reconstruction. Contrast material: ISO 370; Contrast volume: 70 ml; Contrast route: INTRAVENOUS (IV); COMPARISON: CR XR CHEST PORTABLE 10/23/2023 12:36 PM FINDINGS: Pulmonary arteries: Positive pulmonary embolism right lower lobe segmental. Aorta: Unremarkable. No aortic aneurysm. No aortic dissection. Lungs: In the lung bases there is dependent atelectasis . Pleural spaces: Moderate right pleural effusion and small left pleural effusion . Heart: Unremarkable. No cardiomegaly. No pericardial effusion. Lymph nodes: 2.7 cm subcarinal hypodense lesion which could reflect enlarged lymph node Bones/joints: Unremarkable. No acute fracture. Soft tissues: Unremarkable. IMPRESSION: 1. Positive pulmonary embolism right lower lobe segmental. 2. Moderate right pleural effusion and small left pleural effusion . 3. In the lung bases there is dependent atelectasis .
--- NOTE | 2023-10-23 15:12 | P.CONCA_ITS ---
History of Present Illness History of Present Illness Consult date: 10/23/23 Requesting physician: Luz De La Cruz Consult reason: chest pain Chief complaint: chest pain History of present illness: 73-year-old white female with history of CAD status post stenting approximately 20 years ago. She is followed by Dr. Oh at [facility] in [place]. Patient also reports well-controlled high blood pressure high cholesterol and insulin-dependent diabetes with last A1c less than 7. She is a non-smoker nondrinker and does not use any illicit substances. Patient reports typically she is active and can ambulate, doing her shopping and chores without symptoms. Last night developed substernal chest heaviness which was relieved with nitroglycerin. This morning she had another episode which was also relieved wit h nitroglycerin so she presented to the emergency room. On workup here first troponin is normal, D-dimer elevated at 0.7. EKG shows sinus rhythm without acute ischemia or ectopy. She was admitted by the hospitalist and I am seeing her on the telemetry floor. She has no symptoms at this time. *Of note patient was admitted to this facility in September with GI bleed which was related to be acute colitis secondary to food poisoning. She has had no symptoms of bleeding before or after that occurrence. She also has a left renal mass of 2 cm which has apparently been stable for years. No history of biopsy on this. [facility] Disclaimer: The information contained in this section may have been updated after the patient was seen, as this information can be updated by other users. Medical History Diabetes Hyperlipidemia Hypertension Urinary Incontinence COPD (chronic obstructive pulmonary disease) Hemorrhoids Surgical History History of cholecystectomy H/O heart artery stent Family History Other Breast cancer Family history of Alzheimer's disease Parkinsons disease Social History Smoking Status: Former smoker alcohol intake: never substance use type: denies use current occupational status: unemployed and retired Travel in the last 8 weeks: None household members: none housing: house marital status: current occupational exposures/hazards: No caffeine: Yes Review of Systems Constitutional Constitutional: Denies fatigue and Denies weakness Eyes Eyes: Denies loss of vision ENT Ears, Nose, Mouth, and Throat: Denies hearing loss and Denies vertigo *Cardiovascular Cardiovascular: Reports chest pain, Denies dyspnea and Denies syncope *Respiratory Respiratory: Denies cough and Denies dyspnea *Gastrointestinal Gastrointestinal: Denies change in stool character, Denies nausea and Denies vomiting *Musculoskeletal Musculoskeletal: Denies muscle weakness Integumentary/Breasts Skin/Breast: Denies changing lesions *Neurologic Neurologic: Denies loss of vision, Denies syncope, Denies vertigo and Denies weakness Endocrine Endocrine: Denies fatigue Exam Data for Last 24 hours Vital signs and Labs for Last 24 Hours: Temp Pulse Resp BP Pulse Ox O2 Del Method O2 Flow Rate 98.1 F 64 16 161/77 H 96 Nasal Cannula 2 10/23/23 14:15 10/23/23 14:15 10/23/23 14:15 10/23/23 14:15 10/23/23 13:00 10/23/23 15:05 10/23/23 15:05 Laboratory Results - last 24 hr 10/23/23 12:15: WBC 7.6, RBC 4.10 L, Hgb 12.2, Hct 40.2, MCV 98.0, MCH 29.7, MCHC 30.3 L, RDW 14.6, Plt Count 321, MPV 8.4, Neut % (Auto) 76.1, Lymph % (Auto) 15.2, [place] % (Auto) 6.2, Eos % (Auto) 1.5, Baso % (Auto) 0.9, Neut # (Auto) 5.8, Lymph # (Auto) 1.2, [place] # (Auto) 0.5, Eos # (Auto) 0.1, Baso # (Auto) 0.1, D-Dimer 0.71 H, Sodium 136, Potassium 4.4, Chloride 100, Carbon Dioxide 27, Anion Gap 13.4, BUN 19 H, Creatinine 1.20 H, Estimated Creat Clear 54, Estimated GFR 44 L, Est GFR ( Amer) 53 L, Glucose 187 H, Calcium 9.2, Total Bilirubin 0.6, AST 33, ALT 15, Alkaline Phosphatase 25 L, Troponin I < 0.01, NT-Pro-B Natriuret Pep 1190 H, Total Protein 6.8, Albumin 3.9, Globulin 2.9, Albumin/Globulin Ratio 1.3 I & O for Last 24 hours: Intake & Output 10/20/23 10/21/23 10/22/23 10/23/23 23:59 23:59 23:59 23:59 Weight 182 lb Constitutional Constitutional: no acute distress and cooperative *Routine HEENT Exam Eye: Present PERRL *Routine Respiratory Exam Respiratory: Present CTA bilaterally; Absent accessory muscle use, wheezes or crackles *Routine Cardiovascular Exam Cardiovascular: Present RRR, Normal S1 and Normal S2; Absent murmur, gallop or rubs *Routine Abdominal Exam Abdominal: Present soft; Absent tenderness *Routine Extremities Exam Extremities: Present pulses intact; Absent cyanosis or edema *Routine Skin Exam Skin: Present intact; Absent erythema or wounds *Routine Neurological Exam Neurological: Present alert and oriented X3 Routine Psychiatric Exam Psychiatric: Present cooperative Meds Home Medications and Allergies Home Medications Medication Instructions Recorded Confirmed Type hydralazine 100 mg tablet 100 mg PO TID 06/05/18 10/23/23 History pantoprazole 40 mg tablet,delayed 40 mg PO BID 06/05/18 10/23/23 History release minoxidil 2.5 mg tablet 5 mg PO DAILY 08/27/20 10/23/23 History nebivolol 10 mg tablet 10 mg PO DAILY 08/27/20 10/23/23 History fenofibrate nanocrystallized 145 145 mg PO DAILY 08/28/20 10/23/23 History mg tablet celecoxib 100 mg capsule 100 mg PO DAILY 03/15/22 10/23/23 History trazodone 50 mg tablet 100 mg PO HS 03/15/22 10/23/23 History verapamil 360 mg 24 hr 360 mg PO HS 03/15/22 10/23/23 History capsule,extended release venlafaxine 75 mg capsule,extended 150 mg PO DAILY Depression 03/16/22 10/23/23 History release 24 hr acetaminophen 500 mg tablet 1,000 mg PO Q8HP PRN Mild Pain 09/20/23 10/23/23 History (Scale Score 1-4) dorzolamide 2 % eye drops 1 drp Eye-Both BID 09/20/23 10/23/23 History ergocalciferol (vitamin D2) 1,250 1,250 mcg PO WEEKLY 09/20/23 10/23/23 History mcg (50,000 unit) capsule lisinopril 40 mg tablet 40 mg PO DAILY 09/20/23 10/23/23 History ranolazine 500 mg tablet,extended 500 mg PO BID 09/20/23 10/23/23 History release,12 hr clopidogrel 75 mg tablet 75 mg PO DAILY 10/23/23 10/23/23 History ezetimibe 10 mg-simvastatin 20 mg 1 tab PO HS 10/23/23 10/23/23 History tablet insulin glargine 100 unit/mL (3 22 unit SQ HS 10/23/23 10/23/23 History mL) subcutaneous pen (Lantus Solostar U-100 Insulin) lidocaine 5 % topical patch 2 patch transdermal DAILY 10/23/23 10/23/23 History oxybutynin chloride 5 mg tablet 5 mg PO HS 10/23/23 10/23/23 History tramadol 50 mg tablet 50 mg PO Q8HP PRN Moderate Pain 10/23/23 10/23/23 History (Scale Score 5-6) New Prescriptions to Start Prescriptions: Allergies Allergy/AdvReac Type Severity Reaction Status Date / Time Iodinated Contrast Media Allergy Mild Rash Verified 10/23/23 14:12 Assessment and Plan *Assessment and plan (1) Unstable angina: Status: Acute Category: Medical Code(s): I20.0 - Unstable angina (2) Hypertension: Status: Chronic Category: Medical Code(s): I10 - Essential (primary) hypertension (3) CAD (coronary artery disease): Status: Acute Qualifiers: Associated angina: unspecified whether angina present Coronary Disease- Associated Artery/Lesion type: unspecified vessel or lesion type [place] vs. transplanted heart: [place] heart Qualified Code(s): I25.10 - Atherosclerotic heart disease of [place] coronary artery without angina pectoris Category: Medical Code(s): I25.10 - Atherosclerotic heart disease of [place] coronary artery without angina pectoris (4) Diabetes mellitus: Status: Acute Qualifiers: Diabetes mellitus complication status: with other specified complication Diabetes mellitus roasterman insulin use: with fdc use Diabetes mellitus type: type 2 Qualified Code(s): E11.69 - Type 2 diabetes mellitus with other specified complication; Z79.4 - FDC (current) use of insulin Category: Medical Code(s): E11.9 - Type 2 diabetes mellitus without complications (5) HLD (hyperlipidemia): Status: Acute Qualifiers: Hyperlipidemia type: unspecified Qualified Code(s): E78.5 - Hyperlipidemia, unspecified Category: Medical Code(s): E78.5 - Hyperlipidemia, unspecified (6) History of GI bleed: Status: Acute Category: Medical Code(s): Z87.19 - Personal history of other diseases of the digestive system Plan CAD, NV with Unstable Angina - worseing frequency/severity of anginal episodes over 24 hours - EKG and 1st Trop normal - check 2D ECHO, trend Troponin - resume home dose DAPT, BB, statin, ELEANOR - consider LHC tomorrow Acute Hypoxic Resp Failure - on 2L/min here - CXR pending - pt denies cough and COPD - d-dimer elevated - check CTA PE Protocol Htn - well controlled - cont home meds IDDM - well controlled - cont home meds Hx of GI Bleed - 09/2023 secondary to food poisoning per pt - stable H/H Left Renal Mass - 2cm, no changes per pt 10/22 CV Summary: Stable/asymptomatic at this time. Resume home meds, check ECHO and CTA PE protocol. Further plans pending results. Possible LHC tomorrow.
--- NOTE | 2023-10-23 15:12 | CA_ITS ---
APPROVED REPORT EXAM: Comprehensive 2D, Doppler, and color-flow Echocardiogram Power Washer: Jenna Ziegler RT(R) Ht: 5 ft 5 in Wt: 182lbs BSA: 1.90 BP: 161/77 mmHg Indications: CP, COPD, ex smoker, HTN, DM, SOB, HLD, CAD 2D Dimensions LVEF (Tucker's) 72.30 % F: 54 - 74 LV Volume 92.30 mL F: 46 - 106 LV Volume Index 48.6 mL/m2 F: 29 - 61 LA Volume 34.60 mL LA Volume Index 18.21 mL/m2 (M/F) 16-34 EF AP4 76.90 % EF AP2 65.9 % EF BP 72.3 % GL Strain -20.8 % M-Mode Dimensions RVDd 2.73 cm (0.9-2.6) LA Diam 4.27 cm (1.9-4.0) LVDd 5.20 cm (3.5-5.7) LVDs 3.87 cm (3.5-5.7) IVSd 0.91 cm (0.6-1.1) PWd 0.91 cm (0.6-1.1) EF (Teich) 50.00% FS 25.60% EDV (Teich) 129.50 mL ESV (Teich) 64.70 mL LV Diastology E Decel Time 200 (160-240 msec) E/A Ratio 1.1 Mitral Valve MV E Max Reyes. 107.0 (40-130 cm/s) MV A Velocity 97.0 (40-130 cm/s) E/A Ratio 1.10 MV PHT 59.0 ms Tricuspid Valve TR P. Velocity 274.00 cm/s RAP Estimate 10.00 mmHg RVSP 40.00 mmHg Left Ventricle The left ventricle is normal size. The left ventricular systolic function is normal. The left ventricular ejection fraction is within the normal range. There is increased LV wall thickness. There is normal LV segmental wall motion. The left ventricular diastolic function is normal. LVEF is 55%. Right Ventricle The right ventricle is normal size. The right ventricular systolic function is normal. Atria The left atrium is mildly dilated. The right atrium is mildly dilated. There is no Doppler evidence of interatrial shunt. Aortic Valve The aortic valve is mildly thickened. There is no aortic valvular stenosis. Mild aortic regurgitation. Mitral Valve Mild mitral annular calcification. The mitral valve leaflets are mildly thickened. No evidence of mitral valve stenosis. Mild mitral regurgitation. Tricuspid Valve The tricuspid valve leaflets are thin and pliable. Mild tricuspid regurgitation. RVSP is 20-25 mmHg. Pulmonic Valve The pulmonary valve is normal in structure. Mild pulmonic regurgitation. Great Vessels The aortic root is normal in size. The ascending aorta is not well-visualized. IVC is normal in size and collapses >50% with inspiration. Pericardium There is no pericardial effusion. Conclusion Normal biventricular systolic function. Mild biatrial dilation. Mild AI, mild MR, mild TR, mild PI. Electronically signed by : Domitila Butts MD 10/24/2023 11:23:38
[2023-10-23] MEDS: 0.9 % SODIUM CHLORIDE 250 ML 999 ML IV (16:06)
[2023-10-23 16:09] LABS: POC Glucose,Bedside 159 (70-110)
[2023-10-23 16:41] LABS: Troponin I < 0.01 ng/ml (0.00-0.034)
--- NOTE | 2023-10-23 17:23 | EXP.HP ---
History of Present Illness *Admission Date: 10/23/23 *Reason for visit:: chest pain *History of present illness: Patient is a 73-year-old female with past medical history of hypertension diabetes mellitus hyperlipidemia COPD who presents to the hospital due to concern for chest pains. Patient complains of intermittent chest pain left side of the chest. Patient's chest pain is improved after nitroglycerin. Patient otherwise denied shortness of breath nausea vomiting diarrhea constipation dysuria. Patient denies any active chest complaints at this time. [facility] Disclaimer: The information contained in this section may have been updated after the patient was seen, as this information can be updated by other users. Medical History Diabetes Hyperlipidemia Hypertension Urinary Incontinence COPD (chronic obstructive pulmonary disease) Hemorrhoids Surgical History History of cholecystectomy H/O heart artery stent Family History Other Breast cancer Family history of Alzheimer's disease Parkinsons disease Social History Smoking Status: Former smoker alcohol intake: never substance use type: denies use current occupational status: unemployed and retired Travel in the last 8 weeks: None household members: none housing: house marital status: current occupational exposures/hazards: No caffeine: Yes Review of Systems Review of Systems Review of systems:: pertinent systems reviewed and negative unless documented below Constitutional Constitutional: Denies weakness Eyes Eyes: Denies loss of vision ENT Ears, Nose, Mouth, and Throat: Denies vertigo *Cardiovascular Cardiovascular: Denies syncope *Neurologic Neurologic: Denies loss of vision, Denies syncope, Denies vertigo and Denies weakness Meds Home Medications and Allergies Home Medications Medication Instructions Recorded Confirmed Type hydralazine 100 mg tablet 100 mg PO TID 06/05/18 10/23/23 History pantoprazole 40 mg tablet,delayed 40 mg PO BID 06/05/18 10/23/23 History release minoxidil 2.5 mg tablet 5 mg PO DAILY 08/27/20 10/23/23 History nebivolol 10 mg tablet 10 mg PO DAILY 08/27/20 10/23/23 History fenofibrate nanocrystallized 145 145 mg PO DAILY 08/28/20 10/23/23 History mg tablet celecoxib 100 mg capsule 100 mg PO DAILY 03/15/22 10/23/23 History trazodone 50 mg tablet 100 mg PO HS 03/15/22 10/23/23 History verapamil 360 mg 24 hr 360 mg PO HS 03/15/22 10/23/23 History capsule,extended release venlafaxine 75 mg capsule,extended 150 mg PO DAILY Depression 03/16/22 10/23/23 History release 24 hr acetaminophen 500 mg tablet 1,000 mg PO Q8HP PRN Mild Pain 09/20/23 10/23/23 History (Scale Score 1-4) dorzolamide 2 % eye drops 1 drp Eye-Both BID 09/20/23 10/23/23 History ergocalciferol (vitamin D2) 1,250 1,250 mcg PO WEEKLY 09/20/23 10/23/23 History mcg (50,000 unit) capsule lisinopril 40 mg tablet 40 mg PO DAILY 09/20/23 10/23/23 History ranolazine 500 mg tablet,extended 500 mg PO BID 09/20/23 10/23/23 History release,12 hr clopidogrel 75 mg tablet 75 mg PO DAILY 10/23/23 10/23/23 History ezetimibe 10 mg-simvastatin 20 mg 1 tab PO HS 10/23/23 10/23/23 History tablet insulin glargine 100 unit/mL (3 22 unit SQ HS 10/23/23 10/23/23 History mL) subcutaneous pen (Lantus Solostar U-100 Insulin) lidocaine 5 % topical patch 2 patch transdermal DAILY 10/23/23 10/23/23 History oxybutynin chloride 5 mg tablet 5 mg PO HS 10/23/23 10/23/23 History tramadol 50 mg tablet 50 mg PO Q8HP PRN Moderate Pain 10/23/23 10/23/23 History (Scale Score 5-6) New Prescriptions to Start Prescriptions: Allergies Allergy/AdvReac Type Severity Reaction Status Date / Time Iodinated Contrast Media Allergy Mild Rash Verified 10/23/23 14:12 Exam Data for Last 24 hours Vital signs and Labs for Last 24 Hours: Temp Pulse Resp BP Pulse Ox O2 Del Method O2 Flow Rate 98 F 60 16 154/64 H 97 Nasal Cannula 2 10/23/23 15:46 10/23/23 16:00 10/23/23 15:46 10/23/23 15:46 10/23/23 15:46 10/23/23 15:50 10/23/23 15:50 Laboratory Results - last 24 hr 10/23/23 12:15: WBC 7.6, RBC 4.10 L, Hgb 12.2, Hct 40.2, MCV 98.0, MCH 29.7, MCHC 30.3 L, RDW 14.6, Plt Count 321, MPV 8.4, Neut % (Auto) 76.1, Lymph % (Auto) 15.2, Sac % (Auto) 6.2, Eos % (Auto) 1.5, Baso % (Auto) 0.9, Neut # (Auto) 5.8, Lymph # (Auto) 1.2, Sac # (Auto) 0.5, Eos # (Auto) 0.1, Baso # (Auto) 0.1, D-Dimer 0.71 H, Sodium 136, Potassium 4.4, Chloride 100, Carbon Dioxide 27, Anion Gap 13.4, BUN 19 H, Creatinine 1.20 H, Estimated Creat Clear 54, Estimated GFR 44 L, Est GFR ( Amer) 53 L, Glucose 187 H, Calcium 9.2, Total Bilirubin 0.6, AST 33, ALT 15, Alkaline Phosphatase 25 L, Troponin I < 0.01, NT-Pro-B Natriuret Pep 1190 H, Total Protein 6.8, Albumin 3.9, Globulin 2.9, Albumin/Globulin Ratio 1.3 10/23/23 15:45: Troponin I < 0.01 10/23/23 15:57: POC Glucose 159 H I & O for Last 24 hours: Intake & Output 10/20/23 10/21/23 10/22/23 10/23/23 23:59 23:59 23:59 23:59 Intake Total 250 / 250 Balance 250 / 250 Weight 78.188 kg Constitutional Constitutional: no acute distress *Routine HEENT Exam Head: Present normocephalic Eye: Present EOMI and PERRL ENT: Present mucous membranes moist *Routine Neck Exam Neck: Present supple; Absent lymphadenopathy *Routine Respiratory Exam Respiratory: Present CTA bilaterally *Routine Cardiovascular Exam Cardiovascular: Present RRR *Routine Abdominal Exam Abdominal: Present soft and normoactive bowel sounds; Absent tenderness *Routine Rectal Exam Rectal:: deferred *Routine Genitalia Exam Genitalia:: deferred *Routine Extremities Exam Extremities: Absent cyanosis, clubbing or edema *Routine Skin Exam Skin: Present warm; Absent rash *Routine Neurological Exam Neurological: Present alert and oriented X3 Assessment and Plan *Assessment and plan (1) Unstable angina: Status: Acute Category: Medical Code(s): I20.0 - Unstable angina (2) Acute hypoxic respiratory failure: Status: Acute Category: Medical Code(s): J96.01 - Acute respiratory failure with hypoxia (3) Hypertension: Status: Chronic Category: Medical Code(s): I10 - Essential (primary) hypertension (4) CAD (coronary artery disease): Status: Acute Qualifiers: Associated angina: unspecified whether angina present Coronary Disease-Associated Artery/Lesion type: unspecified vessel or lesion type [place] vs. transplanted heart: [place] heart Qualified Code(s): I25.10 - Atherosclerotic heart disease of [place] coronary artery without angina pectoris Category: Medical Code(s): I25.10 - Atherosclerotic heart disease of [place] coronary artery without angina pectoris (5) Diabetes mellitus: Status: Acute Qualifiers: Diabetes mellitus complication status: with other specified complication Diabetes mellitus halfway insulin use: with watermelon inspector use Diabetes mellitus type: type 2 Qualified Code(s): E11.69 - Type 2 diabetes mellitus with other specified complication; Z79.4 - watermelon inspector (current) use of insulin Category: Medical Code(s): E11.9 - Type 2 diabetes mellitus without complications (6) HLD (hyperlipidemia): Status: Acute Qualifiers: Hyperlipidemia type: unspecified Qualified Code(s): E78.5 - Hyperlipidemia, unspecified Category: Medical Code(s): E78.5 - Hyperlipidemia, unspecified Plan Patient is a 73-year-old female with past medical history of hypertension diabetes mellitus hyperlipidemia COPD who presents to the hospital due to concern for chest pains. Patient complains of intermittent chest pain left side of the chest. Patient's chest pain is improved after nitroglycerin. Patient otherwise denied shortness of breath nausea vomiting diarrhea constipation dysuria. Patient denies any active chest complaints at this time. Assessment and plan Chest pain, rule out ACS Monitor on cardiac photonics engineer troponin Consult cardiology Check echocardiogram Cardiology ordered CTA chest to rule out PE, patient is allergic to contrast, patient was premedicated Acute hypoxic respiratory failure satting less than 90% on room air Wean oxygen as tolerated DuoNebs as needed Await CTA chest CKD stage 2 - Monitor Hypertension Hyperlipidemia Resume home statin, home BP meds Diabetes mellitus Insulin sliding scale DVT PPx - Heparin
[2023-10-23] MEDS: METHYLPREDNISOLONE SOD SUCC 125MG VIAL 60 MG IV (17:24)
[2023-10-23] MEDS: METHYLPREDNISOLONE SOD SUCC 125MG VIAL 65 MG IV (17:24)
[2023-10-23] MEDS: diphenhydrAMINE 50MG/ML VIAL 25 MG IV ×2 (17:25→17:26)
[2023-10-23] MEDS: humaLOG 100 UNITS/ML 10ML VIAL (SSI) SQ (17:26)
[2023-10-23] MEDS: TRAMADOL 50MG TABLET 50 MG PO (17:47)
--- NOTE | 2023-10-23 18:32 | PC.NURSE ---
Radiology called and made aware that the patient has benadryl 50 mg iv scheduled at 20:[address] per their stated protocol.
[2023-10-23 19:26] LABS: Troponin I < 0.01 ng/ml (0.00-0.034)
[2023-10-23] MEDS: diphenhydrAMINE 50MG/ML VIAL 50 MG IV (20:40)
[2023-10-23] MEDS: CARVEDILOL 12.5MG TABLET 12.5 MG PO (20:58)
[2023-10-23] MEDS: OXYBUTYNIN 5MG TAB 5 MG PO (20:58)
[2023-10-23] MEDS: RANOLAZINE 500MG ER TABLET 500 MG PO (20:58)
[2023-10-23] MEDS: TRAZODONE 50MG TABLET 100 MG PO (20:58)
[2023-10-23] MEDS: PANTOPRAZOLE 40MG TABLET 40 MG PO (20:58)
--- NOTE | 2023-10-23 21:12 | PC.NURSE ---
Patient left floor with Radiology at this time.
[2023-10-23 21:13] LABS: POC Glucose,Bedside 133 (70-110)
--- NOTE | 2023-10-23 21:25 | PC.NURSE ---
Patient returned from Radiology at this time.
[2023-10-23] MEDS: IOPAMIDOL-370 (76%);100ML BOTTLE 70 ML IV (21:26)
[2023-10-23] MEDS: 0.9 % SODIUM CHLORIDE 50 ML VIAL IV (21:26)
[2023-10-23] MEDS: SODIUM CHLORIDE 0.9% 10ML SYR (RAD ONLY) 10 ML IV (21:26)
[2023-10-23] MEDS: ENOXAPARIN 100MG/ML SYRINGE 80 MG SQ (22:10)
[2023-10-23] MEDS: ACETAMINOPHEN 325MG TAB 650 MG PO (22:24)
[2023-10-23 23:22] LABS: Troponin I < 0.01 ng/ml (0.00-0.034)
[2023-10-24] VITALS: BP 161/72; PULSE 62; PULSE 66; RESP 18; TEMP 36.7; O2SAT 92
[2023-10-24] MEDS: ONDANSETRON 4MG/2ML VIAL 4 MG IV (00:46)
[2023-10-24] MEDS: TRAMADOL 50MG TABLET 50 MG PO ×2 (00:47→08:51)
[2023-10-24 04:00] VITALS: BP 148/82; PULSE 68; PULSE 73; RESP 18; TEMP 36.7; O2SAT 92; BMI 29.8
[2023-10-24] MEDS: humaLOG 100 UNITS/ML 10ML VIAL (SSI) SQ (06:05)
[2023-10-24 06:06] LABS: POC Glucose,Bedside 236 (70-110)
--- NOTE | 2023-10-24 06:53 | PC.NURSE ---
Patient has slept intermittently thus far in shift. Patient remains A/O x4. Patient is wearing 2L O2 per NC with O2 sats 92-95%. Patient has been using bathroom/BSC to void with standby assist. Patient has c/o of pain to lower back where she had shingles. Medicated per JUL with relief. Bed alarm on for safety, call light within reach.
[2023-10-24 06:59] LABS: Basophils % 0.3 % (0.1-2.0); Eosinophils % 0.1 % (0.1-12.0); Hematocrit 37.5 % (37.0-47.0); Hemoglobin 11.6 g/dL (12.2-16.2); Lymphocytes # 0.8 K/mm3 (0.7-4.5); Lymphocytes % 10.5 % (10-50); Mean Corpuscular Hemoglobin 29.5 pg (27.0-31.2); Mean Corpuscular Volume 95.3 fl (81-99); Mean Platelet Volume 8.5 fl (7.4-10.4); Monocytes # 0.1 K/mm3 (0.1-1.0); Monocytes % 1.4 % (1.7-9.3); Neutrophils # 6.6 K/mm3 (1.8-7.8); Neutrophils % 87.7 % (37.0-80.0); Platelet Count 318 K/mm3 (142-424); Red Blood Count 3.93 M/mm3 (4.20-5.40); Red Cell Distribution Width 14.6 % (11.5-17.5); White Blood Count 7.5 K/mm3 (4.8-10.8)
[2023-10-24 07:00] LABS: MANUAL DIFFERENTIAL MANUAL DIFFERENTIAL (MANUAL DIFF)
[2023-10-24 07:01] LABS: Chloride 98 mmol/L (98-107); Sodium 130 mmol/L (136-145)
[2023-10-24 07:04] LABS: Blood Urea Nitrogen 20 mg/dl (7-17); Carbon Dioxide 23 mmol/L (22.0-30.0); Creatinine Clearance Estimated 58 mL/min (50-200); Estimated Glomerular Filt Rate 49 ml/min (>60); GFR (African American) 59 ML/MIN (>60); Glucose 236 mg/dl (74-100)
[2023-10-24 07:43] VITALS: BP 117/54; PULSE 67; RESP 16; TEMP 37; O2SAT 91
[2023-10-24 08:00] VITALS: PULSE 60
[2023-10-24 08:26] LABS: Lymphocytes % 6 % (10-50); Monocytes % 1 % (2-9); Neutrophils % 93 % (42-76); Platelet Estimate Normal; RBC Morphology Normal; Total Cells Counted 100
[2023-10-24] MEDS: minoxidiL 10 MG TABLET 5 MG PO (08:51)
--- NOTE | 2023-10-24 08:51 | CA_ITS ---
FINAL REPORT CLINICAL HISTORY: PE, Hx-superficial SVT COMPARISON: None FINDINGS: Color Doppler, duplex Doppler and compression sonography of the bilateral lower extremities was performed. There is no evidence of deep venous thrombosis from the level of the groin to the calf. The deep veins are patent and compressible. IMPRESSION: No evidence of deep venous thrombosis bilateral lower extremities. Reviewed, Interpreted and Dictated by Shane Lambert III, MD Transcribed by Snehal Terrell Authenticated and [facility]
[2023-10-24] MEDS: FENOFIBRATE 134MG CAPSULE 134 MG PO (08:52)
[2023-10-24] MEDS: VENLAFAXINE XR 75MG CAPSULE 150 MG PO (08:52)
[2023-10-24] MEDS: ERGOCALCIFEROL 50,000 UNITS (1.25MG) CAPSULE 50000 UNIT PO (08:53)
[2023-10-24] MEDS: HYDRALAZINE HCL 25MG TABLET 100 MG PO (08:53)
[2023-10-24] MEDS: LISINOPRIL 20MG TABLET 40 MG PO (08:53)
[2023-10-24] MEDS: ENOXAPARIN 80MG/0.8ML SYRINGE 80 MG SQ (08:54)
[2023-10-24] MEDS: CARVEDILOL 12.5MG TABLET 12.5 MG PO (08:58)
[2023-10-24] MEDS: RANOLAZINE 500MG ER TABLET 500 MG PO (08:58)
[2023-10-24] MEDS: PANTOPRAZOLE 40MG TABLET 40 MG PO (08:58)
--- NOTE | 2023-10-24 09:26 | EXP.CARD.PN ---
Subjective Subjective Date: 10/24/23 Time: 09:26 Interval history: CTA overnight revealed RLL semental PE. Troponin trended flat/neg. O2 status improving overnight. Pt denies current symptoms. Denies personal or family hx of VTE. Denies recent trauma and venous stasis. Exam Data for Last 24 hours Vital signs and Labs for Last 24 Hours: Temp Pulse Resp BP Pulse Ox O2 Del Method O2 Flow Rate 98.6 F 67 16 117/54 L 91 L Nasal Cannula 1 10/24/23 07:43 10/24/23 07:43 10/24/23 07:43 10/24/23 07:43 10/24/23 07:43 10/24/23 07:43 10/24/23 07:43 Laboratory Results - last 24 hr 10/23/23 12:15: WBC 7.6, RBC 4.10 L, Hgb 12.2, Hct 40.2, MCV 98.0, MCH 29.7, MCHC 30.3 L, RDW 14.6, Plt Count 321, MPV 8.4, Neut % (Auto) 76.1, Lymph % (Auto) 15.2, [place] % (Auto) 6.2, Eos % (Auto) 1.5, Baso % (Auto) 0.9, Neut # (Auto) 5.8, Lymph # (Auto) 1.2, [place] # (Auto) 0.5, Eos # (Auto) 0.1, Baso # (Auto) 0.1, D-Dimer 0.71 H, Sodium 136, Potassium 4.4, Chloride 100, Carbon Dioxide 27, Anion Gap 13.4, BUN 19 H, Creatinine 1.20 H, Estimated Creat Clear 54, Estimated GFR 44 L, Est GFR ( Amer) 53 L, Glucose 187 H, Calcium 9.2, Total Bilirubin 0.6, AST 33, ALT 15, Alkaline Phosphatase 25 L, Troponin I < 0.01, NT-Pro-B Natriuret Pep 1190 H, Total Protein 6.8, Albumin 3.9, Globulin 2.9, Albumin/Globulin Ratio 1.3 10/23/23 15:45: Troponin I < 0.01 10/23/23 15:57: POC Glucose 159 H 10/23/23 18:34: Troponin I < 0.01 10/23/23 20:56: POC Glucose 133 H 10/23/23 22:50: Troponin I < 0.01 10/24/23 05:59: POC Glucose 236 H 10/24/23 06:00: WBC 7.5, RBC 3.93 L, Hgb 11.6 L, Hct 37.5, MCV 95.3, MCH 29.5, MCHC 31.0 L, RDW 14.6, Plt Count 318, MPV 8.5, Neut % (Auto) 87.7 H, Lymph % (Auto) 10.5, [place] % (Auto) 1.4 L, Eos % (Auto) 0.1, Baso % (Auto) 0.3, Neut # (Auto) 6.6, Lymph # (Auto) 0.8, [place] # (Auto) 0.1, Eos # (Auto) 0.0, Baso # (Auto) 0.0, Total Counted 100, Neutrophils % (Manual) 93 H, Lymphocytes % (Manual) 6 L, Monocytes % (Manual) 1 L, Platelet Estimate Normal, RBC Morphology Normal, Sodium 130 L, Potassium 4.0, Chloride 98, Carbon Dioxide 23, Anion Gap 13.0, BUN 20 H, Creatinine 1.10 H, Estimated Creat Clear 58, Estimated GFR 49 L, Est GFR ( Amer) 59, Glucose 236 H D, Calcium 9.0 I & O for Last 24 hours: Intake & Output 10/21/23 10/22/23 10/23/23 10/24/23 23:59 23:59 23:59 23:59 Intake Total 730 / 730 120 / 120 Output Total 0 / 0 950 / 950 Balance 730 / 730 -830 / -830 Weight 172 lb 6 oz 179 lb 4.8 oz Constitutional Constitutional: no acute distress and cooperative *Routine HEENT Exam Eye: Present PERRL *Routine Respiratory Exam Respiratory: Present CTA bilaterally; Absent accessory muscle use, wheezes or crackles Comments: on 1L O2 nasal canula *Routine Cardiovascular Exam Cardiovascular: Present RRR, Normal S1 and Normal S2; Absent murmur, gallop or rubs *Routine Abdominal Exam Abdominal: Present soft; Absent tenderness *Routine Extremities Exam Extremities: Present pulses intact; Absent cyanosis or edema *Routine Skin Exam Skin: Present intact; Absent erythema or wounds *Routine Neurological Exam Neurological: Present alert and oriented X3 Routine Psychiatric Exam Psychiatric: Present cooperative Progress Note: A&P Assessment and plan (1) Acute pulmonary embolism: Status: Acute (2) Acute hypoxic respiratory failure: Status: Acute (3) Hypertension: Status: Chronic (4) CAD (coronary artery disease): Status: Acute (5) Diabetes mellitus: Status: Acute (6) HLD (hyperlipidemia): Status: Acute Assessment and Plan Assessment and Plan for All Diagnoses:: Acute RLL Segmental PE - new dx this admission with hypoxia, chest pain, elevated d-dimer, and pos CTA - pt denies recent trauma/venous stasis and no fam hx of coagulopathy - she has a renal lesion which may need closer evaluation and recent GI bleeding (believed secondary to acute GI illness) - ECHO here shows normal LV function, no WMA, no sig valve dz - she needs cancerous etiologies ruled out, will refer her to see Dr. Kebede outpatient - change Lovenox to treatment dose Eliquis - 10mg BID for 7 days then 5mg BID CAD with Angina Pectoris - CP relieved with Ntg in setting of acute PE and hypoxia - trop trended normal and EKG shows no ischemic changes - change ASA to Eliquis and continue BB and statin - ECHO here shows normal LV function, no WMA, no sig valve dz - recommend outpatient ischemic workup Acute Hypoxic Respiratory Failure - on 2L O2 here - in setting of acute PE - Hospitalist also states she has PNA and is starting antibiotics Htn - well controlled - cont home meds IDDM - well controlled - cont home meds Hx of GI Bleed - 09/2023 secondary to food poisoning per pt - stable H/H - discussed risks/benefits of OAC with patient and she is agreeable to proceed Left Renal Mass - 2cm, no changes per pt - will refer to Dr. Kebede with Hem/Onc as outpatient 10/23 CV Summary: Pt is CV stable for DC home. She needs OP f/u with Dr. Kebede for PE and cancer screening and needs f/u with either us or her usual [facility] in [place] in about 2 weeks. CV DC Meds Changes: -DC ASA -Start Eliquis 10mg BID x7 days then 5mg BID -Continue Simvastatin-Ezetemibe -Continue hydralazine 100 mg 3 times daily -Continue lisinopril 40 mg daily -Continue nebivolol 10 mg daily -Continue ranolazine 500 mg twice daily -Continue verapamil 360 mg daily
[2023-10-24 09:31] VITALS: O2SAT 69
--- NOTE | 2023-10-24 09:33 | PC.NURSE ---
RESP CARE NOTE: Pt on room air just returning from rest room, and SPO2 at 68% on room air. Oxygen replaced at 2 lpm, SPO2 increased to 93% on 2 lpm with rest on bedside. Will continue to monitor patient.
--- NOTE | 2023-10-24 10:15 | HMH.OTEV ---
OT Inpatient Evaluation Rehab OT IP Evaluation Start: 10/24/23 09:15 Freq: ONCE Status: Active Protocol: Document 10/24/23 10:03 [place] (Rec: 10/24/23 10:14 [facility] [id number]) Rehab OT IP Assessment Subjective History Pt oriented x 3 on arrival. Pt admitted on 10/23/23 due to hypoxia and heart failure. History and physical: Patient is a 73-year-old female with past medical history of hypertension diabetes mellitus hyperlipidemia COPD who presents to the hospital due to concern for chest pains. Patient complains of intermittent chest pain left side of the chest. Patient's chest pain is improved after nitroglycerin. Patient otherwise denied shortness of breath nausea vomiting diarrhea constipation dysuria. Patient denies any active chest complaints at this time. Subjective I couldn't catch my breath. Prior to being in the hospital , pt lived at home alone. Pt claims normally she is independent with all ADLs and most IADLs. She is able to cook small meals and do light cleaning, but she does have someone come weekly to deep clean. Pt no longer drives. She uses a rolling walker or cane during functional mobility tasks. Pt in restroom on arrival. Pt able to complete sit to stand from toilet with sba and grab bars. Pt independent with toileting hygiene and lower body dressing to pull up brief . Pt transferred to sink with sba and cane. Pt able to stand at sink for ~2 minutes with good dynamic standing balance and sba to complete hand washing. Pt demonstrated good activity tolerance with no LOB noted. Pt transferred from restroom to eob with sba and cane. Pt's o2 checked upon sitting at eob (on room air at this time). Pt's o2 at 69%. Respiratory present and applied 2L of NC O2 and pt's oxygen returned to 90%. Pt left resting at eob with call [place] and all other needs in reach. Objective Patient Orientation Person,Place,Birthday Right Upper Extremity Gross ROM WFL Left Upper Extremity Gross ROM WFL Transfer Training Sit/Stand Transfer Assist Level Supervision/Stand by Chair Transfer Ability Supervision/Stand by Chair Transfer Technique Sit to/from Ambulatory Chair Transfer Assistive Devices Straight Cane Lower Body Dressing Ability Standby Assistance Performing Toilet Hygiene Ability Standby Assistance Overall Commode/Toilet Transfer Ability Standby Assistance Commode/Toilet Transfer Technique Sit to/from Ambulatory Commode/Toilet Transfer Assistive Grab Bars Devices Rehab OT IP prob,goals,plan Problems Date of Evaluation: 10/24/23 Rehab Potential Rehab Potential Innapropriate for Skilled Therapy Discharge Plan OT Discharge Plan Pt appears to be at her baseline with functional transfers and ADL independence . Pt can return home once she is medically stable per physician. Eval Complexity Eval Charge Codes 98500 - Low Complexity PHYSICIAN CERTIFICATION: I certify the specified therapy services for Mary Walker are required, authorized, and reviewed every 30 days.
[2023-10-24] MEDS: APIXABAN 5MG TABLET 5 MG PO (10:31)
--- NOTE | 2023-10-24 11:14 | P.DS_ITS ---
General Admission date:: 10/23/23 Discharge date: 10/24/23 HPI HPI HPI: Patient is a 73-year-old female with past medical history of hypertension diabetes mellitus hyperlipidemia COPD who presents to the hospital due to concern for chest pains. Patient complains of intermittent chest pain left side of the chest. Patient's chest pain is improved after nitroglycerin. Patient otherwise denied shortness of breath nausea vomiting diarrhea constipation dysuria. Patient denies any active chest complaints at this time. Hospital Course Hospital Course Hospital Course: Patient is a 73-year-old female with past medical history of hypertension diabetes mellitus hyperlipidemia COPD who presents to the hospital due to concern for chest pains. Patient complains of intermittent chest pain left side of the chest. Patient's chest pain is improved after nitroglycerin. Patient otherwise denied shortness of breath nausea vomiting diarrhea constipation dysuria. Patient denies any active chest complaints at this time. Assessment and plan Chest pain, rule out ACS Acute hypoxic respiratory failure satting less than 90% on room air, CTA positive for PE, started on eliquis and DC p;avix in the setting of recent GI bleed, follow up with cardiology as OP patient was also noted to have oxygen saturation of 68% on RA, and quickly improves on 2L NC with greater than 96%, patient and family at bedside wishes to be discharged. Patient counseled on follow up appointments and medication compliance. Patient was also started on empirical abx with oral levofloxacin due to suspected PNA as well. On the date of discharge, the patient reported feeling stable. The patient was found not to be in any acute distress, and no new abnormalities on physical examination. Further, the patient expressed appropriate understanding of, and agreement with, the discharge recommendations, medications, and plan. Time spent 37 mins Exam Data for Last 24 hours Vital signs and Labs for Last 24 Hours: Temp Pulse Resp BP Pulse Ox O2 Del Method O2 Flow Rate 98.6 F 60 16 117/54 L 69 L Room Air 1 10/24/23 07:43 10/24/23 08:00 10/24/23 07:43 10/24/23 07:43 10/24/23 09:31 10/24/23 09:31 10/24/23 07:43 Laboratory Results - last 24 hr 10/23/23 12:15: WBC 7.6, RBC 4.10 L, Hgb 12.2, Hct 40.2, MCV 98.0, MCH 29.7, MCHC 30.3 L, RDW 14.6, Plt Count 321, MPV 8.4, Neut % (Auto) 76.1, Lymph % (Auto) 15.2, [place] % (Auto) 6.2, Eos % (Auto) 1.5, Baso % (Auto) 0.9, Neut # (Auto) 5.8, Lymph # (Auto) 1.2, [place] # (Auto) 0.5, Eos # (Auto) 0.1, Baso # (Auto) 0.1, D-Dimer 0.71 H, Sodium 136, Potassium 4.4, Chloride 100, Carbon Dioxide 27, Anion Gap 13.4, BUN 19 H, Creatinine 1.20 H, Estimated Creat Clear 54, Estimated GFR 44 L, Est GFR ( Amer) 53 L, Glucose 187 H, Calcium 9.2, Total Bilirubin 0.6, AST 33, ALT 15, Alkaline Phosphatase 25 L, Troponin I < 0.01, NT-Pro-B Natriuret Pep 1190 H, Total Protein 6.8, Albumin 3.9, Globulin 2.9, Albumin/Globulin Ratio 1.3 10/23/23 15:45: Troponin I < 0.01 10/23/23 15:57: POC Glucose 159 H 10/23/23 18:34: Troponin I < 0.01 10/23/23 20:56: POC Glucose 133 H 10/23/23 22:50: Troponin I < 0.01 10/24/23 05:59: POC Glucose 236 H 10/24/23 06:00: WBC 7.5, RBC 3.93 L, Hgb 11.6 L, Hct 37.5, MCV 95.3, MCH 29.5, MCHC 31.0 L, RDW 14.6, Plt Count 318, MPV 8.5, Neut % (Auto) 87.7 H, Lymph % (Auto) 10.5, [place] % (Auto) 1.4 L, Eos % (Auto) 0.1, Baso % (Auto) 0.3, Neut # (Auto) 6.6, Lymph # (Auto) 0.8, [place] # (Auto) 0.1, Eos # (Auto) 0.0, Baso # (Auto) 0.0, Total Counted 100, Neutrophils % (Manual) 93 H, Lymphocytes % (Manual) 6 L, Monocytes % (Manual) 1 L, Platelet Estimate Normal, RBC Morphology Normal, Sodium 130 L, Potassium 4.0, Chloride 98, Carbon Dioxide 23, Anion Gap 13.0, BUN 20 H, Creatinine 1.10 H, Estimated Creat Clear 58, Estimated GFR 49 L, Est GFR ( Amer) 59, Glucose 236 H D, Calcium 9.0 I & O for Last 24 hours: Intake & Output 10/21/23 10/22/23 10/23/23 10/24/23 23:59 23:59 23:59 23:59 Intake Total 730 / 730 120 / 120 Output Total 0 / 0 950 / 950 Balance 730 / 730 -830 / -830 Weight 78.188 kg 81.329 kg Constitutional Constitutional: no acute distress *Routine HEENT Exam Head: Present normocephalic Eye: Present EOMI and PERRL ENT: Present mucous membranes moist *Routine Neck Exam Neck: Present supple; Absent lymphadenopathy *Routine Respiratory Exam Respiratory: Present CTA bilaterally *Routine Cardiovascular Exam Cardiovascular: Present RRR *Routine Abdominal Exam Abdominal: Present soft and normoactive bowel sounds; Absent tenderness *Routine Extremities Exam Extremities: Absent cyanosis, clubbing or edema *Routine Skin Exam Skin: Present warm; Absent rash *Routine Neurological Exam Neurological: Present alert and oriented X3 Results Data Completed and Pending Labs on day of discharge: Labs from last 24 hours 10/24/23 10/24/23 10/23/23 06:00 05:59 22:50 WBC 7.5 RBC 3.93 L Hgb 11.6 L Hct 37.5 MCV 95.3 MCH 29.5 MCHC 31.0 L RDW 14.6 Plt Count 318 MPV 8.5 Neut % (Auto) 87.7 H Lymph % (Auto) 10.5 [place] % (Auto) 1.4 L Eos % (Auto) 0.1 Baso % (Auto) 0.3 Neut # (Auto) 6.6 Lymph # (Auto) 0.8 [place] # (Auto) 0.1 Eos # (Auto) 0.0 Baso # (Auto) 0.0 Total Counted 100 Neutrophils % (Manual) 93 H Lymphocytes % (Manual) 6 L Monocytes % (Manual) 1 L Platelet Estimate Normal RBC Morphology Normal D-Dimer Sodium 130 L Potassium 4.0 Chloride 98 Carbon Dioxide 23 Anion Gap 13.0 BUN 20 H Creatinine 1.10 H Estimated Creat Clear 58 Estimated GFR 49 L Est GFR ( Amer) 59 Glucose 236 H D POC Glucose 236 H Calcium 9.0 Total Bilirubin AST ALT Alkaline Phosphatase Troponin I < 0.01 NT-Pro-B Natriuret Pep Total Protein Albumin Globulin Albumin/Globulin Ratio 10/23/23 10/23/23 10/23/23 20:56 18:34 15:57 WBC RBC Hgb Hct MCV MCH MCHC RDW Plt Count MPV Neut % (Auto) Lymph % (Auto) [place] % (Auto) Eos % (Auto) Baso % (Auto) Neut # (Auto) Lymph # (Auto) [place] # (Auto) Eos # (Auto) Baso # (Auto) Total Counted Neutrophils % (Manual) Lymphocytes % (Manual) Monocytes % (Manual) Platelet Estimate RBC Morphology D-Dimer Sodium Potassium Chloride Carbon Dioxide Anion Gap BUN Creatinine Estimated Creat Clear Estimated GFR Est GFR ( Amer) Glucose POC Glucose 133 H 159 H Calcium Total Bilirubin AST ALT Alkaline Phosphatase Troponin I < 0.01 NT-Pro-B Natriuret Pep Total Protein Albumin Globulin Albumin/Globulin Ratio 10/23/23 10/23/23 15:45 12:15 WBC 7.6 RBC 4.10 L Hgb 12.2 Hct 40.2 MCV 98.0 MCH 29.7 MCHC 30.3 L RDW 14.6 Plt Count 321 MPV 8.4 Neut % (Auto) 76.1 Lymph % (Auto) 15.2 [place] % (Auto) 6.2 Eos % (Auto) 1.5 Baso % (Auto) 0.9 Neut # (Auto) 5.8 Lymph # (Auto) 1.2 [place] # (Auto) 0.5 Eos # (Auto) 0.1 Baso # (Auto) 0.1 Total Counted Neutrophils % (Manual) Lymphocytes % (Manual) Monocytes % (Manual) Platelet Estimate RBC Morphology D-Dimer 0.71 H Sodium 136 Potassium 4.4 Chloride 100 Carbon Dioxide 27 Anion Gap 13.4 BUN 19 H Creatinine 1.20 H Estimated Creat Clear 54 Estimated GFR 44 L Est GFR ( Amer) 53 L Glucose 187 H POC Glucose Calcium 9.2 Total Bilirubin 0.6 AST 33 ALT 15 Alkaline Phosphatase 25 L Troponin I < 0.01 < 0.01 NT-Pro-B Natriuret Pep 1190 H Total Protein 6.8 Albumin 3.9 Globulin 2.9 Albumin/Globulin Ratio 1.3 DS: Diagnosis Discharge Diagnosis (1) Acute pulmonary embolism: Status: Acute Code(s): I26.99 - Other pulmonary embolism without acute cor pulmonale (2) Acute hypoxic respiratory failure: Status: Acute Code(s): J96.01 - Acute respiratory failure with hypoxia (3) Hypertension: Status: Chronic Code(s): I10 - Essential (primary) hypertension (4) CAD (coronary artery disease): Status: Acute Code(s): I25.10 - Atherosclerotic heart disease of [place] coronary artery without angina pectoris Qualifiers: Coronary Disease-Associated Artery/Lesion type: unspecified vessel or lesion type [place] vs. transplanted heart: [place] heart Associated angina: unspecified whether angina present Qualified Code(s): I25.10 - Atherosclerotic heart disease of [place] coronary artery without angina pectoris (5) Diabetes mellitus: Status: Acute Code(s): E11.9 - Type 2 diabetes mellitus without complications Qualifiers: Diabetes mellitus type: type 2 Diabetes mellitus half-way insulin use: with half-way use Diabetes mellitus complication status: with other specified complication Qualified Code(s): E11.69 - Type 2 diabetes mellitus with other specified complication; Z79.4 - terminal operations supervisor (current) use of insulin (6) HLD (hyperlipidemia): Status: Acute Code(s): E78.5 - Hyperlipidemia, unspecified Qualifiers: Hyperlipidemia type: unspecified Qualified Code(s): E78.5 - Hyperlipidemia, unspecified Meds Home Medications and Allergies Home Medications Medication Instructions Recorded Confirmed Type hydralazine 100 mg tablet 100 mg PO TID 06/05/18 10/23/23 History pantoprazole 40 mg tablet,delayed 40 mg PO BID 06/05/18 10/23/23 History release minoxidil 2.5 mg tablet 5 mg PO HS 08/27/20 10/23/23 History nebivolol 10 mg tablet 10 mg PO DAILY 08/27/20 10/23/23 History fenofibrate nanocrystallized 145 145 mg PO HS 08/28/20 10/23/23 History mg tablet trazodone 50 mg tablet 100 mg PO HS 03/15/22 10/23/23 History verapamil 360 mg 24 hr 360 mg PO HS 03/15/22 10/23/23 History capsule,extended release venlafaxine 75 mg capsule,extended 150 mg PO DAILY Depression 03/16/22 10/23/23 History release 24 hr acetaminophen 500 mg tablet 1,000 mg PO Q8HP PRN Mild Pain 09/20/23 10/23/23 History (Scale Score 1-4) dorzolamide 2 % eye drops 1 drp Eye-Both BID 09/20/23 10/23/23 History ergocalciferol (vitamin D2) 1,250 1,250 mcg PO WEEKLY 09/20/23 10/23/23 History mcg (50,000 unit) capsule lisinopril 40 mg tablet 40 mg PO DAILY 09/20/23 10/23/23 History ranolazine 500 mg tablet,extended 500 mg PO BID 09/20/23 10/23/23 History release,12 hr ezetimibe 10 mg-simvastatin 20 mg 1 tab PO HS 10/23/23 10/23/23 History tablet insulin glargine 100 unit/mL (3 22 unit SQ AM 10/23/23 10/24/23 History mL) subcutaneous pen (Lantus Solostar U-100 Insulin) lidocaine 5 % topical patch 2 patch transdermal DAILY 10/23/23 10/23/23 History oxybutynin chloride 5 mg tablet 5 mg PO HS 10/23/23 10/23/23 History tramadol 50 mg tablet 50 mg PO Q8HP PRN Moderate Pain 10/23/23 10/23/23 History (Scale Score 5-6) apixaban 5 mg (74 tabs) tablets in 5 mg PO BID #74 tabs 10/24/23 Rx a dose pack (Eliquis DVT-PE Treat 30D Start) levofloxacin 750 mg tablet 750 mg PO DAILY 7 days #7 tabs 10/24/23 Rx pantoprazole 40 mg tablet,delayed 40 mg PO DAILY #30 tabs 10/24/23 Rx release (Protonix) New Prescriptions to Start Prescriptions: apixaban [Eliquis DVT-PE Treat 30D Start] Luz De La Cruz levofloxacin Jono,Luz pantoprazole [Protonix] Jono,Luz Allergies Allergy/AdvReac Type Severity Reaction Status Date / Time Iodinated Contrast Media Allergy Mild Rash Verified 10/23/23 14:12 Discharge Plan Disposition Patient Disposition: Home, Self-Care Condition: Good Follow up Plan Follow up with: Taylor Bazzi APRN [Nurse Practitioner] - 10/31/23 1:30 pm Jaxson Ken MD [Primary Care Provider] - 11/01/23 12:00 pm Prescriptions/Medication Reconciliation: New pantoprazole [Protonix] 40 mg tablet,delayed release (DR/EC) 40 mg PO DAILY Qty: 30 0RF Eliquis DVT-PE Treat 30D Start 5 mg (74 tabs) tablets,dose pack 5 mg PO BID Qty: 74 0RF levofloxacin 750 mg tablet 750 mg PO DAILY 7 Days Qty: 7 0RF Continued pantoprazole 40 MG tablet,delayed release (DR/EC) 40 mg PO BID hydralazine 100 MG tablet 100 mg PO TID minoxidil 2.5 MG tablet 5 mg PO HS nebivolol 10 MG tablet 10 mg PO DAILY fenofibrate nanocrystallized 145 MG tablet 145 mg PO HS acetaminophen 500 mg Tablet 1,000 mg PO Q8HP PRN (Reason: Mild Pain (Scale Score 1-4)) lisinopril 40 mg tablet 40 mg PO DAILY Patient Comments: TAKE 1 TABLET BY MOUTH DAILY dorzolamide 2 % drops 1 drp Eye-Both BID Patient Comments: INSTILL ONE DROP INTO BOTH EYES TWICE DAILY ranolazine 500 mg tablet extended release 12 hr 500 mg PO BID Patient Comments: TAKE 1 TABLET BY MOUTH TWICE DAILY ergocalciferol (vitamin D2) 1,250 mcg (50,000 unit) capsule 1,250 mcg PO WEEKLY Patient Comments: TAKE 1 CAPSULE BY MOUTH EVERY 7 DAYS verapamil 360 mg capsule,ext rel. pellets 24 hr 360 mg PO HS trazodone 50 mg tablet 100 mg PO HS venlafaxine 75 mg capsule,extended release 24hr 150 mg PO DAILY tramadol 50 mg tablet 50 mg PO Q8HP PRN (Reason: Moderate Pain (Scale Score 5-6)) Patient Comments: TAKE 1 TABLET BY MOUTH EVERY 8 HOURS NEEDED FOR MODERATE PAIN lidocaine 5 % adhesive patch,medicated 2 patch transdermal DAILY Patient Comments: PLACE 2 PATCHES ON TOP OF THE SKIN ONCE DAILY FOR 12 HOURS DIRECTED THEN REMOVE AND DISCARD oxybutynin chloride 5 mg tablet 5 mg PO HS Patient Comments: TAKE 1 TABLET BY MOUTH EVERY NIGHT AT BEDTIME ezetimibe-simvastatin 10-20 mg tablet 1 tab PO HS Patient Comments: TAKE 1 TABLET BY MOUTH EVERY NIGHT insulin glargine [Lantus Solostar U-100 Insulin] 100 unit/mL (3 mL) insulin pen 22 unit SQ AM Patient Comments: ADMINISTER 22 UNITS UNDER THE SKIN EVERY NIGHT DIRECTED Other Ambulatory Orders: Home Medical Equipment (Routine) Location: None Selected Ordered By: Luz De La Cruz Problem Reconciliation Problems Reviewed?: Yes Patient Discharge Instructions ACTIVITY: Ambulate as tolerated DIET: continue same diet Patient Instructions: DI for Chronic Obstructive Pulmonary Disease, DI for Pulmonary Embolism, DI for Chest Pain, DI for Respiratory Failure Providers Primary Care Provider: Jaxson Ken Admit Provider: Luz De La Cruz Attending Provider: Luz De La Cruz
--- NOTE | 2023-10-24 11:53 | HMH.PTEV ---
Physical Therapy Evaluation Rehab PT IP Evaluation Start: 10/24/23 09:15 Freq: ONCE Status: Active Protocol: Document 10/24/23 11:49 JANIS (Rec: 10/24/23 11:53 JANIS [id number]) Subjective/History History History 73 yowf adm to [facility] with hypoxia and heart failure. PMH of hypertension, diabetes mellitus, hyperlipidemia, COPD . She reports she lives alone, [address] Y[address] the home, and she is generally independent with all ambulation using a RW. Subjective Subjective Pt currently reports no c/o and agrees to mobility assessment. New diagnosis of cancer in past 12 No months? Rehab PT IP Eval Objective Appearance Patient Behavior Appropriate Patient Orientation Person,Place,Time Difficulty following instructions none Speech Pattern Clear Ambulation Patient Able to Ambulate Yes Ambulation Observation IP General Gait Pattern Observation No Deviations/Normal Ambulation Distance (feet) 30 Ambulation Assistive Device Rolling Walker Ambulation Ability Independent Balance Ability to Arise Able, uses arms to help Sitting Balance Steady, safe Standing Balance Steady, wide stance Dynamic Standing Balance Ability Good Transfers Bed Transfer Ability Supervision/Stand by Chair Transfer Ability Independent Sit to Stand Bed Transfer Ability Independent Sit to Stand Chair Transfer Ability Independent Rehab PT IP prob,goals,plan Problems Date of Evaluation: 10/24/23 Discharge Plan PT Discharge Plan Pt is currently at baseline for all mobility and is appropriate to return home once medically stable for d/c. No current inpatient therapy needs. Eval Complexity Eval Charge Codes 20444 - High Complexity PHYSICIAN CERTIFICATION: I certify the specified therapy services for Mary Walker are required, authorized, and reviewed every 30 days.
--- NOTE | 2023-10-25 15:20 | CARE MANAGER ---
Called and spoke with patient regarding recent discharge. She stated that she is doing well today, has started new medication and was aware of scheduled f/u appts. She was needing to reschedule cardiology appt, so I transferred her to Mary in Cardiology office to make that change.
== END 2023-10-24 13:03 | disposition home or self-care (01) ==
LOC: ER 12:42 → 2ND 14:04
PROVIDERS: Admitting Provider Internal Medicine; Emergency Provider Student in an Organized Health Care Education/Training Program; PCP Family Medicine; Visit Provider Internal Medicine
DX: J96.01 Acute respiratory failure with hypoxia; I10 Essential (primary) hypertension; I25.110 Atherosclerotic heart disease of native coronary artery with unstable angina pectoris; E11.69 Type 2 diabetes mellitus with other specified complication; Z79.4 Long term (current) use of insulin; E78.5 Hyperlipidemia, unspecified; J44.9 Chronic obstructive pulmonary disease, unspecified; I26.99 Other pulmonary embolism without acute cor pulmonale; Z87.19 Personal history of other diseases of the digestive system; Z79.899 Other long term (current) drug therapy; Z87.891 Personal history of nicotine dependence; Z95.5 Presence of coronary angioplasty implant and graft; J18.9 Pneumonia, unspecified organism
CPT/HCPCS: 36415; 71045; 71275; 80048; 80053; 82962; 83880; 84484; 85007; 85025; 85378; 93005; 93306; 93970; 94760; 94761; 97163; 97165; 99291; G0378; J1650; J2405; J2930; Q9967

== ENCOUNTER 2023-11-27 12:08 | Outpatient (CLI) | payer MEDICARE, SELFPAY ==
--- NOTE | 2023-11-27 12:16 | XR_ITS ---
FINAL REPORT CLINICAL HISTORY: BLOOD CLOT IN LUNG COMPARISON: 10/24/2023 FINDINGS: PA and lateral views of the chest are obtained. There is no prior exam for comparison. The cardiac and mediastinal silhouettes are within normal limits. The lungs are clear. There is no pleural effusion, pneumothorax, or acute osseous abnormality. IMPRESSION: No radiographic evidence of acute cardiac or pulmonary disease. Reviewed, Interpreted and Dictated by Berenice Knowles MD Transcribed by Snehal Terrell Authenticated and [facility]
== END 2023-11-27 23:59 | disposition home or self-care (01) ==
LOC: RAD 12:10
PROVIDERS: PCP Family Medicine; Visit Provider Internal Medicine Medical Oncology
DX: I26.99 Other pulmonary embolism without acute cor pulmonale (principal)
CPT/HCPCS: 71046

== ENCOUNTER 2024-01-07 09:34 | Emergency (ER) | payer MEDICARE, SELFPAY ==
[2024-01-07 10:10] VITALS: BP 121/43; PULSE 63; RESP 18; TEMP 37.1; O2SAT 96; BMI 29.7
[2024-01-07 10:21] LABS: UTC Strep Screen (Rapid) Negative (Negative)
--- NOTE | 2024-01-07 10:23 | EXP.UTC ---
Discharge Plan Disposition Patient Disposition: Home, Self-Care Condition: Good Prescriptions Prescriptions: No Action nitroglycerin [Nitrostat] 0.4 mg tablet, sublingual 0.4 mg sublingual Q5-15M PRN Rx Instructions: do not exceed 3 doses per episode latanoprost 0.005 % drops 1 drp Eye-Both HS Patient Comments: INSTILL 1 DROP INTO BOTH EYES EVERY NIGHT AT BEDTIME ondansetron 8 mg tablet,disintegrating 8 mg PO Q8H PRN Patient Comments: DISSOLVE 1 TABLET ON THE TONGUE EVERY 8 HOURS NEEDED FOR NAUSEA OR VOMITING oxybutynin chloride 10 mg tablet extended release 24hr PO Patient Comments: TAKE 1 TABLET BY MOUTH DAILY (DME) Accu-Chek Guide test strips Strip See Rx Instructions .ROUTE .MEDSUPPLY Qty: 10 Patient Comments: USE TO CHECK BLOOD SUGAR 3 TIMES DAILY Rx Instructions: As directed (DME) pen needle, diabetic [BD Colette 2nd Gen Pen Needle] 32 gauge x 5/32 needle See Rx Instructions .ROUTE .MEDSUPPLY Qty: 1200 Patient Comments: USE DIRECTED ONCE DAILY Rx Instructions: As directed apixaban 5 mg tablet 5 mg PO BID Qty: 60 2RF pantoprazole 40 MG tablet,delayed release (DR/EC) 40 mg PO BID hydralazine 100 MG tablet 100 mg PO TID minoxidil 2.5 MG tablet 5 mg PO HS nebivolol 10 MG tablet 10 mg PO DAILY fenofibrate nanocrystallized 145 MG tablet 145 mg PO HS acetaminophen 500 mg Tablet 1,000 mg PO Q8HP PRN (Reason: Mild Pain (Scale Score 1-4)) lisinopril 40 mg tablet 40 mg PO DAILY Patient Comments: TAKE 1 TABLET BY MOUTH DAILY dorzolamide 2 % drops 1 drp Eye-Both BID Patient Comments: INSTILL ONE DROP INTO BOTH EYES TWICE DAILY ranolazine 500 mg tablet extended release 12 hr 500 mg PO BID Patient Comments: TAKE 1 TABLET BY MOUTH TWICE DAILY ergocalciferol (vitamin D2) 1,250 mcg (50,000 unit) capsule 1,250 mcg PO WEEKLY Patient Comments: TAKE 1 CAPSULE BY MOUTH EVERY 7 DAYS verapamil 360 mg capsule,ext rel. pellets 24 hr 360 mg PO HS trazodone 50 mg tablet 100 mg PO HS venlafaxine 75 mg capsule,extended release 24hr 75 mg PO DAILY tramadol 50 mg tablet 50 mg PO Q8HP PRN (Reason: Moderate Pain (Scale Score 5-6)) Patient Comments: TAKE 1 TABLET BY MOUTH EVERY 8 HOURS NEEDED FOR MODERATE PAIN ezetimibe-simvastatin 10-20 mg tablet 1 tab PO HS Patient Comments: TAKE 1 TABLET BY MOUTH EVERY NIGHT insulin glargine [Lantus Solostar U-100 Insulin] 100 unit/mL (3 mL) insulin pen 22 unit SQ AM Patient Comments: ADMINISTER 22 UNITS UNDER THE SKIN EVERY NIGHT DIRECTED Eliquis DVT-PE Treat 30D Start 5 mg (74 tabs) tablets,dose pack 5 mg PO BID Qty: 74 0RF Referrals Follow up/Referrals: Jaxson Ken MD [Primary Care Provider] - See instructions Activity Restrictions/Add. Instructions Additional Instructions/Restrictions: *Monitor Temp, Over the counter Motrin or Tylenol as directed/as needed Tylenol every 4 hours and Motrin every 6 hours (as long as your family doctor has told you that you can take it) for fever or pain. and straight to ER if unable to lower temp less than 101.0 after medication given *Warm salt water gargles may help to soothe the throat *Throat Lozenges? *Warm fluids like tea with honey may help to soothe the throat? *Sleep elevated *Humidifier/Vaporizer *Your throat swab was sent for culture. Those results are typically sent to your primary care. Be sure to follow up in 2-3 days with your family doctor/primary care physician if no improvement so they can review those result and treat if necessary. If you don?t have a primary care doctor, I recommend you get one but in the mean time, you will have to return to a walk in clinic Follow up IMMEDIATELY for new or worsening symptoms or no Noticeable improvement
[2024-01-07 10:44] VITALS: BP 121/43; PULSE 63; RESP 18; TEMP 37.1; O2SAT 96
== END 2024-01-07 10:45 | disposition home or self-care (01) ==
PROVIDERS: Emergency Provider Nurse Practitioner; PCP Family Medicine
DX: U07.1 COVID-19 (principal); R07.0 Pain in throat; R51.9 Headache, unspecified
CPT/HCPCS: 87635; 87880; 99212; 99213; G0463

== ENCOUNTER 2024-01-30 12:46 | Outpatient (CLI) | payer MEDICARE, SELFPAY ==
[2024-01-30] MEDS: ALBUTEROL 0.083% 2.5 MG/3 ML NEB IH (14:01)
--- NOTE | 2024-01-30 14:40 | CT_ITS ---
FINAL REPORT TECHNIQUE: Axial images were obtained from the lung apex to the mid abdomen by computed tomography. Coronal reformatted images were obtained. This study was performed with techniques to keep radiation doses as low as reasonably achievable, (ALARA). Individualized dose reduction techniques using automated exposure control or adjustment of mA and/or kV according to the patient's size were employed. CLINICAL HISTORY: sob COMPARISON: 10/23/2023 FINDINGS: There are moderate coronary artery calcifications. The heart size is normal. There is no pericardial or pleural effusion. Limited images of the upper abdomen demonstrate a partially exophytic cyst arising from the left kidney. This demonstrates mean attenuation value of 51 Hounsfield units, similar to the prior study, and measures 2.3 cm in diameter. This is consistent with a complex benign cyst. No suspicious infiltrate or nodule identified. Linear scarring is noted in the periphery of the left lower lobe. There has been interval resolution of the previously noted bilateral pleural effusions. IMPRESSION: No acute process. Interval resolution bilateral pleural effusions. Reviewed, Interpreted and Dictated by Zacarias Catalan MD Transcribed by Sheree Souza Authenticated and [facility]
== END 2024-01-30 23:59 | disposition home or self-care (01) ==
LOC: RT 12:47
PROVIDERS: PCP Family Medicine; Visit Provider Internal Medicine Pulmonary Disease
DX: R06.09 Other forms of dyspnea (principal); R91.8 Other nonspecific abnormal finding of lung field
CPT/HCPCS: 71250; 94060; 94618; 94726; 94729; J7613